=== PATIENT | male | born 1935 | race Caucasian/White ===

== ENCOUNTER → 2016-03-25 | Outpatient (CLI) | payer OTHER ==
[~2016-03-25] MED LIST: ASPEC81 PO; FEXO1TAB46 PO; FINA5TAB4 PO; FLUT0.0529; INSU1INJ23 SQ; ISS/10 PO; LISI-461 PO; LPT40 PO; METO50TA16 PO; MULT-884 PO; NTRGSL/4 UT; TAMS0.4C59 PO; TIZA4TAB3 PO
[2016-03-25 11:54] LABS: ALT/SGPT 19 U/L (12-78); CHOLESTEROL 101 mg/dl (0-200); TRIGLYCERIDES 117 mg/dl (0-150); VERY LOW DENSITY LIPOPROT CALC 23 mg/dl
[2016-03-25 12:04] LABS: CHOLESTEROL/HDL RATIO 2.3; HDL CHOLESTEROL 44 mg/dl; LDL CHOLESTEROL CALCULATED 34 mg/dl
[2016-03-25 12:15] LABS: ESTIMATED AVERAGE GLUCOSE 166 mg/dl; HA1C FLAG Normal (Normal)
[2016-03-25 12:26] LABS: RATIO 14.9 mcg/mg (0-30.0)
== END | disposition home or self-care (01) ==
LOC: C.LAB1850 10:28
PROVIDERS: ATTEND Internal Medicine Endocrinology, Diabetes & Metabolism
DX: E11.65 Type 2 diabetes mellitus with hyperglycemia (principal)

== ENCOUNTER → 2016-05-19 | Outpatient (CLI) | payer OTHER ==
[2016-05-19 09:44] LABS: PATIENT HEIGHT 144.8 cm
[2016-05-19 10:24] LABS: HEMATOCRIT 38.1 % (42-52); MEAN CELL VOLUME 94.5 fL (80-100); MEAN CORPUSCULAR HEMOGLOBIN 32.5 pg (25-34); MEAN CORPUSCULAR HGB CONC 34.4 g/dl (32-36); MEAN PLATELET VOLUME 11.2 fL (7.4-10.4); PLATELET COUNT 170 K/uL (130-400); RED BLOOD COUNT 4.03 M/uL (4.7-6.1); WHITE BLOOD COUNT 6.13 K/uL (4.8-10.8)
[2016-05-19 11:02] LABS: URINE APPEARANCE CLEAR (CLEAR); URINE BILIRUBIN NEG (NEG); URINE COLOR YELLOW; URINE EPITHELIAL CELL AUTO 0-5 /lpf (0-5); URINE NITRITE NEG (NEG); URINE SPECIFIC GRAVITY 1.018 (1.000-1.030); UROBILINOGEN NEG (NEG)
[2016-05-19 11:04] LABS: MANUAL MICROSCOPIC REQUIRED? NO; REVIEW REQ? NO
[2016-05-19 11:11] LABS: ALB/GLOB RATIO 1.1 (0.9-2); BUN/CREATININE RATIO 17.2 (10-20); CALCIUM 8.7 mg/dl (8.5-10.1); CREATININE 1.4 mg/dl (0.60-1.40); POTASSIUM 5.2 mmol/L (3.5-5.1); PROSTATE SPECIFIC ANTIGEN 0.898 ng/ml (0.000-4.000)
[2016-05-19 11:15] LABS: URINE PROTIEN/CREAT RATIO 0.1 (0-0.2); URINE TOTAL PROTEIN 5.3 mg/dl (0-11.9)
[2016-05-19 11:22] LABS: BETA-HYDROXYBUTYRATE 0.74 mg/dL (0.2-2.81)
[2016-05-19 11:37] LABS: URINE TOTAL PROTEIN 9.3 mg/dl (0-11.9)
[2016-05-19 11:46] LABS: URINE TOTAL PROTEIN CALC 116.3 mg/24 hr (0-149.1)
[2016-05-19 11:48] LABS: CREATININE 1.4 mg/dl (0.6-1.4)
== END | disposition home or self-care (01) ==
LOC: C.LAB 09:13
PROVIDERS: ATTEND Internal Medicine Nephrology
DX: D64.9 Anemia, unspecified (principal); N18.3 Chronic kidney disease, stage 3 (moderate); E11.9 Type 2 diabetes mellitus without complications; I12.9 Hypertensive chronic kidney disease with stage 1 through stage 4 chronic kidney disease, or unspecified chronic kidney disease; I73.9 Peripheral vascular disease, unspecified; N40.0 Benign prostatic hyperplasia without lower urinary tract symptoms; R39.198 Other difficulties with micturition

== ENCOUNTER → 2016-05-20 | Outpatient (CLI) | payer OTHER ==
--- NOTE | 2016-05-20 12:44 | DIAGNOSTIC IMAGING REPORT ---
ULTRASOUND KIDNEYS AND BLADDER CLINICAL HISTORY: Hypertension. Peripheral vascular disease. COMPARISON STUDY: Abdominal CT dated 07/01/2015. TECHNIQUE: Real-time, grayscale, and color flow sonography of the kidneys and bladder is performed. Images are reviewed in the transverse and longitudinal planes. FINDINGS: Kidneys: The kidneys demonstrate cortical atrophy and increased cortical echotexture consistent with medical renal disease. The right kidney measures 10.9 x 4.6 x 5.3 cm and the left kidney measures 9.9 x 4.9 x 4.8 cm. There is no hydronephrosis. No shadowing renal calculi are identified. Small left renal cysts measure up to 1.4 cm. There is no sonographic evidence of contour deforming renal mass lesion. No perinephric fluid is identified. Bladder: There is median lobe hypertrophy of the prostate gland. The bladder wall appears thickened and trabeculated suggesting chronic outlet obstruction. Bilateral ureteral jets were seen. IMPRESSION: 1. Findings are consistent with medical renal disease. There is no hydronephrosis. 2. Prostatomegaly with evidence of chronic bladder outlet obstruction. Electronically signed by: Jaden Baltazar M.D. 05/20/2016 12:42 PM Dictated Date/Time: 05/20/2016 12:40 PM
== END | disposition home or self-care (01) ==
LOC: C.ULTR 12:01
PROVIDERS: ATTEND Internal Medicine Nephrology
DX: D64.9 Anemia, unspecified (principal); N18.3 Chronic kidney disease, stage 3 (moderate); I12.9 Hypertensive chronic kidney disease with stage 1 through stage 4 chronic kidney disease, or unspecified chronic kidney disease; I73.9 Peripheral vascular disease, unspecified; N40.0 Benign prostatic hyperplasia without lower urinary tract symptoms

== ENCOUNTER → 2016-10-17 | Outpatient (CLI) | payer OTHER ==
[2016-10-17 16:58] LABS: HEMATOCRIT 40.3 % (42-52); MEAN CELL VOLUME 97.3 fL (80-100); MEAN CORPUSCULAR HEMOGLOBIN 32.6 pg (25-34); MEAN CORPUSCULAR HGB CONC 33.5 g/dl (32-36); MEAN PLATELET VOLUME 10.8 fL (7.4-10.4); PLATELET COUNT 210 K/uL (130-400); RED BLOOD COUNT 4.14 M/uL (4.7-6.1)
[2016-10-17 17:11] LABS: BLOOD UREA NITROGEN 23 mg/dl (7-18); BUN/CREATININE RATIO 17.8 (10-20); CALCIUM 9.5 mg/dl (8.5-10.1); CARBON DIOXIDE 28 mmol/L (21-32); CHLORIDE 103 mmol/L (98-107); GLUCOSE 211 mg/dl (70-99); POTASSIUM 4.5 mmol/L (3.5-5.1); SODIUM 136 mmol/L (136-145)
[2016-10-17 17:12] LABS: PHOSPHORUS 2.7 mg/dl (2.5-4.9)
[2016-10-17 17:28] LABS: URINE PROTIEN/CREAT RATIO 0.1 (0-0.2); URINE TOTAL PROTEIN 9.8 mg/dl (0-11.9)
[2016-10-17 17:31] LABS: URINE APPEARANCE CLEAR (CLEAR); URINE BILIRUBIN NEG (NEG); URINE COLOR YELLOW; URINE EPITHELIAL CELL AUTO 0-5 /lpf (0-5); URINE NITRITE NEG (NEG); URINE PH 5.5 (4.5-7.5); URINE SPECIFIC GRAVITY 1.023 (1.000-1.030); UROBILINOGEN NEG (NEG)
[2016-10-17 17:33] LABS: MANUAL MICROSCOPIC REQUIRED? NO; REVIEW REQ? NO
[2016-10-17 18:29] LABS: ESTIMATED AVERAGE GLUCOSE 197 mg/dl; HA1C FLAG Normal (Normal)
== END | disposition home or self-care (01) ==
LOC: C.LABBFT 12:18
PROVIDERS: ATTEND Internal Medicine Nephrology
DX: I10 Essential (primary) hypertension (principal); D64.9 Anemia, unspecified; N18.3 Chronic kidney disease, stage 3 (moderate); E55.9 Vitamin D deficiency, unspecified; E21.3 Hyperparathyroidism, unspecified; E11.9 Type 2 diabetes mellitus without complications

== ENCOUNTER → 2017-02-12 | Outpatient (CLI) | payer OTHER ==
[2017-02-12 12:30] LABS: HEMATOCRIT 39.5 % (42-52); HEMOGLOBIN 13.3 g/dL (14.0-18.0); MEAN CORPUSCULAR HGB CONC 33.7 g/dl (32-36); MEAN PLATELET VOLUME 10.4 fL (7.4-10.4); PLATELET COUNT 219 K/uL (130-400); RED CELL DISTRIBUTION WIDTH CV 13.4 % (11.5-14.5); RED CELL DISTRIBUTION WIDTH SD 48.6 fL (36.4-46.3); WHITE BLOOD COUNT 7.75 K/uL (4.8-10.8)
[2017-02-12 13:11] LABS: HEMOGLOBIN A1C 8.2 % (4.5-5.6)
[2017-02-12 14:26] LABS: ALBUMIN 3.8 gm/dl (3.4-5.0); ALT/SGPT 24 U/L (12-78); AST/SGOT 22 U/L (15-37); BLOOD UREA NITROGEN 21 mg/dl (7-18); CALCIUM 9.3 mg/dl (8.5-10.1); CARBON DIOXIDE 24 mmol/L (21-32); CHOLESTEROL 110 mg/dl (0-200); CREATININE 1.37 mg/dl (0.60-1.40); GLUCOSE 161 mg/dl (70-99); POTASSIUM 4.2 mmol/L (3.5-5.1); SODIUM 135 mmol/L (136-145)
[2017-02-12 14:30] LABS: ALKALINE PHOSPHATASE 68 U/L (45-117); LDL CHOLESTEROL CALCULATED 45 mg/dl; TOTAL PROTEIN 7.3 gm/dl (6.4-8.2)
== END | disposition home or self-care (01) ==
LOC: C.LABBFT 09:01
PROVIDERS: ATTEND Internal Medicine
DX: E11.9 Type 2 diabetes mellitus without complications (principal); I51.9 Heart disease, unspecified; E78.5 Hyperlipidemia, unspecified; N18.9 Chronic kidney disease, unspecified; W57.XXXA Bitten or stung by nonvenomous insect and other nonvenomous arthropods, initial encounter

== ENCOUNTER → 2017-03-18 | Outpatient (CLI) | payer OTHER ==
--- NOTE | 2017-03-18 12:33 | DIAGNOSTIC IMAGING REPORT ---
ABDOMEN FOR HERNIA CLINICAL HISTORY: 81 years-old Male presenting with Z98.890 History of inguinal hernia [id number] Unilateral groin. TECHNIQUE: Real-time grayscale ultrasound imaging of the right inguinal region was performed for a focused evaluation for inguinal hernia. Color Doppler was also performed. COMPARISON: CT from 07/01/2015. FINDINGS: At the site of clinical concern, no sonographic evidence of inguinal hernia. Several benign-appearing lymph nodes noted in the right inguinal region. No focal fluid collection. IMPRESSION: 1. No sonographic evidence of right inguinal hernia. Electronically signed by: Jorge Strickland M.D. 03/18/2017 12:32 PM Dictated Date/Time: 03/18/2017 12:31 PM
== END | disposition home or self-care (01) ==
LOC: C.ULTR 11:26
PROVIDERS: ATTEND Internal Medicine
DX: R10.30 Lower abdominal pain, unspecified (principal); Z98.890 Other specified postprocedural states

== ENCOUNTER 2021-12-12 00:17 | Inpatient (IN) ==
[2021-12-12] MEDS ORDERED: SODIUM CHLORIDE 0.9% 500 ML IV ONE (01:56)
[2021-12-12] MEDS ORDERED: ONDANSETRON INJ 2 MG/ML 2 ML VIAL IV STA (01:57)
[2021-12-12 02:17] LABS: Basophils # (auto) 0.04 K/uL (0-0.2); Basophils % (auto) 0.4 %; Eosinophils # (auto) 0.18 K/uL (0-0.50); Eosinophils % (auto) 1.6 %; Hematocrit (blood only) 44.6 % (40.1-51.0); Hemoglobin 15.6 g/dl (14.0-18.0); Immature Granulocytes # (auto) 0.05 K/uL (0.00-0.02); Immature Granulocytes % (auto) 0.4 %; Lymphocytes % (auto) 32.8 %; Mean Corpuscular Hemoglobin 32.8 pg (25.0-34.0); Mean Corpuscular Volume 93.7 fL (80.0-100.0); Monocytes # (auto) 0.37 K/uL (0.24-0.82); Monocytes % (auto) 3.3 %; Neutrophils # (auto) 6.93 K/uL (1.4-6.5); Neutrophils % (auto) 61.5 %; Platelet Count 350 K/uL (130-400); RDW Coefficient of Variation 12.8 % (11.5-14.5); Red Blood Count 4.76 M/uL (4.63-6.08); White Blood Count 11.27 K/ul (4.8-10.8)
[2021-12-12 02:35] LABS: Troponin I High Sensitivity 8.3 pg/ml (0-20)
[2021-12-12 02:46] LABS: BUN Creatinine Ratio 21.2 (10-20); Bilirubin Direct 0.2 mg/dl (0-0.2); Creatinine Clr Calc Pharmacy 21.2 ml/min; Est GFR (African American) 41.7 ml/min; Magnesium 2.6 mg/dl (1.7-2.4); Potassium 3.4 mmol/L (3.5-5.1); Total Protein 7.3 gm/dl (6.0-8.3)
[2021-12-12 03:48] LABS: Appearance Urine Turbid (Clear); Bacteria Urine Automated Negative (Negative); Blood Urine 3+ (Negative); Color Urine Orange; Glucose Urine UA 3+ (Negative); Ketones Urine Trace (Negative); Leukocyte Esterase Urine 2+ (Negative); Nitrite Urine Positive (Negative); Protein Urine 4+ (Negative); RBC Urine Automated >30 /hpf (0-4); Specific Gravity Urine 1.028 (1.000-1.030); Urobilinogen Urine Negative (Negative); WBC Urine Automated >30 /hpf (0-5); pH Urine 6.5 (4.5-7.5)
[2021-12-12 03:54] LABS: Bilirubin Urine 1+ (Negative)
[2021-12-12] MEDS ORDERED: cefTRIAXone SODIUM 1,000 MG/50 ML BAG IV STA (03:56)
[2021-12-12] MEDS ORDERED: NovoLIN-R INSULIN PER UNIT CHARGE IV STA (04:32)
[2021-12-12] MEDS ORDERED: SODIUM CHLORIDE 0.9% 1000ML 1,000 ML IV SCH (04:33)
[2021-12-12] MEDS ORDERED: ONDANSETRON INJ 2 MG/ML 2 ML VIAL IV PRN (04:46)
--- NOTE | 2021-12-12 05:25 | History & Physical Report ---
Date of Service December 12, 2021 Assessment & Plan (1) Hyperglycemia: Plan: 86yo male with poorly controlled diabetes presenting with hyperglycemia. Patient with poorly controlled DM - last [id number]=82.9 on 06/07/21, on insulin therapy at home with non-adherence to home regimen. Uncertain when he last took his insulin. He has elevated blood sugar of 606 on arrival - improved to 503 after 500mL NSS given in ER. He does have an anion-gap metabolic acidosis with gap of 18. Normal serum bicarbonate at 21. -Admit to PCU -Check VBG -Check serum osmolality -Insulin gtt, goal blood sugar 110 - 180 -Continue crystalloid infusion - Normosol at 100mL/hr -Monitor BSG q hourly -Repeat BMP and VBG Elevated anion gap may be secondary to elevated lactate, worsening renal function. Serum bicarbonate is normal at 21 making DKA less likely -Check VBG -Check serum osmolality (2) Abdominal pain: Plan: Patient complaining of severe abdominal pain as well as nausea and multiple episodes of emesis as well as constipation - last normal BM appx 1 week ago. Abdomen is tender to palpation with voluntary guarding. Elevated lactate level raises concern for possible bowel ischemia given tenderness, possible obstruction, impaction, constipation. -Check lipase -Repeat lactate pending -Check CT of the abdomen with IV contrast -IVF and electrolyte management -Bowel regimen (3) UTI (urinary tract infection): Plan: Urinalysis suggestive of infection. Patient reports difficulty urinating. -Bladder scan and catheterization as needed -Follow urine cultures -Continue Ceftriaxone 1gm IV daily - first dose received in ER at 04:45 (4) CKD (chronic kidney disease): Plan: Patient with TANYA on CKD. Baseline Cr of 1.2 - 1.3, presently 1.7. He is reporting difficulty with urination. Appears very dry on exam -IVF resuscitation -Monitor UOP -Monitor renal function, electrolytes -Straight cath as needed -Avoid nephrotoxic agents - Hold Lisinopril -Renal dosing where needed (5) Arteriosclerosis of coronary artery: Plan: Patient denies chest pain. Troponin = 8.3. EKG with RBBB present, new from 2016 -Continue ASA -Continue Atorvastatin (6) HTN (hypertension): Plan: History of HTN. Blood pressure presently 100/86 -Hold lisinopril in setting of TANYA on CKD -Montior BP (7) Hyperlipidemia: Plan: Chronic -Continue Atorvastatin (8) Benign prostatic hyperplasia: Plan: Chronic -Continue Finasteride -Bladder scan as needed -Monitor UOP F/E/N - Normosol at 100mL/hr, monitor electrolytes, will hold off on K supplementation for now in setting of worsening renal function - K=3.4, h ypercalcemia with Ca=11, normal Albumin, check ICal Ppx - Heparin Code - Full code per discussion with daughters and patient Dispo - Admit to PCU History of Present Illness Chief Complaint: illness Primary Care Provider: Vanessa Schwab MD Joey Stark is an 86yo male with multiple medical comorbidities to include HTN, HLP, DM, CKD, BPH, CAD presenting with abdominal pain, nausea and vomiting. Patient does not provide much history. Daughters are at bedside and assist with history. Patient has not been doing well for the last 1-2 weeks. He has been complaining of dizziness. He has also had 3-4 days of progressively worsening abdominal pain. His pain is located mostly in the upper abdomen. He has nausea and has had several episodes of liquid emesis. He has not eaten much in the last several days. Has had constipation as well, no BM for approximately 1 week. He has been taking laxatives at home with no effect. States he is passing gas. Also complaining of back pain ongoing for the last several days and difficulty u rinating. Daughters state that he has had diffuse generalized pain as well as some confusion as well. He has not been taking his medications and his blood sugars have been very high at home. He denies chest pain, cough, SOB, rash, fever or chills. Upon arrival to the ER patient is tachypneic with RR of 25, HR elevated at 96. Exam as below, abdomen is very tender to touch with voluntary guarding. Patient with nausea, had episode of emesis. Labs as below - significant for leukocytosis with WBC=11.27 He has elevated BUN and Cr from baseline as well as AG of 18 and BSG of 606 Lactate=5.9 ER Course: NSS x 500mL, Zofran 4mg IV, Ceftriaxone 1gm Allergies Allergy/AdvReac Type Severity Reaction Status Date / Time pollen extracts Allergy Unknown coughing/sn Verified 06/07/21 14:12 eezing doxycycline AdvReac Verified 06/07/21 14:12 Home Medications Medication Instructions Recorded Confirmed Type aspirin 81 mg tablet,delayed 81 mg PO QAM 03/05/18 06/07/21 History release fexofenadine 180 mg tablet 180 mg PO HS 03/05/18 06/07/21 History multivitamin 1 tab PO QAM 03/05/18 06/07/21 History nitroglycerin 0.4 mg sublingual See Rx Instructions .Route .COMPLEX 09/14/18 06/07/21 History tablet fluticasone propionate 50 2 spray intranasal DAILY #50 mcg 03/21/20 06/07/21 Rx mcg/actuation nasal spray,suspension (Flonase Allergy Relief) atorvastatin 40 mg tablet 40 mg PO DAILY #90 tabs 09/19/20 06/07/21 Rx ergocalciferol (vitamin D2) 1,250 50,000 unit PO MONTHLY #3 caps 06/08/21 Rx mcg (50,000 unit) capsule (Vitamin D2) lancets 30 gauge (OneTouch Delica #25 ea 06/11/21 History Lancets) flash glucose scanning reader #1 ea 06/29/21 Rx (FreeStyle Eli 14 Day [place]) flash glucose sensor (FreeStyle #1 ea 06/29/21 Rx Eli 14 Day Sensor kit) insulin NPH isoph U-100 human 100 See Rx Instructions .Route 08/06/21 Rx unit/mL (3 mL) subcutaneous pen .COMPLEX #15 mL (Novolin N Flexpen) pen needle, diabetic 31 gauge x #200 ea 10/19/21 Rx 5/16" (Lite Touch Insulin Pen [place]) lisinopril 2.5 mg tablet 2.5 mg PO DAILY #90 tabs 11/05/21 Rx blood sugar diagnostic (OneTouch #100 ea 11/16/21 Rx Verio test strips) blood-glucose meter (OneTouch #1 ea 11/16/21 Rx Verio Meter) finasteride 5 mg tablet 5 mg PO DAILY #90 tabs 11/26/21 Rx Past Med/Surg History Medical History Anxiety Arteriosclerosis of coronary artery remote (>20 years ago) h/o [place] Benign prostatic hyperplasia Carotid artery stenosis CKD (chronic kidney disease) Diabetes mellitus with insulin therapy HTN (hypertension) Hyperlipidemia Hyperparathyroidism Peripheral vascular disease Seborrheic keratosis Transient ischemic attack Vitamin D deficiency Surgical History Hx of endarterectomy Left carotid endarterectomy Hx of hernia repair Hx of right knee surgery Family History Father Coronary heart disease Hypertension Mother Coronary heart disease Diabetes Hypertension Heart disease Brother Diabetes Sister Diabetes Grandmother Hearing loss Daughter Asthma Other Allergies Social History Smoking Status: Current every day smoker Tobacco Type: Cigarettes Age Started Using Tobacco: 14; packs per day: 0.5; Years Smoked: 69; Cigarettes Per Day: 10; Second Hand Exposure: No; Hx Alcohol Use: No Hx Substance Use: No Preferred Language: Green[place]ic Communication Ability: Impaired Hearing Ability: Use of Hearing Aid marital status: Current Living Situation: Spouse current occupational status: retired Feels Safe at Home: Yes Seatbelt Use: always Sunscreen Use: No Review of Systems Review of Systems: All systems reviewed & are unremarkable except as noted in HPI & below Physical Exam Physical Exam: General: patient ill in appearance, NAD, very hard of hearing - hears better out of left ear Skin: warm, dry, intact, no rashes or lesions HEENT: NC/AT, PERRL, EOMI, anicteric sclera, conjunctiva without injection, external ear normal to inspection and nontender, nares patent, DRY mucus membranes, dentition intact, no oropharyngeal lesions, neck supple, trachea midline, no LAD, no thyromegaly, no JVD Heart: +S1/S2, regular, tachycardic, no m/r/g Lungs: equal air entry bilaterally, no rales/rhonchi/wheezes Abd: Diminished bowel sounds, abdomen soft, non-distended, tender to palpation with voluntary guarding Ext: warm, 2+ pulses in UE/LE bilaterally, no clubbing/cyanosis or edema, contractures of bilateral hands Neuro: nonfocal, patient hard of hearing, answers questions and follows commands, moves extremities equally bilaterally Results & Data Results & Data ([facility]) Vital Signs (Past 12 Hours) Vital Signs Pulse Pulse Resp BP BP Pulse Ox O2 Del Method 12/12/21 03:29 100 H 23 164/98 H 93 Room Air 12/12/21 03:00 101 H 23 167/106 H 93 Room Air 12/12/21 02:14 94 H 25 H 144/90 H 95 Room Air 12/12/21 02:10 98 H 26 H 94 Room Air 12/12/21 01:03 80 25 H 100/65 94 Room Air 12/12/21 00:24 96 H 16 139/41 L 98 Room Air Laboratory Results Laboratory Results WBC 11.27 K/ul (4.8-10.8) H 12/12/21 00:25 RBC 4.76 M/uL (4.63-6.08) 12/12/21 00:25 Hgb 15.6 g/dl (14.0-18.0) 12/12/21 00:25 Hct 44.6 % (40.1-51.0) 12/12/21 00:25 MCV 93.7 fL (80.0-100.0) 12/12/21 00:25 MCH 32.8 pg (25.0-34.0) 12/12/21 00:25 MCHC 35.0 g/dL (32.0-36.0) 12/12/21 00:25 RDW Std Deviation 44.0 fL (36.4-46.3) 12/12/21 00:25 RDW Coeff of Sunday 12.8 % (11.5-14.5) 12/12/21 00:25 Plt Count 350 K/uL (130-400) 12/12/21 00:25 MPV 11.0 fL (9.4-12.4) 12/12/21 00:25 Immature Gran % (Auto) 0.4 % 12/12/21 00:25 Neut % (Auto) 61.5 % 12/12/21 00:25 Lymph % (Auto) 32.8 % 12/12/21 00:25 [place] % (Auto) 3.3 % 12/12/21 00:25 Eos % (Auto) 1.6 % 12/12/21 00:25 Baso % (Auto) 0.4 % 12/12/21 00:25 Neut # (Auto) 6.93 K/uL (1.4-6.5) H 12/12/21 00:25 Lymph # (Auto) 3.70 K/uL (1.2-3.4) H 12/12/21 00:25 [place] # (Auto) 0.37 K/uL (0.24-0.82) 12/12/21 00:25 Eos # (Auto) 0.18 K/uL (0-0.50) 12/12/21 00:25 Baso # (Auto) 0.04 K/uL (0-0.2) 12/12/21 00:25 Immature Gran # (Auto) 0.05 K/uL (0.00-0.02) H 12/12/21 00:25 Sodium 133 mmol/L (136-145) L 12/12/21 00:25 Potassium 3.4 mmol/L (3.5-5.1) L 12/12/21 00:25 Chloride 94 mmol/L (98-107) L 12/12/21 00:25 Carbon Dioxide 21 mmol/L (21-32) 12/12/21 00:25 Anion Gap 18 (3-11) H 12/12/21 00:25 BUN 36 mg/dl (6-23) H 12/12/21 00:25 Creatinine 1.70 mg/dl (0.6-1.4) H 12/12/21 00:25 Est Cr Clr Drug Dosing 21.2 ml/min 12/12/21 00:25 Est GFR ( Amer) 41.7 ml/min 12/12/21 00:25 Est GFR (Non-Af Amer) 36.0 ml/min 12/12/21 00:25 BUN/Creatinine Ratio 21.2 (10-20) H 12/12/21 00:25 Glucose 606 mg/dl (70-99(Fasting)) H* 12/12/21 00:25 POC Glucose 503 mg/dl (70-99) H* 12/12/21 00:25 Lactate 5.9 mmol/L (0.4-2.0) H* 12/12/21 02:27 Calcium 11.0 mg/dl (8.5-10.1) H 12/12/21 00:25 Magnesium 2.6 mg/dl (1.7-2.4) H 12/12/21 00:25 Total Bilirubin 1.0 mg/dl (0.2-1.0) 12/12/21 00:25 Direct Bilirubin 0.2 mg/dl (0-0.2) 12/12/21 00:25 AST 18 U/L (13-39) 12/12/21 00:25 ALT 12 U/L (7-52) 12/12/21 00:25 Alkaline Phosphatase 93 U/L (34-104) 12/12/21 00:25 Troponin I High Sens 8.3 pg/ml (0-20) 12/12/21 00:25 Total Protein 7.3 gm/dl (6.0-8.3) 12/12/21 00:25 Albumin 4.0 gm/dl (3.4-5.0) 12/12/21 00:25 Procalcitonin 0.10 ng/ml (0-0.5) 12/12/21 00:25 Urine Color [place] 12/12/21 00:50 Urine Appearance Turbid (Clear) A 12/12/21 00:50 Urine pH 6.5 (4.5-7.5) 12/12/21 00:50 Ur Specific [place] 1.028 (1.000-1.030) 12/12/21 00:50 Urine Protein 4+ (Negative) H 12/12/21 00:50 Urine Glucose (UA) 3+ (Negative) H 12/12/21 00:50 Urine Ketones Trace (Negative) H 12/12/21 00:50 Urine Blood 3+ (Negative) H 12/12/21 00:50 Urine Nitrite Positive (Negative) A 12/12/21 00:50 Urine Bilirubin 1+ (Negative) H 12/12/21 00:50 Urine Urobilinogen Negative (Negative) 12/12/21 00:50 Ur Leukocyte Esterase 2+ (Negative) H 12/12/21 00:50 Urine WBC (Auto) >30 /hpf (0-5) H 12/12/21 00:50 Urine RBC (Auto) >30 /hpf (0-4) H 12/12/21 00:50 U Hyaline Cast (Auto) 1-5 /lpf (0-5) 12/12/21 00:50 U Epithel Cells (Auto) 10-20 /lpf (0-5) H 12/12/21 00:50 Urine Bacteria (Auto) Negative (Negative) 12/12/21 00:50 Urine Yeast Not Reportable 12/12/21 00:50 SARS-CoV-2, RNA, NAAT NEGATIVE (NEGATIVE) 12/12/21 02:10 ECG Additional Comments: EKG with SR at 96bpm with PACs, CE=185, DPT=704, BCb=342, RBBB present new from 2016 study PG Care Time/CCT Total # of Minutes Spent Total Time Spent with Patient: Total time spent is greater than 50% in coordination of care (as documented) at patient's floor/unit and/or counseling patient: Coding Diagnoses Hyperglycemia R73.9 Abdominal pain R10.9 UTI (urinary tract infection) N39.0 CKD (chronic kidney disease) N18.9 Arteriosclerosis of coronary artery I25.10 HTN (hypertension) I10 Hyperlipidemia E78.5 Benign prostatic hyperplasia N40.0
[2021-12-12] MEDS ORDERED: OPTIRAY 350 100ml IV ONE (05:29)
[2021-12-12] MEDS: SODIUM CHLORIDE 0.9% 500 ML IV SCH ×2 (08:01→10:30)
--- NOTE | 2021-12-12 08:01 | Emergency Department Note ---
Impression & Plan Acute hyperglycemia, Acute UTI, Acute constipation, Acute renal insufficiency, Vomiting Admit to the [facility] ED Provider Note NAME: MELANIE LAMAS AGE: 86 SEX: M ARRIVES VIA: Ambulance INFORMANT: Patient and his daughters ED PROVIDER(S): Zena Rogers DO CHIEF COMPLAINT: Constipation and vomiting PLAN: Disposition: Admit to the [facility] Condition: Guarded MEDICAL DECISION MAKING: This is an 86-year-old male patient with a history of diabetes who presents to the emergency department with constipation and vomiting. According to the daughters who are at the bedside, the patient has had elevated blood sugar readings at home and has been unable to move his bowels over the past couple of days. The patient's contacted the daughter stating that he has been unable to urinate and has been describing pain all over. He was on the toilet tonight and unable to get off. The patient has been in bed frequently not taking much liquids or food. He has had increased sleep. He had 2 episodes of vomiting today of dark fluids. Here in the emergency department, patient was noted to have a blood sugar greater than 600 and appeared quite dehydrated on physical exam. The patient was thirsty and was able to drink clear liquids with no further episodes of vomiting. He did provide a urine specimen which appears to be infected. He was treated with IV fluids and Rocephin. The patient does live with his . It is unclear if he has been taking his medications, including his insulin correctly. I discussed the case with the [facility]ist and they will evaluate for further management. Triage Nursing notes reviewed and agree with them. Additional history obtained from the daughters who are at the bedside Prior medical records reviewed Vital Signs: reviewed and unremarkable Differential diagnosis: Acute kidney injury, hyperglycemia, hypoglycemia, sepsis, UTI, bowel obstruction ER treatment provided: IV normal saline bolus IV Rocephin Diagnostics interpreted by me: ECG: Normal sinus rhythm at a rate of 96 with a right bundle branch block. There is no ST segment elevation or signs of ischemia. There is no ectopy. Cardiac Monitoring: Normal sinus rhythm at 89 Laboratory studies: See below Imaging studies: As per my interpretation Portable chest x-ray: No obvious pulmonary infiltrate or consolidation HPI: 86/M arrives for evaluation of constipation and vomiting. ROS: See above HPI for pertinent positives & negatives. A total of 10 systems reviewed and were otherwise negative. According to the daughters who are at the bedside, the patient has had elevated blood sugar readings at home and has been unable to move his bowels over the past couple of days. The patient's contacted the daughter stating that he has been unable to urinate and has been describing pain all over. He was on the toilet tonight and unable to get off. The patient has been in bed frequently not taking much liquids or food. He has had increased sleep. He had 2 episodes of vomiting today of dark fluids. PAST MEDICAL HISTORY:See Below PAST SURGICAL HISTORY:See Below FAMILY HISTORY:See Below SOCIAL HISTORY:See Below HOME MEDICATIONS:See list ALLERGIES:See list VITALS:See Below PHYSICAL EXAMINATION: HEENT: Head - normocephalic and atraumatic. Pupils are equal, round, and reac tive to light. Extraocular eye muscles are intact, and sclera are anicteric. Nose -dry nasal mucosa without discharge. Mouth -dry buccal mucosa. Oropharynx is nonerythematous and there is no tonsillar exudate or edema noted. Neck: Supple; no JVD, nuchal rigidity, cervical lymphadenopathy, or auscultated bruits. Heart: Regular rate and rhythm. There is a normal S1 and S2 with no murmurs, clicks, or gallops appreciated. Lungs: Clear to auscultation bilaterally with no wheezes, rales, or rhonchi. Abdomen: Soft, moderately distended but mildly tender with good bowel sounds. There are no palpable pulsatile masses or hepatosplenomegaly. There is no guarding, rigidity, or rebound noted. Extremities: No evidence of cyanosis, clubbing, or edema. There are easily palpable peripheral pulses. Skin: Warm and extremely dry with good turgor and no rashes. ED COURSE: Times/Reassessments: 140: Patient was evaluated in room before. A complete history and physical was performed. A septic protocol was performed. An order was placed for continuous cardiac monitoring. The patient was in a normal sinus rhythm at a rate of 89. A twelve-lead EKG was obtained. The patient was bolused with IV normal saline solution. He had a portable chest x-ray performed which was unremarkable. Urine specimen was obtained. It a ppears to be infected. The patient was given a dose of IV Rocephin. Patient was significantly hyperglycemic. He was started on an IV normal saline drip. I discussed the case with the [facility] Hospitalist and they will evaluate for further management. Zena Rogers DO Past Med/Surg History Medical History (Updated 12/12/21 @ 21:40 by Zena Rogers DO) Anxiety Aortoiliac occlusive disease Arteriosclerosis of coronary artery remote (>20 years ago) h/o [place] Benign prostatic hyperplasia Carotid artery stenosis CKD (chronic kidney disease) Diabetes mellitus with insulin therapy HTN (hypertension) Hyperlipidemia Hyperparathyroidism Peripheral vascular disease Seborrheic keratosis Transient ischemic attack Vitamin D deficiency Surgical History Hx of endarterectomy Left carotid endarterectomy Hx of hernia repair Hx of right knee surgery Family History Father Coronary heart disease Hypertension Mother Coronary heart disease Diabetes Hypertension Heart disease Brother Diabetes Sister Diabetes Grandmother Hearing loss Daughter Asthma Other Allergies Social History Smoking Status: Current every day smoker Tobacco Type: Cigarettes Age Started Using Tobacco: 14; packs per day: 0.5; Years Smoked: 69; Cigarettes Per Day: 1 to 1 and a half packs; Second Hand Exposure: Yes; Do You Dip or Chew Tobacco: No; Tobacco Cessation Education Requested by Patient: No Hx Alcohol Use: Yes Alcohol type: beer and hard liquor Hx Substance Use: No Preferred Language: [place] Islander Communication Ability: Impaired Hearing Ability: Use of Hearing Aid Compressor House Operator Required: No Beliefs That Will Affect Care: None marital status: Current Living Situation: Spouse current occupational status: retired Other Information That Helps Us Care for You: No Feels Safe at Home: Yes Safety Concerns: Feels Safe At This Time Seatbelt Use: always Sunscreen Use: No Assistive Devices: Glasses Allergies Allergies Allergy/AdvReac Type Severity Reaction Status Date / Time pollen extracts Allergy Unknown coughing/sn Verified 06/07/21 14:12 eezing doxycycline AdvReac Verified 06/07/21 14:12 Home Meds Home Medications Medication Instructions Recorded Confirmed aspirin 81 mg tablet,delayed 81 mg PO QAM 01/24/19 04/28/22 release fexofenadine 180 mg tablet 180 mg PO HS 03/05/18 06/07/21 multivitamin 1 tab PO QAM 03/05/18 06/07/21 nitroglycerin 0.4 mg sublingual See Rx Instructions .Route .COMPLEX 09/14/18 06/07/21 tablet lancets 30 gauge (80/20 SolutionsTouch Sunitha #25 ea 06/11/21 Lancets) Previous Rx's Medication Instructions Recorded fluticasone propionate 50 2 spray intranasal DAILY #50 mcg 03/21/20 mcg/actuation nasal spray,suspension (Flonase Allergy Relief) atorvastatin 40 mg tablet 40 mg PO DAILY #90 tabs 09/19/20 ergocalciferol (vitamin D2) 1,250 50,000 unit PO MONTHLY #3 caps 06/08/21 mcg (50,000 unit) capsule (Vitamin D2) flash glucose scanning reader #1 ea 06/29/21 (Food52Style Eli 14 Day Wilmer) flash glucose sensor (Food52Style #1 ea 06/29/21 Eli 14 Day Sensor kit) insulin NPH isoph U-100 human 100 See Rx Instructions .Route 08/06/21 unit/mL (3 mL) subcutaneous pen .COMPLEX #15 mL (Novolin N Flexpen) pen needle, diabetic 31 gauge x #200 ea 10/19/21 5/16" (Lite Touch Insulin Pen [place]) lisinopril 2.5 mg tablet 2.5 mg PO DAILY #90 tabs 11/05/21 blood sugar diagnostic (OneTouch #100 ea 11/16/21 Verio test strips) blood-glucose meter (OneTouch #1 ea 11/16/21 Verio Meter) finasteride 5 mg tablet 5 mg PO DAILY #90 tabs 11/26/21 Results & Data (ED) Vital Signs Vital Signs - 24 hr 12/12/21 00:24 12/12/21 01:03 12/12/21 02:10 Pulse Rate 96 H 98 H Pulse Rate [Apical] 80 Pulse Rhythm Regular Pulse Strength Normal Respiratory Rate 16 25 H 26 H Respiratory Effort / Characteristics Non-Labored Spontaneous Spontaneous Respiratory Depth Normal Respiratory Pattern Regular Regular Blood Pressure 139/41 L Blood Pressure [Right Arm] 100/65 Blood Pressure Mean 73 Blood Pressure Mean [Right Arm] 76 Blood Pressure Position Lying Blood Pressure Position [Right Arm] Lying Pulse Oximetry 98 94 94 Oxygen Delivery Method Room Air Room Air Room Air Sepsis Recent Fever Within 48 Hours No Sepsis New/Unexplained Change in Mental Status Yes Sepsis Action Taken by Nursing No Action Required 12/12/21 02:14 12/12/21 03:00 12/12/21 03:29 Pulse Rate Pulse Rate [Apical] 94 H 101 H 100 H Pulse Rhythm Pulse Strength Respiratory Rate 25 H 23 23 Respiratory Effort / Characteristics Spontaneous Spontaneous Spontaneous Respiratory Depth Respiratory Pattern Regular Regular Regular Blood Pressure Blood Pressure [Right Arm] 144/90 H 167/106 H 164/98 H Blood Pressure Mean Blood Pressure Mean [Right Arm] 108 126 120 Blood Pressure Position Blood Pressure Position [Right Arm] Pulse Oximetry 95 93 93 Oxygen Delivery Method Room Air Room Air Room Air Sepsis Recent Fever Within 48 Hours Sepsis New/Unexplained Change in Mental Status Sepsis Action Taken by Nursing 12/12/21 05:09 12/12/21 06:08 Pulse Rate Pulse Rate [Apical] 97 H 94 H Pulse Rhythm Pulse Strength Respiratory Rate 20 26 H Respiratory Effort / Characteristics Non-Labored Spontaneous Spontaneous Respiratory Depth Normal Respiratory Pattern Regular Regular Blood Pressure Blood Pressure [Right Arm] 100/86 171/102 H Blood Pressure Mean Blood Pressure Mean [Right Arm] 90 125 Blood Pressure Position Blood Pressure Position [Right Arm] Pulse Oximetry 97 96 Oxygen Delivery Method Room Air Room Air Sepsis Recent Fever Within 48 Hours Sepsis New/Unexplained Change in Mental Status Sepsis Action Taken by Nursing Laboratory Data Result diagrams: 12/12/21 00:25 12/12/21 09:47 Lab Results 12/12/21 12/12/21 12/12/21 Range/Units 00:25 00:25 00:25 WBC 11.27 H (4.8-10.8) K/ul RBC 4.76 (4.63-6.08) M/uL Hgb 15.6 (14.0-18.0) g/dl Hct 44.6 (40.1-51.0) % MCV 93.7 (80.0-100.0) fL MCH 32.8 (25.0-34.0) pg MCHC 35.0 (32.0-36.0) g/dL RDW Std Deviation 44.0 (36.4-46.3) fL RDW Coeff of Sunday 12.8 (11.5-14.5) % Plt Count 350 (130-400) K/uL MPV 11.0 (9.4-12.4) fL Immature Gran % (Auto) 0.4 % Neut % (Auto) 61.5 % Lymph % (Auto) 32.8 % [place] % (Auto) 3.3 % Eos % (Auto) 1.6 % Baso % (Auto) 0.4 % Neut # (Auto) 6.93 H (1.4-6.5) K/uL Lymph # (Auto) 3.70 H (1.2-3.4) K/uL [place] # (Auto) 0.37 (0.24-0.82) K/uL Eos # (Auto) 0.18 (0-0.50) K/uL Baso # (Auto) 0.04 (0-0.2) K/uL Immature Gran # (Auto) 0.05 H (0.00-0.02) K/uL Sodium 133 L (136-145) mmol/L Potassium 3.4 L (3.5-5.1) mmol/L Chloride 94 L (98-107) mmol/L Carbon Dioxide 21 (21-32) mmol/L Anion Gap 18 H (3-11) BUN 36 H (6-23) mg/dl Creatinine 1.70 H (0.6-1.4) mg/dl Est Cr Clr Drug Dosing 21.2 ml/min Est GFR ( Amer) 41.7 ml/min Est GFR (Non-Af Amer) 36.0 ml/min BUN/Creatinine Ratio 21.2 H (10-20) Glucose 606 H* (70-99(Fasting)) mg/dl POC Glucose 503 H* (70-99) mg/dl Lactate (0.4-2.0) mmol/L Calcium 11.0 H (8.5-10.1) mg/dl Magnesium 2.6 H (1.7-2.4) mg/dl Total Bilirubin 1.0 (0.2-1.0) mg/dl Direct Bilirubin 0.2 (0-0.2) mg/dl AST 18 (13-39) U/L ALT 12 (7-52) U/L Alkaline Phosphatase 93 (34-104) U/L Troponin I High Sens 8.3 (0-20) pg/ml Total Protein 7.3 (6.0-8.3) gm/dl Albumin 4.0 (3.4-5.0) gm/dl Lipase (11-82) U/L Procalcitonin (0-0.5) ng/ml Urine Color Urine Appearance (Clear) Urine pH (4.5-7.5) Ur Specific [place] (1.000-1.030) Urine Protein (Negative) Urine Glucose (UA) (Negative) Urine Ketones (Negative) Urine Blood (Negative) Urine Nitrite (Negative) Urine Bilirubin (Negative) Urine Urobilinogen (Negative) Ur Leukocyte Esterase (Negative) Urine WBC (Auto) (0-5) /hpf Urine RBC (Auto) (0-4) /hpf U Hyaline Cast (Auto) (0-5) /lpf U Epithel Cells (Auto) (0-5) /lpf Urine Bacteria (Auto) (Negative) Urine Yeast SARS-CoV-2, RNA, NAAT (NEGATIVE) 12/12/21 12/12/21 12/12/21 Range/Units 00:25 00:50 02:10 WBC (4.8-10.8) K/ul RBC (4.63-6.08) M/uL Hgb (14.0-18.0) g/dl Hct (40.1-51.0) % MCV (80.0-100.0) fL MCH (25.0-34.0) pg MCHC (32.0-36.0) g/dL RDW Std Deviation (36.4-46.3) fL RDW Coeff of Sunday (11.5-14.5) % Plt Count (130-400) K/uL MPV (9.4-12.4) fL Immature Gran % (Auto) % Neut % (Auto) % Lymph % (Auto) % [place] % (Auto) % Eos % (Auto) % Baso % (Auto) % Neut # (Auto) (1.4-6.5) K/uL Lymph # (Auto) (1.2-3.4) K/uL [place] # (Auto) (0.24-0.82) K/uL Eos # (Auto) (0-0.50) K/uL Baso # (Auto) (0-0.2) K/uL Immature Gran # (Auto) (0.00-0.02) K/uL Sodium (136-145) mmol/L Potassium (3.5-5.1) mmol/L Chloride (98-107) mmol/L Carbon Dioxide (21-32) mmol/L Anion Gap (3-11) BUN (6-23) mg/dl Creatinine (0.6-1.4) mg/dl Est Cr Clr Drug Dosing ml/min Est GFR ( Amer) ml/min Est GFR (Non-Af Amer) ml/min BUN/Creatinine Ratio (10-20) Glucose (70-99(Fasting)) mg/dl POC Glucose (70-99) mg/dl Lactate (0.4-2.0) mmol/L Calcium (8.5-10.1) mg/dl Magnesium (1.7-2.4) mg/dl Total Bilirubin (0.2-1.0) mg/dl Direct Bilirubin (0-0.2) mg/dl AST (13-39) U/L ALT (7-52) U/L Alkaline Phosphatase (34-104) U/L Troponin I High Sens (0-20) pg/ml Total Protein (6.0-8.3) gm/dl Albumin (3.4-5.0) gm/dl Lipase (11-82) U/L Procalcitonin 0.10 (0-0.5) ng/ml Urine Color [place] Urine Appearance Turbid A (Clear) Urine pH 6.5 (4.5-7.5) Ur Specific [place] 1.028 (1.000-1.030) Urine Protein 4+ H (Negative) Urine Glucose (UA) 3+ H (Negative) Urine Ketones Trace H (Negative) Urine Blood 3+ H (Negative) Urine Nitrite Positive A (Negative) Urine Bilirubin 1+ H (Negative) Urine Urobilinogen Negative (Negative) Ur Leukocyte Esterase 2+ H (Negative) Urine WBC (Auto) >30 H (0-5) /hpf Urine RBC (Auto) >30 H (0-4) /hpf U Hyaline Cast (Auto) 1-5 (0-5) /lpf U Epithel Cells (Auto) 10-20 H (0-5) /lpf Urine Bacteria (Auto) Negative (Negative) Urine Yeast Not Reportable SARS-CoV-2, RNA, NAAT NEGATIVE (NEGATIVE) 12/12/21 12/12/21 12/12/21 Range/Units 02:27 04:44 04:44 WBC (4.8-10.8) K/ul RBC (4.63-6.08) M/uL Hgb (14.0-18.0) g/dl Hct (40.1-51.0) % MCV (80.0-100.0) fL MCH (25.0-34.0) pg MCHC (32.0-36.0) g/dL RDW Std Deviation (36.4-46.3) fL RDW Coeff of Sunday (11.5-14.5) % Plt Count (130-400) K/uL MPV (9.4-12.4) fL Immature Gran % (Auto) % Neut % (Auto) % Lymph % (Auto) % [place] % (Auto) % Eos % (Auto) % Baso % (Auto) % Neut # (Auto) (1.4-6.5) K/uL Lymph # (Auto) (1.2-3.4) K/uL [place] # (Auto) (0.24-0.82) K/uL Eos # (Auto) (0-0.50) K/uL Baso # (Auto) (0-0.2) K/uL Immature Gran # (Auto) (0.00-0.02) K/uL Sodium (136-145) mmol/L Potassium (3.5-5.1) mmol/L Chloride (98-107) mmol/L Carbon Dioxide (21-32) mmol/L Anion Gap (3-11) BUN (6-23) mg/dl Creatinine (0.6-1.4) mg/dl Est Cr Clr Drug Dosing ml/min Est GFR ( Amer) ml/min Est GFR (Non-Af Amer) ml/min BUN/Creatinine Ratio (10-20) Glucose (70-99(Fasting)) mg/dl POC Glucose (70-99) mg/dl Lactate 5.9 H* 4.6 H* (0.4-2.0) mmol/L Calcium (8.5-10.1) mg/dl Magnesium (1.7-2.4) mg/dl Total Bilirubin (0.2-1.0) mg/dl Direct Bilirubin (0-0.2) mg/dl AST (13-39) U/L ALT (7-52) U/L Alkaline Phosphatase (34-104) U/L Troponin I High Sens (0-20) pg/ml Total Protein (6.0-8.3) gm/dl Albumin (3.4-5.0) gm/dl Lipase 29 (11-82) U/L Procalcitonin (0-0.5) ng/ml Urine Color Urine Appearance (Clear) Urine pH (4.5-7.5) Ur Specific [place] (1.000-1.030) Urine Protein (Negative) Urine Glucose (UA) (Negative) Urine Ketones (Negative) Urine Blood (Negative) Urine Nitrite (Negative) Urine Bilirubin (Negative) Urine Urobilinogen (Negative) Ur Leukocyte Esterase (Negative) Urine WBC (Auto) (0-5) /hpf Urine RBC (Auto) (0-4) /hpf U Hyaline Cast (Auto) (0-5) /lpf U Epithel Cells (Auto) (0-5) /lpf Urine Bacteria (Auto) (Negative) Urine Yeast SARS-CoV-2, RNA, NAAT (NEGATIVE) Administered Medications Aspirin (Aspirin 81 Mg Ectab) 81 mg PO QAM JEAN-PIERRE Stop: 01/11/22 09:44 Last Admin: 12/12/21 11:49 Dose: 81 mg Documented By: FRANCISCO Atorvastatin Calcium (Atorvastatin 40 Mg Tab) 40 mg PO DAILY JEAN-PIERRE Stop: 01/11/22 09:44 Last Admin: 12/12/21 11:49 Dose: 40 mg Documented By: FRANCISCO Finasteride (Finasteride 5 Mg Tab) 5 mg PO DAILY JEAN-PIERRE Stop: 01/11/22 09:44 Last Admin: 12/12/21 11:49 Dose: 5 mg Documented By: FRANCISCO Heparin Sodium (Porcine) (Heparin Sod 5,000 Unit/0.5 Ml Vial) 5,000 units SQ Q12 JEAN-PIERRE Stop: 01/11/22 09:44 Last Admin: 12/12/21 20:45 Dose: 5,000 units Documented By: Admin: 12/12/21 11:49 Dose: 5,000 units Documented By: FRANCISCO Insulin Human Regular 250 (units/ Sodium Chloride) 250 mls @ 0.8 mls/hr IV .Q24H JEAN-PIERRE; Protocol Stop: 01/11/22 09:59 Last Titration: 12/12/21 19:15 Dose: 0.8 units/hr, 0.8 mls/hr Documented By: JUNO Co-signed By: BELÉN Titration: 12/12/21 18:54 Dose: 0 units/hr, 0 mls/hr Documented By: FRANCISCO Co-signed By: BELÉN Titration: 12/12/21 11:45 Dose: 1.4 units/hr, 1.4 mls/hr Documented By: WS Co-signed By: KEG Admin: 12/12/21 10:31 Dose: 1.2 units/hr, 1.2 mls/hr Documented By: HG Co-signed By: NDW Potassium Chloride/Dextrose/Sod Cl (D5w And 1/2nss + 20meq Kcl) 20 meq in 1,000 mls @ 100 mls/hr IV .Q10H JEAN-PIERRE Stop: 01/11/22 19:29 Last Admin: 12/12/21 19:37 Dose: 100 mls/hr Documented By: AMP Insulin Aspart (Insulin Aspart Per Unit) 0 units SC ACHS JEAN-PIERRE Stop: 01/11/22 11:59 Last Admin: 12/12/21 19:44 Dose: Not Given Documented By: Admin: 12/12/21 17:18 Dose: Not Given Documented By: Admin: 12/12/21 13:11 Dose: Not Given Documented By: WS Discontinued Medications Sodium Chloride (Nss) 500 mls @ 999 mls/hr IV .Q31M ONE Stop: 12/12/21 02:26 Last Infusion: 12/12/21 03:12 Dose: 0 mls/hr Documented By: creative services designer: 12/12/21 02:23 Dose: 999 mls/hr Documented By: MED Sodium Chloride (Nss) 500 mls @ 125 mls/hr IV .Q4H JEAN-PIERRE Stop: 01/11/22 03:59 Last Infusion: 12/12/21 12:02 Dose: 0 mls/hr Documented By: Admin: 12/12/21 10:30 Dose: Not Given Documented By: Admin: 12/12/21 08:01 Dose: 125 mls/hr Documented By: HG Ceftriaxone Sodium (Rocephin) 1,000 mg in 50 mls @ 100 mls/hr IV NOW STA Stop: 12/12/21 04:25 Last Infusion: 12/12/21 06:49 Dose: 0 mls/hr Documented By: creative services designer: 12/12/21 04:45 Dose: 100 mls/hr Documented By: MED Sodium Chloride (Nss 1000ml) 1,000 mls @ 999 mls/hr IV .Q1H1M JEAN-PIERRE Stop: 12/12/21 05:33 Last Infusion: 12/12/21 06:49 Dose: 0 mls/hr Documented By: creative services designer: 12/12/21 04:47 Dose: 999 mls/hr Documented By: MED Parenteral Electrolytes (Normosol-R) 1,000 mls @ 100 mls/hr IV .Q10H JEAN-PIERRE Stop: 12/13/21 05:24 Last Admin: 12/12/21 10:30 Dose: Not Given Documented By: KATERIN Potassium Chloride/Sodium Chloride (1/2 Nss + 20meq Kcl 1000ml) 20 meq in 1,000 mls @ 100 mls/hr IV .Q10H [facility] Stop: 01/11/22 09:59 Last Admin: 12/12/21 11:50 Dose: Not Given Documented By: FRANCISCO Potassium Chloride/Sodium Chloride (Normal Saline W/20 Meq Kcl) 20 meq in 1,000 mls @ 100 mls/hr IV .Q10H [facility] Stop: 01/11/22 11:14 Last Infusion: 12/12/21 19:41 Dose: 0 mls/hr Documented By: Infusion: 12/12/21 19:38 Dose: 0 mls/hr Documented By: Admin: 12/12/21 13:53 Dose: 100 mls/hr Documented By: FRANCISCO Insulin Human Regular (Novolin-R Insulin Per Unit Charge) 5 units IV NOW STA Stop: 12/12/21 04:33 Last Admin: 12/12/21 04:57 Dose: 5 units Documented By: MED Co-signed By: CHARLEY Ioversol (Optiray 350 100ml) 100 ml IV ONCE ONE Stop: 12/12/21 05:30 Last Admin: 12/12/21 05:29 Dose: 87 ml Documented By: ALEX Miscellaneous (Dka Goal Range 150-250 Mg/Dl) 1 each N/A ONE ONE Stop: 12/12/21 09:26 Last Admin: 12/12/21 12:03 Dose: Not Given Documented By: FRANCISCO Ondansetron HCl (Ondansetron Inj 2 Mg/Ml 2 Ml Vial) 4 mg IV NOW STA Stop: 12/12/21 01:58 Last Admin: 12/12/21 02:28 Dose: 4 mg Documented By: MED Discharge Plan Visit Data Chief Complaint: Illness Stated Complaint: Hyperglycemia, Hypotension, AMS ED Provider: Zena Rogers Discharge Problem: Acute hyperglycemia, Acute UTI, Acute constipation, Acute renal insufficiency, Vomiting Patient Disposition: Admitted As Inpatient Discharge Instructions Interventions: ED Discharge Assessment Last Done: 12/12/21 09:25 : Vomiting Qualifiers: Vomiting type: unspecified Nausea presence: with nausea Qualified Code(s): R11.2 - Nausea with vomiting, unspecified
--- NOTE | 2021-12-12 08:27 | CT Scan Report ---
CT OF THE ABDOMEN AND PELVIS WITH CONTRAST CLINICAL HISTORY: Abdominal pain, elevated lactate. COMPARISON STUDY: CT of the abdomen and pelvis July 01, 2015 and renal ultrasound May 20, 2016. TECHNIQUE: Following IV administration of 87 mL of Optiray, axial images of the abdomen and pelvis we re obtained from the lung bases to the proximal femurs. Images were reviewed in the axial, sagittal, and coronal planes. IV contrast was administered without complication. Automated exposure control wa s utilized for the study. A dose lowering technique was utilized adhering to the principles of ALARA . CT DOSE: 249.19 mGy.cm FINDINGS: Subpleural airspace opacities are noted within the lower lungs. These include lingular opac ity with a 1.2 cm nodular focus on axial image 68 of 406. No pneumatosis, free air or portal venous g as is present. The stomach is moderately distended. Liver, adrenal glands and pancreas are unremarkab le. There is no biliary or pancreatic ductal dilatation. Trace perisplenic fluid is similar to prior exam. Bilateral perinephric fluid is again noted. Left nephrogram is slightly delayed. There may be m ild urothelial thickening of the left renal pelvis. No ureteral calculi are present. Marked bladder w all thickening has developed since prior CT. There is no evidence for a bowel obstruction. A large am ount of stool within the rectum is noted. There is also a large amount of poorly formed stool through out the colon. Note is made of mild wall thickening of the colon, most pronounced within the splenic flexure of the colon and the descending colon. There is extensive atherosclerotic plaque within the a bdominal aorta and branch vessels. Suspected moderate stenosis at the origin the celiac axis is noted . There is short segment occlusion due to extensive calcified plaque within the proximal SMA with dis juancarlos reconstitution. This is likely chronic. There is also occlusion of the left common iliac and exte rnal iliac arteries with partial reconstitution at the level of the left common femoral artery. Occlu sheba of the proximal inferior mesenteric artery with distal reconstitution is noted. Moderate to tiffanie re stenosis of the proximal bilateral renal arteries is present. No acute fracture or suspicious lesi on within the visualized skeletal structures is present. IMPRESSION: 1. Large amount of stool within the rectum and large amount of poorly formed stool throughout the col on. Mild left colon wall thickening represents a colitis, possibly stercoral. However, this is nonspe cific and close clinical follow-up is recommended. If persistent abdominal pain, short-term follow-up CT of the abdomen and pelvis is recommended. No pneumatosis, free air or portal venous gas. No bowel obstruction. 2. Marked bladder wall thickening, a nonspecific finding which could be correlated with urinalysis an d urine cytology. Possible urothelial thickening of the left renal pelvis. No hydronephrosis. Bilater al perinephric fluid, shown on prior CT. 3. Extensive plaque within the abdominal aorta and branch vessels. 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 Suspected moderate stenosis at the origin of the celiac axis. These findings increase risk for mesenteric ischemia. Occlusion of the left common and internal iliac arteries with partial distal reconstitution. Moderate to severe bi lateral renal artery stenosis. 4. Moderately distended stomach. 5. Airspace opacities within the lower lungs which favor pneumonia. A 1.2 cm nodular focus within the lingula is likely infectious. However, a follow-up chest CT in 3 months to ensure resolution is gamaliel mmended. These findings will be called/faxed to the ordering provider at time of dictation. ACT 112: Negative or not required by law. Electronically signed by: Vicente Schwab M.D. 12/12/2021 8:25 AM
--- NOTE | 2021-12-12 09:09 | XRay Report ---
XR chest 1V portable CLINICAL HISTORY: Sepsis TECHNIQUE: Single frontal radiograph of the chest was obtained. Comparison: Comparison is made to chest radiograph 06/04/2018 FINDINGS: No lines and tubes are seen. Calcified aortic knob is seen. Reticular interstitial opacities are seen . Lungs are underinflated. Linear densities are seen in the bilateral lower lungs. No evidence of ple ural effusion or pneumothorax. Degenerative changes are seen in the bilateral shoulder joints. IMPRESSION: Linear densities in the bilateral lower lungs likely represent atelectasis. Superimposed pneumonia is considered less likely. Lungs are underinflated. ACT 112: Negative or not required by law. Electronically signed by: Jan Negron M.D. 12/12/2021 9:08 AM
[2021-12-12] MEDS ORDERED: PENDING 1/2NSS+20mEq KCL IVF SCH (09:25)
[2021-12-12] MEDS ORDERED: STAT IV Infusion **Titration per Protocol STA (09:25)
[2021-12-12] MEDS ORDERED: POLYETHYLENE (MIRALAX) 17 GM PACK PO PRN (09:25)
[2021-12-12] MEDS ORDERED: PENDING D5 1/2NS+20mEq KCL IVF SCH (09:25)
[2021-12-12] MEDS ORDERED: DOCUSATE SODIUM 100 MG CAP PO PRN (09:25)
[2021-12-12] MEDS ORDERED: PHARMACY GLYCEMIC MGMT CONSULT PRN (09:25)
[2021-12-12] MEDS ORDERED: DKA GOAL RANGE 150-250 mg/dl ONE (09:25)
[2021-12-12] MEDS ORDERED: NORMOSOL-R 1,000 ML IV SCH (09:25)
[2021-12-12] MEDS ORDERED: SODIUM CHLOR 0.45% + 20MEQ KCL 20 MEQ/1,000 ML BAG IV SCH (10:00)
[2021-12-12] MEDS ORDERED: INSULIN REGULAR 250 UNITS in SODIUM CHLORIDE 0.9% 247.5 ML IV SCH (10:00)
[2021-12-12] MEDS ORDERED: GLUCOSE 40% GEL 15 GM TUBE PO PRN (10:15)
[2021-12-12] MEDS ORDERED: GLUCOSE 10 TAB/TUBE PO PRN (10:15)
[2021-12-12] MEDS ORDERED: CARBOHYDRATES FOR HYPOGLYCEMIA PO PRN (10:15)
[2021-12-12] MEDS ORDERED: GLUCAGON FOR INJ 1 MG VIAL IM PRN (10:15)
--- NOTE | 2021-12-12 10:16 | Pharmacy Report ---
Pharmacy Glycemic Short Note 2 - Date of Service December 12, 2021 - Glycemic Short BSG Results (Last 24 hours): 12/12/21 12/12/21 12/12/21 00:25 00:25 06:28 Glucose 606 H* POC Glucose 503 H* 476 H* OUTPATIENT ANTIDIABETIC REGIMEN: * Novolin-N 14 units SQ AM, 5 units SQ PM * A1c 12/12/21 11.2% ASSESSMENT: * 86 yo male admitted with hyperglycemia, poorly controlled DM as outpatient, on insulin therapy at home with non-adherence. Uncertain when he last took his insulin. BSG of 606mg/dl on arrival - improved to 503mg/dl after 500mL NSS given in ER. Anion-gap metabolic acidosis with gap of 18. Normal serum bicarbonate at 21, less likely DKA, elevated anion gap may be secondary to elevated lactate, worsening renal function. * Start insulin drip, IVF NSS + 20mEq K, as K+ dropped to 3.3. PLAN FOR INPATIENT GLYCEMIC CONTROL: * IV insulin infusion per protocol, goal range 110-180mg/dl, starting at 1.2 units/hr
[2021-12-12 10:19] LABS: Base Excess VBG -2.4 mEq/L; HCO3 VBG 26 mmol/L; Oxygen Saturation VBG < 60.0 %; PCO2 VBG 57 mmHg (38-50); PO2 VBG 27 mmHg; pH VBG 7.26 (7.36-7.41)
[2021-12-12 10:51] LABS: BUN Creatinine Ratio 23.6 (10-20); Creatinine Clr Calc Pharmacy 21.9 ml/min; Est GFR (African American) 43.2 ml/min; Est GFR (Non-African American) 37.3 ml/min; Phosphorus 1.6 mg/dl (2.5-4.9); Potassium 3.3 mmol/L (3.5-5.1)
[2021-12-12 10:56] LABS: Estimated Average Glucose 275 mg/dl; Hemoglobin A1C 11.2 % (4.5-5.6)
[2021-12-12] MEDS ORDERED: NSS + 20MEQ KCL 20 MEQ/1,000 ML BAG IV SCH (11:15)
[2021-12-12] MEDS: FINASTERIDE 5 MG TAB PO SCH (11:49)
[2021-12-12] MEDS: ATORVASTATIN 40 MG TAB PO SCH (11:49)
[2021-12-12] MEDS: HEPARIN SOD 5,000 UNIT/0.5 ML VIAL SQ SCH ×2 (11:49→20:45)
[2021-12-12] MEDS: ASPIRIN 81 MG ECTAB PO SCH (11:49)
[2021-12-12] MEDS: INSULIN ASPART PER UNIT SC SCH ×3 (13:11→19:44)
--- NOTE | 2021-12-12 13:59 | Electrocardiogram Report ---
Test Reason : Blood Pressure : / mmHG Vent. Rate : 096 BPM Atrial Rate : 096 BPM P-R Int : 144 ms QRS Dur : 136 ms QT Int : 386 ms P-R-T Axes : 063 062 017 degrees QTc Int : 487 ms Poor data quality, interpretation may be adversely affected Sinus rhythm with Premature atrial complexes Right bundle branch block Abnormal ECG When compared with ECG of 28-SEP-2015 19:50, Premature atrial complexes are now Present Vent. rate has increased BY 36 BPM Right bundle branch block is now Present Confirmed by Garland Villalba ([id number]) on 12/12/2021 1:59:03 PM Referred By: REFERRED SELF Confirmed By:Alexei Villalba
--- NOTE | 2021-12-12 14:00 | Consultation ---
Date of Consultation December 12, 2021 Assessment & Plan (1) Aortoiliac occlusive disease: Pt CT abd/pelvis indicates significant abdominal aortoiliac occlusive disease and mesenteric disease, in addition to severe constipation. Pt also seen by Dr Penaloza. Unable to determine whether pt is symptomatic from this presently, but his exam is not particularly concerning for acute bowel ischemia or limb ischemia. No weight loss according to chart. Would recommend CTA abd/pelvis to eval the extent of his atherosclerotic disease, however, this can be done after his other acute medical problems have been addressed by medicine team. Please call if needed. History of Present Illness Reason for Consultation: aortoiliac stenosis, mesenteric artery stenosis Attending Physician: Cate Lozano DO History of Present Illness 86 yo m with hx of DMII, HTN, hearing loss, CKD, hyperlipidemia, anxiety, PAD, BPH, CAD, admitted with abd pain, DKA, and UTI, seen in consultation for aortoiliac stenosis and mesenteric artery stenosis noted on CT scan abd/pelvis. Pt is confused and [place], and does not provide any meaningful hx. Per prior notes, pt has been noncompliant taking DM medications/insulin, and c/o abd pain adn constipation. In looking at his chart, he is down 3 kg since 2019. Pt unable to characterize his pain. Uncooperative for abd exam. CT imaging suggests severe constipation, as well as severe atherosclerotic disease throughout his abd. Allergies Allergy/AdvReac Type Severity Reaction Status Date / Time pollen extracts Allergy Unknown coughing/sn Verified 06/07/21 14:12 eezing doxycycline AdvReac Verified 06/07/21 14:12 Home Medications Medication Instructions Recorded Confirmed Type aspirin 81 mg tablet,delayed 81 mg PO QAM 03/05/18 06/07/21 History release fexofenadine 180 mg tablet 180 mg PO HS 03/05/18 06/07/21 History multivitamin 1 tab PO QAM 03/05/18 06/07/21 History nitroglycerin 0.4 mg sublingual See Rx Instructions .Route .COMPLEX 09/14/18 06/07/21 History tablet fluticasone propionate 50 2 spray intranasal DAILY #50 mcg 03/21/20 06/07/21 Rx mcg/actuation nasal spray,suspension (Flonase Allergy Relief) atorvastatin 40 mg tablet 40 mg PO DAILY #90 tabs 09/19/20 06/07/21 Rx ergocalciferol (vitamin D2) 1,250 50,000 unit PO MONTHLY #3 caps 06/08/21 Rx mcg (50,000 unit) capsule (Vitamin D2) lancets 30 gauge (OneTouch Delica #25 ea 06/11/21 History Lancets) flash glucose scanning reader #1 ea 06/29/21 Rx (FreeStyle Eli 14 Day [place]) flash glucose sensor (FreeStyle #1 ea 06/29/21 Rx Eli 14 Day Sensor kit) insulin NPH isoph U-100 human 100 See Rx Instructions .Route 08/06/21 Rx unit/mL (3 mL) subcutaneous pen .COMPLEX #15 mL (Novolin N Flexpen) pen needle, diabetic 31 gauge x #200 ea 10/19/21 Rx 5/16" (Lite Touch Insulin Pen [place]) lisinopril 2.5 mg tablet 2.5 mg PO DAILY #90 tabs 11/05/21 Rx blood sugar diagnostic (OneTouch #100 ea 11/16/21 Rx Verio test strips) blood-glucose meter (OneTouch #1 ea 11/16/21 Rx Verio Meter) finasteride 5 mg tablet 5 mg PO DAILY #90 tabs 11/26/21 Rx Patient History Medical History (Updated 12/12/21 @ 13:52 by Jigna Ho PA-C) Anxiety Aortoiliac occlusive disease Arteriosclerosis of coronary artery remote (>20 years ago) h/o [place] Benign prostatic hyperplasia Carotid artery stenosis CKD (chronic kidney disease) Diabetes mellitus with insulin therapy HTN (hypertension) Hyperlipidemia Hyperparathyroidism Peripheral vascular disease Seborrheic keratosis Transient ischemic attack Vitamin D deficiency Surgical History Hx of endarterectomy Left carotid endarterectomy Hx of hernia repair Hx of right knee surgery Family History Father Coronary heart disease Hypertension Mother Coronary heart disease Diabetes Hypertension Heart disease Brother Diabetes Sister Diabetes Grandmother Hearing loss Daughter Asthma Other Allergies Social History Smoking Status: Current every day smoker Tobacco Type: Cigarettes Age Started Using Tobacco: 14; packs per day: 0.5; Years Smoked: 69; Cigarettes Per Day: 10; Second Hand Exposure: No; Hx Alcohol Use: No Hx Substance Use: No Preferred Language: Georgian Communication Ability: Impaired Hearing Ability: Use of Hearing Aid marital status: Current Living Situation: Spouse current occupational status: retired Feels Safe at Home: Yes Seatbelt Use: always Sunscreen Use: No Review of Systems Review of Systems: Unobtainable due to cognitive status Physical Exam Constitutional: + thin, + frail appearing, comfortable, + combative and + malnourished; + uncooperative and not in distress ENMT: Ears: + hearing impairment Neck: trachea midline Respiratory: normal respiratory effort; no respiratory distress Auscultation: lungs clear to auscultation bilaterally Cardiovascular: Rate/Rhythm: regular rate and regular rhythm Vessels: femoral pulses present (Unable to examine d/t combativeness), posterior tibial pulses present (nonpalpable BLE) and dorsalis pedis pulses present (Nonpalpable BLE); + abnormal peripheral pulses Extremities: normal capillary refill Gastrointestinal (Abdomen): Inspection/Auscultation: abdomen normal to inspection and normal bowel sounds; abdomen not distended Percussion/Palpation: + abdomen tender (generalized, worst epigastric) and abdomen soft Musculoskeletal: no cyanosis or clubbing, extremities motor strength 5/5 Skin: no rashes, warm and dry Neurologic: moves all extremities, awake and + confused; no focal motor deficits Psychiatric: Orientation: alert and oriented to person; + not oriented to place, + not oriented to time and + uncooperative Eye Contact: + poor eye contact Affect: + irritable affect Results & Data ([facility]) Vital Signs (Past 12 Hours) Vital Signs Temp Pulse Pulse Resp BP BP Pulse Ox 12/12/21 11:38 36.5 C 94 H 150/84 H 97 12/12/21 08:00 96 H 22 94 12/12/21 08:00 130/78 12/12/21 07:45 158/81 H 12/12/21 07:45 101 H 21 94 12/12/21 07:30 93 H 18 95 12/12/21 07:30 152/85 H 12/12/21 07:15 149/88 H 12/12/21 07:15 91 H 20 94 12/12/21 07:00 103 H 21 94 12/12/21 07:00 140/83 11/02/22 06:44 89 26 H 148/95 H 96 12/12/21 06:08 94 H 26 H 171/102 H 96 12/12/21 05:09 97 H 20 100/86 97 12/12/21 03:29 100 H 23 164/98 H 93 12/12/21 03:00 101 H 23 167/106 H 93 12/12/21 02:14 94 H 25 H 144/90 H 95 12/12/21 02:10 98 H 26 H 94 O2 Del Method 12/12/21 11:38 Room Air 12/12/21 08:00 Room Air 12/12/21 08:00 12/12/21 07:45 12/12/21 07:45 Room Air 12/12/21 07:30 Room Air 12/12/21 07:30 12/12/21 07:15 12/12/21 07:15 Room Air 12/12/21 07:00 Room Air 12/12/21 07:00 12/12/21 06:44 Room Air 12/12/21 06:08 Room Air 12/12/21 05:09 Room Air 12/12/21 03:29 Room Air 12/12/21 03:00 Room Air 12/12/21 02:14 Room Air 12/12/21 02:10 Room Air
[2021-12-12] MEDS: D5W AND 1/2NSS + 20MEQ KCL 20 MEQ/1,000 ML BAG IV SCH (19:37)
[2021-12-13] MEDS ORDERED: HALOPERIDOL LACTATE 5 MG/ML 1 ML VIAL IM STA ×2 (00:07→21:30)
[2021-12-13] MEDS: D5W AND 1/2NSS + 20MEQ KCL 20 MEQ/1,000 ML BAG IV SCH ×2 (06:00→16:11)
[2021-12-13 07:05] LABS: Hematocrit (blood only) 39.4 % (40.1-51.0); Hemoglobin 13.8 g/dl (14.0-18.0); Mean Corpuscular Hemoglobin 32.3 pg (25.0-34.0); Mean Corpuscular Volume 92.3 fL (80.0-100.0); Mean Platelet Volume 10.2 fL (9.4-12.4); Platelet Count 237 K/uL (130-400); RDW Standard Deviation 43.8 fL (36.4-46.3); Red Blood Count 4.27 M/uL (4.63-6.08)
[2021-12-13 07:41] LABS: BUN Creatinine Ratio 34.4 (10-20); Calcium 8.8 mg/dl (8.5-10.1); Creatinine Clr Calc Pharmacy 29.6 ml/min; Est GFR (African American) 60.5 ml/min; Est GFR (Non-African American) 52.2 ml/min
[2021-12-13] MEDS ORDERED: LANTUS PER UNIT CHARGE SQ ONE (08:30)
[2021-12-13] MEDS: ASPIRIN 81 MG ECTAB PO SCH ×2 (08:33→08:56)
[2021-12-13] MEDS: ATORVASTATIN 40 MG TAB PO SCH ×2 (08:33→08:56)
[2021-12-13] MEDS: HEPARIN SOD 5,000 UNIT/0.5 ML VIAL SQ SCH ×2 (08:33→20:47)
[2021-12-13] MEDS: FINASTERIDE 5 MG TAB PO SCH ×2 (08:33→08:57)
[2021-12-13] MEDS: INSULIN ASPART PER UNIT SC SCH ×4 (08:48→20:19)
[2021-12-13] MEDS: cefTRIAXone SODIUM 1,000 MG in DEXTROSE 5% 50 ML IV SCH (10:08)
[2021-12-13] MEDS ORDERED: ACETAMINOPHEN 1,000 MG/100 ML VIAL IV PRN (11:40)
[2021-12-13] MEDS ORDERED: INSULIN ASPART PER UNIT SC SCH (12:00)
--- NOTE | 2021-12-13 13:45 | Hospitalist Progress Note ---
Date of Service December 13, 2021 Assessment & Plan (1) Hyperglycemia: Plan: 86yo male with poorly controlled diabetes presenting with hyperglycemia. Patient with poorly controlled DM - last [id number]=85.9 on 06/07/21, on insulin therapy at home with non-adherence to home regimen. Uncertain when he last took his insulin. He has elevated blood sugar of 606 on arrival - improved to 503 after 500mL NSS given in ER. He does have an anion-gap metabolic acidosis with gap of 18. Normal serum bicarbonate at 21. -Now normal following insulin drip, which has been discontinued -Continue slididng scale insulin -Repreat serum lactate (2) Abdominal pain: Plan: Patient complaining of severe abdominal pain as well as nausea and multiple episodes of emesis as well as constipation on admission -CT abdomen and pelvis showed evidence of constipation with a large stool burden -Lipase was wnl -However, there is suggestion of large burden of plaque and also narrowing or stenosis of some mesenteric arteries -Vascular on consult, however per vascular, its unlikely contributing to his syptoms, will obtain CTA abd and pelvis after treatment of UTI -Constipation has resolved (3) PNA (pneumonia): Plan: CT chest suggests consolidation patient already on Ceftriaxone will add Azithromycin Blood cultures negative so far (4) UTI (urinary tract infection): Plan: Urinalysis suggestive of infection. Patient reports difficulty urinating. -Bladder scan and catheterization as needed -Follow urine cultures, negative so far with possible contamination -Continue Ceftriaxone 1gm IV daily (5) Acute encephalopathy: Plan: most likley delirium on a backround of dementia Worsened by acute illness, UTI, PNA and unfamiliar environment (6) CKD (chronic kidney disease): Plan: -Monitor renal function, electrolytes -Straight cath as needed -Avoid nephrotoxic agents - Hold Lisinopril -Renal dosing where needed (7) Dementia: Plan: probable baseline dementia daughters say he has been struggling with confusion and forgetfulness (8) Arteriosclerosis of coronary artery: Plan: Patient denies chest pain. Troponin = 8.3. EKG with RBBB present, new from 2016 -Continue ASA -Continue Atorvastatin (9) HTN (hypertension): Plan: History of HTN. Blood pressure presently 135/74 -Hold lisinopril in setting of TANYA on CKD -Montior BP (10) Hyperlipidemia: Plan: Chronic -Continue Atorvastatin (11) Benign prostatic hyperplasia: Plan: Chronic -Continue Finasteride -Bladder scan as needed -Monitor UOP F/E/N - Normosol at 100mL/hr, monitor electrolytes, will hold off on K supplementation for now in setting of worsening renal function - K=3.4, hypercalcemia with Ca=11, normal Albumin, check ICal Ppx - Heparin Code - Full code per discussion with daughters and patient Dispo - Admit to PCU Admission and Anticipated Discharge Date Admission Date: December 12, 2021 Subjective patient seen and examined, daughter and grand daughter by the bedside, unable to obtain any coherent information from him due to delirium Review of Systems Review of Systems: unable to obtain Physical Exam Physical Exam: The patient is awake, alert and confused HEENT--PERRL, EOMI, mucous membranes and oropharynx mildly dry Neck--supple. No JVD. No bruits. Thyroid normal, trachea midline, no adenopathy. Heart--normal S1 and S2. No murmurs, rubs or gallops. Lungs--clear bilaterally, no respiratory distress, no accessory muscle use. Abdomen--normal bowel sounds and soft. Mild epigastric and left sided abdominal pain Extremities--no cyanosis or clubbing. No edema. Dermatologic--normal skin turgor, normal color, no abnormal lymph nodes, no rash. Neurologic--cranial nerves II through XII grossly intact. Rheumatologic--normal range of motion. Psychiatric--agitated Results & Data Results & Data ([facility]) Vital Signs (Past 12 Hours) Vital Signs Temp Pulse Pulse Resp BP Pulse Ox O2 Del Method 12/13/21 08:00 90 12/13/21 10:50 98.2 F 97 H 19 135/74 92 Room Air 12/13/21 07:44 97.9 F 89 18 156/75 H 92 Room Air 12/13/21 03:49 98.1 F 94 H 16 157/68 H 96 Room Air PG Care Time/CCT Total # of Minutes Spent Total Time Spent with Patient: Total time spent is greater than 50% in coordination of care (as documented) at patient's floor/unit and/or counseling patient: Coding Level of Care Code 60755 Subseq Hosp Care Lvl 2 Diagnoses Hyperglycemia R73.9 Abdominal pain R10.9 PNA (pneumonia) J18.9 UTI (urinary tract infection) N39.0 Acute encephalopathy G93.40 CKD (chronic kidney disease) N18.9 Dementia F03.90 Arteriosclerosis of coronary artery I25.10 HTN (hypertension) I10 Hyperlipidemia E78.5 Benign prostatic hyperplasia N40.0 Time Spent (min) 35
--- NOTE | 2021-12-13 14:04 | Pharmacy Report ---
Pharmacy Glycemic Short Note 2 - Date of Service December 13, 2021 - Glycemic Short BSG Results (Last 24 hours): 12/12/21 12/12/21 12/12/21 14:44 15:46 16:46 Glucose POC Glucose 319 H* 259 H 236 H 12/12/21 12/12/21 12/12/21 17:43 18:47 19:49 Glucose POC Glucose 202 H 146 H 152 H 12/12/21 12/12/21 12/12/21 20:49 21:47 23:49 Glucose POC Glucose 153 H 160 H 125 H 12/13/21 12/13/21 12/13/21 01:46 03:40 05:48 Glucose POC Glucose 129 H 122 H 105 H 12/13/21 12/13/21 12/13/21 06:41 06:44 07:44 Glucose 94 POC Glucose 97 106 H 12/13/21 12/13/21 08:53 11:16 Glucose POC Glucose 136 H 168 H OUTPATIENT ANTIDIABETIC REGIMEN: * Novolin-N 14 units SQ AM, 5 units SQ PM * A1c 12/12/21 11.2% ASSESSMENT: 12/13/21: * Patient received total of around 12 to 15 units of insulin via insulin drip yesterday. Drip was discontinued this morning since the rate was down to 0.5 units/hr and BSG was 106 mg/dl. * Fasting BSG was 94 mg/dl this AM. * Patient was NPO this AM but diet resumed. * Lantus 5 units given this AM based on wt and stress of 1. Re-asses this dose tomorrow. * Novolog ordered based on wt and stress between 2 and 3 but will increase this to stress of 3 for tonight. 12/12/21 * 86 yo male admitted with hyperglycemia, poorly controlled DM as outpatient, on insulin therapy at home with non-adherence. Uncertain when he last took his insulin. BSG of 606mg/dl on arrival - improved to 503mg/dl after 500mL NSS given in ER. Anion-gap metabolic acidosis with gap of 18. Normal serum bicar bonate at 21, less likely DKA, elevated anion gap may be secondary to elevated lactate, worsening renal function. * Start insulin drip, IVF NSS + 20mEq K, as K+ dropped to 3.3. PLAN FOR INPATIENT GLYCEMIC CONTROL: * Basal insulin * Lantus 5 units SQ today AM. * Increased to Lantus 8 units SQ tomorrow AM * Bolus insulin * NovoLog per scale ACHS or Q6hrs while NPO * Goal Range: Low 120 mg/dL - High 150 mg/dL * Correction Factor: 35 mg/dL/unit * Nutritional / Prandial insulin per carb ratio of 1 unit per 11 grams CHO consumed
[2021-12-13] MEDS: AZITHROMYCIN 500 MG in DEXTROSE 5% 250 ML IV SCH (15:12)
[2021-12-14] MEDS: D5W AND 1/2NSS + 20MEQ KCL 20 MEQ/1,000 ML BAG IV SCH ×3 (02:15→23:22)
[2021-12-14 06:03] LABS: Hematocrit (blood only) 35.2 % (40.1-51.0); Hemoglobin 12.4 g/dl (14.0-18.0); Mean Corpuscular Hemoglobin 32.9 pg (25.0-34.0); Mean Corpuscular Hgb Conc 35.2 g/dL (32.0-36.0); Mean Corpuscular Volume 93.4 fL (80.0-100.0); Mean Platelet Volume 10.2 fL (9.4-12.4); Platelet Count 191 K/uL (130-400); RDW Coefficient of Variation 13.4 % (11.5-14.5); RDW Standard Deviation 46.2 fL (36.4-46.3); Red Blood Count 3.77 M/uL (4.63-6.08); White Blood Count 9.82 K/ul (4.8-10.8)
[2021-12-14 06:27] LABS: BUN Creatinine Ratio 29.8 (10-20); Calcium 7.9 mg/dl (8.5-10.1); Creatinine Clr Calc Pharmacy 30.4 ml/min; Est GFR (African American) 67.6 ml/min; Est GFR (Non-African American) 58.3 ml/min; Potassium 3.9 mmol/L (3.5-5.1)
[2021-12-14] MEDS ORDERED: INSULIN HUMAN REGULAR PER UNIT 4 UNITS in SYRINGE 3.96 ML IV ONE (08:00)
[2021-12-14] MEDS: INSULIN ASPART PER UNIT SC SCH ×4 (08:09→21:06)
[2021-12-14] MEDS: FINASTERIDE 5 MG TAB PO SCH (08:10)
[2021-12-14] MEDS: HEPARIN SOD 5,000 UNIT/0.5 ML VIAL SQ SCH ×2 (08:10→21:15)
[2021-12-14] MEDS: ASPIRIN 81 MG ECTAB PO SCH (08:10)
[2021-12-14] MEDS: ATORVASTATIN 40 MG TAB PO SCH (08:10)
[2021-12-14] MEDS ORDERED: LANTUS PER UNIT CHARGE SQ SCH ×2 (09:00)
[2021-12-14] MEDS: cefTRIAXone SODIUM 1,000 MG in DEXTROSE 5% 50 ML IV SCH (09:11)
--- NOTE | 2021-12-14 11:06 | Pharmacy Report ---
Pharmacy Glycemic Short Note 2 - Date of Service December 14, 2021 - Glycemic Short BSG Results (Last 24 hours): 12/13/21 12/13/21 12/13/21 11:16 16:15 20:04 Glucose POC Glucose 168 H 156 H 142 H 12/14/21 12/14/21 12/14/21 05:44 07:31 07:33 Glucose 254 H POC Glucose 345 H* 266 H 12/14/21 12/14/21 07:35 09:31 Glucose POC Glucose 321 H* 211 H OUTPATIENT ANTIDIABETIC REGIMEN: * Novolin-N 14 units SQ AM, 5 units SQ PM * A1c 12/12/21 11.2% ASSESSMENT: 12/14/21: * Patient received total 7 units of insulin yesterday; 5 units basal + 2 units bolus. * BSGs yesterday were 071-197-378-142 mg/dl. * Fasting BSG today was 345 mg/dl with repeat of 321 mg/dl. Nurse confirmed that patient was not snacking prior to this check. His food intake has been minimal. * Patient is basal insulin deficient. He received less than 50% of insulin yesterday compared to what he would have been at home. * Increased basal insulin dose this morning. * To correct the high BSG this morning a dose of IV Regular insulin 4 units (0.1 unit/kg) was also given in addition to the Lantus and Novolog. Expect BSGs to trend down. 12/13/21: * Patient received total of around 12 to 15 units of insulin via insulin drip yesterday. Drip was discontinued this morning since the rate was down to 0.5 units/hr and BSG was 106 mg/dl. * Fasting BSG was 94 mg/dl this AM. * Patient was NPO this AM but diet resumed. * Lantus 5 units given this AM based on wt and stress of 1. Re-asses this dose tomorrow. * Novolog ordered based on wt and stress between 2 and 3 but will increase this to stress of 3 for tonight. 12/12/21 * 86 yo male admitted with hyperglycemia, poorly controlled DM as outpatient, on insulin therapy at home with non-adherence. Uncertain when he last took his insulin. BSG of 606mg/dl on arrival - improved to 503mg/dl after 500mL NSS given in ER. Anion-gap metabolic acidosis with gap of 18. Normal serum bicarbonate at 21, less likely DKA, elevated anion gap may be secondary to elevated lactate, worsening renal function. * Start insulin drip, IVF NSS + 20mEq K, as K+ dropped to 3.3. PLAN FOR INPATIENT GLYCEMIC CONTROL: * Basal insulin * Lantus 10 units SQ QAM * Bolus insulin * NovoLog per scale ACHS or Q6hrs while NPO * Goal Range: Low 120 mg/dL - High 150 mg/dL * Correction Factor: 35 mg/dL/unit * Nutritional / Prandial insulin per carb ratio of 1 unit per 11 grams CHO consumed
--- NOTE | 2021-12-14 11:25 | Hospitalist Progress Note ---
Date of Service December 14, 2021 Assessment & Plan (1) Hyperglycemia: Plan: 86yo male with poorly controlled diabetes presenting with hyperglycemia, blood glucose >600 on admission. Patient with poorly controlled DM - last [id number]=38.9 on 06/07/21, on insulin therapy at home with non-adherence to home regimen. -Blood glucose control now better following insulin drip, which has been discontinued -Continue slididng scale insulin -Repeat serum lactate -Patient will need better glucose monitoring at home and also better compliance with his regimen (2) Abdominal pain: Plan: Patient complaining of severe abdominal pain as well as nausea and multiple episodes of emesis as well as constipation on admission -However, seems his abdominal pain is chronic -CT abdomen and pelvis showed evidence of constipation with a large stool burden -Lipase was wnl -However, there is suggestion of large burden of plaque in the aorta and also narrowing or stenosis of some mesenteric arteries -Vascular on consult, however per vascular, its unlikely contributing to his symptoms, will obtain CTA abd and pelvis after treatment of UTI -Constipation has resolved (3) Aortoiliac occlusive disease: Plan: CT abdomen showed Extensive plaque within the abdominal aorta and branch vessels. 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 Suspected moderate stenosis at the origin of the celiac axis. These findings increase risk for mesenteric ischemia. Occlusion of the left common and internal iliac arteries with partial distal reconstitution. Moderate to severe bilateral renal artery stenosis. Vascular surgery on consult, plan is for CT angio after resolution of acute infection (4) Constipated: Plan: CT abdomen and pelvis showed evidence of constipation with a large stool burden Now resolved following multiple bowel movements (5) PNA (pneumonia): Plan: CT chest suggests consolidation patient already on Ceftriaxone will add Azithromycin Blood cultures negative so far (6) UTI (urinary tract infection): Plan: Urinalysis suggestive of infection. Patient reports difficulty urinating. -Bladder scan and catheterization as needed -Follow urine cultures, negative so far with possible contamination -Continue Ceftriaxone 1gm IV daily (7) Acute encephalopathy: Plan: most likley delirium on a backround of dementia Worsened by acute illness, UTI, PNA and unfamiliar environment Patient seems to be back to his baseline (8) CKD (chronic kidney disease): Plan: -Monitor renal function, electrolytes -Straight cath as needed -Avoid nephrotoxic agents - Hold Lisinopril -Renal dosing where needed (9) Dementia: Plan: probable baseline dementia daughters say he has been struggling with confusion and forgetfulness (10) Arteriosclerosis of coronary artery: Plan: Patient denies chest pain. Troponin = 8.3. EKG with RBBB present, new from 2016 -Continue ASA -Continue Atorvastatin (11) HTN (hypertension): Plan: History of HTN. Blood pressure presently 150/81 -Hold lisinopril in setting of TANYA on CKD -Montior BP (12) Hyperlipidemia: Plan: Chronic -Continue Atorvastatin (13) Benign prostatic hyperplasia: Plan: Chronic -Continue Finasteride -Bladder scan as needed -Monitor UOP F/E/N - Normosol at 100mL/hr, monitor electrolytes, will hold off on K supplementation for now in setting of worsening renal function - K=3.4, hypercalcemia with Ca=11, normal Albumin, check ICal Ppx - Heparin Code - Full code per discussion with daughters and patient Dispo - monitor Admission and Anticipated Discharge Date Admission Date: December 12, 2021 Subjective patient seen and examined, his confusion has improved, denies any new complaints, wants to go home Review of Systems Review of Systems: All systems reviewed are negative, apart from the ones contained in the history. Physical Exam Physical Exam: The patient is awake, alert and confused HEENT--PERRL, EOMI, mucous membranes and oropharynx mildly dry Neck--supple. No JVD. No bruits. Thyroid normal, trachea midline, no adenopathy. Heart--normal S1 and S2. No murmurs, rubs or gallops. Lungs--clear bilaterally, no respiratory distress, no accessory muscle use. Abdomen--normal bowel sounds and soft. Mild epigastric and left sided abdominal pain Extremities--no cyanosis or clubbing. No edema. Dermatologic--normal skin turgor, normal color, no abnormal lymph nodes, no rash. Neurologic--cranial nerves II through XII grossly intact. Rheumatologic--normal range of motion. Psychiatric--agitated Results & Data Results & Data ([facility]) Vital Signs (Past 12 Hours) Vital Signs Temp Pulse Resp BP Pulse Ox O2 Del Method O2 Flow Rate 12/14/21 08:30 98.4 F 104 H 18 150/81 H 91 Nasal Cannula 2.0 12/14/21 02:37 97.7 F 91 H 16 153/69 H 87 L Room Air PG Care Time/CCT Total # of Minutes Spent Total Time Spent with Patient: Total time spent is greater than 50% in coordination of care (as documented) at patient's floor/unit and/or counseling patient: Coding Level of Care Code 54921 Subseq Hosp Care Lvl 2 Diagnoses Hyperglycemia R73.9 Abdominal pain R10.9 Aortoiliac occlusive disease I74.09 Constipated K59.00 PNA (pneumonia) J18.9 UTI (urinary tract infection) N39.0 Acute encephalopathy G93.40 CKD (chronic kidney disease) N18.9 Dementia F03.90 Arteriosclerosis of coronary artery I25.10 HTN (hypertension) I10 Hyperlipidemia E78.5 Benign prostatic hyperplasia N40.0 Time Spent (min) 35
[2021-12-14] MEDS: AZITHROMYCIN 500 MG in DEXTROSE 5% 250 ML IV SCH (14:02)
[2021-12-14] MEDS: DICLOFENAC SOD 1% GEL 100 GM TUBE EXT SCH (21:14)
[2021-12-15] MEDS ORDERED: OLANZapine 10 MG/2.1 ML SDV IM STA ×2 (03:51→11:17)
[2021-12-15] MEDS ORDERED: OLANZapine 10 MG/2.1 ML SDV IM ONE (04:01)
--- NOTE | 2021-12-15 06:03 | Communication Note ---
Date of Service: December 15, 2021 Messaged about agitation. Provided 5mg IM Zyprexa at 4AM. Still agitated but slightly calmer at 6AM. Avoid 2nd dose of IM Zyprexa.
[2021-12-15 06:58] LABS: Hematocrit (blood only) 36.4 % (40.1-51.0); Hemoglobin 12.7 g/dl (14.0-18.0); Mean Corpuscular Hemoglobin 32.4 pg (25.0-34.0); Mean Corpuscular Hgb Conc 34.9 g/dL (32.0-36.0); Mean Corpuscular Volume 92.9 fL (80.0-100.0); Platelet Count 191 K/uL (130-400); RDW Coefficient of Variation 13.2 % (11.5-14.5); RDW Standard Deviation 44.7 fL (36.4-46.3); Red Blood Count 3.92 M/uL (4.63-6.08); White Blood Count 9.83 K/ul (4.8-10.8)
[2021-12-15 07:32] LABS: BUN Creatinine Ratio 31.9 (10-20); Calcium 8.3 mg/dl (8.5-10.1); Est GFR (African American) 88.8 ml/min; Est GFR (Non-African American) 76.6 ml/min; Potassium 3.5 mmol/L (3.5-5.1)
[2021-12-15] MEDS: INSULIN ASPART PER UNIT SC SCH ×5 (07:41→20:37)
[2021-12-15] MEDS: DICLOFENAC SOD 1% GEL 100 GM TUBE EXT SCH ×2 (08:58→20:38)
[2021-12-15] MEDS: cefTRIAXone SODIUM 1,000 MG in DEXTROSE 5% 50 ML IV SCH (08:58)
[2021-12-15] MEDS: HEPARIN SOD 5,000 UNIT/0.5 ML VIAL SQ SCH ×2 (08:58→20:39)
[2021-12-15] MEDS ORDERED: LANTUS PER UNIT CHARGE SQ SCH (09:00)
[2021-12-15] MEDS: ATORVASTATIN 40 MG TAB PO SCH ×2 (09:04→09:08)
[2021-12-15] MEDS: ASPIRIN 81 MG ECTAB PO SCH ×2 (09:04→09:08)
[2021-12-15] MEDS: FINASTERIDE 5 MG TAB PO SCH ×2 (09:04→09:08)
[2021-12-15] MEDS: D5W AND 1/2NSS + 20MEQ KCL 20 MEQ/1,000 ML BAG IV SCH ×2 (09:36→21:18)
--- NOTE | 2021-12-15 11:29 | Hospitalist Progress Note ---
Date of Service December 15, 2021 Assessment & Plan (1) Hyperglycemia: Plan: 86yo male with poorly controlled diabetes presenting with hyperglycemia, blood glucose >600 on admission. Patient with poorly controlled DM - last [id number]=13.9 on 06/07/21, on insulin therapy at home with non-adherence to home regimen. -Blood glucose control now better following treatment -Continue sliding scale insulin and Glargine 10 units in the morning -Patient will need better glucose monitoring at home and also better compliance with his regimen (2) Acute encephalopathy: Plan: most likley delirium on a backround of dementia Worsened by acute illness, UTI, PNA and unfamiliar environment Patient was agitated overnight and this morning, trying to get out of bed PRN Zyprexa for agitation will avoid Ativan or haldol (3) PNA (pneumonia): Plan: CT chest suggests consolidation patient already on Ceftriaxone will add Azithromycin Blood cultures negative so far (4) Abdominal pain: Plan: Patient complaining of severe abdominal pain as well as nausea and multiple episodes of emesis as well as constipation on admission -However, seems his abdominal pain is chronic -CT abdomen and pelvis showed evidence of constipation with a large stool burden -Lipase was wnl -However, there is suggestion of large burden of plaque in the aorta and also narrowing or stenosis of some mesenteric arteries -Vascular on consult, however per vascular, its unlikely contributing to his symptoms, will obtain CTA abd and pelvis after treatment of UTI -Constipation has resolved (5) UTI (urinary tract infection): Plan: Urinalysis suggestive of infection. Patient reports difficulty urinating. -Bladder scan and catheterization as needed -Follow urine cultures, negative so far with possible contamination -Continue Ceftriaxone 1gm IV daily (6) Aortoiliac occlusive disease: Plan: CT abdomen showed Extensive plaque within the abdominal aorta and branch vessels. 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 Suspected moderate stenosis at the origin of the celiac axis. These findings increase risk for mesenteric ischemia. Occlusion of the left common and internal iliac arteries with partial distal reconstitution. Moderate to severe bilateral renal artery stenosis. Vascular surgery on consult, plan is for CT angio after resolution of acute infection (7) Constipated: Plan: CT abdomen and pelvis showed evidence of constipation with a large stool burden Now resolved following multiple bowel movements (8) CKD (chronic kidney disease): Plan: -Monitor renal function, electrolytes -Straight cath as needed -Avoid nephrotoxic agents - Hold Lisinopril -Renal dosing where needed (9) Dementia: Plan: probable baseline dementia daughters say he has been struggling with confusion and forgetfulness (10) Arteriosclerosis of coronary artery: Plan: Patient denies chest pain. Troponin = 8.3. EKG with RBBB present, new from 2016 -Continue ASA -Continue Atorvastatin -Patient often refuses oral meds (11) HTN (hypertension): Plan: History of HTN. Blood pressure presently 151/83 -Hold lisinopril in setting of TANYA on CKD -Montior BP (12) Hyperlipidemia: Plan: Chronic -Continue Atorvastatin (13) Benign prostatic hyperplasia: Plan: Chronic -Continue Finasteride -Bladder scan as needed -Monitor UOP F/E/N - Normosol at 100mL/hr, monitor electrolytes, will hold off on K supplementation for now in setting of worsening renal function - K=3.4, hypercalcemia with Ca=11, normal Albumin, check ICal Ppx - Heparin Code - Full code per discussion with daughters and patient Dispo - monitor Admission and Anticipated Discharge Date Admission Date: December 12, 2021 Subjective patient seen and examined, was agitated overnight, still trying to get out of bed this morning Review of Systems Review of Systems: unable to obtain due to confusion Physical Exam Physical Exam: The patient is awake, alert and confused HEENT--PERRL, EOMI, mucous membranes and oropharynx mildly dry Neck--supple. No JVD. No bruits. Thyroid normal, trachea midline, no adenopathy. Heart--normal S1 and S2. No murmurs, rubs or gallops. Lungs--clear bilaterally, no respiratory distress, no accessory muscle use. Abdomen--normal bowel sounds and soft. Mild epigastric and left sided abdominal pain Extremities--no cyanosis or clubbing. No edema. Dermatologic--normal skin turgor, normal color, no abnormal lymph nodes, no rash. Neurologic--cranial nerves II through XII grossly intact. Rheumatologic--normal range of motion. Psychiatric--agitated Results & Data Results & Data ([facility]) Vital Signs (Past 12 Hours) Vital Signs Temp Pulse Resp BP Pulse Ox O2 Del Method 12/15/21 07:06 97.7 F 80 18 151/83 H 89 L Room Air 12/15/21 03:33 97.5 F L 95 H 16 149/82 H 90 Room Air PG Care Time/CCT Total # of Minutes Spent Total Time Spent with Patient: Total time spent is greater than 50% in coordination of care (as documented) at patient's floor/unit and/or counseling patient: Coding Level of Care Code 69398 Subseq Hosp Care Lvl 2 Diagnoses Hyperglycemia R73.9 Acute encephalopathy G93.40 PNA (pneumonia) J18.9 Abdominal pain R10.9 UTI (urinary tract infection) N39.0 Aortoiliac occlusive disease I74.09 Constipated K59.00 CKD (chronic kidney disease) N18.9 Dementia F03.90 Arteriosclerosis of coronary artery I25.10 HTN (hypertension) I10 Hyperlipidemia E78.5 Benign prostatic hyperplasia N40.0 Time Spent (min) 35
[2021-12-15] MEDS: AZITHROMYCIN 500 MG in DEXTROSE 5% 250 ML IV SCH (14:02)
[2021-12-15] MEDS ORDERED: INFLUENZA VACCINE HIGH DOSE PF 65+ 0.7 ML SYR IM ONE (15:41)
[2021-12-15] MEDS ORDERED: PNEUMOCOCCAL POLYSACCHARIDES 25 MCG/0.5 ML VIAL/SYR IM ONE (15:41)
[2021-12-15] MEDS ORDERED: NICOTINE 21 MG/24 HR TDSY TD SCH (17:00)
[2021-12-15] MEDS ORDERED: CALCIUM CARBONATE 500 MG CHEWABLE TAB PO PRN (18:39)
[2021-12-15] MEDS ORDERED: OLANZapine 10 MG/2.1 ML SDV IM PRN ×2 (19:44→19:51)
[2021-12-16] MEDS ORDERED: LEVALBUTEROL HCL 0.63 MG/3 ML NEB NEB STA (03:13)
--- NOTE | 2021-12-16 04:38 | Communication Note ---
Date of Service: December 16, 2021 Night resident note 03:15- RN notified me that patient developed SOB, tachypnea, and had an increasing oxygen requirement (went from 93% on 3L NC to 87% on 5L); also noted that patient has had intermittent emesis since admission. I ordered a xopenex neb and a CXR. RT assessed patient and performed suction, which brought up some coffee-brown emesis. RT noted that patient's breathing appeared to be much more comfortable after suctioning. CXR: diminished lung volumes bilaterally, significant gas burden in bowels concerning for SBO Given the gas burden noted on CXR, I ordered a stat CT abdomen/pelvis wo contrast, made patient NPO, ordered NG tube placement, and consulted surgery in addition to discussing the situation in-person with general surgery. CT a/p: pending Physical exam BP 178/79, HR 104, RR 25, afebrile, spO2 90% on 10L HFNC Gen: slightly anxious-appearing, NAD CV: tachycardic, no murmur appreciated Resp: mild rhonchi noted in lower lobes bilaterally, breathing non-labored Abd: firm, distended, moderate tenderness to palpation in all quadrants, BS absent in all quadrants Neuro: alert, oriented, no focal deficit appreciated 05:15- a camille ignacio was called after patient developed respiratory distress and became unresponsive after receiving 1mg ativan, which was ordered to assist with NG tube tolerance. Upon exam, patient was unresponsive to verbal or painful stimuli and breathing was very labored. Patient was tachycardic and hypoxic to low-80s; BP was stable. I ordered a stat CBC, CMP, ABG, and lactate. I also ordered flumazenil IV 0.2mg (x1). Patient was assessed by the ICU JAYESH who felt patient would likely require intubation. The overnight attending contacted patient's family members and confirmed they would want intubation if necessary. Plan NPO NG tube placement Given coffee-ground emesis, will hold heparin and start protonix 40mg IV bid Heparin held given coffee-ground emesis/concern for UGIB Ativan discontinued Surgery consulted for concern for SBO, gastroenterology consulted for concern for pseudo-obstruction ICU consulted given respiratory failure and need for intubation Patient intubated and transferred to ICU Zane Narvaez MD, PGY-3 Attending attestation: Patient seen during rapid response. Agonal breathing after receiving Ativan. Obtunded. Saturation 90 - 92% on 100% NRB. Sinus tachycardia on monitor. Blood pressure stable. ABG with 7. Family contacted - Svetlana [phone] and Darling [phone]. Confirmed code status and informed them of plan to proceed with intubation for acute hypoxic- hypercarbic respiratory failure and obtundation. Family agrees with intubation. Confirm that patient is Full Code. Patient intubated in [address] Olmos Vecuronium, Versed and Fentanyl administered from RSI kit Airway appeared to have copious gastric contents, concern for aspiration Has been transported to Room 104 Awaiting family to provide update Cate Lozano DO Resident Activity Tracking Resident Involvement: Resident Care Provided and [employer]der Setter Coverage Note Care Provided: Adult Hospital Medicine
[2021-12-16] MEDS ORDERED: OPTIRAY 320 500ml IV ONE (04:46)
[2021-12-16] MEDS ORDERED: LORazepam 1 MG in SYRINGE 0 ML IV PRN (05:06)
--- NOTE | 2021-12-16 05:19 | Surgery Consultation ---
Date of Consultation December 16, 2021 Assessment & Plan (1) Small bowel obstruction: Based on CT scan it appears as though the patient either has an obstruction of the small or large bowel. We recommend proceeding as follows for the present time: Implement n.p.o. status Provide IV fluid for hydration Due to concern for coffee-ground emesis would recommend implementing some type of the GI prophylaxis such as intravenous Protonix. Would also recommend discontinuing patient's subcutaneous heparin. Due to the coffee-ground emesis it may also be beneficial to request a GI consultation to see if upper endoscopy is warranted Primary service has ordered an NG tube. Would recommend continuing this modality until further improvement of abdominal exam. We will continue to follow serial exams with plans to continue NG tube until there is improvement of his abdominal exam and patient has improvement of bowel function Supervising Physician Co-Signing Physician Notes Dr. Chowdary now has been transferred to the ICU-I reviewed all of his studies and recent events and also saw the patient in his room Is currently on a ventilator, there is some concern that he may have aspirated, His CT scan did show very dilated stomach with gastric contents dilated small bowel with fluid and large gas-filled colon with diameter 78 cm down to the sigmoid colon and then the sigmoid and rectum are decompressed He has evidence of significant lung base consolidation and effusions This appears to be a pseudoobstructive pattern to me especially in light of his immobility and deconditioning I do not think he has colonic ischemia, his lactic acid is 1.5 and his colon is 7 to 8 cm dilated He does not have any peritoneal signs and has abdomen is not rigid I do not feel operative intervention will help in this situation- I do not think the patient will survive postoperatively although he could be brought through an operation one could consider GI evaluation with endoscopy and decompression tube placement Again there is no plan for surgical intervention History of Present Illness Reason for Consultation: Concern for small bowel obstruction Attending Physician: Eli Johnson MD History of Present Illness This is an 86-year-old male who was admitted to [facility] on 12/12/2021. Should be noted that the patient is a poor historian and was alert only to person at the time of my interview and therefore the historical in formation was obtained from review of chart as well as discussion with the primary service. Apparently the patient was admitted with 3 to 4 days of worsening abdominal pain along with nausea and vomiting. In addition the patient was noted to have a decreased appetite as well as constipation not having a bowel movement for approximately 1 week. At the time of admission the patient did report passing flatus. Earlier this morning the RN notified the primary service the patient developed some shortness of breath along with tachypnea with increased oxygen requirements. There is also some reported coffee-ground emesis. The primary service order CT scan that will be described below. Due to concern for small bowel obstruction General surgery has been consulted. Chest x-ray was performed this morning showed decreased lung volumes. There did not appear to be any free air. The colon appeared to be markedly dilated on the study. A CT scan of the abdomen pelvis was also performed this morning. This showed patient had marked dilation of the colon. There did not appear to be any intraperitoneal free air (the study has not yet been reviewed by radiology) most recent labs were from 12/15/2021. CBC showed white blood cell count and platelet count were normal. Hemoglobin and hematocrit were 12.7 and 36.4. Chemistry profile showed sodium was 135. Potassium and creatinine were both noted to be normal. BUN and creatinine were 29. At the time of my interview the patient did not appear to be in any distress. Allergies Allergy/AdvReac Type Severity Reaction Status Date / Time pollen extracts Allergy Unknown coughing/sn Verified 06/07/21 14:12 eezing doxycycline AdvReac Verified 06/07/21 14:12 Home Medications Medication Instructions Recorded Confirmed Type aspirin 81 mg tablet,delayed 81 mg PO QAM 03/05/18 06/07/21 History release fexofenadine 180 mg tablet 180 mg PO HS 03/05/18 06/07/21 History multivitamin 1 tab PO QAM 03/05/18 06/07/21 History nitroglycerin 0.4 mg sublingual See Rx Instructions .Route .COMPLEX 09/14/18 06/07/21 History tablet fluticasone propionate 50 2 spray intranasal DAILY #50 mcg 03/21/20 06/07/21 Rx mcg/actuation nasal spray,suspension (Flonase Allergy Relief) atorvastatin 40 mg tablet 40 mg PO DAILY #90 tabs 09/19/20 06/07/21 Rx ergocalciferol (vitamin D2) 1,250 50,000 unit PO MONTHLY #3 caps 06/08/21 Rx mcg (50,000 unit) capsule (Vitamin D2) lancets 30 gauge (OneTouch Delica #25 ea 06/11/21 History Lancets) flash glucose scanning reader #1 ea 06/29/21 Rx (FreeStyle Eli 14 Day [place]) flash glucose sensor (FreeStyle #1 ea 06/29/21 Rx Eli 14 Day Sensor kit) insulin NPH isoph U-100 human 100 See Rx Instructions .Route 08/06/21 Rx unit/mL (3 mL) subcutaneous pen .COMPLEX #15 mL (Novolin N Flexpen) pen needle, diabetic 31 gauge x #200 ea 10/19/21 Rx 5/16" (Lite Touch Insulin Pen [place]) lisinopril 2.5 mg tablet 2.5 mg PO DAILY #90 tabs 11/05/21 Rx blood sugar diagnostic (OneTouch #100 ea 11/16/21 Rx Verio test strips) blood-glucose meter (OneTouch #1 ea 11/16/21 Rx Verio Meter) finasteride 5 mg tablet 5 mg PO DAILY #90 tabs 11/26/21 Rx Patient History Medical History Anxiety Aortoiliac occlusive disease Arteriosclerosis of coronary artery remote (>20 years ago) h/o [place] Benign prostatic hyperplasia Carotid artery stenosis CKD (chronic kidney disease) Diabetes mellitus with insulin therapy HTN (hypertension) Hyperlipidemia Hyperparathyroidism Peripheral vascular disease Seborrheic keratosis Transient ischemic attack Vitamin D deficiency Surgical History Hx of endarterectomy Left carotid endarterectomy Hx of hernia repair Hx of right knee surgery Family History Father Coronary heart disease Hypertension Mother Coronary heart disease Diabetes Hypertension Heart disease Brother Diabetes Sister Diabetes Grandmother Hearing loss Daughter Asthma Other Allergies Social History Smoking Status: Current every day smoker Tobacco Type: Cigarettes Age Started Using Tobacco: 14; packs per day: 0.5; Years Smoked: 70; Cigarettes Per Day: 1 to 1 and a half packs; Second Hand Exposure: Yes; Do You Dip or Chew Tobacco: No; Tobacco Cessation Education Requested by Patient: No Hx Alcohol Use: Yes Alcohol type: beer and hard liquor Hx Substance Use: No Preferred Language: Mongolian Communication Ability: Impaired Hearing Ability: Use of Hearing Aid Band Splitter Required: No Beliefs That Will Affect Care: None marital status: Current Living Situation: Spouse current occupational status: retired Other Information That Helps Us Care for You: No Feels Safe at Home: Yes Safety Concerns: Feels Safe At This Time Seatbelt Use: always Sunscreen Use: No Assistive Devices: Cane Review of Systems Review of Systems: Unobtainable due to cognitive status Physical Exam Constitutional: well developed and well nourished; no acute distress Eyes: no conjunctival abnormality ENMT: Ears: no hearing impairment and no external ear abnormality Mouth: no oropharynx abnormality Neck: trachea midline Respiratory: normal respiratory effort; no respiratory distress and no labored breathing Cardiovascular: Rate/Rhythm: regular rate and regular rhythm Gastrointestinal (Abdomen): Abdomen is distended with some tympany to percussion. There is no rebound tenderness or guarding. Palpation of the abdomen did not appear to elicit a painful response. Bowel sounds are hypoactive. Musculoskeletal: No calf tenderness Skin: no rashes Neurologic: moves all extremities Psychiatric: Patient is alert to person only. Results & Data ([facility]) Vital Signs (Past 12 Hours) Vital Signs Temp Pulse Pulse Resp BP Pulse Ox O2 Del Method 12/16/21 04:05 104 H 25 H 90 Nasal Cannula 12/16/21 02:57 36.5 C 104 H 18 178/79 H 90 Nasal Cannula 12/15/21 22:15 114 H 12/15/21 22:28 36.9 C 101 H 18 176/100 H 93 Nasal Cannula 12/15/21 20:00 Nasal Cannula 12/15/21 19:14 36.5 C 85 18 168/76 H 93 Room Air O2 Flow Rate 12/16/21 04:05 10 12/16/21 02:57 12/15/21 22:15 12/15/21 22:28 3 12/15/21 20:00 3 12/15/21 19:14 PG Care Time/CCT Total # of Minutes Spent Total Time Spent with Patient: Total time spent is greater than 50% in coordination of care (as documented) at patient's floor/unit and/or counseling patient: Coding Level of Care Code 03082 Inpt Consult Level 5 Diagnoses Small bowel obstruction K56.609
[2021-12-16] MEDS ORDERED: PANTOprazole 40 MG in SYRINGE 0 ML IV SCH (05:30)
[2021-12-16] MEDS ORDERED: FLUMAZENIL 0.1 MG/1 ML 10 ML VIAL IV STA (06:00)
[2021-12-16] MEDS ORDERED: RAPID SEQUENCE INDUCTION BAG ONE (06:03)
[2021-12-16] MEDS ORDERED: SODIUM CHLORIDE 0.9% 1000ML 500 ML IV ONE (06:06)
[2021-12-16] MEDS ORDERED: VECURONIUM BROMIDE 10 MG VIAL IV ONE ×2 (06:11→11:48)
[2021-12-16 06:12] LABS: Basophils # (auto) 0.01 K/uL (0-0.2); Basophils % (auto) 0.1 %; Hematocrit (blood only) 37.5 % (40.1-51.0); Hemoglobin 12.6 g/dl (14.0-18.0); Immature Granulocytes # (auto) 0.06 K/uL (0.00-0.02); Immature Granulocytes % (auto) 0.6 %; Lymphocytes % (auto) 6.3 %; Mean Corpuscular Hemoglobin 32.1 pg (25.0-34.0); Mean Corpuscular Hgb Conc 33.6 g/dL (32.0-36.0); Mean Corpuscular Volume 95.4 fL (80.0-100.0); Mean Platelet Volume 10.3 fL (9.4-12.4); Monocytes # (auto) 1.05 K/uL (0.24-0.82); Neutrophils # (auto) 7.85 K/uL (1.4-6.5); Platelet Count 248 K/uL (130-400); RDW Coefficient of Variation 13.3 % (11.5-14.5); RDW Standard Deviation 47.1 fL (36.4-46.3); Red Blood Count 3.93 M/uL (4.63-6.08); White Blood Count 9.57 K/ul (4.8-10.8)
[2021-12-16 06:13] LABS: iSTAT Allen Test Pass; iSTAT Arterial Blood Gas HCO3 24 meg/L (19-24); iSTAT Arterial Blood Gas pCO2 62 mmHg (35-46); iSTAT Arterial Blood Gas pH 7.18 (7.35-7.45); iSTAT Arterial Blood Gas pO2 83 mmHg (80-95); iSTAT Carbon Dioxide 25 mmol/L (24-31); iSTAT FiO2 100 %; iSTAT Site L Radial
--- NOTE | 2021-12-16 06:22 | Emergency Department Note ---
ED Visit Note I was called to room 217 of Mr. Joey Stark who is 86 appears to have a bowel obstruction and respiratory failure with possible aspiration. The ICU physician design assistant and Dr. Lozano are bedside upon my arrival. The patient is in no respiratory distress. The following procedure was performed by me Endotracheal Intubation Indication respiratory failure The patient was on 100% oxygen via NRB prior to the procedure. Suction, airway equipment, RSI drugs, respiratory equipment, and appropriate personnel were prepared prior to the initiation of the procedure. A time out was taken. Patient had received Ativan prior to my arrival there is no need for any RSI medications. The airway was easily visualized utilizing a MAC. A 7.5size ETT tube was placed atraumatically to 22cm using standard technique. The cuff inflated without signs of malfunction. There were bilateral breath sounds, positive colormetric change, no gastric sounds, a good capnography waveform, and post procedure pulse oximetry was 94%. Post intubation sedation and paralysis was administered using Versed 5 mg and 10 mg of vecuronium, there were no complications. . : Vomiting Qualifiers: Vomiting type: unspecified Nausea presence: with nausea Qualified Code(s): R11.2 - Nausea with vomiting, unspecified
[2021-12-16 06:55] LABS: Albumin Globulin Ratio 1.2 (0.9-2); BUN Creatinine Ratio 37.3 (10-20); Bilirubin,Total 0.7 mg/dl (0.2-1.0); Calcium 7.9 mg/dl (8.5-10.1); Creatinine Clr Calc Pharmacy 35.9 ml/min; Est GFR (African American) 77.3 ml/min; Est GFR (Non-African American) 66.7 ml/min; Globulin 2.5 gm/dl (2.5-4.0); Potassium 4.4 mmol/L (3.5-5.1); Total Protein 5.5 gm/dl (6.0-8.3)
[2021-12-16] MEDS ORDERED: PANTOprazole 80 MG in DEXTROSE 5% 100 ML IV ONE (06:55)
[2021-12-16] MEDS ORDERED: PANTOPRAZOLE BOLUS/DRIP 1 EACH IV STA (06:55)
--- NOTE | 2021-12-16 06:57 | XRay Report ---
XR chest 1V portable CLINICAL HISTORY: Respiratory failure. COMPARISON STUDY: Chest radiograph December 16, 2021 at 3:37 AM. FINDINGS: Tip of endotracheal tube is 1 3 cm above the haile. Tip of nasogastric tube projects over the gastric fundus. Dilated bowel loops are partially imaged on this exam. Small bilateral pleural ef fusions are noted with bibasilar opacities. Lung volumes are diminished. Cardiomediastinal silhouette is stable. Mild interstitial pulmonary edema persists. IMPRESSION: 1. Tip of endotracheal tube 1.3 cm above the haile. 2. Interstitial pulmonary edema with small bilateral pleural effusions and bibasilar opacities which could reflect atelectasis or consolidation. 3. Low lung volumes. ACT 112: Negative or not required by law. Electronically signed by: Vicente Schwab M.D. 12/16/2021 6:54 AM
[2021-12-16] MEDS: INSULIN ASPART PER UNIT SC SCH ×5 (07:13→23:54)
[2021-12-16] MEDS ORDERED: STAT IV Infusion **Titration per Protocol STA (07:17)
[2021-12-16 07:21] LABS: Magnesium 1.6 mg/dl (1.7-2.4); Phosphorus 3.6 mg/dl (2.5-4.9)
--- NOTE | 2021-12-16 07:36 | CT Scan Report ---
CT OF THE ABDOMEN AND PELVIS WITHOUT CONTRAST CLINICAL HISTORY: Abdominal pain. Concern for small bowel obstruction. COMPARISON STUDY: CT of the abdomen December 12, 2021. TECHNIQUE: Axial images of the abdomen and pelvis were obtained without IV contrast. Images were revi ewed in the axial, sagittal, and coronal planes. Automated exposure control was utilized for the [place]. A dose lowering technique was utilized adhering to the principles of ALARA. FINDINGS: Please note that the CTA of the abdomen and pelvis will be reported separately. Small bilat eral pleural effusions with bibasilar opacities have developed since CT of December 12, 2021. There ar e extensive secretions within the right lower lobe bronchus. There are additional secretions within s egmental bronchi within the bilateral lower lobes. There is possible mild interstitial pulmonary marleny a. No pneumatosis, free air or portal venous gas is present. This exam is compromised by motion artif act. Anasarca is noted. Unenhanced images of the liver, spleen, adrenal glands, kidneys and pancreas are grossly unremarkable with exception of moderate left renal atrophy. There is no hydronephrosis. T he stomach is moderately distended and fluid-filled. There has been interval development of moderate small bowel dilatation since CT of December 12, 2021. The small bowel is moderately dilated and fluid- filled. No transition point is identified. Colonic dilatation is similar to prior exam. A moderate am ount stool within the colon is present. There is extensive aortoiliac atherosclerotic plaque, better depicted on the CTA. No fluid collection is identified. No acute fracture within the visual skeletal structures is present. IMPRESSION: 1. Interval development of moderate small bowel dilatation since CT of December 12, 2021. No transitio n point identified. This may reflect a nonspecific enteritis or ileus. A small bowel obstruction is c onsidered less likely but could appear similar. 2. Persistent moderate colonic dilatation. Moderate amount of stool within the colon. No evidence for a colonic obstruction. 3. Mildly distended fluid-filled stomach. 4. Small bilateral pleural effusions with bibasilar opacities which could reflect atelectasis or aspi ration pneumonia. Extensive secretions within the airways. 5. Anasarca. ACT 112: Negative or not required by law. Electronically signed by: Vicente Schwab M.D. 12/16/2021 7:34 AM
--- NOTE | 2021-12-16 07:41 | XRay Report ---
XR chest 1V portable CLINICAL HISTORY: worsening oxygen requirement COMPARISON STUDY: Chest radiograph December 12, 2021. FINDINGS: Lung volumes are diminished. Small bilateral pleural effusions with bibasilar opacities are noted. Ca rdiomediastinal silhouette is stable. Mild interstitial thickening is present. These findings have pr ogressed. Gas filled dilated loops of bowel are partially imaged on this exam. IMPRESSION: 1. Interstitial pulmonary edema with small bilateral pleural effusions and associated bibasilar opaci ties which could reflect pneumonia or atelectasis. 2. Low lung volumes. ACT 112: Negative or not required by law. Electronically signed by: Vicente Schwab M.D. 12/16/2021 7:40 AM
[2021-12-16 07:48] LABS: iSTAT Allen Test Pass; iSTAT Arterial Blood Gas HCO3 19 meg/L (19-24); iSTAT Arterial Blood Gas pCO2 40 mmHg (35-46); iSTAT Arterial Blood Gas pH 7.28 (7.35-7.45); iSTAT Arterial Blood Gas pO2 98 mmHg (80-95); iSTAT Carbon Dioxide 20 mmol/L (24-31); iSTAT FiO2 100 %; iSTAT Site R Brachial
[2021-12-16] MEDS: FINASTERIDE 5 MG TAB PO SCH (08:00)
[2021-12-16] MEDS: ASPIRIN 81 MG ECTAB PO SCH (08:01)
[2021-12-16] MEDS: PANTOprazole 40 MG in DEXTROSE 5% 100 ML IV SCH ×4 (08:03→23:32)
[2021-12-16] MEDS: AMPICILLIN/SULBACTAM SOD 3,000 MG in 0.9 % SODIUM CHLORIDE 100 ML IV SCH ×3 (08:03→21:08)
--- NOTE | 2021-12-16 08:03 | CT Scan Report ---
CT ANGIOGRAPHY OF THE ABDOMEN AND PELVIS CLINICAL HISTORY: Atherosclerosis, vessel occlusion. Abdominal pain. COMPARISON STUDY: CT of the abdomen and pelvis December 12, 2021. TECHNIQUE: Helical axial images of the abdomen and pelvis were obtained during arterial phase followi ng intravenous injection 110 cc of Optiray 320 IV. Sagittal and coronal reconstructions were viewed a s well as maximal intensity projections on an independent 3-D workstation. Automated exposure control was utilized for the study. A dose lowering technique was utilized adhering to the principles of [place] MICHELLE. FINDINGS: Small bilateral pleural effusions are noted with associated bibasilar opacities. Lingular c onsolidation is again noted. There are extensive secretions within the visualized lower lobe airways. No pneumatosis, free air or portal venous gas is present. This exam is compromised by motion artifac t. There is extensive aortoiliac atherosclerotic plaque. Moderate stenosis at the origin of the lizz c axis is noted. There is extensive calcific plaque within the proximal superior mesenteric artery wi th suspected occlusion and distal reconstitution. The mid to distal SMA is patent. There is occlusion of the proximal inferior mesenteric artery with distal reconstitution. Severe stenosis of the left r enal artery is noted. There is moderate stenosis of the right renal artery. There is occlusion of the left common iliac artery with reconstitution at the level of the left common femoral artery. Moderat e to severe stenosis of the left common femoral and superficial femoral arteries are patent. The stomach is fluid-filled and distended. Small bowel dilatation has developed since prior CT. No tr ansition point is identified. Colonic dilatation is similar to prior exam. There is a moderate amount stool within the colon. Anasarca is present. There is trace abdominal and pelvic ascites. Arterial p hase images of the liver, spleen, adrenal glands and pancreas are unremarkable. There is moderate lef t renal atrophy. No hydronephrosis is present. There is no fluid collection is suggest an abscess. IMPRESSION: 1. Extensive plaque within the abdominal aorta and branch vessels. 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 2. Interval development of small bowel dilatation since CT of December 12, 2021. No transition point i dentified. This favors an ileus or nonspecific enteritis. Although less likely, a small bowel obstruc tion cannot be excluded. If persistent abdominal pain, short-term imaging follow-up is recommended. N o change in colonic dilatation. Moderate amount stool within the colon. No evidence for a colonic obs truction. 3. Small bilateral pleural effusions with bibasilar opacities which could reflect aspiration pneumoni a or atelectasis. Extensive secretions within the visualized airways. 4. Moderate gastric distention. ACT 112: Negative or not required by law. Electronically signed by: Vicente Schwab M.D. 12/16/2021 8:00 AM
[2021-12-16 08:07] LABS: Gastric Occult Blood Positive (Negative)
[2021-12-16] MEDS: propofoL 1,000 MG/100 ML VIAL IV SCH ×2 (08:14→14:15)
[2021-12-16] MEDS: ATORVASTATIN 40 MG TAB PO SCH (08:14)
[2021-12-16] MEDS ORDERED: SODIUM BICARB 8.4% INJ 50 MEQ/50 ML SYR IV STA (08:50)
--- NOTE | 2021-12-16 08:56 | Critical Care Consultation ---
Date of Consultation December 16, 2021 Assessment & Plan (1) Acute hypoxemic respiratory failure: (2) Hypercapnic respiratory failure: (3) PNA (pneumonia): (4) Small bowel obstruction: (5) Hyperglycemia: (6) Acute encephalopathy: Plan Impression: 86-year-old male with multiple medical comorbidities admitted with obstipation and colonic dilatation, unclear if this could represent Shelby syndrome. He has developed what appears to be an ileus versus partial small bowel obstruction and had an episode of emesis with possible aspiration versus respiratory depression related to Ativan necessitating intubation mechanical ventilation. He is currently hemodynamically stable and in the ICU. Recommendations: 1. Neurologic: The patient is completely unresponsive currently. Unclear if this is related to neuromuscular blockade that he received earlier or potential underlying neurological issues. There is some comments in the notes regarding dementia although the family states that they are unaware of this diagnosis. He had been encephalopathic which may be secondary to underlying metabolic issues. We will check ammonia level as well as CT scan of the head. If the patient's mental status fails to improve, additional evaluation including EEG and MRI scan may be warranted with neurology consultation. 2. Cardiovascular: The patient is hemodynamically stable currently. Borderline elevation in troponin. Will check echocardiogram. Trend troponin levels. 3. Respiratory: Hypoxemic and hypercarbic respiratory failure. His blood gas demonstrates metabolic acidosis currently with normal CO2 levels. Continue to wean FiO2 and PEEP as tolerated. His hypoxemia is likely secondary to VQ mismatch and atelectasis due to abdominal distention and compression of the lung bases. Sputum culture has been ordered. See comments under ID below. 4. Renal: None anion gap metabolic acidosis. Kidney function currently normal but at risk for decline especially given his renal artery stenosis. Try and avoid hypotension if at all possible. Will place on ICU electrolyte replacement protocol. Will administer 1 dose of bicarb for now and follow. Mild hyponatremia we will continue to follow this as well. 5. ID: Possible colitis versus bacterial translocation given distended colon. Cannot rule out potential aspiration pneumonia as well. He is been on Rocephin and azithromycin. Will discontinue Rocephin and placed on Unasyn. Await respiratory cultures from the endotracheal tube. Follow procalcitonin white blood cell count and fever curve. 6. GI: Marked colonic and stomach dilatation. Continue OG tube to low intermittent suction. There was concern about potential GI bleeding/coffee- ground aspirate from the NG tube. Has been initiated on Protonix. Keep NPO. We will try soapsuds enemas from below. GI consultation has been obtained and will see whether or not colonic decompression might be an option endoscopically. If this is felt to be Marylou's, could consider neostigmine however the patient's advanced age and comorbidities make this not a great option. General surgery and vascular surgery consultations have been obtained. Patient is at risk for intestinal ischemia which would likely be a terminal event in this patient. 7. Endocrine: Poorly controlled diabetes. Pharmacy consult for hyperglycemic management. May require insulin infusion. 8. Heme-onc: No current issues. Hold DVT prophylaxis in light of potential GI bleed. SCDs. 9. Had a long discussion with the patient's daughters and granddaughter at bedside. We discussed his current situation. I advised them that if he were to clinically deteriorate to the point of needing CPR or cardioversion or defibrillation, I think his outcome would be very poor indeed. The family is all in agreement that the patient would not want to pursue these aggressive heroic measures. His CODE STATUS will subsequently be altered to DO NOT RESUSCITATE in the event of cardiac arrest. We will continue current measures to see whether or not there is reversible pathology present. Advised them that we should have a better picture of how he is going to respond over the next 12 to 24 hours and once we get additional imaging and diagnostics back. A total of 90 minutes in critical care time was spent in evaluation management stabilization of this patient including end-of-life discussions with family members and coordination of care with the team. The patient is critically ill on life support with significant possibility of clinical deterioration and/or . History of Present Illness Attending Physician: Eli Johnson MD History of Present Illness Patient is intubated and sedated and unable to provide any history. Asked to assist in management this patient with respiratory failure requiring intubation mechanical ventilation. History is obtained from review of the electronic medical record. The patient is an 86-year-old male with a history of poorly controlled diabetes hyperlipidemia and tobacco abuse who was admitted to the facility 12/12/2021. Patient has a longstanding history of obstipation and presented with abdominal pain nausea and vomiting. He has a chronic history of dizziness as well. He had increasing encephalopathy. He was tachypneic in the emergency room and had an abdominal exam which was somewhat concerning. Initially had an elevated lactate as well as an anion gap. He was admitted to the floor. Imaging was obtained including a CT of the abdomen which demonstrated large amount of stool in the rectum and colonic wall thickening with bladder wall thickening and occlusion of the proximal superior mesenteric and inferior mesenteric arteries with distal reconstitution and moderate stenosis at the celiac axis with a distended stomach. Basilar airspace opacities were noted. Vascular surgery consult was obtained and recommended a CT angiogram which was accomplished 12/16. This demonstrated moderate small bowel dilatation with no clear transition point. CT angiogram confirmed stenosis in the proximal superior mesenteric, inferior mesenteric, and celiac axis with occlusion of the left common iliac and severe stenosis of the left renal artery with moderate stenosis of the right renal artery noted. Vascular surgery examined the patient and did not feel that his clinical presentation was consistent with acute ischemia. The patient had progressive delirium encephalopathy requiring administration of Zyprexa. Yesterday evening General surgery consult was called due to the potential ileus/bowel obstruction. They recommended NG tube placement. Ativan was administered to facilitate placement and the patient subsequently had a respiratory arrest. He was intubated by the emergency room staff without medications. He then received vecuronium and Versed and was transferred to the ICU. He has been hemodynamically stable. His lactate is normal. Allergies Allergy/AdvReac Type Severity Reaction Status Date / Time pollen extracts Allergy Unknown coughing/sn Verified 06/07/21 14:12 eezing doxycycline AdvReac Verified 06/07/21 14:12 Home Medications Medication Instructions Recorded Confirmed Type aspirin 81 mg tablet,delayed 81 mg PO QAM 03/05/18 06/07/21 History release fexofenadine 180 mg tablet 180 mg PO HS 03/05/18 06/07/21 History multivitamin 1 tab PO QAM 03/05/18 06/07/21 History nitroglycerin 0.4 mg sublingual See Rx Instructions .Route .COMPLEX 09/14/18 06/07/21 History tablet fluticasone propionate 50 2 spray intranasal DAILY #50 mcg 03/21/20 06/07/21 Rx mcg/actuation nasal spray,suspension (Flonase Allergy Relief) atorvastatin 40 mg tablet 40 mg PO DAILY #90 tabs 09/19/20 06/07/21 Rx ergocalciferol (vitamin D2) 1,250 50,000 unit PO MONTHLY #3 caps 06/08/21 Rx mcg (50,000 unit) capsule (Vitamin D2) lancets 30 gauge (OneTouch Delica #25 ea 06/11/21 History Lancets) flash glucose scanning reader #1 ea 06/29/21 Rx (FreeStyle Eli 14 Day [place]) flash glucose sensor (FreeStyle #1 ea 06/29/21 Rx Eli 14 Day Sensor kit) insulin NPH isoph U-100 human 100 See Rx Instructions .Route 08/06/21 Rx unit/mL (3 mL) subcutaneous pen .COMPLEX #15 mL (Novolin N Flexpen) pen needle, diabetic 31 gauge x #200 ea 10/19/21 Rx 5/16" (Lite Touch Insulin Pen [place]) lisinopril 2.5 mg tablet 2.5 mg PO DAILY #90 tabs 11/05/21 Rx blood sugar diagnostic (OneTouch #100 ea 11/16/21 Rx Verio test strips) blood-glucose meter (OneTouch #1 ea 11/16/21 Rx Verio Meter) finasteride 5 mg tablet 5 mg PO DAILY #90 tabs 11/26/21 Rx Patient History Medical History Anxiety Aortoiliac occlusive disease Arteriosclerosis of coronary artery remote (>20 years ago) h/o [place] Benign prostatic hyperplasia Carotid artery stenosis CKD (chronic kidney disease) Diabetes mellitus with insulin therapy HTN (hypertension) Hyperlipidemia Hyperparathyroidism Peripheral vascular disease Seborrheic keratosis Transient ischemic attack Vitamin D deficiency Surgical History Hx of endarterectomy Left carotid endarterectomy Hx of hernia repair Hx of right knee surgery Family History Father Coronary heart disease Hypertension Mother Coronary heart disease Diabetes Hypertension Heart disease Brother Diabetes Sister Diabetes Grandmother Hearing loss Daughter Asthma Other Allergies Social History Smoking Status: Current every day smoker Tobacco Type: Cigarettes Age Started Using Tobacco: 14; packs per day: 0.5; Years Smoked: 70; Cigarettes Per Day: 1 to 1 and a half packs; Second Hand Exposure: Yes; Do You Dip or Chew Tobacco: No; Tobacco Cessation Education Requested by Patient: No Hx Alcohol Use: Yes Alcohol type: beer and hard liquor Hx Substance Use: No Preferred Language: Nigerien Communication Ability: Impaired Hearing Ability: Use of Hearing Aid [employer] Required: No Beliefs That Will Affect Care: None marital status: Current Living Situation: Spouse current occupational status: retired Other Information That Helps Us Care for You: No Feels Safe at Home: Yes Safety Concerns: Feels Safe At This Time Seatbelt Use: always Sunscreen Use: No Assistive Devices: Cane Review of Systems Review of Systems: Unobtainable due to endotracheal tube Physical Exam Constitutional: + frail appearing and + mechanically ventilated Neck: trachea midline, no thyromegaly Respiratory: normal respiratory effort, lungs clear to auscultation Cardiovascular: RRR, no murmur, no edema Gastrointestinal (Abdomen): Inspection/Auscultation: + abdomen distended and + hypoactive bowel sounds; + abnormal bowel sounds Percussion/Palpation: + tym panic to percussion; abdomen nontender Exam limited by neuromuscular blockade Musculoskeletal: Extremities: extremities normal to inspection Skin: no rashes, warm and dry Neurologic: Patient received neuromuscular blockade about an hour prior to my exam Lymphatic: no cervical lymphadenopathy Results & Data Results & Data ([facility]) Vital Signs (Past 12 Hours) Vital Signs Temp Pulse Pulse Resp BP Pulse Ox O2 Del Method 12/16/21 07:44 15 100 12/16/21 05:50 118 H 99 12/16/21 06:18 110 H 20 96 12/16/21 04:05 104 H 25 H 90 Nasal Cannula 12/16/21 02:57 36.5 C 104 H 18 178/79 H 90 Nasal Cannula 12/15/21 22:15 114 H 12/15/21 22:28 36.9 C 101 H 18 176/100 H 93 Nasal Cannula O2 Flow Rate FiO2 12/16/21 07:44 70 12/16/21 05:50 12/16/21 06:18 80 12/16/21 04:05 10 12/16/21 02:57 12/15/21 22:15 12/15/21 22:28 3 Critical Care Results & Data Vital Signs (Past 12 Hours) Vital Signs Temp Pulse Pulse Resp BP Pulse Ox O2 Del Method 12/16/21 07:44 15 100 12/16/21 05:50 118 H 99 12/16/21 06:18 110 H 20 96 12/16/21 04:05 104 H 25 H 90 Nasal Cannula 12/16/21 02:57 36.5 C 104 H 18 178/79 H 90 Nasal Cannula 12/15/21 22:15 114 H 12/15/21 22:28 36.9 C 101 H 18 176/100 H 93 Nasal Cannula O2 Flow Rate FiO2 12/16/21 07:44 70 12/16/21 05:50 12/16/21 06:18 80 12/16/21 04:05 10 12/16/21 02:57 12/15/21 22:15 12/15/21 22:28 3 Lab & Micro Results (Past 24 Hours) RBC 3.93 M/uL (4.63-6.08) L 12/16/21 WBC 9.57 K/ul (4.8-10.8) 12/16/21 Hgb 12.6 g/dl (14.0-18.0) L 12/16/21 Hct 37.5 % (40.1-51.0) L 12/16/21 MCV 95.4 fL (80.0-100.0) 12/16/21 MCH 32.1 pg (25.0-34.0) 12/16/21 MCHC 33.6 g/dL (32.0-36.0) 12/16/21 RDW Standard Deviation 47.1 fL (36.4-46.3) H 12/16/21 RDW Coefficient of Variation 13.3 % (11.5-14.5) 12/16/21 Plt Count 248 K/uL (130-400) 12/16/21 MPV 10.3 fL (9.4-12.4) 12/16/21 Neutrophils (%) (Auto) 82.0 % 12/16/21 Lymphocytes (%) (Auto) 6.3 % 12/16/21 Monocytes # (Auto) 1.05 K/uL (0.24-0.82) H 12/16/21 Eosinophils # (Auto) 0.00 K/uL (0-0.50) 12/16/21 Immature Granulocyte % (Auto) 0.6 % 12/16/21 Neutrophils # (Auto) 7.85 K/uL (1.4-6.5) H 12/16/21 Lymphocytes # (Auto) 0.60 K/uL (1.2-3.4) L 12/16/21 Monocytes # (Auto) 1.05 K/uL (0.24-0.82) H 12/16/21 Eosinophils # (Auto) 0.00 K/uL (0-0.50) 12/16/21 Basophils # (Auto) 0.01 K/uL (0-0.2) 12/16/21 Immature Granulocyte # (Auto) 0.06 K/uL (0.00-0.02) H 12/16 Na 132 mmol/L (136-145) L 12/16/21 K 4.4 mmol/L (3.5-5.1) 12/16/21 Cl 102 mmol/L (98-107) 12/16/21 CO2 23 mmol/L (21-32) 12/16/21 Anion Gap 7 (3-11) 12/16/21 BUN 38 mg/dl (6-23) H 12/16/21 Creatinine 1.02 mg/dl (0.6-1.4) 12/16/21 Estimated GFR ( Amer) 77.3 ml/min 12/16/21 Estimated GFR (Non-Af Amer) 66.7 ml/min 12/16/21 BUN/Creatinine Ratio 37.3 (10-20) H 12/16/21 Glu 312 mg/dl (70-99(Fasting)) H* 12/16/21 Ca 7.9 mg/dl (8.5-10.1) L 12/16/21 Phosphorus Level 3.6 mg/dl (2.5-4.9) 12/16/21 Total Bilirubin 0.7 mg/dl (0.2-1.0) 12/16/21 AST 50 U/L (13-39) H 12/16/21 ALT 14 U/L (7-52) 12/16/21 Alkaline Phosphatase 98 U/L (34-104) 12/16/21 TP 5.5 gm/dl (6.0-8.3) L 12/16/21 Albumin 3.0 gm/dl (3.4-5.0) L 12/16/21 Globulin 2.5 gm/dl (2.5-4.0) 12/16/21 Albumin/Globulin Ratio 1.2 (0.9-2) 12/16/21 Mg 1.6 mg/dl (1.7-2.4) L 12/16/21 05:57 Calcium Level 7.9 mg/dl (8.5-10.1) L 12/16/21 05:57 Anup Test Pass 12/16/21 07:35 Diagnostic Findings (Past 24 Hours) Chest X-Ray 12/16/21 03:12 XR chest 1V portable CLINICAL HISTORY: worsening oxygen requirement COMPARISON STUDY: Chest radiograph December 12, 2021. FINDINGS: Lung volumes are diminished. Small bilateral pleural effusions with bibasilar opacities are noted. Cardiomediastinal silhouette is stable. Mild interstitial thickening is present. These findings have progressed. Gas filled dilated loops of bowel are partially imaged on this exam. IMPRESSION: 1. Interstitial pulmonary edema with small bilateral pleural effusions and associated bibasilar opacities which could reflect pneumonia or atelectasis. 2. Low lung volumes. ACT 112: Negative or not required by law. Electronically signed by: Vicente Schwab M.D. 12/16/2021 7:40 AM Abdomen/Pelvis CT 12/16/21 04:20 CT OF THE ABDOMEN AND PELVIS WITHOUT CONTRAST CLINICAL HISTORY: Abdominal pain. Concern for small bowel obstruction. COMPARISON STUDY: CT of the abdomen December 12, 2021. TECHNIQUE: Axial images of the abdomen and pelvis were obtained without IV contrast. Images were reviewed in the axial, sagittal, and coronal planes. Automated exposure control was utilized for the study. A dose lowering chai hnique was utilized adhering to the principles of ALARA. FINDINGS: Please note that the CTA of the abdomen and pelvis will be reported separately. Small bilateral pleural effusions with bibasilar opacities have developed since CT of December 12, 2021. There are extensive secretions within the right lower lobe bronchus. There are additional secretions within segmental bronchi within the bilateral lower lobes. There is possible mild interstitial pulmonary edema. No pneumatosis, free air or portal venous gas is present. This exam is compromised by motion artifact. Anasarca is noted. Unenhanced images of the liver, spleen, adrenal glands, kidneys and pancreas are grossly unremarkable with exception of moderate left renal atrophy. There is no hydronephrosis. The stomach is moderately distended and fluid-filled. There has been interval development of moderate small bowel dilatation since CT of December 12, 2021. The small bowel is moderately dilated and fluid-filled. No transition point is identified. Colonic dilatation is similar to prior exam. A moderate amount stool within the colon is present. There is extensive aortoiliac atherosclerotic plaque, better depicted on the CTA. No fluid collection is identified. No acute fracture within the visual skeletal structures is present. IMPRESSION: 1. Interval development of moderate small bowel dilatation since CT of December 12, 2021. No transition point identified. This may reflect a nonspecific enteritis or ileus. A small bowel obstruction is considered less likely but could appear similar. 2. Persistent moderate colonic dilatation. Moderate amount of stool within the colon. No evidence for a colonic obstruction. 3. Mildly distended fluid-filled stomach. 4. Small bilateral pleural effusions with bibasilar opacities which could reflect atelectasis or aspiration pneumonia. Extensive secretions within the airways. 5. Anasarca. ACT 112: Negative or not required by law. Electronically signed by: Vicente Schwab M.D. 12/16/2021 7:34 AM Abdomen/Pelvis CTA 12/16/21 06:36 CT ANGIOGRAPHY OF THE ABDOMEN AND PELVIS CLINICAL HISTORY: Atherosclerosis, vessel occlusion. Abdominal pain. COMPARISON STUDY: CT of the abdomen and pelvis December 12, 2021. TECHNIQUE: Helical axial images of the abdomen and pelvis were obtained during arterial phase following intravenous injection 110 cc of Optiray 320 IV. Sagittal and coronal reconstructions were viewed as well as maximal intensity projections on an independent 3-D workstation. Automated exposure control was utilized for the study. A dose lowering technique was utilized adhering to the principles of ALARA. FINDINGS: Small bilateral pleural effusions are noted with associated bibasilar opacities. Lingular consolidation is again noted. There are extensive secretions within the visualized lower lobe airways. No pneumatosis, free air or portal venous gas is present. This exam is compromised by motion artifact. There is extensive aortoiliac atherosclerotic plaque. Moderate stenosis at the origin of the celiac axis is noted. There is extensive calcific plaque within the proximal superior mesenteric artery with suspected occlusion and distal reconstitution. The mid to distal SMA is patent. There is occlusion of the proximal inferior mesenteric artery with distal reconstitution. Severe stenosis of the left renal artery is noted. There is moderate stenosis of the right renal artery. There is occlusion of the left common iliac artery with reconstitution at the level of the left common femoral artery. Moderate to severe stenosis of the left common femoral and superficial femoral arteries are patent. The stomach is fluid-filled and distended. Small bowel dilatation has developed since prior CT. No transition point is identified. Colonic dilatation is similar to prior exam. There is a moderate amount stool within the colon. Anasarca is present. There is trace abdominal and pelvic ascites. Arterial phase images of the liver, spleen, adrenal glands and pancreas are unremarkable. There is moderate left renal atrophy. No hydronephrosis is present. There is no fluid collection is suggest an abscess. IMPRESSION: 1. Extensive plaque within the abdominal aorta and branch vessels. 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 Moderate stenosis at the origin of the celiac axis. Occlusion of the left common iliac and external iliac arteries with distal reconstitution. Severe stenosis of the left renal artery and moderate stenosis of the right renal artery. 2. Interval development of small bowel dilatation since CT of December 12, 2021. No transition point identified. This favors an ileus or nonspecific enteritis. Although less likely, a small bowel obstruction cannot be excluded. If persistent abdominal pain, short-term imaging follow-up is recommended. No change in colonic dilatation. Moderate amount stool within the colon. No evidence for a colonic obstruction. 3. Small bilateral pleural effusions with bibasilar opacities which could reflect aspiration pneumonia or atelectasis. Extensive secretions within the visualized airways. 4. Moderate gastric distention. ACT 112: Negative or not required by law. Electronically signed by: Vicente Schwab M.D. 12/16/2021 8:00 AM Chest X-Ray 12/16/21 07:00 XR chest 1V portable CLINICAL HISTORY: Respiratory failure. COMPARISON STUDY: Chest radiograph December 16, 2021 at 3:37 AM. FINDINGS: Tip of endotracheal tube is 1 3 cm above the haile. Tip of nasogastric tube projects over the gastric fundus. Dilated bowel loops are partially imaged on this exam. Small bilateral pleural effusions are noted with bibasilar opacities. Lung volumes are diminished. Cardiomediastinal silhouette is stable. Mild interstitial pulmonary edema persists. IMPRESSION: 1. Tip of endotracheal tube 1.3 cm above the haile. 2. Interstitial pulmonary edema with small bilateral pleural effusions and bibasilar opacities which could reflect atelectasis or consolidation. 3. Low lung volumes. ACT 112: Negative or not required by law. Electronically signed by: Vicente Schwab M.D. 12/16/2021 6:54 AM I & O Totals 24 Hours 12/15/21 12/16/21 12/17/21 07:59 06:59 06:59 Intake Total 0 / 0 Output Total 100 / 100 Balance -100 / -100 Cumulative 12/12/21 00:09 thru 12/16/21 07:33 Intake Total 55851.30 Output Total 966 Balance 04804.30 RT Ventilator Mngmt (Last Documented) Ventilator Ordered Settings Ventilator Support Mode Assist Control 12/16/21 07:44 Respiratory Rate 15 12/16/21 07:44 Ventilator Tidal Volume 440 12/16/21 07:44 Setting Minute Ventilation 8.8 12/16/21 07:44 Positive End Expiratory 6 12/16/21 07:44 Pressure Fraction of Inspired Oxygen 70 12/16/21 07:44 Ventilator - PT Measurements Respiratory Rate 15 Exhaled Tidal Volume 440 Minute Ventilation 8.8 Peak Inspiratory Airway 21 Pressure Plateau Pressure 19 Respiratory Cycle Inspiratory: 1:2.3 Expiratory Ratio Inspiratory Phase Time 0.9 End-Tidal CO2 20 Static Lung Compliance 33.85 Dynamic Lung Compliance 29.33 Normal Static Lung Compliance 47.00 Coding Level of Care Code Critical Care 1st 30-74 mins Diagnoses Acute hypoxemic respiratory failure J96.01 Hypercapnic respiratory failure J96.92 PNA (pneumonia) J18.9 Small bowel obstruction K56.609 Hyperglycemia R73.9 Acute encephalopathy G93.40 Time Spent (min) 90 Comment [id number] and [id number]
[2021-12-16] MEDS ORDERED: ICU SEVERE HYPERGLYCEMIA PROTOCOL ONE (08:59)
[2021-12-16] MEDS ORDERED: LANTUS PER UNIT CHARGE SQ SCH (09:00)
--- NOTE | 2021-12-16 09:00 | CT Scan Report ---
CT OF THE HEAD WITHOUT CONTRAST CLINICAL HISTORY: Altered mental status. COMPARISON STUDY: Head CT June 04, 2018 and MRI of the brain April 20, 2020. CT DOSE: 537.48 mGy.cm TECHNIQUE: Helical axial images of the head were obtained without IV contrast. Automated exposure con trol was utilized for the study. A dose lowering technique was utilized adhering to the principles o f ALARA. FINDINGS: No acute intracranial hemorrhage, midline shift or mass effect is present. Ventricular syst em is stable. Basal cisterns are patent. There are no extra-axial collections. There are no findings to suggest acute dural sinus thrombosis or acute territorial infarct. Intravascular contrast from rec ent contrast-enhanced CT is incidentally noted. Secretions within the nasopharynx are likely related to intubation. There is mild sinus mucosal thickening. There is no calvarial fracture. IMPRESSION: No acute intracranial findings. ACT 112: Negative or not required by law. Electronically signed by: Vicente Schwab M.D. 12/16/2021 8:59 AM
[2021-12-16] MEDS: D5W AND 1/2NSS + 20MEQ KCL 20 MEQ/1,000 ML BAG IV SCH (09:29)
[2021-12-16] MEDS: MAGNESIUM SULFATE / D5W 1 GM/100 ML BAG IV SCH ×4 (09:56→14:39)
--- NOTE | 2021-12-16 10:20 | Pharmacy Report ---
Pharmacy Glycemic Short Note 2 - Date of Service December 16, 2021 - Glycemic Short BSG Results (Last 24 hours): 12/15/21 12/15/21 12/15/21 12:58 16:11 20:11 Glucose POC Glucose 177 H 72 141 H 12/16/21 12/16/21 05:47 05:57 Glucose 312 H* POC Glucose 336 H* OUTPATIENT ANTIDIABETIC REGIMEN: * Novolin-N 14 units SQ AM, 5 units SQ PM * A1c 12/12/21 11.2% ASSESSMENT: 12/16/21: * Patient received total of 10 units of insulin yesterday, of which 7 units were basal. BSGs reasonably controlled yesterday * Patient developing increase O2 requirements/coffee brown emesis transferred to ICU and intubated this morning * Dextrose containing fluids paused at 0300 this AM per RN and now d/c. Prt gtt started * Fasting BSG 312 mg/dL - likely related to stress response. Hesitant to titrate basal too much since dextrose fluids stopped. Protonix gtt does contain dextrose. Will increase to only 8 units of basal this morning * Continue same CF/CR for now 12/14/21: * Patient received total 7 units of insulin yesterday; 5 units basal + 2 units bolus. * BSGs yesterday were [phone] mg/dl. * Fasting BSG today was 345 mg/dl with repeat of 321 mg/dl. Nurse confirmed that patient was not snacking prior to this check. His food intake has been minimal. * Patient is basal insulin deficient. He received less than 50% of insulin yesterday compared to what he would have been at home. * Increased basal insulin dose this morning. * To correct the high BSG this morning a dose of IV Regular insulin 4 units (0.1 unit/kg) was also given in addition to the Lantus and Novolog. Expect BSGs to trend down. 12/13/21: * Patient received total of around 12 to 15 units of insulin via insulin drip yesterday. Drip was discontinued this morning since the rate was down to 0.5 units/hr and BSG was 106 mg/dl. * Fasting BSG was 94 mg/dl this AM. * Patient was NPO this AM but diet resumed. * Lantus 5 units given this AM based on wt and stress of 1. Re-asses this dose tomorrow. * Novolog ordered based on wt and stress between 2 and 3 but will increase this to stress of 3 for tonight. 12/12/21 * 86 yo male admitted with hyperglycemia, poorly controlled DM as outpatient, on insulin therapy at home with non-adherence. Uncertain when he last took his insulin. BSG of 606mg/dl on arrival - improved to 503mg/dl after 500mL NSS given in ER. Anion-gap metabolic acidosis with gap of 18. Normal serum bicarbonate at 21, less likely DKA, elevated anion gap may be secondary to elevated lactate, worsening renal function. * Start insulin drip, IVF NSS + 20mEq K, as K+ dropped to 3.3. PLAN FOR INPATIENT GLYCEMIC CONTROL: * Basal insulin * Lantus 8 units daily * Bolus insulin * NovoLog per scale ACHS or Q6hrs while NPO * Goal Range: Low 120 mg/dL - High 150 mg/dL * Correction Factor: 35 mg/dL/unit * Nutritional / Prandial insulin per carb ratio of 1 unit per 11 grams CHO consumed
--- NOTE | 2021-12-16 10:33 | Gastrointestinal Consultation ---
Date of Consultation December 16, 2021 Assessment & Plan (1) Small bowel obstruction: He has what appears to be a generalized ileus or colonic pseudoobstruction with the subsequent development of a small bowel ileus/distension since admit. His initial studies showed stool to the rectum so I am not worried about a mechanical obstruction. Obviously his overall condition is contributing to some intestinal dysmotility but he does have impressive vascular disease on his CTA. I suspect that may have some contributing factor here. His H/H are stable so I am not worried about significant GI bleeding at this point and suspect dark gastric juices were related to stress gastritis. He has an orogastric tube so decompression from above would help. I suggested tap water to the nurse as on occasion soap suds enemas can cause colitis. Rectal decompression with rectal tube may be of benefit but do not feel colonoscopic decompression would be helpful at this point and unprepped the risk of perforation would be high. (2) Constipated: see above History of Present Illness Reason for Consultation: pseudo-obstruction Attending Physician: Eli Johnson MD History of Present Illness 86 year old man currently on a ventilator so I can get no history from him. From the chart he has had dilated colon then development of small bowel dilatation. He has had some dark gastric juices as well with a dilated stomach. On admission and since then he has been having abdominal pain. It was felt to be related to constipation and abdominal distension. Initial CT showed evidence of atherosclerotic issues in his abdominal vessels. Subsequent CTA has showed impressive obstructive atherosclerotic problems in celiac axis, SMA and BRAEDEN. Small bowel distension developed between the initial ct and the cta done four days later. As mentioned prior he is currently intubated. Allergies Allergy/AdvReac Type Severity Reaction Status Date / Time pollen extracts Allergy Unknown coughing/sn Verified 06/07/21 14:12 eezing doxycycline AdvReac Verified 06/07/21 14:12 Home Medications Medication Instructions Recorded Confirmed Type aspirin 81 mg tablet,delayed 81 mg PO QAM 03/05/18 06/07/21 History release fexofenadine 180 mg tablet 180 mg PO HS 03/05/18 06/07/21 History multivitamin 1 tab PO QAM 03/05/18 06/07/21 History nitroglycerin 0.4 mg sublingual See Rx Instructions .Route .COMPLEX 09/14/18 06/07/21 History tablet fluticasone propionate 50 2 spray intranasal DAILY #50 mcg 03/21/20 06/07/21 Rx mcg/actuation nasal spray,suspension (Flonase Allergy Relief) atorvastatin 40 mg tablet 40 mg PO DAILY #90 tabs 09/19/20 06/07/21 Rx ergocalciferol (vitamin D2) 1,250 50,000 unit PO MONTHLY #3 caps 06/08/21 Rx mcg (50,000 unit) capsule (Vitamin D2) lancets 30 gauge (OneTouch Delica #25 ea 06/11/21 History Lancets) flash glucose scanning reader #1 ea 06/29/21 Rx (FreeStyle Eli 14 Day [place]) flash glucose sensor (FreeStyle #1 ea 06/29/21 Rx Eli 14 Day Sensor kit) insulin NPH isoph U-100 human 100 See Rx Instructions .Route 08/06/21 Rx unit/mL (3 mL) subcutaneous pen .COMPLEX #15 mL (Novolin N Flexpen) pen needle, diabetic 31 gauge x #200 ea 10/19/21 Rx 5/16" (Lite Touch Insulin Pen [place]) lisinopril 2.5 mg tablet 2.5 mg PO DAILY #90 tabs 11/05/21 Rx blood sugar diagnostic (OneTouch #100 ea 11/16/21 Rx Verio test strips) blood-glucose meter (OneTouch #1 ea 11/16/21 Rx Verio Meter) finasteride 5 mg tablet 5 mg PO DAILY #90 tabs 11/26/21 Rx Patient History Medical History Anxiety Aortoiliac occlusive disease Arteriosclerosis of coronary artery remote (>20 years ago) h/o PR Benign prostatic hyperplasia Carotid artery stenosis CKD (chronic kidney disease) Diabetes mellitus with insulin therapy HTN (hypertension) Hyperlipidemia Hyperparathyroidism Peripheral vascular disease Seborrheic keratosis Transient ischemic attack Vitamin D deficiency Surgical History Hx of endarterectomy Left carotid endarterectomy Hx of hernia repair Hx of right knee surgery Family History Father Coronary heart disease Hypertension Mother Coronary heart disease Diabetes Hypertension Heart disease Brother Diabetes Sister Diabetes Grandmother Hearing loss Daughter Asthma Other Allergies Social History Smoking Status: Current every day smoker Tobacco Type: Cigarettes Age Started Using Tobacco: 14; packs per day: 0.5; Years Smoked: 69; Cigarettes Per Day: 1 to 1 and a half packs; Second Hand Exposure: Yes; Do You Dip or Chew Tobacco: No; Tobacco Cessation Education Requested by Patient: No Hx Alcohol Use: Yes Alcohol type: beer and hard liquor Hx Substance Use: No Preferred Language: [place] Communication Ability: Impaired Hearing Ability: Use of Hearing Aid 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 Beliefs That Will Affect Care: None marital status: Current Living Situation: Spouse current occupational status: retired Other Information That Helps Us Care for You: No Feels Safe at Home: Yes Safety Concerns: Feels Safe At This Time Seatbelt Use: always Sunscreen Use: No Assistive Devices: Cane Review of Systems Review of Systems: Unobtainable due to cognitive status Physical Exam Constitutional: + ill appearing, + mechanically ventilated and + underweight Respiratory: symmetric chest movement Auscultation: lungs clear to auscultation bilaterally Cardiovascular: RRR, no murmur, no edema Gastrointestinal (Abdomen): Inspection/Auscultation: + abdomen distended Results & Data ([facility]) Vital Signs (Past 12 Hours) Vital Signs Temp Pulse Pulse Resp BP BP Pulse Ox 12/16/21 09:02 36.7 C 101 H 24 154/75 H 97 12/16/21 08:00 36.6 C 100 H 24 137/77 96 12/16/21 07:15 36.5 C 94 H 20 105/60 100 12/16/21 09:32 12/16/21 08:00 102 H 12/16/21 07:44 15 100 12/16/21 05:50 118 H 99 12/16/21 06:18 110 H 20 96 12/16/21 04:05 104 H 25 H 90 12/16/21 02:57 36.5 C 104 H 18 178/79 H 90 O2 Del Method O2 Flow Rate FiO2 12/16/21 09:02 12/16/21 08:00 70 12/16/21 07:15 80 12/16/21 09:32 Mechanical Vent 70 12/16/21 08:00 12/16/21 07:44 70 12/16/21 05:50 12/16/21 06:18 80 12/16/21 04:05 Nasal Cannula 10 12/16/21 02:57 Nasal Cannula Laboratory Results 12/16/21 12/16/21 12/16/21 Range/Units 08:20 07:35 07:08 WBC (4.8-10.8) K/ul RBC (4.63-6.08) M/uL Hgb (14.0-18.0) g/dl Hct (40.1-51.0) % MCV (80.0-100.0) fL MCH (25.0-34.0) pg MCHC (32.0-36.0) g/dL RDW Std Deviation (36.4-46.3) fL RDW Coeff of Sunday (11.5-14.5) % Plt Count (130-400) K/uL MPV (9.4-12.4) fL Immature Gran % (Auto) % Neut % (Auto) % Lymph % (Auto) % Teller % (Auto) % Eos % (Auto) % Baso % (Auto) % Neut # (Auto) (1.4-6.5) K/uL Lymph # (Auto) (1.2-3.4) K/uL Teller # (Auto) (0.24-0.82) K/uL Eos # (Auto) (0-0.50) K/uL Baso # (Auto) (0-0.2) K/uL Immature Gran # (Auto) (0.00-0.02) K/uL Sample Site R Brachial POC pH 7.28 L (7.35-7.45) POC pCO2 40 (35-46) mmHg POC pO2 98 H (80-95) mmHg POC HCO3 19 (19-24) jurgen/L POC Total CO2 20 L (24-31) mmol/L POC Base Excess -8.0 (-9-1.8) jurgen/L POC ABG O2 Sat 97.0 H (90-95) % Anup Test Pass O2 Delivery Device Ventilator POC O2 Rate 20 Minute Ventilation 8.8 POC FiO2 100 % Tidal Volume 440 PEEP 6 Sodium (136-145) mmol/L Potassium (3.5-5.1) mmol/L Chloride (98-107) mmol/L Carbon Dioxide (21-32) mmol/L Anion Gap (3-11) BUN (6-23) mg/dl Creatinine (0.6-1.4) mg/dl Est Cr Clr Drug Dosing ml/min Est GFR ( Amer) ml/min Est GFR (Non-Af Amer) ml/min BUN/Creatinine Ratio (10-20) Glucose (70-99(Fasting)) mg/dl POC Glucose (70-99) mg/dl Lactate (0.4-2.0) mmol/L Calcium (8.5-10.1) mg/dl Phosphorus (2.5-4.9) mg/dl Magnesium (1.7-2.4) mg/dl Total Bilirubin (0.2-1.0) mg/dl AST (13-39) U/L ALT (7-52) U/L Alkaline Phosphatase (34-104) U/L Ammonia 27.0 (18-72) umol/L Troponin I High Sens (0-20) pg/ml Total Protein (6.0-8.3) gm/dl Albumin (3.4-5.0) gm/dl Globulin (2.5-4.0) gm/dl Albumin/Globulin Ratio (0.9-2) Gastric Fluid pH 5-7 Gastric Occult Blood Positive A (Negative) 12/16/21 12/16/21 12/16/21 Range/Units 06:04 05:59 05:57 WBC (4.8-10.8) K/ul RBC (4.63-6.08) M/uL Hgb (14.0-18.0) g/dl Hct (40.1-51.0) % MCV (80.0-100.0) fL MCH (25.0-34.0) pg MCHC (32.0-36.0) g/dL RDW Std Deviation (36.4-46.3) fL RDW Coeff of Sunday (11.5-14.5) % Plt Count (130-400) K/uL MPV (9.4-12.4) fL Immature Gran % (Auto) % Neut % (Auto) % Lymph % (Auto) % Teller % (Auto) % Eos % (Auto) % Baso % (Auto) % Neut # (Auto) (1.4-6.5) K/uL Lymph # (Auto) (1.2-3.4) K/uL Teller # (Auto) (0.24-0.82) K/uL Eos # (Auto) (0-0.50) K/uL Baso # (Auto) (0-0.2) K/uL Immature Gran # (Auto) (0.00-0.02) K/uL Sample Site L Radial POC pH 7.18 L* (7.35-7.45) POC pCO2 62 H (35-46) mmHg POC pO2 83 (80-95) mmHg POC HCO3 24 (19-24) jurgen/L POC Total CO2 25 (24-31) mmol/L POC Base Excess -5.0 (-9-1.8) jurgen/L POC ABG O2 Sat 93.0 (90-95) % Anup Test Pass O2 Delivery Device NonRb Mask POC O2 Rate Minute Ventilation POC FiO2 100 % Tidal Volume PEEP Sodium (136-145) mmol/L Potassium (3.5-5.1) mmol/L Chloride (98-107) mmol/L Carbon Dioxide (21-32) mmol/L Anion Gap (3-11) BUN (6-23) mg/dl Creatinine (0.6-1.4) mg/dl Est Cr Clr Drug Dosing ml/min Est GFR ( Amer) ml/min Est GFR (Non-Af Amer) ml/min BUN/Creatinine Ratio (10-20) Glucose (70-99(Fasting)) mg/dl POC Glucose (70-99) mg/dl Lactate 1.9 (0.4-2.0) mmol/L Calcium (8.5-10.1) mg/dl Phosphorus (2.5-4.9) mg/dl Magnesium (1.7-2.4) mg/dl Total Bilirubin (0.2-1.0) mg/dl AST (13-39) U/L ALT (7-52) U/L Alkaline Phosphatase (34-104) U/L Ammonia (18-72) umol/L Troponin I High Sens 32.6 H D (0-20) pg/ml Total Protein (6.0-8.3) gm/dl Albumin (3.4-5.0) gm/dl Globulin (2.5-4.0) gm/dl Albumin/Globulin Ratio (0.9-2) Gastric Fluid pH Gastric Occult Blood (Negative) 12/16/21 12/16/21 12/16/21 Range/Units 05:57 05:57 05:57 WBC 9.57 (4.8-10.8) K/ul RBC 3.93 L (4.63-6.08) M/uL Hgb 12.6 L (14.0-18.0) g/dl Hct 37.5 L (40.1-51.0) % MCV 95.4 (80.0-100.0) fL MCH 32.1 (25.0-34.0) pg MCHC 33.6 (32.0-36.0) g/dL RDW Std Deviation 47.1 H (36.4-46.3) fL RDW Coeff of Sunday 13.3 (11.5-14.5) % Plt Count 248 (130-400) K/uL MPV 10.3 (9.4-12.4) fL Immature Gran % (Auto) 0.6 % Neut % (Auto) 82.0 % Lymph % (Auto) 6.3 % Teller % (Auto) 11.0 % Eos % (Auto) 0.0 % Baso % (Auto) 0.1 % Neut # (Auto) 7.85 H (1.4-6.5) K/uL Lymph # (Auto) 0.60 L (1.2-3.4) K/uL Teller # (Auto) 1.05 H (0.24-0.82) K/uL Eos # (Auto) 0.00 (0-0.50) K/uL Baso # (Auto) 0.01 (0-0.2) K/uL Immature Gran # (Auto) 0.06 H (0.00-0.02) K/uL Sample Site POC pH (7.35-7.45) POC pCO2 (35-46) mmHg POC pO2 (80-95) mmHg POC HCO3 (19-24) jurgen/L POC Total CO2 (24-31) mmol/L POC Base Excess (-9-1.8) jurgen/L POC ABG O2 Sat (90-95) % Anup Test O2 Delivery Device POC O2 Rate Minute Ventilation POC FiO2 % Tidal Volume PEEP Sodium 132 L (136-145) mmol/L Potassium 4.4 D (3.5-5.1) mmol/L Chloride 102 (98-107) mmol/L Carbon Dioxide 23 (21-32) mmol/L Anion Gap 7 (3-11) BUN 38 H (6-23) mg/dl Creatinine 1.02 (0.6-1.4) mg/dl Est Cr Clr Drug Dosing 35.9 ml/min Est GFR ( Amer) 77.3 ml/min Est GFR (Non-Af Amer) 66.7 ml/min BUN/Creatinine Ratio 37.3 H (10-20) Glucose 312 H* (70-99(Fasting)) mg/dl POC Glucose (70-99) mg/dl Lactate (0.4-2.0) mmol/L Calcium 7.9 L (8.5-10.1) mg/dl Phosphorus 3.6 (2.5-4.9) mg/dl Magnesium 1.6 L (1.7-2.4) mg/dl Total Bilirubin 0.7 (0.2-1.0) mg/dl AST 50 H (13-39) U/L ALT 14 (7-52) U/L Alkaline Phosphatase 98 (34-104) U/L Ammonia (18-72) umol/L Troponin I High Sens (0-20) pg/ml Total Protein 5.5 L (6.0-8.3) gm/dl Albumin 3.0 L (3.4-5.0) gm/dl Globulin 2.5 (2.5-4.0) gm/dl Albumin/Globulin Ratio 1.2 (0.9-2) Gastric Fluid pH Gastric Occult Blood (Negative) 12/16/21 12/15/21 12/15/21 Range/Units 05:47 20:11 16:11 WBC (4.8-10.8) K/ul RBC (4.63-6.08) M/uL Hgb (14.0-18.0) g/dl Hct (40.1-51.0) % MCV (80.0-100.0) fL MCH (25.0-34.0) pg MCHC (32.0-36.0) g/dL RDW Std Deviation (36.4-46.3) fL RDW Coeff of Sunday (11.5-14.5) % Plt Count (130-400) K/uL MPV (9.4-12.4) fL Immature Gran % (Auto) % Neut % (Auto) % Lymph % (Auto) % Teller % (Auto) % Eos % (Auto) % Baso % (Auto) % Neut # (Auto) (1.4-6.5) K/uL Lymph # (Auto) (1.2-3.4) K/uL Teller # (Auto) (0.24-0.82) K/uL Eos # (Auto) (0-0.50) K/uL Baso # (Auto) (0-0.2) K/uL Immature Gran # (Auto) (0.00-0.02) K/uL Sample Site POC pH (7.35-7.45) POC pCO2 (35-46) mmHg POC pO2 (80-95) mmHg POC HCO3 (19-24) jurgen/L POC Total CO2 (24-31) mmol/L POC Base Excess (-9-1.8) jurgen/L POC ABG O2 Sat (90-95) % Anup Test O2 Delivery Device POC O2 Rate Minute Ventilation POC FiO2 % Tidal Volume PEEP Sodium (136-145) mmol/L Potassium (3.5-5.1) mmol/L Chloride (98-107) mmol/L Carbon Dioxide (21-32) mmol/L Anion Gap (3-11) BUN (6-23) mg/dl Creatinine (0.6-1.4) mg/dl Est Cr Clr Drug Dosing ml/min Est GFR ( Amer) ml/min Est GFR (Non-Af Amer) ml/min BUN/Creatinine Ratio (10-20) Glucose (70-99(Fasting)) mg/dl POC Glucose 336 H* 141 H 72 (70-99) mg/dl Lactate (0.4-2.0) mmol/L Calcium (8.5-10.1) mg/dl Phosphorus (2.5-4.9) mg/dl Magnesium (1.7-2.4) mg/dl Total Bilirubin (0.2-1.0) mg/dl AST (13-39) U/L ALT (7-52) U/L Alkaline Phosphatase (34-104) U/L Ammonia (18-72) umol/L Troponin I High Sens (0-20) pg/ml Total Protein (6.0-8.3) gm/dl Albumin (3.4-5.0) gm/dl Globulin (2.5-4.0) gm/dl Albumin/Globulin Ratio (0.9-2) Gastric Fluid pH Gastric Occult Blood (Negative) 12/15/21 Range/Units 12:58 WBC (4.8-10.8) K/ul RBC (4.63-6.08) M/uL Hgb (14.0-18.0) g/dl Hct (40.1-51.0) % MCV (80.0-100.0) fL MCH (25.0-34.0) pg MCHC (32.0-36.0) g/dL RDW Std Deviation (36.4-46.3) fL RDW Coeff of Sunday (11.5-14.5) % Plt Count (130-400) K/uL MPV (9.4-12.4) fL Immature Gran % (Auto) % Neut % (Auto) % Lymph % (Auto) % Teller % (Auto) % Eos % (Auto) % Baso % (Auto) % Neut # (Auto) (1.4-6.5) K/uL Lymph # (Auto) (1.2-3.4) K/uL Teller # (Auto) (0.24-0.82) K/uL Eos # (Auto) (0-0.50) K/uL Baso # (Auto) (0-0.2) K/uL Immature Gran # (Auto) (0.00-0.02) K/uL Sample Site POC pH (7.35-7.45) POC pCO2 (35-46) mmHg POC pO2 (80-95) mmHg POC HCO3 (19-24) jurgen/L POC Total CO2 (24-31) mmol/L POC Base Excess (-9-1.8) jurgen/L POC ABG O2 Sat (90-95) % Anup Test O2 Delivery Device POC O2 Rate Minute Ventilation POC FiO2 % Tidal Volume PEEP Sodium (136-145) mmol/L Potassium (3.5-5.1) mmol/L Chloride (98-107) mmol/L Carbon Dioxide (21-32) mmol/L Anion Gap (3-11) BUN (6-23) mg/dl Creatinine (0.6-1.4) mg/dl Est Cr Clr Drug Dosing ml/min Est GFR ( Amer) ml/min Est GFR (Non-Af Amer) ml/min BUN/Creatinine Ratio (10-20) Glucose (70-99(Fasting)) mg/dl POC Glucose 177 H (70-99) mg/dl Lactate (0.4-2.0) mmol/L Calcium (8.5-10.1) mg/dl Phosphorus (2.5-4.9) mg/dl Magnesium (1.7-2.4) mg/dl Total Bilirubin (0.2-1.0) mg/dl AST (13-39) U/L ALT (7-52) U/L Alkaline Phosphatase (34-104) U/L Ammonia (18-72) umol/L Troponin I High Sens (0-20) pg/ml Total Protein (6.0-8.3) gm/dl Albumin (3.4-5.0) gm/dl Globulin (2.5-4.0) gm/dl Albumin/Globulin Ratio (0.9-2) Gastric Fluid pH Gastric Occult Blood (Negative) Diagnostic Findings Abdomen/Pelvis CT 12/16/21 04:20 CT OF THE ABDOMEN AND PELVIS WITHOUT CONTRAST CLINICAL HISTORY: Abdominal pain. Concern for small bowel obstruction. COMPARISON STUDY: CT of the abdomen December 12, 2021. TECHNIQUE: Axial images of the abdomen and pelvis were obtained without IV contrast. Images were reviewed in the axial, sagittal, and coronal planes. Automated exposure control was utilized for the study. A dose lowering technique was utilized adhering to the principles of ALARA. FINDINGS: Please note that the CTA of the abdomen and pelvis will be reported separately. Small bilateral pleural effusions with bibasilar opacities have developed since CT of December 12, 2021. There are extensive secretions within the right lower lobe bronchus. There are additional secretions within segmental bronchi within the bilateral lower lobes. There is possible mild interstitial pulmonary edema. No pneumatosis, free air or portal venous gas is present. This exam is compromised by motion artifact. Anasarca is noted. Unenhanced images of the liver, spleen, adrenal glands, kidneys and pancreas are grossly unremarkable with exception of moderate left renal atrophy. There is no hydronephrosis. The stomach is moderately distended and fluid-filled. There has been interval d evelopment of moderate small bowel dilatation since CT of December 12, 2021. The small bowel is moderately dilated and fluid-filled. No transition point is identified. Colonic dilatation is similar to prior exam. A moderate amount stool within the colon is present. There is extensive aortoiliac atherosclerotic plaque, better depicted on the CTA. No fluid collection is identified. No acute fracture within the visual skeletal structures is present. IMPRESSION: 1. Interval development of moderate small bowel dilatation since CT of December 12, 2021. No transition point identified. This may reflect a nonspecific enteritis or ileus. A small bowel obstruction is considered less likely but could appear similar. 2. Persistent moderate colonic dilatation. Moderate amount of stool within the c olon. No evidence for a colonic obstruction. 3. Mildly distended fluid-filled stomach. 4. Small bilateral pleural effusions with bibasilar opacities which could reflect atelectasis or aspiration pneumonia. Extensive secretions within the airways. 5. Anasarca. ACT 112: Negative or not required by law. Electronically signed by: Vicente Schwab M.D. 12/16/2021 7:34 AM Abdomen/Pelvis CTA 12/16/21 06:36 CT ANGIOGRAPHY OF THE ABDOMEN AND PELVIS CLINICAL HISTORY: Atherosclerosis, vessel occlusion. Abdominal pain. COMPARISON STUDY: CT of the abdomen and pelvis December 12, 2021. TECHNIQUE: Helical axial images of the abdomen and pelvis were obtained during arterial phase following intravenous injection 110 cc of Optiray 320 IV. Sagittal and coronal reconstructions were viewed as well as maximal intensity projections on an independent 3-D workstation. Automated exposure control was utilized for the study. A dose lowering technique was utilized adhering to the principles of ALARA. FINDINGS: Small bilateral pleural effusions are noted with associated bibasilar opacities. Lingular consolidation is again noted. There are extensive secretions within the visualized lower lobe airways. No pneumatosis, free air or portal venous gas is present. This exam is compromised by motion artifact. There is extensive aortoiliac atherosclerotic plaque. Moderate stenosis at the origin of the celiac axis is noted. There is extensive calcific plaque within the proximal superior mesenteric artery with suspected occlusion and distal reconstitution. T he mid to distal SMA is patent. There is occlusion of the proximal inferior mesenteric artery with distal reconstitution. Severe stenosis of the left renal artery is noted. There is moderate stenosis of the right renal artery. There is occlusion of the left common iliac artery with reconstitution at the level of the left common femoral artery. Moderate to severe stenosis of the left common femoral and superficial femoral arteries are patent. The stomach is fluid-filled and distended. Small bowel dilatation has developed since prior CT. No transition point is identified. Colonic dilatation is similar to prior exam. There is a moderate amount stool within the colon. Anasarca is present. There is trace abdominal and pelvic ascites. Arterial phase images of the liver, spleen, adrenal glands and pancreas are unremarkable. There is moderate left renal atrophy. No hydronephrosis is present. There is no fluid collection is suggest an abscess. IMPRESSION: 1. Extensive plaque within the abdominal aorta and branch vessels. 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 Moderate stenosis at the origin of the celiac axis. Occlusion of the left common iliac and external iliac arteries with distal reconstitution. Severe stenosis of the left renal artery and moderate stenosis of the right renal artery. 2. Interval development of small bowel dilatation since CT of December 12, 2021. No transition point identified. This favors an ileus or nonspecific enteritis. Although less likely, a small bowel obstruction cannot be excluded. If persistent abdominal pain, short-term imaging follow-up is recommended. No change in colonic dilatation. Moderate amount stool within the colon. No evidence for a colonic obstruction. 3. Small bilateral pleural effusions with bibasilar opacities which could reflect aspiration pneumonia or atelectasis. Extensive secretions within the visualized airways. 4. Moderate gastric distention. ACT 112: Negative or not required by law. Electronically signed by: Vicente Schwab M.D. 12/16/2021 8:00 AM Chest X-Ray 12/16/21 07:00 XR chest 1V portable CLINICAL HISTORY: Respiratory failure. COMPARISON STUDY: Chest radiograph December 16, 2021 at 3:37 AM. FINDINGS: Tip of endotracheal tube is 1 3 cm above the haile. Tip of nasogastric tube projects over the gastric fundus. Dilated bowel loops are partially imaged on this exam. Small bilateral pleural effusions are noted with bibasilar opacities. Lung volumes are diminished. Cardiomediastinal silhouette is stable. Mild interstitial pulmonary edema persists. IMPRESSION: 1. Tip of endotracheal tube 1.3 cm above the haile. 2. Interstitial pulmonary edema with small bilateral pleural effusions and bibasilar opacities which could reflect atelectasis or consolidation. 3. Low lung volumes. ACT 112: Negative or not required by law. Electronically signed by: Vicente Schwab M.D. 12/16/2021 6:[address] 12/16/21 08:05 CT OF THE HEAD WITHOUT CONTRAST CLINICAL HISTORY: Altered mental status. COMPARISON STUDY: Head CT June 04, 2018 and MRI of the brain April 20, 2020. CT DOSE: 537.48 mGy.cm TECHNIQUE: Helical axial images of the head were obtained without IV contrast. Automated exposure control was utilized for the study. A dose lowering technique was utilized adhering to the principles of ALARA. FINDINGS: No acute intracranial hemorrhage, midline shift or mass effect is present. Ventricular system is stable. Basal cisterns are patent. There are no extra-axial collections. There are no findings to suggest acute dural sinus thrombosis or acute territorial infarct. Intravascular contrast from recent contrast-enhanced CT is incidentally noted. Secretions within the nasopharynx are likely related to intubation. There is mild sinus mucosal thickening. There is no calvarial fracture. IMPRESSION: No acute intracranial findings. ACT 112: Negative or not required by law. Electronically signed by: Vicente Schwab M.D. 12/16/2021 8:59 AM
--- NOTE | 2021-12-16 11:08 | Hospitalist Progress Note ---
Date of Service December 16, 2021 Assessment & Plan (1) Acute hypoxemic respiratory failure: Plan: Patient developed respiratory distress overnight after bouts of vomiting He was intubated and sent to the ICU, where he is currently intubated, sedated and ventilated (2) Ileus: Plan: Overnight, patient started vomiting and the night doc orderd x ray and subsequently CT abdomen This showed small and large bowel dilation, but no transition point Ativan was administered to help during NG tube placement and the patient went into respiratory distress, intubated and then sent to ICU Subsequent CTA has showed impressive obstructive atherosclerotic problems in celiac axis, SMA and BRAEDEN (initial CT done on admission had suggested that as well) General surgery and GI on board, no plans for surgery (3) Hyperglycemia: Plan: 86yo male with poorly controlled diabetes presenting with hyperglycemia, blood glucose >600 on admission. Patient with poorly controlled DM - last [id number]=08.9 on 06/07/21, on insulin therapy at home with non-adherence to home regimen. -Blood glucose control now better following treatment -Continue sliding scale insulin and Glargine 10 units in the morning -Patient will need better glucose monitoring at home and also better compliance with his regimen (4) Acute encephalopathy: Plan: most likley delirium on a backround of dementia Worsened by acute illness, UTI, PNA and unfamiliar environment PRN Zyprexa for agitation will avoid Ativan or haldol Now intubated and sedated and ventilated (5) PNA (pneumonia): Plan: CT chest suggests consolidation currently on Unasyn, Ceftraixone and Azithromycin Blood cultures negative so far (6) Abdominal pain: Plan: Patient complaining of severe abdominal pain as well as nausea and multiple episodes of emesis as well as constipation on admission -However, seems his abdominal pain is chronic -CT abdomen and pelvis showed evidence of constipation with a large stool burden, he moved his bowel a few times following miralax -Lipase was wnl -However, there is suggestion of large burden of plaque in the aorta and also narrowing or stenosis of some mesenteric arteries -Vascular on consult, however per vascular, its unlikely contributing to his symptoms, CTA abd and pelvis confirmed obstructive atherosclerotic problems in celiac axis, SMA and BRAEDEN. -Patient currently intubated, sedated and ventilated (7) UTI (urinary tract infection): Plan: Urinalysis suggestive of infection. Patient reported difficulty urinating. -Follow urine cultures, negative so far with possible contamination -Continue Ceftriaxone 1gm IV daily (8) Aortoiliac occlusive disease: Plan: CT abdomen showed Extensive plaque within the abdominal aorta and branch vessels.Now confirmed by CTA abdomen and pelvis Occlusion of the proximal superior mesenteric and inferior mesenteric arteries with distal reconstitution. Suspected moderate stenosis at the origin of the celiac axis. These findings increase risk for mesenteric ischemia. Occlusion of the left common and internal iliac arteries with partial distal reconstitution. Moderate to severe bilateral renal artery stenosis. Vascular surgery on consult (9) Constipated: Plan: CT abdomen and pelvis showed evidence of constipation with a large stool burden patient had multiple bowel movements (10) CKD (chronic kidney disease): Plan: -Monitor renal function, electrolytes -Straight cath as needed -Avoid nephrotoxic agents - Hold Lisinopril -Renal dosing where needed (11) Dementia: Plan: probable baseline dementia daughters say he has been struggling with confusion and forgetfulness (12) Arteriosclerosis of coronary artery: Plan: On Atorvastatin (13) HTN (hypertension): Plan: BP 135/80 (14) Hyperlipidemia: Plan: Chronic -Continue Atorvastatin (15) Benign prostatic hyperplasia: Plan: Chronic -Continue Finasteride -Bladder scan as needed -Monitor UOP Plan prognosis is guarded Admission and Anticipated Discharge Date Admission Date: December 12, 2021 Subjective patient seen and examined, intubated and ventilated Review of Systems Review of Systems: intubated and ventilated Physical Exam Physical Exam: Intubated, sedated and ventilated HEENT--PERRL, EOMI, mucous membranes and oropharynx mildly dry Neck--supple. No JVD. No bruits. Thyroid normal, trachea midline, no adenopathy. Heart--normal S1 and S2. No murmurs, rubs or gallops. Lungs--reduced air entry Abdomen--normal bowel sounds and soft. Mild epigastric and left sided abdominal pain Extremities--no cyanosis or clubbing. No edema. Dermatologic--normal skin turgor, normal color, no abnormal lymph nodes, no rash. Neurologic--intubated sedated and ventilated Rheumatologic--normal range of motion. Psychiatric--ventilated Results & Data Results & Data ([facility]) Vital Signs (Past 12 Hours) Vital Signs Temp Pulse Pulse Resp BP BP Pulse Ox 12/16/21 10:57 77 24 99 12/16/21 10:00 98.1 F 99 H 24 135/80 98 12/16/21 09:02 98.1 F 101 H 24 154/75 H 97 12/16/21 08:00 97.9 F 100 H 24 137/77 96 12/16/21 07:15 97.7 F 94 H 20 105/60 100 12/16/21 09:32 12/16/21 08:00 102 H 12/16/21 07:44 15 100 12/16/21 05:50 118 H 99 12/16/21 06:18 110 H 20 96 12/16/21 04:05 104 H 25 H 90 12/16/21 02:57 97.7 F 104 H 18 178/79 H 90 O2 Del Method O2 Flow Rate FiO2 12/16/21 10:57 70 12/16/21 10:00 12/16/21 09:02 12/16/21 08:00 70 12/16/21 07:15 80 12/16/21 09:32 Mechanical Vent 70 12/16/21 08:00 12/16/21 07:44 70 12/16/21 05:50 12/16/21 06:18 80 12/16/21 04:05 Nasal Cannula 10 12/16/21 02:57 Nasal Cannula PG Care Time/CCT Total # of Minutes Spent Total Time Spent with Patient: Total time spent is greater than 50% in coordination of care (as documented) at patient's floor/unit and/or counseling patient: Coding Level of Care Code 80818 Subseq Hosp Care Lvl 2 Diagnoses Acute hypoxemic respiratory failure J96.01 Ileus K56.7 Hyperglycemia R73.9 Acute encephalopathy G93.40 PNA (pneumonia) J18.9 Abdominal pain R10.9 UTI (urinary tract infection) N39.0 Aortoiliac occlusive disease I74.09 Constipated K59.00 CKD (chronic kidney disease) N18.9 Dementia F03.90 Arteriosclerosis of coronary artery I25.10 HTN (hypertension) I10 Hyperlipidemia E78.5 Benign prostatic hyperplasia N40.0 Time Spent (min) 35
[2021-12-16] MEDS ORDERED: MIDAZOLAM HCL 5 MG/ML VIAL IV ONE (11:48)
[2021-12-16] MEDS: AZITHROMYCIN 500 MG in DEXTROSE 5% 250 ML IV SCH (14:39)
[2021-12-16 15:33] LABS: iSTAT Allen Test Pass; iSTAT Arterial Blood Gas HCO3 20 meg/L (19-24); iSTAT Arterial Blood Gas pCO2 34 mmHg (35-46); iSTAT Arterial Blood Gas pH 7.37 (7.35-7.45); iSTAT Arterial Blood Gas pO2 93 mmHg (80-95); iSTAT Carbon Dioxide 21 mmol/L (24-31); iSTAT FiO2 70 %; iSTAT Site R Brachial
[2021-12-16 16:09] LABS: Albumin Globulin Ratio 1.2 (0.9-2); Albumin Level 2.4 gm/dl (3.4-5.0); BUN Creatinine Ratio 40.2 (10-20); Bilirubin,Total 0.6 mg/dl (0.2-1.0); Calcium 7.4 mg/dl (8.5-10.1); Creatinine Clr Calc Pharmacy 39.8 ml/min; Est GFR (African American) 87.6 ml/min; Est GFR (Non-African American) 75.6 ml/min; Potassium 3.8 mmol/L (3.5-5.1); Total Protein 4.4 gm/dl (6.0-8.3)
[2021-12-16] MEDS: ICU ELECTROLYTE REPLACEMENT PROTOCOL SCH (18:28)
[2021-12-16] MEDS: POTASSIUM CHLORIDE 20 MEQ/15 ML UDC GT SCH ×2 (18:32→21:09)
[2021-12-16] MEDS: DEXTROSE 50% 50 ML SYRINGE IV PRN (23:23)
[2021-12-16] MEDS: PROPOFOL BOLUS FROM BAG IV PRN (23:57)
[2021-12-17] MEDS: PROPOFOL BOLUS FROM BAG IV PRN (02:52)
[2021-12-17] MEDS: AMPICILLIN/SULBACTAM SOD 3,000 MG in 0.9 % SODIUM CHLORIDE 100 ML IV SCH ×4 (02:53→21:08)
[2021-12-17] MEDS ORDERED: fentaNYL citrate 100 MCG/2 ML VIAL IV PRN (03:08)
[2021-12-17] MEDS: INSULIN ASPART PER UNIT SC SCH ×5 (03:29→21:08)
[2021-12-17] MEDS: PANTOprazole 40 MG in DEXTROSE 5% 100 ML IV SCH ×5 (05:21→20:30)
[2021-12-17 05:23] LABS: Hematocrit (blood only) 35.8 % (40.1-51.0); Hemoglobin 12.2 g/dl (14.0-18.0); Mean Corpuscular Hemoglobin 32.2 pg (25.0-34.0); Mean Corpuscular Hgb Conc 34.1 g/dL (32.0-36.0); Mean Corpuscular Volume 94.5 fL (80.0-100.0); Mean Platelet Volume 10.4 fL (9.4-12.4); Platelet Count 208 K/uL (130-400); RDW Coefficient of Variation 13.7 % (11.5-14.5); RDW Standard Deviation 47.5 fL (36.4-46.3); Red Blood Count 3.79 M/uL (4.63-6.08)
[2021-12-17 05:33] LABS: iSTAT Allen Test Pass; iSTAT Art Bld Gas pCO2 Correct 27 mmHg (35-46); iSTAT Art Bld Gas pH Corrected 7.446 (7.35-7.45); iSTAT Arterial Blood Gas HCO3 19 meg/L (19-24); iSTAT Arterial Blood Gas pCO2 27 mmHg (35-46); iSTAT Arterial Blood Gas pH 7.45 (7.35-7.45); iSTAT Arterial Blood Gas pO2 61 mmHg (80-95); iSTAT Arterial Blood Gas pO2 C 62; iSTAT Carbon Dioxide 20 mmol/L (24-31); iSTAT FiO2 45 %; iSTAT Hematocrit 29 % (42-52); iSTAT Hemoglobin 9.9 g/dl (14.0-18.0); iSTAT Potassium 4.4 mmol/L (3.3-5.0); iSTAT Site L Radial; iSTAT Sodium 133 mmol/L (135-144)
[2021-12-17 05:59] LABS: Basophils # (auto) 0.03 K/uL (0-0.2); Basophils % (auto) 0.4 %; Echinocytes 3+; Eosinophils # (auto) 0.16 K/uL (0-0.50); Immature Granulocytes # (auto) 0.05 K/uL (0.00-0.02); Immature Granulocytes % (auto) 0.6 %; Lymphocytes # (auto) 1.52 K/uL (1.2-3.4); Lymphocytes % (auto) 19.2 %; Monocytes # (auto) 1.18 K/uL (0.24-0.82); Monocytes % (auto) 14.9 %; Neutrophils # (auto) 4.96 K/uL (1.4-6.5); Neutrophils % (auto) 62.9 %
[2021-12-17 06:01] LABS: Albumin Globulin Ratio 1.2 (0.9-2); Albumin Level 2.7 gm/dl (3.4-5.0); BUN Creatinine Ratio 28.6 (10-20); Bilirubin,Total 0.7 mg/dl (0.2-1.0); Creatinine Clr Calc Pharmacy 34.8 ml/min; Est GFR (African American) 74.7 ml/min; Est GFR (Non-African American) 64.4 ml/min; Globulin 2.3 gm/dl (2.5-4.0); Magnesium 2.4 mg/dl (1.7-2.4); Phosphorus 1.5 mg/dl (2.5-4.9); Potassium 4.3 mmol/L (3.5-5.1)
[2021-12-17] MEDS: propofoL 1,000 MG/100 ML VIAL IV SCH ×2 (06:05→17:31)
[2021-12-17] MEDS ORDERED: SODIUM PHOSPHATE 3 MMOL/1 ML INFUSION IV STA (06:36)
[2021-12-17] MEDS ORDERED: SODIUM PHOSPHATE 21 MMOL in DEXTROSE 5% 500 ML IV ONE (06:45)
[2021-12-17] MEDS: ICU ELECTROLYTE REPLACEMENT PROTOCOL SCH ×2 (06:48→17:53)
[2021-12-17] MEDS: FINASTERIDE 5 MG TAB PO SCH (08:07)
[2021-12-17] MEDS: ASPIRIN 81 MG ECTAB PO SCH (08:07)
[2021-12-17] MEDS: ATORVASTATIN 40 MG TAB PO SCH (08:07)
--- NOTE | 2021-12-17 08:31 | Critical Care Progress Note ---
Date of Service December 17, 2021 Assessment & Plan (1) Acute hypoxemic respiratory failure: (2) Hypercapnic respiratory failure: (3) PNA (pneumonia): (4) Small bowel obstruction: (5) Hyperglycemia: (6) Acute encephalopathy: Plan Impression: 86-year-old male with multiple medical comorbidities admitted with obstipation and colonic dilatation, unclear if this could represent [place] syndrome. He has developed what appears to be an ileus versus partial small bowel obstruction and had an episode of emesis with possible aspiration versus respiratory depression related to Ativan necessitating intubation mechanical ventilation. He is currently hemodynamically stable and in the ICU. Recommendations: 1. Neurologic: Patient following simple commands. 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 2. Cardiovascular: The patient is hemodynamically stable currently. Borderline elevation in troponin. Echo with an EF of 60 to 65%. Right ventricle mildly dilated. Grade 1 diastolic dysfunction. Aortic valve sclerosis noted. 3. Respiratory: Minimal vent settings at this time. Patient presented with acute hypercapnic respiratory failure. Currently on spontaneous breathing trial. Wean as tolerated. Possible extubation depending on response. 4. Renal: None anion gap metabolic acidosis. Kidney function currently normal but at risk for decline especially given his renal artery stenosis. Try and avoid hypotension if at all possible. Continue electrolyte protocol. Follow sodium closely. 5. ID: Possible colitis versus bacterial translocation given distended colon. Cannot rule out potential aspiration pneumonia as well. He is been on Rocephin and azithromycin. Continue Unasyn. Follow cultures of sputum. 6. GI: Marked colonic and stomach dilatation. Continue OG tube to low intermittent suction. There was concern about potential GI bleeding/coffee- ground aspirate from the NG tube. Continue Protonix. GI following. Holding off on any interventions at this time for [place] syndrome given his frailty. Continue enemas as able. 7. Endocrine: Poorly controlled diabetes. Pharmacy consult following. 8. Heme-onc: No current issues. Hold DVT prophylaxis in light of potential GI bleed. SCDs. CRITICAL CARE TIME - I have personally spent 42 minutes of critical care time in the direct management of this patient. This is a life/limb threatening event. This includes time spent evaluating patient, direct bedside care, chart review, placing orders, interpretation of diagnostic studies, discussion with consultants, patient, and family members, as well as other required patient management activities. This time is exclusive of all separately billable procedures, and teaching time and separate from and in addition to any other critical care service time. Admission and Anticipated Discharge Date Admission Date: December 12, 2021 Subjective Patient seen and examined. Following simple commands. Placed on spontaneous breathing trial and maintaining saturations well at this time. Propofol has been discontinued. Hemodynamically stable. Review of Systems Review of Systems: Unobtainable due to endotracheal tube and Unobtainable due to reduced consciousness Physical Exam Constitutional: + frail appearing and + mechanically ventilated Neck: trachea midline, no thyromegaly Respiratory: normal respiratory effort, lungs clear to auscultation Cardiovascular: RRR, no murmur, no edema Gastrointestinal (Abdomen): Inspection/Auscultation: + abdomen distended and + hypoactive bowel sounds; + abnormal bowel sounds Percussion/Palpation: + tympanic to percussion; abdomen nontender Musculoskeletal: Extremities: extremities normal to inspection Skin: no rashes, warm and dry Lymphatic: no cervical lymphadenopathy Results & Data Results & Data ([facility]) Vital Signs (Past 12 Hours) Vital Signs Temp Pulse Resp BP Pulse Ox O2 Del Method FiO2 12/17/21 07:04 102 H 24 97 45 12/17/21 06:30 37.3 C 99 H 24 96 12/17/21 06:30 106/64 12/17/21 06:20 37.2 C 101 H 24 97 12/17/21 06:20 118/62 12/17/21 06:10 37.2 C 96 H 24 95 12/17/21 06:10 94/58 L 12/17/21 06:00 37.2 C 99 H 21 95 12/17/21 06:00 97/59 L 12/17/21 05:50 37.2 C 97 H 24 96 12/17/21 05:50 109/65 12/17/21 05:40 37.2 C 93 H 24 12/17/21 05:40 81/50 L 12/17/21 05:30 37.2 C 98 H 21 94 12/17/21 05:30 83/48 L 12/17/21 05:20 37.2 C 100 H 24 96 12/17/21 05:20 86/53 L 12/17/21 05:10 37.2 C 97 H 24 89 L 12/17/21 05:10 79/49 L 12/17/21 05:00 37.1 C 96 H 21 89 L 12/17/21 05:00 105/63 12/17/21 04:50 37.1 C 99 H 24 12/17/21 04:50 140/93 12/17/21 04:40 37.0 C 100 H 19 12/17/21 04:40 122/74 12/17/21 04:30 37.0 C 99 H 21 12/17/21 04:30 125/69 12/17/21 04:20 36.9 C 97 H 15 12/17/21 04:20 126/67 12/17/21 04:10 36.9 C 93 H 24 12/17/21 04:10 132/75 12/17/21 04:00 36.9 C 89 24 12/17/21 04:00 127/67 12/17/21 03:50 36.8 C 98 H 24 12/17/21 03:50 114/67 12/17/21 03:40 36.8 C 92 H 24 12/17/21 03:40 117/65 12/17/21 03:30 36.9 C 97 H 19 97 12/17/21 03:30 102/60 12/17/21 03:20 36.9 C 89 24 94 12/17/21 03:20 87/57 L 12/17/21 04:00 45 12/17/21 03:13 36.9 C 89 24 93 12/17/21 03:13 80/47 L 12/17/21 03:10 36.9 C 88 24 93 12/17/21 03:10 75/48 L 12/17/21 03:00 36.9 C 88 24 12/17/21 03:00 67/43 L 12/17/21 02:50 77/47 L 12/17/21 02:50 36.9 C 90 24 12/17/21 02:40 97/57 L 12/17/21 02:40 36.9 C 92 H 24 95 12/17/21 02:30 89/60 L 12/17/21 02:30 36.9 C 96 H 24 92 12/17/21 02:20 97/61 L 12/17/21 02:20 36.9 C 96 H 24 97 12/17/21 02:10 36.9 C 90 18 12/17/21 02:10 101/55 L 12/17/21 02:00 36.9 C 92 H 24 98 12/17/21 02:00 96/59 L 12/17/21 01:50 93/57 L 12/17/21 01:50 36.9 C 93 H 24 12/17/21 01:40 96/58 L 12/17/21 01:40 36.9 C 95 H 20 12/17/21 01:30 36.8 C 94 H 20 12/17/21 01:30 93/62 L 12/17/21 01:20 131/80 12/17/21 01:20 36.9 C 93 H 24 100 12/17/21 01:10 36.9 C 89 18 98 12/17/21 01:10 110/62 12/17/21 01:00 36.9 C 90 24 12/17/21 01:00 93/56 L 12/17/21 00:50 93/53 L 12/17/21 00:50 37.0 C 88 24 96 12/17/21 00:40 92/57 L 12/17/21 00:40 37.1 C 89 24 97 12/17/21 00:30 82/53 L 12/17/21 00:30 37.1 C 88 24 96 12/17/21 00:30 82/53 L 12/17/21 00:20 79/51 L 12/17/21 00:20 37.2 C 92 H 24 12/17/21 00:10 81/47 L 12/17/21 00:10 37.2 C 91 H 24 95 12/17/21 00:01 37.2 C 92 H 24 96 12/17/21 00:01 73/50 L 12/17/21 00:00 37.2 C 91 H 24 12/17/21 00:00 74/49 L 12/16/21 23:30 37.2 C 94 H 25 H 98 12/16/21 23:30 116/61 12/16/21 23:00 37.2 C 99 H 24 96 12/17/21 03:00 90 24 97 55 12/17/21 00:38 90 12/17/21 00:00 55 12/16/21 23:40 98 H 24 97 55 12/16/21 22:56 Mechanical Vent 60 12/16/21 22:40 37.2 C 102 H 24 100 12/16/21 22:30 37.1 C 91 H 24 100 12/16/21 22:30 112/64 12/16/21 22:20 37.1 C 88 21 98 12/16/21 22:10 37.2 C 97 H 26 H 96 12/16/21 22:00 37.2 C 96 H 24 98 12/16/21 21:50 37.2 C 96 H 24 98 12/16/21 21:40 37.2 C 97 H 25 H 97 12/16/21 21:30 37.3 C 98 H 24 12/16/21 21:20 37.2 C 98 H 24 96 12/16/21 21:10 37.2 C 105 H 21 94 12/16/21 21:00 37.1 C 102 H 24 96 12/16/21 21:00 113/65 12/16/21 20:50 37.1 C 99 H 24 97 12/16/21 20:40 37.0 C 102 H 21 97 12/16/21 20:30 37.0 C 101 H 21 97 12/16/21 20:20 37.0 C 98 H 24 97 12/16/21 20:16 Mechanical Vent 60 Coding Level of Care Code Critical Care 1st 30-74 mins Diagnoses Acute hypoxemic respiratory failure J96.01 Hypercapnic respiratory failure J96.92 PNA (pneumonia) J18.9 Small bowel obstruction K56.609 Hyperglycemia R73.9 Acute encephalopathy G93.40 Time Spent (min) 42
[2021-12-17] MEDS ORDERED: AZITHROMYCIN 250 MG in DEXTROSE 5% 250 ML IV SCH (09:00)
--- NOTE | 2021-12-17 10:13 | XRay Report ---
KUB CLINICAL HISTORY: Marylou syndrome. FINDINGS: 3 AP, portable, supine abdominal radiographs are correlated with abdominal CT dated 12/17/19 22. An enteric tube projects below the diaphragm over the stomach. There is diffuse gaseous distentio n of the small bowel and colon. The colon measures up to 10.2 cm in diameter. This is similar to yest erday. Fecal retention is noted in the right colon. No evidence of intraperitoneal free air is seen o n these supine images. A rectal temperature probe is in place. There are no abnormal abdominal calcif ications. The skeletal structures are osteopenic and appear intact. There is lumbosacral spondylosis. IMPRESSION: 1. An enteric tube is in place. 2. Gaseous distention of the small bowel and colon is similar to previous. Ileus is favored, although a distal colonic obstruction could appear similar. Clinical correlation will be essential. Electronically signed by: Jaden Baltazar M.D. 12/17/2021 10:11 AM
--- NOTE | 2021-12-17 10:19 | Palliative Care Consultation ---
Date of Consultation December 17, 2021 History of Present Illness Reason for Consultation: aspiration, bowel obstruction Attending Physician: Chidi Brown Allergies Allergy/AdvReac Type Severity Reaction Status Date / Time pollen extracts Allergy Unknown coughing/sn Verified 06/07/21 14:12 eezing doxycycline AdvReac Verified 06/07/21 14:12 Home Medications Medication Instructions Recorded Confirmed Type aspirin 81 mg tablet,delayed 81 mg PO QAM 03/05/18 06/07/21 History release fexofenadine 180 mg tablet 180 mg PO HS 03/05/18 06/07/21 History multivitamin 1 tab PO QAM 03/05/18 06/07/21 History nitroglycerin 0.4 mg sublingual See Rx Instructions .Route .COMPLEX 09/14/18 0 06/07/21 History tablet fluticasone propionate 50 2 spray intranasal DAILY #50 mcg 03/21/20 06/07/21 Rx mcg/actuation nasal spray,suspension (Flonase Allergy Relief) atorvastatin 40 mg tablet 40 mg PO DAILY #90 tabs 09/19/20 06/07/21 Rx ergocalciferol (vitamin D2) 1,250 50,000 unit PO MONTHLY #3 caps 06/08/21 Rx mcg (50,000 unit) capsule (Vitamin D2) lancets 30 gauge (OneTouch Delica #25 ea 06/11/21 History Lancets) flash glucose scanning reader #1 ea 06/29/21 Rx (FreeStyle Eli 14 Day [place]) flash glucose sensor (FreeStyle #1 ea 06/29/21 Rx Eli 14 Day Sensor kit) insulin NPH isoph U-100 human 100 See Rx Instructions .Route 08/06/21 Rx unit/mL (3 mL) subcutaneous pen .COMPLEX #15 mL (Novolin N Flexpen) pen needle, diabetic 31 gauge x #200 ea 10/19/21 Rx 5/16" (Lite Touch Insulin Pen [place]) lisinopril 2.5 mg tablet 2.5 mg PO DAILY #90 tabs 11/05/21 Rx blood sugar diagnostic (OneTouch #100 ea 11/16/21 Rx Verio test strips) blood-glucose meter (OneTouch #1 ea 11/16/21 Rx Verio Meter) finasteride 5 mg tablet 5 mg PO DAILY #90 tabs 11/26/21 Rx Patient History Medical History Anxiety Aortoiliac occlusive disease Arteriosclerosis of coronary artery remote (>20 years ago) h/o [place] Benign prostatic hyperplasia Carotid artery stenosis CKD (chronic kidney disease) Diabetes mellitus with insulin therapy HTN (hypertension) Hyperlipidemia Hyperparathyroidism Peripheral vascular disease Seborrheic keratosis Transient ischemic attack Vitamin D deficiency Surgical History Hx of endarterectomy Left carotid endarterectomy Hx of hernia repair Hx of right knee surgery Family History Father Coronary heart disease Hypertension Mother Coronary heart disease Diabetes Hypertension Heart disease Brother Diabetes Sister Diabetes Grandmother Hearing loss Daughter Asthma Other Allergies Social History Smoking Status: Current every day smoker Tobacco Type: Cigarettes Age Started Using Tobacco: 14; packs per day: 0.5; Years Smoked: 70; Cigarettes Per Day: 1 to 1 and a half packs; Second Hand Exposure: Yes; Do You Dip or Chew Tobacco: No; Tobacco Cessation Education Requested by Patient: No Hx Alcohol Use: Yes Alcohol type: beer and hard liquor Hx Substance Use: No Preferred Language: Albanian Communication Ability: Impaired Hearing Ability: Use of Hearing Aid Debt Management Counselor Required: No Beliefs That Will Affect Care: None marital status: Current Living Situation: Spouse current occupational status: retired Other Information That Helps Us Care for You: No Feels Safe at Home: Yes Safety Concerns: Feels Safe At This Time Seatbelt Use: always Sunscreen Use: No Assistive Devices: Cane Results & Data ([facility]) Vital Signs (Past 12 Hours) Vital Signs Temp Pulse Resp BP Pulse Ox O2 Del Method FiO2 12/17/21 09:00 37.3 C 91 H 22 97 Mechanical Vent 0.45 12/17/21 09:00 121/64 12/17/21 08:45 37.4 C 87 23 97 12/17/21 08:45 124/63 12/17/21 08:30 37.4 C 96 H 27 H 96 12/17/21 08:30 118/61 12/17/21 08:15 37.5 C 93 H 30 H 94 12/17/21 08:15 114/59 L 12/17/21 08:00 37.5 C 96 H 5 L 96 12/17/21 08:00 108/62 12/17/21 07:50 37.5 C 96 H 24 96 12/17/21 07:50 99/60 L 12/17/21 07:40 106/59 L 12/17/21 07:40 37.5 C 98 H 12 96 12/17/21 07:30 37.5 C 98 H 12 97 12/17/21 07:30 104/58 L 12/17/21 07:20 99/61 L 12/17/21 07:20 37.4 C 97 H 16 12/17/21 07:10 37.4 C 99 H 17 97 12/17/21 07:10 100/57 L 12/17/21 07:00 37.4 C 98 H 12 97 12/17/21 07:00 99/62 L 12/17/21 08:00 0.45 12/17/21 08:00 Mechanical Vent 0.45 12/17/21 07:04 102 H 24 97 45 12/17/21 06:30 37.3 C 99 H 24 96 12/17/21 06:30 106/64 12/17/21 06:20 37.2 C 101 H 24 97 12/17/21 06:20 118/62 12/17/21 06:10 37.2 C 96 H 24 95 12/17/21 06:10 94/58 L 12/17/21 06:00 37.2 C 99 H 21 95 12/17/21 06:00 97/59 L 12/17/21 05:50 37.2 C 97 H 24 96 12/17/21 05:50 109/65 12/17/21 05:40 37.2 C 93 H 24 12/17/21 05:40 81/50 L 12/17/21 05:30 37.2 C 98 H 21 94 12/17/21 05:30 83/48 L 12/17/21 05:20 37.2 C 100 H 24 96 12/17/21 05:20 86/53 L 12/17/21 05:10 37.2 C 97 H 24 89 L 12/17/21 05:10 79/49 L 12/17/21 05:00 37.1 C 96 H 21 89 L 12/17/21 05:00 105/63 12/17/21 04:50 37.1 C 99 H 24 12/17/21 04:50 140/93 12/17/21 04:40 37.0 C 100 H 19 12/17/21 04:40 122/74 12/17/21 04:30 37.0 C 99 H 21 12/17/21 04:30 125/69 12/17/21 04:20 36.9 C 97 H 15 12/17/21 04:20 126/67 12/17/21 04:10 36.9 C 93 H 24 12/17/21 04:10 132/75 12/17/21 04:00 36.9 C 89 24 12/17/21 04:00 127/67 12/17/21 03:50 36.8 C 98 H 24 12/17/21 03:50 114/67 12/17/21 03:40 36.8 C 92 H 24 12/17/21 03:40 117/65 12/17/21 03:30 36.9 C 97 H 19 97 12/17/21 03:30 102/60 12/17/21 03:20 36.9 C 89 24 94 12/17/21 03:20 87/57 L 12/17/21 04:00 45 12/17/21 03:13 36.9 C 89 24 93 12/17/21 03:13 80/47 L 12/17/21 03:10 36.9 C 88 24 93 12/17/21 03:10 75/48 L 12/17/21 03:00 36.9 C 88 24 12/17/21 03:00 67/43 L 12/17/21 02:50 77/47 L 12/17/21 02:50 36.9 C 90 24 12/17/21 02:40 97/57 L 12/17/21 02:40 36.9 C 92 H 24 95 12/17/21 02:30 89/60 L 12/17/21 02:30 36.9 C 96 H 24 92 12/17/21 02:20 97/61 L 12/17/21 02:20 36.9 C 96 H 24 97 12/17/21 02:10 36.9 C 90 18 12/17/21 02:10 101/55 L 12/17/21 02:00 36.9 C 92 H 24 98 12/17/21 02:00 96/59 L 12/17/21 01:50 93/57 L 12/17/21 01:50 36.9 C 93 H 24 12/17/21 01:40 96/58 L 12/17/21 01:40 36.9 C 95 H 20 12/17/21 01:30 36.8 C 94 H 20 12/17/21 01:30 93/62 L 12/17/21 01:20 131/80 12/17/21 01:20 36.9 C 93 H 24 100 12/17/21 01:10 36.9 C 89 18 98 12/17/21 01:10 110/62 12/17/21 01:00 36.9 C 90 24 12/17/21 01:00 93/56 L 12/17/21 00:50 93/53 L 12/17/21 00:50 37.0 C 88 24 96 12/17/21 00:40 92/57 L 12/17/21 00:40 37.1 C 89 24 97 12/17/21 00:30 82/53 L 12/17/21 00:30 37.1 C 88 24 96 12/17/21 00:30 82/53 L 12/17/21 00:20 79/51 L 12/17/21 00:20 37.2 C 92 H 24 12/17/21 00:10 81/47 L 12/17/21 00:10 37.2 C 91 H 24 95 12/17/21 00:01 37.2 C 92 H 24 96 12/17/21 00:01 73/50 L 12/17/21 00:00 37.2 C 91 H 24 12/17/21 00:00 74/49 L 12/16/21 23:30 37.2 C 94 H 25 H 98 12/16/21 23:30 116/61 12/16/21 23:00 37.2 C 99 H 24 96 12/17/21 03:00 90 24 97 55 12/17/21 00:38 90 12/17/21 00:00 55 12/16/21 23:40 98 H 24 97 55 12/16/21 22:56 Mechanical Vent 60 11/06/22 22:40 37.2 C 102 H 24 100 12/16/21 22:30 37.1 C 91 H 24 100 12/16/21 22:30 112/64 12/16/21 22:20 37.1 C 88 21 98 PG Care Time/CCT Total # of Minutes Spent Total Time Spent with Patient: Total time spent is greater than 50% in coordination of care (as documented) at patient's floor/unit and/or counseling patient: Coding
--- NOTE | 2021-12-17 10:26 | XRay Report ---
SINGLE VIEW CHEST CLINICAL HISTORY: Respiratory failure. FINDINGS: An AP, portable, upright chest radiograph is compared to study dated 12/16/2021. The examina tion is degraded by portable technique and patient rotation. An endotracheal tube has been reposition ed. The tip now projects just below the thoracic inlet. An enteric tube is unchanged in position. The cardiomediastinal silhouette is top normal for projection noting atherosclerotic calcification of th e thoracic aorta. The pulmonary vasculature is noncongested. Emphysema and chronic interstitial thick ening is similar to previous. There are layering pleural effusions with dependent consolidation. No p neumothorax is seen. The skeletal structures are osteopenic. The bony thorax is grossly intact. Arthr itic change is noted in the shoulders. Gaseous distention of the bowel is noted in the upper abdomen. IMPRESSION: 1. Lines and tubes as above. 2. Layering pleural effusions with dependent consolidation. This is similar to yesterday. ACT 112: Negative or not required by law. Electronically signed by: Jaden Baltazar M.D. 12/17/2021 10:24 AM
[2021-12-17] MEDS: D5W AND NSS 1,000 ML IV SCH (12:21)
--- NOTE | 2021-12-17 12:40 | Pharmacy Report ---
Pharmacy Glycemic Short Note 2 - Date of Service December 17, 2021 - Glycemic Short BSG Results (Last 24 hours): 12/16/21 12/16/21 12/16/21 15:02 21:27 23:21 Glucose 204 H POC Glucose 97 57 L* 12/16/21 12/17/21 12/17/21 23:38 03:29 04:46 Glucose 120 H POC Glucose 159 H 92 12/17/21 12/17/21 08:23 11:57 Glucose POC Glucose 88 158 H OUTPATIENT ANTIDIABETIC REGIMEN: * Novolin-N 14 units SQ AM, 5 units SQ PM * A1c 12/12/21 11.2% ASSESSMENT: 12/17/21: * Patient received a total of 19 units of insulin yesterday, 8 of which were basal. * Patient with episode of hypoglycemia overnight. Lantus held this AM- will continue to hold for now * Dextrose containing fluid restarted @ 80 mL/hr, lunch BSG up to 158 mg/dL- patient with possible extubation later today * Will continue to monitor, same novolog parameters for now. 12/16/21: * Patient received total of 10 units of insulin yesterday, of which 7 units were basal. BSGs reasonably controlled yesterday * Patient developing increase O2 requirements/coffee brown emesis transferred to ICU and intubated this morning * Dextrose containing fluids paused at 0300 this AM per RN and now d/c. Prt gtt started * Fasting BSG 312 mg/dL - likely related to stress response. Hesitant to titrate basal too much since dextrose fluids stopped. Protonix gtt does contain dextrose. Will increase to only 8 units of basal this morning * Continue same CF/CR for now 12/14/21: * Patient received total 7 units of insulin yesterday; 5 units basal + 2 units bolus. * BSGs yesterday were [phone] mg/dl. * Fasting BSG today was 345 mg/dl with repeat of 321 mg/dl. Nurse confirmed that patient was not snacking prior to this check. His food intake has been minimal. * Patient is basal insulin deficient. He received less than 50% of insulin yesterday compared to what he would have been at home. * Increased basal insulin dose this morning. * To correct the high BSG this morning a dose of IV Regular insulin 4 units (0.1 unit/kg) was also given in addition to the Lantus and Novolog. Expect BSGs to trend down. 12/13/21: * Patient received total of around 12 to 15 units of insulin via insulin drip yesterday. Drip was discontinued this morning since the rate was down to 0.5 units/hr and BSG was 106 mg/dl. * Fasting BSG was 94 mg/dl this AM. * Patient was NPO this AM but diet resumed. * Lantus 5 units given this AM based on wt and stress of 1. Re-asses this dose tomorrow. * Novolog ordered based on wt and stress between 2 and 3 but will increase this to stress of 3 for tonight. 12/12/21 * 86 yo male admitted with hyperglycemia, poorly controlled DM as outpatient, on insulin therapy at home with non-adherence. Uncertain when he last took his insulin. BSG of 606mg/dl on arrival - improved to 503mg/dl after 500mL NSS given in ER. Anion-gap metabolic acidosis with gap of 18. Normal serum bicarbonate at 21, less likely DKA, elevated anion gap may be secondary to elevated lactate, worsening renal function. * Start insulin drip, IVF NSS + 20mEq K, as K+ dropped to 3.3. PLAN FOR INPATIENT GLYCEMIC CONTROL: * Basal insulin * Lantus 8 units daily- on hold * Bolus insulin * NovoLog per scale ACHS or Q6hrs while NPO * Goal Range: Low 110 mg/dL - High 160 mg/dL * Correction Factor: 35 mg/dL/unit * Nutritional / Prandial insulin per carb ratio of 1 unit per 11 grams CHO consumed
[2021-12-17] MEDS: LACTULOSE SYRUP 10 GM/15 ML BTL 960 ML PO SCH ×2 (13:40→21:09)
--- NOTE | 2021-12-17 15:27 | Gastroenterology Progress Note ---
Date of Service December 17, 2021 Assessment & Plan (1) Small bowel obstruction: Plan: Xray is not much better but he is. I would like to see how his belly progresses as he gets a little stronger Admission and Anticipated Discharge Date Admission Date: December 12, 2021 Subjective Off the ventilator. Alert and talkative although very hard of hearing. He tells me his belly "feels fine". It is not hurting him. KUB shows continued intestinal dilatation Physical Exam Constitutional: + ill appearing and + frail appearing Gastrointestinal (Abdomen): Inspection/Auscultation: + abdomen distended (nontender) Results & Data ([facility]) Vital Signs (Past 12 Hours) Vital Signs Temp Pulse Resp BP Pulse Ox O2 Del Method O2 Flow Rate 12/17/21 13:30 36.7 C 95 H 26 H 90 Nasal Cannula 4 12/17/21 13:30 123/81 12/17/21 13:00 36.7 C 89 21 91 12/17/21 12:30 36.8 C 90 21 12/17/21 12:30 135/91 12/17/21 12:00 36.8 C 91 H 25 H 12/17/21 11:30 36.9 C 74 27 H 12/17/21 11:30 126/71 12/17/21 11:00 37.0 C 94 H 18 92 12/17/21 11:00 138/66 12/17/21 10:30 37.3 C 92 H 16 12/17/21 10:30 115/66 12/17/21 10:00 37.4 C 96 H 26 H 94 12/17/21 10:00 128/70 12/17/21 09:30 37.4 C 89 21 98 12/17/21 09:30 122/64 12/17/21 09:15 37.3 C 99 H 26 H 12/17/21 09:15 114/61 12/17/21 09:00 37.3 C 91 H 22 97 Mechanical Vent 12/17/21 09:00 121/64 12/17/21 08:45 37.4 C 87 23 97 12/17/21 08:45 124/63 12/17/21 08:30 37.4 C 96 H 27 H 96 12/17/21 08:30 118/61 12/17/21 08:15 37.5 C 93 H 30 H 94 12/17/21 08:15 114/59 L 12/17/21 08:00 37.5 C 96 H 5 L 96 12/17/21 08:00 108/62 12/17/21 07:50 37.5 C 96 H 24 96 12/17/21 07:50 99/60 L 12/17/21 07:40 106/59 L 12/17/21 07:40 37.5 C 98 H 12 96 12/17/21 07:30 37.5 C 98 H 12 97 12/17/21 07:30 104/58 L 12/17/21 07:20 99/61 L 12/17/21 07:20 37.4 C 97 H 16 12/17/21 07:10 37.4 C 99 H 17 97 12/17/21 07:10 100/57 L 12/17/21 07:00 37.4 C 98 H 12 97 12/17/21 07:00 99/62 L 12/17/21 08:00 12/17/21 08:00 Mechanical Vent 12/17/21 07:04 102 H 24 97 12/17/21 06:30 37.3 C 99 H 24 96 12/17/21 06:30 106/64 12/17/21 06:20 37.2 C 101 H 24 97 12/17/21 06:20 118/62 12/17/21 06:10 37.2 C 96 H 24 95 12/17/21 06:10 94/58 L 12/17/21 06:00 37.2 C 99 H 21 95 12/17/21 06:00 97/59 L 12/17/21 05:50 37.2 C 97 H 24 96 12/17/21 05:50 109/65 12/17/21 05:40 37.2 C 93 H 24 12/17/21 05:40 81/50 L 12/17/21 05:30 37.2 C 98 H 21 94 12/17/21 05:30 83/48 L 12/17/21 05:20 37.2 C 100 H 24 96 12/17/21 05:20 86/53 L 12/17/21 05:10 37.2 C 97 H 24 89 L 12/17/21 05:10 79/49 L 12/17/21 05:00 37.1 C 96 H 21 89 L 12/17/21 05:00 105/63 12/17/21 04:50 37.1 C 99 H 24 12/17/21 04:50 140/93 12/17/21 04:40 37.0 C 100 H 19 12/17/21 04:40 122/74 12/17/21 04:30 37.0 C 99 H 21 12/17/21 04:30 125/69 12/17/21 04:20 36.9 C 97 H 15 12/17/21 04:20 126/67 12/17/21 04:10 36.9 C 93 H 24 12/17/21 04:10 132/75 12/17/21 04:00 36.9 C 89 24 12/17/21 04:00 127/67 12/17/21 03:50 36.8 C 98 H 24 12/17/21 03:50 114/67 12/17/21 03:40 36.8 C 92 H 24 12/17/21 03:40 117/65 12/17/21 03:30 36.9 C 97 H 19 97 12/17/21 03:30 102/60 12/17/21 04:00 FiO2 12/17/21 13:30 12/17/21 13:30 12/17/21 13:00 12/17/21 12:30 12/17/21 12:30 12/17/21 12:00 12/17/21 11:30 12/17/21 11:30 12/17/21 11:00 12/17/21 11:00 12/17/21 10:30 12/17/21 10:30 12/17/21 10:00 12/17/21 10:00 12/17/21 09:30 12/17/21 09:30 12/17/21 09:15 12/17/21 09:15 12/17/21 09:00 0.45 12/17/21 09:00 12/17/21 08:45 12/17/21 08:45 12/17/21 08:30 12/17/21 08:30 12/17/21 08:15 12/17/21 08:15 12/17/21 08:00 12/17/21 08:00 12/17/21 07:50 12/17/21 07:50 12/17/21 07:40 12/17/21 07:40 12/17/21 07:30 12/17/21 07:30 12/17/21 07:20 12/17/21 07:20 12/17/21 07:10 12/17/21 07:10 12/17/21 07:00 12/17/21 07:00 12/17/21 08:00 0.45 12/17/21 08:00 0.45 12/17/21 07:04 45 12/17/21 06:30 12/17/21 06:30 12/17/21 06:20 12/17/21 06:20 12/17/21 06:10 12/17/21 06:10 12/17/21 06:00 12/17/21 06:00 12/17/21 05:50 12/17/21 05:50 12/17/21 05:40 12/17/21 05:40 12/17/21 05:30 12/17/21 05:30 12/17/21 05:20 12/17/21 05:20 12/17/21 05:10 12/17/21 05:10 12/17/21 05:00 12/17/21 05:00 12/17/21 04:50 12/17/21 04:50 12/17/21 04:40 12/17/21 04:40 12/17/21 04:30 12/17/21 04:30 12/17/21 04:20 12/17/21 04:20 12/17/21 04:10 12/17/21 04:10 12/17/21 04:00 12/17/21 04:00 12/17/21 03:50 12/17/21 03:50 12/17/21 03:40 12/17/21 03:40 12/17/21 03:30 12/17/21 03:30 12/17/21 04:00 45 Diagnostic Findings Abdomen/Pelvis CT 12/16/21 04:20 CT OF THE ABDOMEN AND PELVIS WITHOUT CONTRAST CLINICAL HISTORY: Abdominal pain. Concern for small bowel obstruction. COMPARISON STUDY: CT of the abdomen December 12, 2021. TECHNIQUE: Axial images of the abdomen and pelvis were obtained without IV contrast. Images were reviewed in the axial, sagittal, and coronal planes. Automated exposure control was utilized for the study. A dose lowering technique was utilized adhering to the principles of ALARA. FINDINGS: Please note that the CTA of the abdomen and pelvis will be reported separately. Small bilateral pleural effusions with bibasilar opacities have developed since CT of December 12, 2021. There are extensive secretions within the right lower lobe bronchus. There are additional secretions within segmental bronchi within the bilateral lower lobes. There is possible mild interstitial pulmonary edema. No pneumatosis, free air or portal venous gas is present. This exam is compromised by motion artifact. Anasarca is noted. Unenhanced images of the liver, spleen, adrenal glands, kidneys and pancreas are grossly unremarkable with exception of moderate left renal atrophy. There is no hydronephrosis. The stomach is moderately distended and fluid-filled. There has been interval development of moderate small bowel dilatation since CT of December 12, 2021. The small bowel is moderately dilated and fluid-filled. No transition point is identified. Colonic dilatation is similar to prior exam. A moderate amount stool within the colon is present. There is extensive aortoiliac atherosclerotic plaque, better depicted on the CTA. No fluid collection is identified. No acute fracture within the visual skeletal structures is present. IMPRESSION: 1. Interval development of moderate small bowel dilatation since CT of December 12, 2021. No transition point identified. This may reflect a nonspecific enteritis or ileus. A small bowel obstruction is considered less likely but could appear similar. 2. Persistent moderate colonic dilatation. Moderate amount of stool within the colon. No evidence for a colonic obstruction. 3. Mildly distended fluid-filled stomach. 4. Small bilateral pleural effusions with bibasilar opacities which could reflect atelectasis or aspiration pneumonia. Extensive secretions within the airways. 5. Anasarca. ACT 112: Negative or not required by law. Electronically signed by: Vicente Schwab M.D. 12/16/2021 7:34 AM Abdomen/Pelvis CTA 12/16/21 06:36 CT ANGIOGRAPHY OF THE ABDOMEN AND PELVIS CLINICAL HISTORY: Atherosclerosis, vessel occlusion. Abdominal pain. COMPARISON STUDY: CT of the abdomen and pelvis December 12, 2021. TECHNIQUE: Helical axial images of the abdomen and pelvis were obtained during arterial phase following intravenous injection 110 cc of Optiray 320 IV. Sagittal and coronal reconstructions were viewed as well as maximal intensity projections on an independent 3-D workstation. Automated exposure control was utilized for the study. A dose lowering technique was utilized adhering to the principles of ALARA. FINDINGS: Small bilateral pleural effusions are noted with associated bibasilar opacities. Lingular consolidation is again noted. There are extensive secretions within the visualized lower lobe airways. No pneumatosis, free air or portal venous gas is present. This exam is compromised by motion artifact. There is extensive aortoiliac atherosclerotic plaque. Moderate stenosis at the origin of the celiac axis is noted. There is extensive calcific plaque within the proximal superior mesenteric artery with suspected occlusion and distal reconstitution. The mid to distal SMA is patent. There is occlusion of the proximal inferior mesenteric artery with distal reconstitution. Severe stenosis of the left renal artery is noted. There is moderate stenosis of the right renal artery. There is occlusion of the left common iliac artery with reconstitution at the level of the left common femoral artery. Moderate to severe stenosis of the left common femoral and superficial femoral arteries are patent. The stomach is fluid-filled and distended. Small bowel dilatation has developed since prior CT. No transition point is identified. Colonic dilatation is similar to prior exam. There is a moderate amount stool within the colon. Anasarca is present. There is trace abdominal and pelvic ascites. Arterial phase images of the liver, spleen, adrenal glands and pancreas are unremarkable. There is moderate left renal atrophy. No hydronephrosis is present. There is no fluid collection is suggest an abscess. IMPRESSION: 1. Extensive plaque within the abdominal aorta and branch vessels. 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 Moderate stenosis at the origin of the celiac axis. Occlusion of the left common iliac and external iliac arteries with distal reconstitution. Severe stenosis of the left renal artery and moderate stenosis of the right renal artery. 2. Interval development of small bowel dilatation since CT of December 12, 2021. No transition point identified. This favors an ileus or nonspecific enteritis. Although less likely, a small bowel obstruction cannot be excluded. If persistent abdominal pain, short-term imaging follow-up is recommended. No change in colonic dilatation. Moderate amount stool within the colon. No evidence for a colonic obstruction. 3. Small bilateral pleural effusions with bibasilar opacities which could reflect aspiration pneumonia or atelectasis. Extensive secretions within the visualized airways. 4. Moderate gastric distention. ACT 112: Negative or not required by law. Electronically signed by: Vicente Schwab M.D. 12/16/2021 8:[address] 12/16/21 08:05 CT OF THE HEAD WITHOUT CONTRAST CLINICAL HISTORY: Altered mental status. COMPARISON STUDY: Head CT June 04, 2018 and MRI of the brain April 20, 2020. CT DOSE: 537.48 mGy.cm TECHNIQUE: Helical axial images of the head were obtained without IV contrast. Automated exposure control was utilized for the study. A dose lowering technique was utilized adhering to the principles of ALARA. FINDINGS: No acute intracranial hemorrhage, midline shift or mass effect is present. Ventricular system is stable. Basal cisterns are patent. There are no e xtra-axial collections. There are no findings to suggest acute dural sinus thrombosis or acute territorial infarct. Intravascular contrast from recent contrast-enhanced CT is incidentally noted. Secretions within the nasopharynx are likely related to intubation. There is mild sinus mucosal thickening. There is no calvarial fracture. IMPRESSION: No acute intracranial findings. ACT 112: Negative or not required by law. Electronically signed by: Vicente Schwab M.D. 12/16/2021 8:59 AM Chest X-Ray 12/17/21 07:00 SINGLE VIEW CHEST CLINICAL HISTORY: Respiratory failure. FINDINGS: An AP, portable, upright chest radiograph is compared to study dated 12/16/2021. The examination is degraded by portable technique and patient rotation. An endotracheal tube has been repositioned. The tip now projects just below the thoracic inlet. An enteric tube is unchanged in position. The cardiomediastinal silhouette is top normal for projection noting atherosclerotic calcification of the thoracic aorta. The pulmonary vasculature is noncongested. Emphysema and chronic interstitial thickening is similar to previous. There are layering pleural effusions with dependent consolidation. No pneumothorax is seen. The skeletal structures are osteopenic. The bony thorax is grossly intact. Arthritic change is noted in the shoulders. Gaseous distention of the bowel is noted in the upper abdomen. IMPRESSION: 1. Lines and tubes as above. 2. Layering pleural effusions with dependent consolidation. This is similar to yesterday. ACT 112: Negative or not required by law. Electronically signed by: Jaden Baltazar M.D. 12/17/2021 10:24 AM KUB X-Ray 12/17/21 08:28 KUB CLINICAL HISTORY: Marylou syndrome. FINDINGS: 3 AP, portable, supine abdominal radiographs are correlated with abdominal CT dated 12/16/2021. An enteric tube projects below the diaphragm over the stomach. There is diffuse gaseous distention of the small bowel and colon. The colon measures up to 10.2 cm in diameter. This is similar to yesterday. Fecal retention is noted in the right colon. No evidence of intraperitoneal free air is seen on these supine images. A rectal temperature probe is in place. There are no abnormal abdominal calcifications. The skeletal structures are osteopenic and appear intact. There is lumbosacral spondylosis. IMPRESSION: 1. An enteric tube is in place. 2. Gaseous distention of the small bowel and colon is similar to previous. Ileus is favored, although a distal colonic obstruction could appear similar. Clinical correlation will be essential. Electronically signed by: Jaden Baltazar M.D. 12/17/2021 10:11 AM
--- NOTE | 2021-12-17 21:03 | Hospitalist Progress Note ---
Date of Service December 17, 2021 Assessment & Plan (1) Acute hypoxemic respiratory failure: Plan: Patient developed respiratory distress overnight after bouts of vomiting He was intubated and sent to the ICU, where he is currently intubated, sedated and ventilated Plan to extubate later today. (2) Ileus: Plan: Overnight, patient started vomiting and the night doc orderd x ray and subsequently CT abdomen This showed small and large bowel dilation, but no transition point Ativan was administered to help during NG tube placement and the patient went into respiratory distress, intubated and then sent to ICU Subsequent CTA has showed impressive obstructive atherosclerotic problems in celiac axis, SMA and BRAEDEN (initial CT done on admission had suggested that as well) General surgery and GI on board, no plans for surgery (3) Hyperglycemia: Plan: 86yo male with poorly controlled diabetes presenting with hyperglycemia, blood glucose >600 on admission. Patient with poorly controlled DM - last [id number] on 06/07/21, on insulin therapy at home with non-adherence to home regimen. -Blood glucose control now better following treatment -Continue sliding scale insulin and Glargine 10 units in the morning -Patient will need better glucose monitoring at home and also better compliance with his regimen (4) Acute encephalopathy: Plan: most likley delirium on a backround of dementia Worsened by acute illness, UTI, PNA and unfamiliar environment PRN Zyprexa for agitation will avoid Ativan or haldol Now intubated and sedated and ventilated (5) PNA (pneumonia): Plan: CT chest suggests consolidation currently on Unasyn, Ceftraixone and Azithromycin Blood cultures negative so far (6) Abdominal pain: Plan: Patient complaining of severe abdominal pain as well as nausea and multiple episodes of emesis as well as constipation on admission -However, seems his abdominal pain is chronic -CT abdomen and pelvis showed evidence of constipation with a large stool burden, he moved his bowel a few times following miralax -Lipase was wnl -However, there is suggestion of large burden of plaque in the aorta and also narrowing or stenosis of some mesenteric arteries -Vascular on consult, however per vascular, its unlikely contributing to his symptoms, CTA abd and pelvis confirmed obstructive atherosclerotic problems in celiac axis, SMA and BRAEDEN. -Patient currently intubated, sedated and ventilated (7) UTI (urinary tract infection): Plan: Urinalysis suggestive of infection. Patient reported difficulty urinating. -Follow urine cultures, negative so far with possible contamination -Continue Ceftriaxone 1gm IV daily (8) Aortoiliac occlusive disease: Plan: CT abdomen showed Extensive plaque within the abdominal aorta and branch vessels.Now confirmed by CTA abdomen and pelvis Occlusion of the proximal superior mesenteric and inferior mesenteric arteries with distal reconstitution. Suspected moderate stenosis at the origin of the celiac axis. These findings increase risk for mesenteric ischemia. Occlusion of the left common and internal iliac arteries with partial distal reconstitution. Moderate to severe bilateral renal artery stenosis. Vascular surgery on consult (9) Constipated: Plan: CT abdomen and pelvis showed evidence of constipation with a large stool burden patient had multiple bowel movements (10) CKD (chronic kidney disease): Plan: -Monitor renal function, electrolytes -Straight cath as needed -Avoid nephrotoxic agents - Hold Lisinopril -Renal dosing where needed (11) Dementia: Plan: probable baseline dementia daughters say he has been struggling with confusion and forgetfulness (12) Arteriosclerosis of coronary artery: Plan: On Atorvastatin (13) HTN (hypertension): Plan: BP 135/80 (14) Hyperlipidemia: Plan: Chronic -Continue Atorvastatin (15) Benign prostatic hyperplasia: Plan: Chronic -Continue Finasteride -Bladder scan as needed -Monitor UOP Plan prognosis is guarded Admission and Anticipated Discharge Date Admission Date: December 12, 2021 Subjective 86 yo male is intubated and sedated. Review of Systems Review of Systems: All systems reviewed & are unremarkable except as noted in HPI & below Physical Exam Physical Exam: Intubated, sedated and ventilated HEENT--PERRL, EOMI, mucous membranes and oropharynx mildly dry Neck--supple. No JVD. No bruits. Thyroid normal, trachea midline, no adenopathy. Heart--normal S1 and S2. No murmurs, rubs or gallops. Lungs--reduced air entry Abdomen--normal bowel sounds and soft. Mild epigastric and left sided abdominal pain Extremities--no cyanosis or clubbing. No edema. Dermatologic--normal skin turgor, normal color, no abnormal lymph nodes, no rash. Neurologic--intubated sedated and ventilated Rheumatologic--normal range of motion. Psychiatric--ventilated Results & Data Results & Data ([facility] [place]) Vital Signs (Past 12 Hours) Vital Signs Temp Pulse Pulse Resp BP BP Pulse Ox 12/17/21 20:28 36.4 C L 100 H 20 132/58 L 94 12/17/21 18:44 36.5 C 99 H 20 145/65 H 12/17/21 17:31 139/72 12/17/21 17:31 37.1 C 101 H 22 92 12/17/21 17:00 37.0 C 99 H 23 93 12/17/21 17:00 130/74 12/17/21 16:31 112/57 L 12/17/21 16:31 36.9 C 95 H 21 93 12/17/21 16:00 36.7 C 97 H 19 92 12/17/21 16:00 130/78 12/17/21 15:30 129/72 12/17/21 15:30 36.6 C 96 H 24 95 12/17/21 15:01 36.5 C 85 22 12/17/21 15:01 135/74 12/17/21 15:00 36.5 C 91 H 19 93 12/17/21 14:30 132/55 L 12/17/21 14:30 36.5 C 100 H 27 H 12/17/21 14:00 36.5 C 94 H 22 92 12/17/21 14:00 134/67 12/17/21 15:31 92 12/17/21 13:30 36.7 C 95 H 26 H 90 12/17/21 13:30 123/81 12/17/21 13:00 36.7 C 89 21 91 12/17/21 12:30 36.8 C 90 21 12/17/21 12:30 135/91 12/17/21 12:00 36.8 C 91 H 25 H 12/17/21 11:30 36.9 C 74 27 H 12/17/21 11:30 126/71 12/17/21 11:00 37.0 C 94 H 18 92 12/17/21 11:00 138/66 12/17/21 10:30 37.3 C 92 H 16 12/17/21 10:30 115/66 12/17/21 10:00 37.4 C 96 H 26 H 94 12/17/21 10:00 128/70 12/17/21 09:30 37.4 C 89 21 98 12/17/21 09:30 122/64 12/17/21 09:15 37.3 C 99 H 26 H 12/17/21 09:15 114/61 O2 Del Method O2 Flow Rate 12/17/21 20:28 Nasal Cannula 5.0 12/17/21 18:44 Nasal Cannula 5 12/17/21 17:31 12/17/21 17:31 12/17/21 17:00 12/17/21 17:00 12/17/21 16:31 12/17/21 16:31 12/17/21 16:00 12/17/21 16:00 12/17/21 15:30 12/17/21 15:30 12/17/21 15:01 12/17/21 15:01 12/17/21 15:00 12/17/21 14:30 12/17/21 14:30 12/17/21 14:00 12/17/21 14:00 12/17/21 15:31 12/17/21 13:30 Nasal Cannula 4 12/17/21 13:30 12/17/21 13:00 12/17/21 12:30 12/17/21 12:30 12/17/21 12:00 12/17/21 11:30 12/17/21 11:30 12/17/21 11:00 12/17/21 11:00 12/17/21 10:30 12/17/21 10:30 12/17/21 10:00 12/17/21 10:00 12/17/21 09:30 12/17/21 09:30 12/17/21 09:15 12/17/21 09:15 PG Care Time/CCT Total # of Minutes Spent Total Time Spent with Patient: Total time spent is greater than 50% in coordination of care (as documented) at patient's floor/unit and/or counseling patient: Coding Level of Care Code 21453 Subseq Hosp Care Lvl 3 Diagnoses Acute hypoxemic respiratory failure J96.01 Ileus K56.7 Hyperglycemia R73.9 Acute encephalopathy G93.40 PNA (pneumonia) J18.9 Abdominal pain R10.9 UTI (urinary tract infection) N39.0 Aortoiliac occlusive disease I74.09 Constipated K59.00 CKD (chronic kidney disease) N18.9 Dementia F03.90 Arteriosclerosis of coronary artery I25.10 HTN (hypertension) I10 Hyperlipidemia E78.5 Benign prostatic hyperplasia N40.0 Time Spent (min) 35 Comment chart review
[2021-12-18] MEDS: INSULIN ASPART PER UNIT SC SCH ×6 (00:15→23:30)
[2021-12-18] MEDS: D5W AND NSS 1,000 ML IV SCH ×2 (00:24→13:54)
[2021-12-18] MEDS: AMPICILLIN/SULBACTAM SOD 3,000 MG in 0.9 % SODIUM CHLORIDE 100 ML IV SCH ×4 (01:14→19:25)
[2021-12-18] MEDS: PANTOprazole 40 MG in DEXTROSE 5% 100 ML IV SCH ×5 (01:14→21:18)
[2021-12-18 06:40] LABS: Albumin Globulin Ratio 1.2 (0.9-2); Albumin Level 2.6 gm/dl (3.4-5.0); BUN Creatinine Ratio 21.3 (10-20); Bilirubin,Total 0.9 mg/dl (0.2-1.0); Calcium 7.5 mg/dl (8.5-10.1); Creatinine Clr Calc Pharmacy 42.9 ml/min; Est GFR (African American) 90.4 ml/min; Globulin 2.2 gm/dl (2.5-4.0); Magnesium 1.7 mg/dl (1.7-2.4); Phosphorus 2.5 mg/dl (2.5-4.9); Potassium 3.7 mmol/L (3.5-5.1); Total Protein 4.8 gm/dl (6.0-8.3)
[2021-12-18] MEDS: FINASTERIDE 5 MG TAB PO SCH (07:20)
[2021-12-18] MEDS: ASPIRIN 81 MG ECTAB PO SCH (07:20)
[2021-12-18] MEDS: ATORVASTATIN 40 MG TAB PO SCH (07:21)
[2021-12-18] MEDS: LACTULOSE SYRUP 10 GM/15 ML BTL 960 ML PO SCH ×3 (07:21→20:19)
[2021-12-18 07:25] LABS: Hematocrit (blood only) 31.7 % (40.1-51.0); Hemoglobin 11.1 g/dl (14.0-18.0); Mean Corpuscular Hemoglobin 32.6 pg (25.0-34.0); Mean Platelet Volume 11.3 fL (9.4-12.4); Nucleated RBC # (auto) 0.02 K/uL (0-0); Nucleated RBC % (auto) 0.2 %; Platelet Count 212 K/uL (130-400); RDW Coefficient of Variation 13.2 % (11.5-14.5); RDW Standard Deviation 45.1 fL (36.4-46.3); Red Blood Count 3.41 M/uL (4.63-6.08); White Blood Count 9.95 K/ul (4.8-10.8)
--- NOTE | 2021-12-18 10:44 | XRay Report ---
XR chest 1V portable CLINICAL HISTORY: Respiratory failure. COMPARISON STUDY: Chest radiograph December 17, 2021. FINDINGS: Nasogastric tube is coiled with tip within the stomach. Low lung volumes are again noted. T his is unchanged. There are small bilateral pleural effusions with persistent bibasilar opacities. In terstitial thickening is present. This may have slightly improved. There is no pneumothorax. Cardiome diastinal silhouette is stable. Gaseous distention of the colon is partially imaged. This was portion s appear unchanged. IMPRESSION: 1. Persistent small bilateral pleural effusions with associated bibasilar opacities which could refle ct atelectasis or consolidation. 2. Interstitial thickening which favors pulmonary edema. ACT 112: Negative or not required by law. Electronically signed by: Vicente Schwab M.D. 12/18/2021 10:42 AM
--- NOTE | 2021-12-18 10:57 | Gastroenterology Progress Note ---
Date of Service December 18, 2021 Assessment & Plan (1) Small bowel obstruction: Plan: Seems to be improved, having bowel movements. Will get another KUB. If improved would recommend removing NG and getting him on a diet Admission and Anticipated Discharge Date Admission Date: December 12, 2021 Subjective Seems much better today. Apparently has been having a lot of bowel movements. Wants NG out Physical Exam Constitutional: + ill appearing, + thin and + frail appearing Gastrointestinal (Abdomen): normal bowel sounds, soft, nontender, no hepatosplenomegaly Results & Data ([facility]) Vital Signs (Past 12 Hours) Vital Signs Temp Pulse Pulse Resp BP Pulse Ox O2 Del Method 12/18/21 08:00 96 H 12/18/21 08:00 Nasal Cannula 12/18/21 07:37 36.6 C 99 H 20 154/87 H 96 Nasal Cannula 12/18/21 04:19 36.6 C 88 18 147/95 H 96 Nasal Cannula 12/17/21 23:00 105 H 12/17/21 23:17 36.5 C 90 20 130/75 95 Nasal Cannula O2 Flow Rate 12/18/21 08:00 12/18/21 08:00 2 12/18/21 07:37 2 12/18/21 04:19 3 12/17/21 23:00 12/17/21 23:17 5.0
[2021-12-18] MEDS ORDERED: LANTUS PER UNIT CHARGE SQ ONE (11:00)
[2021-12-18 11:13] LABS: Basophils # (auto) 0.04 K/uL (0-0.2); Basophils % (auto) 0.4 %; Echinocytes 3+; Eosinophils # (auto) 0.14 K/uL (0-0.50); Eosinophils % (auto) 1.4 %; Immature Granulocytes # (auto) 0.41 K/uL (0.00-0.02); Immature Granulocytes % (auto) 4.1 %; Lymphocytes # (auto) 1.75 K/uL (1.2-3.4); Lymphocytes % (auto) 17.6 %; Monocytes # (auto) 1.13 K/uL (0.24-0.82); Monocytes % (auto) 11.4 %; Neutrophils # (auto) 6.48 K/uL (1.4-6.5); Neutrophils % (auto) 65.1 %; Platelet Estimate Normal (Normal)
--- NOTE | 2021-12-18 11:52 | Pharmacy Report ---
Pharmacy Glycemic Short Note 2 - Date of Service December 18, 2021 - Glycemic Short BSG Results (Last 24 hours): 12/17/21 12/17/21 12/17/21 11:57 16:18 21:05 Glucose POC Glucose 158 H 201 H 98 12/17/21 12/18/21 12/18/21 23:13 04:30 05:32 Glucose 137 H POC Glucose 113 H 116 H 12/18/21 12/18/21 07:39 11:45 Glucose POC Glucose 171 H 183 H OUTPATIENT ANTIDIABETIC REGIMEN: * Novolin-N 14 units SQ AM, 5 units SQ PM * A1c 12/12/21 11.2% ASSESSMENT: 12/18: * Patient received 2 unit of bolus insulin yesterday, total. BSGs 36-129-976-171-183mg/dL. * D5NS continues, protonix drip (in D5W) continues. Remains NPO. * Given BSGs trending up today, will give a reduced dose of basal insulin with lunch (4 units). No change to Novolog parameters- q6 while NPO with basal. 12/17/21: * Patient received a total of 19 units of insulin yesterday, 8 of which were basal. * Patient with episode of hypoglycemia overnight. Lantus held this AM- will continue to hold for now * Dextrose containing fluid restarted @ 80 mL/hr, lunch BSG up to 158 mg/dL- patient with possible extubation later today * Will continue to monitor, same novolog parameters for now. 12/16/21: * Patient received total of 10 units of insulin yesterday, of which 7 units were basal. BSGs reasonably controlled yesterday * Patient developing increase O2 requirements/coffee brown emesis transferred to ICU and intubated this morning * Dextrose containing fluids paused at 0300 this AM per RN and now d/c. Prt gtt started * Fasting BSG 312 mg/dL - likely related to stress response. Hesitant to titrate basal too much since dextrose fluids stopped. Protonix gtt does contain dextrose. Will increase to only 8 units of basal this morning * Continue same CF/CR for now 12/14/21: * Patient received total 7 units of insulin yesterday; 5 units basal + 2 units bolus. * BSGs yesterday were [phone] mg/dl. * Fasting BSG today was 345 mg/dl with repeat of 321 mg/dl. Nurse confirmed that patient was not snacking prior to this check. His food intake has been minimal. * Patient is basal insulin deficient. He received less than 50% of insulin yesterday compared to what he would have been at home. * Increased basal insulin dose this morning. * To correct the high BSG this morning a dose of IV Regular insulin 4 units (0.1 unit/kg) was also given in addition to the Lantus and Novolog. Expect BSGs to trend down. 12/13/21: * Patient received total of around 12 to 15 units of insulin via insulin drip yesterday. Drip was discontinued this morning since the rate was down to 0.5 units/hr and BSG was 106 mg/dl. * Fasting BSG was 94 mg/dl this AM. * Patient was NPO this AM but diet resumed. * Lantus 5 units given this AM based on wt and stress of 1. Re-asses this dose tomorrow. * Novolog ordered based on wt and stress between 2 and 3 but will increase this to stress of 3 for tonight. 12/12/21 * 86 yo male admitted with hyperglycemia, poorly controlled DM as outpatient, on insulin therapy at home with non-adherence. Uncertain when he last took his insulin. BSG of 606mg/dl on arrival - improved to 503mg/dl after 500mL NSS given in ER. Anion-gap metabolic acidosis with gap of 18. Normal serum bicarbonate at 21, less likely DKA, elevated anion gap may be secondary to elevated lactate, worsening renal function. * Start insulin drip, IVF NSS + 20mEq K, as K+ dropped to 3.3. PLAN FOR INPATIENT GLYCEMIC CONTROL: * Basal insulin * Lantus 4 units X 1 * Bolus insulin * NovoLog per scale ACHS or Q6hrs while NPO * Goal Range: Low 110 mg/dL - High 160 mg/dL * Correction Factor: 35 mg/dL/unit * Nutritional / Prandial insulin per carb ratio of 1 unit per 11 grams CHO consumed
--- NOTE | 2021-12-18 12:52 | XRay Report ---
KUB HISTORY: Bowel obstruction. Follow-up. COMPARISON: KUB 12/17/2021. FINDINGS: Nasogastric tube is curled within the stomach with the tip terminating at the distal body. A rectal temperature probe is noted. Bibasilar linear densities are noted. Dilated gas-filled loops o f large and small bowel are similar to the prior study. No renal calculi. No ureteral calculi. No pn eumoperitoneum or pneumatosis. IMPRESSION: 1. Nasogastric tube terminates in the stomach. 2. No change in the marked gaseous distention of the large and small bowel. This favors an ileus. A d istal large bowel obstruction could also have a similar appearance. ACT 112: Negative or not required by law. Electronically signed by: Alejandro Hughes M.D. 12/18/2021 12:50 PM
--- NOTE | 2021-12-18 20:06 | Hospitalist Progress Note ---
Date of Service December 18, 2021 Assessment & Plan (1) Acute hypoxemic respiratory failure: Plan: extubated on 12/17 resolved (2) Ileus: Plan: Overnight, patient started vomiting and the night doc orderd x ray and subsequently CT abdomen This showed small and large bowel dilation, but no transition point Ativan was administered to help during NG tube placement and the patient went into respiratory distress, intubated and then sent to ICU Subsequent CTA has showed impressive obstructive atherosclerotic problems in celiac axis, SMA and BRAEDEN (initial CT done on admission had suggested that as well) General surgery and GI on board, no plans for surgery On 12/18, no longer having BM, or passing gas in AM of 12/18. repeat kub no improvement will keep NG tube updated family. (3) Hyperglycemia: Plan: 86yo male with poorly controlled diabetes presenting with hyperglycemia, blood glucose >600 on admission. Patient with poorly controlled DM - last [id number] on 06/07/21, on insulin therapy at home with non-adherence to home regimen. -Blood glucose control now better following treatment -Continue sliding scale insulin and Glargine 10 units in the morning -Patient will need better glucose monitoring at home and also better compliance with his regimen (4) Acute encephalopathy: Plan: most likley delirium on a backround of dementia Worsened by acute illness, UTI, PNA and unfamiliar environment PRN Zyprexa for agitation will avoid Ativan or haldol resolving (5) PNA (pneumonia): Plan: CT chest suggests consolidation currently on Unasyn, Ceftraixone and Azithromycin Blood cultures negative so far (6) Abdominal pain: Plan: Patient complaining of severe abdominal pain as well as nausea and multiple episodes of emesis as well as constipation on admission -However, seems his abdominal pain is chronic -CT abdomen and pelvis showed evidence of constipation with a large stool burden, he moved his bowel a few times following miralax -Lipase was wnl -However, there is suggestion of large burden of plaque in the aorta and also narrowing or stenosis of some mesenteric arteries -Vascular on consult, however per vascular, its unlikely contributing to his symptoms, CTA abd and pelvis confirmed obstructive atherosclerotic problems in celiac axis, SMA and BRAEDEN. -Patient currently intubated, sedated and ventilated (7) UTI (urinary tract infection): Plan: Urinalysis suggestive of infection. Patient reported difficulty urinating. -Follow urine cultures, negative so far with possible contamination -Continue Ceftriaxone 1gm IV daily (8) Aortoiliac occlusive disease: Plan: CT abdomen showed Extensive plaque within the abdominal aorta and branch vessels.Now confirmed by CTA abdomen and pelvis Occlusion of the proximal superior mesenteric and inferior mesenteric arteries with distal reconstitution. Suspected moderate stenosis at the origin of the celiac axis. These findings increase risk for mesenteric ischemia. Occlusion of the left common and internal iliac arteries with partial distal reconstitution. Moderate to severe bilateral renal artery stenosis. Vascular surgery on consult (9) Constipated: Plan: CT abdomen and pelvis showed evidence of constipation with a large stool burden patient had multiple bowel movements (10) CKD (chronic kidney disease): Plan: -Monitor renal function, electrolytes -Straight cath as needed -Avoid nephrotoxic agents - Hold Lisinopril -Renal dosing where needed (11) Dementia: Plan: probable baseline dementia daughters say he has been struggling with confusion and forgetfulness (12) Arteriosclerosis of coronary artery: Plan: On Atorvastatin (13) HTN (hypertension): Plan: BP 135/80 (14) Hyperlipidemia: Plan: Chronic -Continue Atorvastatin (15) Benign prostatic hyperplasia: Plan: Chronic -Continue Finasteride -Bladder scan as needed -Monitor UOP Plan prognosis is guarded Admission and Anticipated Discharge Date Admission Date: December 12, 2021 Subjective 86 yo male is asking for NG tube to be removed. Review of Systems Review of Systems: All systems reviewed & are unremarkable except as noted in HPI & below Physical Exam Physical Exam: Lying in bed, in no acute distress HEENT--PERRL, EOMI, mucous membranes and oropharynx mildly dry Neck--supple. No JVD. No bruits. Thyroid normal, trachea midline, no adenopathy. Heart--normal S1 and S2. No murmurs, rubs or gallops. Lungs--reduced air entry Abdomen--normal bowel sounds and soft. Mild epigastric and left sided abdominal pain Extremities--no cyanosis or clubbing. No edema. Dermatologic--normal skin turgor, normal color, no abnormal lymph nodes, no rash. Neurologic--intubated sedated and ventilated Rheumatologic--normal range of motion. Psychiatric--ventilated Results & Data Results & Data ([facility]) Vital Signs (Past 12 Hours) Vital Signs Temp Pulse Pulse Resp BP Pulse Ox O2 Del Method 12/18/21 19:30 Nasal Cannula 12/18/21 19:18 36.9 C 83 18 152/78 H 96 Nasal Cannula 12/18/21 16:38 80 12/18/21 16:38 Nasal Cannula 12/18/21 15:32 36.7 C 71 19 132/71 91 Nasal Cannula 12/18/21 12:04 36.9 C 86 19 140/67 94 Nasal Cannula O2 Flow Rate 12/18/21 19:30 2 12/18/21 19:18 1 12/18/21 16:38 12/18/21 16:38 2 12/18/21 15:32 2.0 12/18/21 12:04 2.0 PG Care Time/CCT Total # of Minutes Spent Total Time Spent with Patient: Total time spent is greater than 50% in coordination of care (as documented) at patient's floor/unit and/or counseling patient: Coding Level of Care Code 79862 Subseq Hosp Care Lvl 3 Diagnoses Acute hypoxemic respiratory failure J96.01 Ileus K56.7 Hyperglycemia R73.9 Acute encephalopathy G93.40 PNA (pneumonia) J18.9 Abdominal pain R10.9 UTI (urinary tract infection) N39.0 Aortoiliac occlusive disease I74.09 Constipated K59.00 CKD (chronic kidney disease) N18.9 Dementia F03.90 Arteriosclerosis of coronary artery I25.10 HTN (hypertension) I10 Hyperlipidemia E78.5 Benign prostatic hyperplasia N40.0 Time Spent (min) 35
[2021-12-18] MEDS ORDERED: OLANZapine 10 MG/2.1 ML SDV IM STA (22:29)
[2021-12-19] MEDS ORDERED: OLANZapine 10 MG/2.1 ML SDV IM STA (00:19)
[2021-12-19] MEDS: AMPICILLIN/SULBACTAM SOD 3,000 MG in 0.9 % SODIUM CHLORIDE 100 ML IV SCH ×4 (01:14→20:59)
[2021-12-19] MEDS: D5W AND NSS 1,000 ML IV SCH ×2 (01:17→12:19)
[2021-12-19] MEDS: PANTOprazole 40 MG in DEXTROSE 5% 100 ML IV SCH ×2 (01:58→07:57)
[2021-12-19] MEDS: INSULIN ASPART PER UNIT SC SCH ×4 (06:10→23:40)
[2021-12-19] MEDS: DEXTROSE 50% 50 ML SYRINGE IV PRN (06:22)
--- NOTE | 2021-12-19 06:40 | Surgery Progress Note ---
Date of Service December 19, 2021 Assessment & Plan (1) Pseudoobstruction of colon: Plan: Patient with small bowel and colonic ileus Much less distended than he was, some bowel activity He does not require surgical intervention I suppose we can continue his NG tube but may consider removal over the next 24 to 48 hours No change from surgical standpoint in his care Admission and Anticipated Discharge Date Admission Date: December 12, 2021 Subjective Patient more awake Does not appear he has much out of his NG tube light bilious fluid Apparently is having bowel movements and receiving lactulose His KUB did show significant diffuse ileus Review of Systems Review of Systems: All systems reviewed & are unremarkable except as noted in HPI & below Physical Exam Physical Exam: Abdomen much less distended Does have some bowel sounds Results & Data ([facility]) Vital Signs (Past 12 Hours) Vital Signs Temp Pulse Pulse Resp BP Pulse Ox O2 Del Method 12/19/21 02:00 116 H 20 171/73 H 12/18/21 23:00 100 H 12/18/21 23:24 36.3 C L 91 H 18 131/81 94 Room Air 12/18/21 19:30 Nasal Cannula 12/18/21 19:18 36.9 C 83 18 152/78 H 96 Nasal Cannula O2 Flow Rate 12/19/21 02:00 12/18/21 23:00 12/18/21 23:24 12/18/21 19:30 2 12/18/21 19:18 1 PG Care Time/CCT Total # of Minutes Spent Total Time Spent with Patient: Total time spent is greater than 50% in coordination of care (as documented) at patient's floor/unit and/or counseling patient: Coding Level of Care Code 87673 Inpt Consult Level 2 Diagnoses Pseudoobstruction of colon K59.81
[2021-12-19 06:56] LABS: Basophils # (auto) 0.03 K/uL (0-0.2); Basophils % (auto) 0.2 %; Eosinophils # (auto) 0.06 K/uL (0-0.50); Eosinophils % (auto) 0.5 %; Hematocrit (blood only) 27.5 % (40.1-51.0); Hemoglobin 9.4 g/dl (14.0-18.0); Immature Granulocytes # (auto) 0.14 K/uL (0.00-0.02); Immature Granulocytes % (auto) 1.2 %; Lymphocytes # (auto) 0.95 K/uL (1.2-3.4); Lymphocytes % (auto) 7.9 %; Mean Corpuscular Hemoglobin 32.5 pg (25.0-34.0); Mean Corpuscular Hgb Conc 34.2 g/dL (32.0-36.0); Mean Corpuscular Volume 95.2 fL (80.0-100.0); Monocytes # (auto) 1.08 K/uL (0.24-0.82); Neutrophils # (auto) 9.75 K/uL (1.4-6.5); Neutrophils % (auto) 81.2 %; Platelet Count 203 K/uL (130-400); RDW Standard Deviation 44.9 fL (36.4-46.3); Red Blood Count 2.89 M/uL (4.63-6.08); White Blood Count 12.01 K/ul (4.8-10.8)
[2021-12-19 07:34] LABS: Albumin Globulin Ratio 1.3 (0.9-2); Albumin Level 2.4 gm/dl (3.4-5.0); BUN Creatinine Ratio 13.6 (10-20); Bilirubin,Total 0.8 mg/dl (0.2-1.0); Creatinine Clr Calc Pharmacy 47.2 ml/min; Est GFR (African American) 93.9 ml/min; Globulin 1.9 gm/dl (2.5-4.0); Magnesium 1.3 mg/dl (1.7-2.4); Potassium 2.9 mmol/L (3.5-5.1); Total Protein 4.3 gm/dl (6.0-8.3)
[2021-12-19] MEDS: ATORVASTATIN 40 MG TAB PO SCH (07:56)
[2021-12-19] MEDS: ASPIRIN 81 MG ECTAB PO SCH (07:56)
[2021-12-19] MEDS: FINASTERIDE 5 MG TAB PO SCH (07:57)
[2021-12-19] MEDS: LACTULOSE SYRUP 10 GM/15 ML BTL 960 ML PO SCH ×3 (07:57→20:54)
[2021-12-19] MEDS ORDERED: POTASSIUM PHOSPHATE 9 MMOL in SODIUM CHLORIDE 0.9% 250 ML IV ONE (08:30)
[2021-12-19] MEDS: MAGNESIUM SULFATE / D5W 1 GM/100 ML BAG IV SCH ×2 (09:16→10:23)
[2021-12-19] MEDS: POTASSIUM CHLORIDE / WTR 10 MEQ/100 ML PLCT IV SCH ×2 (09:17→10:23)
--- NOTE | 2021-12-19 11:45 | XRay Report ---
XR chest 1V portable HISTORY: Respiratory failure. Follow-up. COMPARISON: Chest 12/18/2021. FINDINGS: There are low lung volumes. No pneumothorax. Nasogastric tube is curled within the stomach. The heart remains enlarged. Mild interstitial thickening and patchy bibasilar densities persist. Tra ce bilateral pleural effusion are suspected. This is similar to the prior study. Degenerative changes again noted within the shoulders. IMPRESSION: 1. No change in the patchy bibasilar densities and trace bilateral pleural effusions. 2. Mild interstitial thickening persists which may represent congestive change. 3. Nasogastric tube terminates in the stomach. ACT 112: Negative or not required by law. Electronically signed by: Alejandro Hughes M.D. 12/19/2021 11:43 AM
--- NOTE | 2021-12-19 12:52 | Pharmacy Report ---
Pharmacy Glycemic Short Note 2 - Date of Service December 19, 2021 - Glycemic Short BSG Results (Last 24 hours): 12/18/21 12/18/21 12/18/21 17:43 20:07 22:50 Glucose POC Glucose 182 H 142 H 69 L* 12/18/21 12/19/21 12/19/21 22:52 06:11 06:13 Glucose POC Glucose 74 51 L* 51 L* 12/19/21 12/19/21 12/19/21 06:32 06:41 11:41 Glucose 183 H POC Glucose 143 H 146 H OUTPATIENT ANTIDIABETIC REGIMEN: * Novolin-N 14 units SQ AM, 5 units SQ PM * A1c 12/12/21 11.2% ASSESSMENT: 12/19: * BSGs 680-26-02-146mg/dL the last 24h. Received 4 units of basal and 3 units of bolus insulin yesterday, and did experience a hypoglycemic event this AM requiring treatment. * D5NS continues, remains NPO. Protonix drip converted to IV push today. * Will again hold basal d/t NPO status. Goal BSG range adjusted to 120-160mg/dL. No change to Novolog parameters. 12/18: * Patient received 2 unit of bolus insulin yesterday, total. BSGs 64-976-192-171-183mg/dL. * D5NS continues, protonix drip (in D5W) continues. Remains NPO. * Given BSGs trending up today, will give a reduced dose of basal insulin with lunch (4 units). No change to Novolog parameters- q6 while NPO with basal. 12/17/21: * Patient received a total of 19 units of insulin yesterday, 8 of which were basal. * Patient with episode of hypoglycemia overnight. Lantus held this AM- will continue to hold for now * Dextrose containing fluid restarted @ 80 mL/hr, lunch BSG up to 158 mg/dL- patient with possible extubation later today * Will continue to monitor, same novolog parameters for now. 12/16/21: * Patient received total of 10 units of insulin yesterday, of which 7 units were basal. BSGs reasonably controlled yesterday * Patient developing increase O2 requirements/coffee brown emesis transferred to ICU and intubated this morning * Dextrose containing fluids paused at 0300 this AM per RN and now d/c. Prt gtt started * Fasting BSG 312 mg/dL - likely related to stress response. Hesitant to titrate basal too much since dextrose fluids stopped. Protonix gtt does contain dextrose. Will increase to only 8 units of basal this morning * Continue same CF/CR for now 12/14/21: * Patient received total 7 units of insulin yesterday; 5 units basal + 2 units bolus. * BSGs yesterday were 167-287-257-142 mg/dl. * Fasting BSG today was 345 mg/dl with repeat of 321 mg/dl. Nurse confirmed that patient was not snacking prior to this check. His food intake has been minimal. * Patient is basal insulin deficient. He received less than 50% of insulin yesterday compared to what he would have been at home. * Increased basal insulin dose this morning. * To correct the high BSG this morning a dose of IV Regular insulin 4 units (0.1 unit/kg) was also given in addition to the Lantus and Novolog. Expect BSGs to trend down. 12/13/21: * Patient received total of around 12 to 15 units of insulin via insulin drip yesterday. Drip was discontinued this morning since the rate was down to 0.5 units/hr and BSG was 106 mg/dl. * Fasting BSG was 94 mg/dl this AM. * Patient was NPO this AM but diet resumed. * Lantus 5 units given this AM based on wt and stress of 1. Re-asses this dose tomorrow. * Novolog ordered based on wt and stress between 2 and 3 but will increase this to stress of 3 for tonight. 12/12/21 * 86 yo male admitted with hyperglycemia, poorly controlled DM as outpatient, on insulin therapy at home with non-adherence. Uncertain when he last took his insulin. BSG of 606mg/dl on arrival - improved to 503mg/dl after 500mL NSS given in ER. Anion-gap metabolic acidosis with gap of 18. Normal serum bicarbonate at 21, less likely DKA, elevated anion gap may be secondary to elevated lactate, worsening renal function. * Start insulin drip, IVF NSS + 20mEq K, as K+ dropped to 3.3. PLAN FOR INPATIENT GLYCEMIC CONTROL: * Basal insulin * Hold * Bolus insulin * NovoLog per scale ACHS or Q6hrs while NPO * Goal Range: Low 110 mg/dL - High 160 mg/dL * Correction Factor: 35 mg/dL/unit * Nutritional / Prandial insulin per carb ratio of 1 unit per 11 grams CHO consumed
--- NOTE | 2021-12-19 15:25 | Gastroenterology Progress Note ---
Date of Service December 19, 2021 Assessment & Plan (1) Small bowel obstruction: Plan: KUB from yesterday does show small bowel and colonic distension. However he is passing gas and his belly is much softer than before. He has a radiologic ileus but he clinically is moving his bowels so there is no "true" ileus. Would follow for now. Admission and Anticipated Discharge Date Admission Date: December 12, 2021 Subjective Sleeping comfortably. Having loose stools. Family member that is present is unaware if he is passing gas Physical Exam Constitutional: not in distress Gastrointestinal (Abdomen): normal bowel sounds, soft, nontender, no hepatosplenomegaly Results & Data ([facility]) Vital Signs (Past 12 Hours) Vital Signs Temp Pulse Pulse Resp BP Pulse Ox O2 Del Method 12/19/21 10:50 37.0 C 79 18 149/62 H 95 Nasal Cannula 12/19/21 08:00 Nasal Cannula 12/19/21 06:59 37.2 C 85 19 146/74 H 96 Nasal Cannula O2 Flow Rate 12/19/21 10:50 1 12/19/21 08:00 1 12/19/21 06:59 1
[2021-12-19] MEDS: PANTOprazole 40 MG in SYRINGE 0 ML IV SCH (20:54)
--- NOTE | 2021-12-19 21:28 | Hospitalist Progress Note ---
Date of Service December 19, 2021 Assessment & Plan (1) Acute hypoxemic respiratory failure: Plan: extubated on 12/17 resolved (2) Ileus: Plan: This has been the main problem for the patient. No bowel obstruction noted on imaging. These have shown small and large bowel dilation, but no transition point Ativan was administered to help during NG tube placement and the patient went into respiratory distress, intubated and then sent to ICU As noted above, patient now extubated. Subsequent CTA has showed impressive obstructive atherosclerotic problems in celiac axis, SMA and BRAEDEN (initial CT done on admission had suggested that as well) General surgery and GI on board, no plans for surgery Patient over past 48 hpurs have been having intermittent BM, and has had loose stools on 12/19. Imaging though does not show any improvement. D?W GI, though imaging isn't showing improvement, plan would be to have patient ambulate. If he continues to pass gas and have BM. Then to remove NG tube. will keep on 12/19 and try tomorrow. (3) Hyperglycemia: Plan: 86yo male with poorly controlled diabetes presenting with hyperglycemia, blood glucose >600 on admission. Patient with poorly controlled DM - last [id number]=[id number] on 06/07/21, on insulin therapy at home with non-adherence to home regimen. -Blood glucose control now better following treatment -Continue sliding scale insulin and Glargine 10 units in the morning -Patient will need better glucose monitoring at home and also better compliance with his regimen (4) Acute encephalopathy: Plan: most likley delirium on a backround of dementia Worsened by acute illness, UTI, PNA and unfamiliar environment PRN Zyprexa for agitation will avoid Ativan or haldol resolving (5) PNA (pneumonia): Plan: CT chest suggests consolidation currently on Unasyn, Ceftraixone and Azithromycin Blood cultures negative so far (6) Abdominal pain: Plan: Patient complaining of severe abdominal pain as well as nausea and multiple episodes of emesis as well as constipation on admission -However, seems his abdominal pain is chronic -CT abdomen and pelvis showed evidence of constipation with a large stool burden, he moved his bowel a few times following miralax -Lipase was wnl -However, there is suggestion of large burden of plaque in the aorta and also narrowing or stenosis of some mesenteric arteries -Vascular on consult, however per vascular, its unlikely contributing to his symptoms, CTA abd and pelvis confirmed obstructive atherosclerotic problems in celiac axis, SMA and BRAEDEN. (7) UTI (urinary tract infection): Plan: Urinalysis suggestive of infection. Patient reported difficulty urinating. -Follow urine cultures, negative so far with possible contamination -Continue Ceftriaxone 1gm IV daily (8) Aortoiliac occlusive disease: Plan: CT abdomen showed Extensive plaque within the abdominal aorta and branch vessels.Now confirmed by CTA abdomen and pelvis Occlusion of the proximal superior mesenteric and inferior mesenteric arteries with distal reconstitution. Suspected moderate stenosis at the origin of the celiac axis. These findings increase risk for mesenteric ischemia. Occlusion of the left common and internal iliac arteries with partial distal reconstitution. Moderate to severe bilateral renal artery stenosis. Vascular surgery on consult (9) Constipated: Plan: CT abdomen and pelvis showed evidence of constipation with a large stool burden patient had multiple bowel movements (10) CKD (chronic kidney disease): Plan: -Monitor renal function, electrolytes -Straight cath as needed -Avoid nephrotoxic agents - Hold Lisinopril -Renal dosing where needed (11) Dementia: Plan: probable baseline dementia daughters say he has been struggling with confusion and forgetfulness (12) Arteriosclerosis of coronary artery: Plan: On Atorvastatin (13) HTN (hypertension): Plan: slightly above goal. (14) Hyperlipidemia: Plan: Chronic -Continue Atorvastatin (15) Benign prostatic hyperplasia: Plan: Chronic -Continue Finasteride -Bladder scan as needed -Monitor UOP Plan prognosis is guarded Admission and Anticipated Discharge Date Admission Date: December 12, 2021 Subjective 86 yo male is confused. Required a one to one overnight as he sundowned. Review of Systems Review of Systems: All systems reviewed & are unremarkable except as noted in HPI & below Physical Exam Physical Exam: Lying in bed, in no acute distress, with mittens HEENT--PERRL, EOMI, mucous membranes and oropharynx mildly dry Neck--supple. No JVD. No bruits. Thyroid normal, trachea midline, no adenopathy. Heart--normal S1 and S2. No murmurs, rubs or gallops. Lungs--reduced air entry Abdomen--normal bowel sounds and soft. Mild epigastric and left sided abdominal pain Extremities--no cyanosis or clubbing. No edema. Dermatologic--normal skin turgor, normal color, no abnormal lymph nodes, no rash. Neurologic--confused Rheumatologic--normal range of motion. Psychiatric--confused Results & Data Results & Data ([facility]) Vital Signs (Past 12 Hours) Vital Signs Temp Pulse Pulse Resp BP Pulse Ox O2 Del Method 12/19/21 20:01 36.6 C 90 18 144/79 H 93 Nasal Cannula 12/19/21 15:59 36.7 C 70 19 171/72 H 96 Nasal Cannula 12/19/21 10:50 37.0 C 79 18 149/62 H 95 Nasal Cannula O2 Flow Rate 12/19/21 20:01 1 12/19/21 15:59 1 12/19/21 10:50 1 PG Care Time/CCT Total # of Minutes Spent Total Time Spent with Patient: Total time spent is greater than 50% in coordination of care (as documented) at patient's floor/unit and/or counseling patient: Coding Level of Care Code 80112 Subseq Hosp Care Lvl 3 Diagnoses Acute hypoxemic respiratory failure J96.01 Ileus K56.7 Hyperglycemia R73.9 Acute encephalopathy G93.40 PNA (pneumonia) J18.9 Abdominal pain R10.9 UTI (urinary tract infection) N39.0 Aortoiliac occlusive disease I74.09 Constipated K59.00 CKD (chronic kidney disease) N18.9 Dementia F03.90 Arteriosclerosis of coronary artery I25.10 HTN (hypertension) I10 Hyperlipidemia E78.5 Benign prostatic hyperplasia N40.0 Time Spent (min) 35
[2021-12-20] MEDS: D5W AND NSS 1,000 ML IV SCH (01:23)
[2021-12-20] MEDS: AMPICILLIN/SULBACTAM SOD 3,000 MG in 0.9 % SODIUM CHLORIDE 100 ML IV SCH ×4 (01:25→20:24)
[2021-12-20] MEDS: INSULIN ASPART PER UNIT SC SCH ×5 (05:54→20:34)
[2021-12-20 06:38] LABS: Hemoglobin 10.1 g/dl (14.0-18.0); Mean Corpuscular Hgb Conc 33.7 g/dL (32.0-36.0); Mean Corpuscular Volume 94.9 fL (80.0-100.0); Mean Platelet Volume 10.2 fL (9.4-12.4); Platelet Count 276 K/uL (130-400); RDW Coefficient of Variation 12.6 % (11.5-14.5); RDW Standard Deviation 43.5 fL (36.4-46.3); Red Blood Count 3.16 M/uL (4.63-6.08); White Blood Count 10.41 K/ul (4.8-10.8)
[2021-12-20 06:56] LABS: BUN Creatinine Ratio 8.6 (10-20); Creatinine Clr Calc Pharmacy 47.2 ml/min; Est GFR (African American) 93.9 ml/min; Magnesium 1.4 mg/dl (1.7-2.4); Phosphorus 2.3 mg/dl (2.5-4.9); Potassium 3.3 mmol/L (3.5-5.1)
--- NOTE | 2021-12-20 07:55 | Surgery Progress Note ---
Date of Service December 20, 2021 Assessment & Plan (1) Pseudoobstruction of colon: Plan: Remove NG tube Does not appear to need urgent surgical intervention Advance diet as per medicine and GI Available if needed Admission and Anticipated Discharge Date Admission Date: December 12, 2021 Subjective Patient very alert and verbal Having bowel movements Minimal from NG tube Review of Systems Review of Systems: All systems reviewed & are unremarkable except as noted in HPI & below Physical Exam Physical Exam: Abdomen is flat and soft Has active bowel sounds Results & Data ([facility]) Vital Signs (Past 12 Hours) Vital Signs Temp Pulse Pulse Resp BP Pulse Ox O2 Del Method 12/20/21 06:53 18 176/83 H 12/20/21 02:34 36.8 C 94 H 18 148/66 H 92 Nasal Cannula 12/19/21 23:24 85 12/19/21 23:11 36.7 C 86 18 144/58 H 95 Room Air 12/19/21 20:01 36.6 C 90 18 144/79 H 93 Nasal Cannula O2 Flow Rate 12/20/21 06:53 12/20/21 02:34 1 12/19/21 23:24 12/19/21 23:11 1 12/19/21 20:01 1 PG Care Time/CCT Total # of Minutes Spent Total Time Spent with Patient: Total time spent is greater than 50% in coordination of care (as documented) at patient's floor/unit and/or counseling patient: Coding Level of Care Code 66644 Inpt Consult Level 3 Diagnoses Pseudoobstruction of colon K59.81
[2021-12-20] MEDS: PANTOprazole 40 MG in SYRINGE 0 ML IV SCH (08:10)
[2021-12-20] MEDS: ASPIRIN 81 MG ECTAB PO SCH (08:11)
[2021-12-20] MEDS: FINASTERIDE 5 MG TAB PO SCH (08:11)
[2021-12-20] MEDS: ATORVASTATIN 40 MG TAB PO SCH (08:11)
[2021-12-20] MEDS: LACTULOSE SYRUP 10 GM/15 ML BTL 960 ML PO SCH ×3 (08:14→20:25)
--- NOTE | 2021-12-20 11:41 | Gastroenterology Progress Note ---
Date of Service December 20, 2021 Assessment & Plan (1) Small bowel obstruction: Plan: Seems to be doing well. Tolerating liquids. Will follow. Would advance diet as tolerated Admission and Anticipated Discharge Date Admission Date: December 12, 2021 Subjective Pleasant, SHARIFA stevenson says he feels good. Says he is having big bowel movements as confirmed by family at bedside. Tolerated coffee today Physical Exam Constitutional: + thin and + frail appearing Gastrointestinal (Abdomen): normal bowel sounds, soft, nontender, no hepatosplenomegaly Inspection/Auscultation: + abdomen distended (? mild diste nsion) Results & Data ([facility]) Vital Signs (Past 12 Hours) Vital Signs Temp Pulse Resp BP Pulse Ox O2 Del Method O2 Flow Rate 12/20/21 10:50 36.7 C 90 18 159/99 H 92 Room Air 12/20/21 06:53 18 176/83 H 12/20/21 02:34 36.8 C 94 H 18 148/66 H 92 Nasal Cannula 1
--- NOTE | 2021-12-20 12:08 | Hospitalist Progress Note ---
Date of Service December 20, 2021 Assessment & Plan (1) Ileus: Plan: This has been the main problem for the patient. No bowel obstruction noted on imaging. - Some progress by 12/20 -> NG tube removed. Cleared by GI and surgery to advance diet. Having "pasty" BMs per staff attorney. - Advanced to full liquid diet on 12/20. (2) Constipated: Plan: CT abdomen and pelvis showed evidence of constipation with a large stool burden. - Patient had multiple bowel movements -> Monitor (3) Acute hypoxemic respiratory failure: Plan: Occurred in setting of getting benzos for placement of an NG tube. Required intubation. Extubated on 12/17. - Resolved; now on room air with good O2 sat. (4) PNA (pneumonia): Plan: CXR suggested on 12/19 consolidation. Blood culture from 12/12 and sputum cx from 12/16 were negative. - Currently on Unasyn. Finish abx after today (12/20) as he would have had >5 day course. (5) Hyperglycemia: Plan: Blood glucose >600 on admission. Last HgbA1C = 10.9% on 06/07/2021, on insulin therapy at home with non-adherence to home regimen. - Had been off all insulin while NPO and on D5W fluids. - Continue sliding scale insulin (6) Acute encephalopathy: Plan: Most likely delirium on a background of dementia. - Resolving -> Improving with extubation, family around, etc. (7) Aortoiliac occlusive disease: Plan: As above, CTA a/p on 12/16 showed: * Occlusion of the proximal superior mesenteric and inferior mesenteric arteries with distal reconstitution. 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 * These findings increase risk for mesenteric ischemia. * Occlusion of the left common and internal iliac arteries with partial distal reconstitution. * Moderate to severe bilateral renal artery stenosis. -> Will ask vascular surgery to provide recs (8) UTI (urinary tract infection): Plan: Urinalysis suggestive of infection. Patient reported difficulty urinating. - Urine cultures was negative. - Covered with prior abx - No issues. 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 - Monitor renal function, electrolytes - Straight cath as needed - Avoid nephrotoxic agents - Hold Lisinopril on discharge given his known RAINA. - Renal dosing where needed (10) Dementia: Plan: Probable baseline dementia. Daughters say he has been struggling with confusion and forgetfulness. - No inpatient needs other than frequent orientation and day-night cycles. (11) Arteriosclerosis of coronary artery: Plan: - On atorvastatin (12) HTN (hypertension): Plan: BP stable today at 160/100. - Holding home lisinopril, but likely need to change med given the renal artery stenosis seen on CTA this admission. (13) Benign prostatic hyperplasia: Plan: Chronic. - Continue finasteride - Martínez in place; will remove as able. Admission and Anticipated Discharge Date Admission Date: December 12, 2021 Subjective Doing well today. Much better spirits now that he has coffee. No pain. Had a BM this morning. Physical Exam Constitutional: WD/WN, vitals as above Eyes: EOM intact bilaterally; no conjunctival abnormality ENMT: external ear and nose normal, oropharynx normal Neck: trachea midline, no thyromegaly normal visual inspection Respiratory: normal respiratory effort, lungs clear to auscultation no respiratory distress Cardiovascular: RRR, no murmur, no edema Gastrointestinal (Abdomen): Inspection/Auscultation: abdomen normal to inspection; abdomen not distended Musculoskeletal: no cyanosis or clubbing, extremities motor strength 5/5 Skin: no rashes, warm and dry Neurologic: moves all extremities and awake Psychiatric: Orientation: alert, oriented to person and cooperative Results & Data Results & Data ([facility]) Vital Signs (Past 12 Hours) Vital Signs Temp Pulse Resp BP Pulse Ox O2 Del Method O2 Flow Rate 12/20/21 10:50 36.7 C 90 18 159/99 H 92 Room Air 12/20/21 06:53 18 176/83 H 12/20/21 02:34 36.8 C 94 H 18 148/66 H 92 Nasal Cannula 1 PG Care Time/CCT Total # of Minutes Spent Total Time Spent with Patient: Total time spent is greater than 50% in coordination of care (as documented) at patient's floor/unit and/or counseling patient: Coding Level of Care Code 67172 Subseq Hosp Care Lvl 3 Diagnoses Ileus K56.7 Constipated K59.00 Acute hypoxemic respiratory failure J96.01 PNA (pneumonia) J18.9 Hyperglycemia R73.9 Acute encephalopathy G93.40 Aortoiliac occlusive disease I74.09 UTI (urinary tract infection) N39.0 CKD (chronic kidney disease) N18.9 Dementia F03.90 Arteriosclerosis of coronary artery I25.10 HTN (hypertension) I10 Benign prostatic hyperplasia N40.0
[2021-12-20] MEDS: MAGNESIUM SULFATE / D5W 1 GM/100 ML BAG IV SCH ×3 (12:28→16:15)
--- NOTE | 2021-12-20 13:02 | Pharmacy Report ---
Pharmacy Glycemic Short Note 2 - Date of Service December 20, 2021 - Glycemic Short BSG Results (Last 24 hours): 12/19/21 12/19/21 12/20/21 17:42 23:34 05:41 Glucose 156 H POC Glucose 215 H 156 H 12/20/21 12/20/21 05:51 12:12 Glucose POC Glucose 162 H 149 H OUTPATIENT ANTIDIABETIC REGIMEN: * Novolin-N 14 units SQ AM, 5 units SQ PM * A1c 12/12/21 11.2% ASSESSMENT: 12/20: * BSGs 393-016-767-149mg/dL the last 24h. Received 2 units of bolus insulin yesterday. * Dextrose containing IVF discontinued, and diet advanced to full liquids/DM2 (NGT removed). * No change to insulin regimen today - will continue with Novolog only for now. Likely will need to resume basal once good PO intake again. 12/19: * BSGs 550-15-72-146mg/dL the last 24h. Received 4 units of basal and 3 units of bolus insulin yesterday, and did experience a hypoglycemic event this AM requiring treatment. * D5NS continues, remains NPO. Protonix drip converted to IV push today. * Will again hold basal d/t NPO status. Goal BSG range adjusted to 120-160mg/dL. No change to Novolog parameters. 12/18: * Patient received 2 unit of bolus insulin yesterday, total. BSGs 49-674-529-171-183mg/dL. * D5NS continues, protonix drip (in D5W) continues. Remains NPO. * Given BSGs trending up today, will give a reduced dose of basal insulin with lunch (4 units). No change to Novolog parameters- q6 while NPO with basal. 12/17/21: * Patient received a total of 19 units of insulin yesterday, 8 of which were basal. * Patient with episode of hypoglycemia overnight. Lantus held this AM- will continue to hold for now * Dextrose containing fluid restarted @ 80 mL/hr, lunch BSG up to 158 mg/dL- patient with possible extubation later today * Will continue to monitor, same novolog parameters for now. 12/16/21: * Patient received total of 10 units of insulin yesterday, of which 7 units were basal. BSGs reasonably controlled yesterday * Patient developing increase O2 requirements/coffee brown emesis transferred to ICU and intubated this morning * Dextrose containing fluids paused at 0300 this AM per RN and now d/c. Prt gtt started * Fasting BSG 312 mg/dL - likely related to stress response. Hesitant to titrate basal too much since dextrose fluids stopped. Protonix gtt does contain dextrose. Will increase to only 8 units of basal this morning * Continue same CF/CR for now 12/14/21: * Patient received total 7 units of insulin yesterday; 5 units basal + 2 units bolus. * BSGs yesterday were 139-800-734-142 mg/dl. * Fasting BSG today was 345 mg/dl with repeat of 321 mg/dl. Nurse confirmed that patient was not snacking prior to this check. His food intake has been minimal. * Patient is basal insulin deficient. He received less than 50% of insulin yesterday compared to what he would have been at home. * Increased basal insulin dose this morning. * To correct the high BSG this morning a dose of IV Regular insulin 4 units (0.1 unit/kg) was also given in addition to the Lantus and Novolog. Expect BSGs to trend down. 12/13/21: * Patient received total of around 12 to 15 units of insulin via insulin drip yesterday. Drip was discontinued this morning since the rate was down to 0.5 units/hr and BSG was 106 mg/dl. * Fasting BSG was 94 mg/dl this AM. * Patient was NPO this AM but diet resumed. * Lantus 5 units given this AM based on wt and stress of 1. Re-asses this dose tomorrow. * Novolog ordered based on wt and stress between 2 and 3 but will increase this to stress of 3 for tonight. 12/12/21 * 86 yo male admitted with hyperglycemia, poorly controlled DM as outpatient, on insulin therapy at home with non-adherence. Uncertain when he last took his insulin. BSG of 606mg/dl on arrival - improved to 503mg/dl after 500mL NSS given in ER. Anion-gap metabolic acidosis with gap of 18. Normal serum bicarbonate at 21, less likely DKA, elevated anion gap may be secondary to elevated lactate, worsening renal function. * Start insulin drip, IVF NSS + 20mEq K, as K+ dropped to 3.3. PLAN FOR INPATIENT GLYCEMIC CONTROL: * Basal insulin * Hold * Bolus insulin * NovoLog per scale ACHS or Q6hrs while NPO * Goal Range: Low 110 mg/dL - High 160 mg/dL * Correction Factor: 35 mg/dL/unit * Nutritional / Prandial insulin per carb ratio of 1 unit per 11 grams CHO consumed
[2021-12-20] MEDS ORDERED: INSULIN ASPART PER UNIT SC SCH (16:30)
[2021-12-20] MEDS: OLANZapine ZYDIS 5 MG ORALLY DIS. TAB PO PRN (18:33)
[2021-12-20] MEDS: HEPARIN SOD 5,000 UNIT/0.5 ML VIAL SQ SCH (21:04)
[2021-12-21] MEDS: LACTULOSE SYRUP 10 GM/15 ML BTL 960 ML PO SCH (07:55)
[2021-12-21] MEDS: PANTOprazole 40 MG TAB PO SCH (07:56)
[2021-12-21] MEDS: HEPARIN SOD 5,000 UNIT/0.5 ML VIAL SQ SCH ×2 (07:56→21:32)
[2021-12-21] MEDS: ATORVASTATIN 40 MG TAB PO SCH (07:56)
[2021-12-21] MEDS: ASPIRIN 81 MG ECTAB PO SCH (07:56)
[2021-12-21] MEDS: FINASTERIDE 5 MG TAB PO SCH (07:56)
--- NOTE | 2021-12-21 08:33 | Gastroenterology Progress Note ---
Date of Service December 21, 2021 Assessment & Plan (1) Small bowel obstruction: Plan: He is doing well. Nothing further to add. Will sign off. If GI needed please call GI health education specialist Admission and Anticipated Discharge Date Admission Date: December 12, 2021 Subjective Feeling good. Eating, having bowel movements, passing gas Physical Exam Physical Exam: Pleasant in no distress Results & Data ([facility]) Vital Signs (Past 12 Hours) Vital Signs Temp Pulse Resp BP Pulse Ox O2 Del Method 12/21/21 06:55 36.5 C 75 18 156/66 H 91 Room Air
[2021-12-21] MEDS: INSULIN ASPART PER UNIT SC SCH ×4 (09:25→21:31)
[2021-12-21] MEDS: OLANZapine ZYDIS 5 MG ORALLY DIS. TAB PO PRN (09:29)
[2021-12-21 09:34] LABS: Hematocrit (blood only) 33.1 % (40.1-51.0); Hemoglobin 11.3 g/dl (14.0-18.0); Mean Corpuscular Hemoglobin 32.1 pg (25.0-34.0); Mean Corpuscular Hgb Conc 34.1 g/dL (32.0-36.0); Mean Platelet Volume 9.8 fL (9.4-12.4); Platelet Count 377 K/uL (130-400); RDW Coefficient of Variation 13.1 % (11.5-14.5); RDW Standard Deviation 44.2 fL (36.4-46.3); Red Blood Count 3.52 M/uL (4.63-6.08); White Blood Count 11.87 K/ul (4.8-10.8)
[2021-12-21 10:24] LABS: BUN Creatinine Ratio 8.6 (10-20); Calcium 7.5 mg/dl (8.5-10.1); Creatinine Clr Calc Pharmacy 39.8 ml/min; Est GFR (African American) 86.5 ml/min; Est GFR (Non-African American) 74.6 ml/min; Magnesium 1.7 mg/dl (1.7-2.4); Phosphorus 2.8 mg/dl (2.5-4.9); Potassium 3.4 mmol/L (3.5-5.1)
--- NOTE | 2021-12-21 13:30 | Hospitalist Progress Note ---
Date of Service December 21, 2021 Assessment & Plan (1) Ileus: Plan: This has been the main problem for the patient. No bowel obstruction noted on imaging. - Resolved by 12/20. NG tube removed. Cleared by GI and surgery to advance diet. - Advanced to low fiber diet on 12/21 and lowered lactulose as he was having diarrhea. (2) Hyperglycemia: Plan: Blood glucose >600 on admission. Last HgbA1C = 10.9% on 06/07/2021, on insulin therapy at home with non-adherence to home regimen. - Had been off all insulin while NPO and on D5W fluids. - Continue sliding scale insulin -> Blood sugars 90 - 120 over last 24 hours. 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 - Monitor renal function, electrolytes - Straight cath as needed - Avoid nephrotoxic agents - Hold Lisinopril on discharge given his known RAINA. - Renal dosing where needed (4) Constipated: Plan: CT abdomen and pelvis showed evidence of constipation with a large stool burden. This is a long-standing problem with him. - Patient had multiple bowel movements -> As above (5) Acute hypoxemic respiratory failure: Plan: Occurred in setting of getting benzos for placement of an NG tube. Required intubation. Extubated on 12/17. - Resolved; now on room air with good O2 sat. (6) PNA (pneumonia): Plan: CXR suggested on 12/19 consolidation. Blood culture from 12/12 and sputum cx from 12/16 were negative. - Currently on Unasyn. Finished abx on 12/20 as he had >5 day course. (7) Acute encephalopathy: Plan: Most likely delirium on a background of dementia. - Resolving -> Improving with extubation, family around, etc. Still using Zyprexa 5 mg PO BID PRN for agitation that is safety risk to himself or staff. Otherwise, use conservative measures such as re-orientation, good day-night cycles, etc. (8) Aortoiliac occlusive disease: Plan: As above, CTA a/p on 12/16 showed: * Occlusion of the proximal superior mesenteric and inferior mesenteric arteries with distal reconstitution. 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 * These findings increase risk for mesenteric ischemia. * Occlusion of the left common and internal iliac arteries with partial distal reconstitution. * Moderate to severe bilateral renal artery stenosis. -> Will ask vascular surgery to provide recs (9) UTI (urinary tract infection): Plan: Urinalysis suggestive of infection. Patient reported difficulty urinating. - Urine cultures was negative. - Covered with prior abx - No issues. (10) Dementia: Plan: Probable baseline dementia. Daughters say he has been struggling with confusion and forgetfulness. - No inpatient needs other than frequent orientation and day-night cycles. (11) Arteriosclerosis of coronary artery: Plan: - On atorvastatin (12) HTN (hypertension): Plan: BP stable today at 165/100. - Holding home lisinopril, but likely need to change med given the renal artery stenosis seen on CTA this admission. (13) Benign prostatic hyperplasia: Plan: Chronic. - Continue finasteride - Martínez in place; will remove as able. Admission and Anticipated Discharge Date Admission Date: December 12, 2021 Subjective Somewhat upset this afternoon about loose BMs. Otherwise, doing well. Is hungry. Physical Exam Constitutional: WD/WN, vitals as above Eyes: EOM intact bilaterally; no conjunctival abnormality ENMT: external ear and nose normal, oropharynx normal Neck: trachea midline, no thyromegaly normal visual inspection Respiratory: normal respiratory effort, lungs clear to auscultation no respiratory distress Cardiovascular: RRR, no murmur, no edema Gastrointestinal (Abdomen): Inspection/Auscultation: abdomen normal to inspection; abdomen not distended Musculoskeletal: no cyanosis or clubbing, extremities motor strength 5/5 Skin: no rashes, warm and dry Neurologic: moves all extremities and awake Psychiatric: Orientation: alert, oriented to person and cooperative Results & Data Results & Data ([facility]) Vital Signs (Past 12 Hours) Vital Signs Temp Pulse Resp BP Pulse Ox O2 Del Method 12/21/21 06:55 36.5 C 75 18 156/66 H 91 Room Air PG Care Time/CCT Total # of Minutes Spent Total Time Spent with Patient: Total time spent is greater than 50% in coordination of care (as documented) at patient's floor/unit and/or counseling patient: Coding Level of Care Code 63787 Subseq Hosp Care Lvl 2 Diagnoses Ileus K56.7 Hyperglycemia R73.9 CKD (chronic kidney disease) N18.9 Constipated K59.00 Acute hypoxemic respiratory failure J96.01 PNA (pneumonia) J18.9 Acute encephalopathy G93.40 Aortoiliac occlusive disease I74.09 UTI (urinary tract infection) N39.0 Dementia F03.90 Arteriosclerosis of coronary artery I25.10 HTN (hypertension) I10 Benign prostatic hyperplasia N40.0
[2021-12-21] MEDS: NICOTINE 21 MG/24 HR TDSY TD SCH (18:31)
[2021-12-22] MEDS ORDERED: OLANZapine 10 MG/2.1 ML SDV IM STA (03:33)
--- NOTE | 2021-12-22 03:35 | Communication Note ---
Date of Service: December 22, 2021 Messaged by nursing that patient is very agitated and yellow, pulling at yost and trying to get out of bed. Not tolerated PO prn zyprexa. Ordering 1 dose of IM zyprexa 5mg. Per nursing, stil agitated hours later. Required one on one sitter. On my assessment, patient is calmer, talking to sitter.
[2021-12-22 07:11] LABS: Hematocrit (blood only) 31.6 % (40.1-51.0); Hemoglobin 10.8 g/dl (14.0-18.0); Mean Corpuscular Hemoglobin 32.3 pg (25.0-34.0); Mean Corpuscular Hgb Conc 34.2 g/dL (32.0-36.0); Mean Corpuscular Volume 94.6 fL (80.0-100.0); Mean Platelet Volume 9.7 fL (9.4-12.4); Platelet Count 393 K/uL (130-400); RDW Coefficient of Variation 13.2 % (11.5-14.5); Red Blood Count 3.34 M/uL (4.63-6.08); White Blood Count 11.12 K/ul (4.8-10.8)
[2021-12-22 07:32] LABS: BUN Creatinine Ratio 12.1 (10-20); Calcium 7.5 mg/dl (8.5-10.1); Creatinine Clr Calc Pharmacy 37.3 ml/min; Est GFR (African American) 80.2 ml/min; Est GFR (Non-African American) 69.2 ml/min; Magnesium 1.5 mg/dl (1.7-2.4); Phosphorus 2.6 mg/dl (2.5-4.9); Potassium 3.3 mmol/L (3.5-5.1)
[2021-12-22] MEDS: ASPIRIN 81 MG ECTAB PO SCH (09:31)
[2021-12-22] MEDS: OLANZapine ZYDIS 5 MG ORALLY DIS. TAB PO PRN ×2 (09:31→20:02)
[2021-12-22] MEDS: FINASTERIDE 5 MG TAB PO SCH (09:31)
[2021-12-22] MEDS: ATORVASTATIN 40 MG TAB PO SCH (09:31)
[2021-12-22] MEDS: PANTOprazole 40 MG TAB PO SCH (09:31)
[2021-12-22] MEDS: LACTULOSE SYRUP 10 GM/15 ML BTL 960 ML PO SCH (09:32)
[2021-12-22] MEDS: HEPARIN SOD 5,000 UNIT/0.5 ML VIAL SQ SCH ×2 (09:32→20:50)
[2021-12-22] MEDS: INSULIN ASPART PER UNIT SC SCH ×4 (09:38→20:22)
--- NOTE | 2021-12-22 12:16 | Hospitalist Progress Note ---
Date of Service December 22, 2021 Assessment & Plan (1) Ileus: Plan: This has been the main problem for the patient. No bowel obstruction noted on imaging. - Resolved by 12/20. NG tube removed. Cleared by GI and surgery to advance diet. - Advanced to low fiber diet on 12/21 and lowered lactulose as he was having diarrhea. Still with looser stool. Will monitor for now, but consider adding fiber supplement if it continues despite holding laxatives. (2) Acute encephalopathy: Plan: Most likely delirium on a background of dementia. - Continue Zyprexa 5 mg PO BID PRN for agitation that is safety risk to himself or staff. Otherwise, use conservative measures such as re-orientation, good day- night cycles, etc. - Waxing and waning. (3) Aortoiliac occlusive disease: Plan: As above, CTA a/p on 12/16 showed: * Occlusion of the proximal superior mesenteric and inferior mesenteric arteries with distal reconstitution. 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 * These findings increase risk for mesenteric ischemia. * Occlusion of the left common and internal iliac arteries with partial distal reconstitution. * Moderate to severe bilateral renal artery stenosis. -> Will ask vascular surgery to provide recs (4) Hyperglycemia: Plan: Blood glucose >600 on admission. Last HgbA1C = 10.9% on 06/07/2021, on insulin therapy at home with non-adherence to home regimen. - Had been off all insulin while NPO and on D5W fluids. - Continue sliding scale insulin -> Blood sugars 110 - 210 over last 24 hours. (5) CKD (chronic kidney disease): Plan: Baseline Cr ~0.8 with CKD Stage II. - Monitor renal function, electrolytes - Straight cath as needed - Avoid nephrotoxic agents - Hold lisinopril on discharge given his known RAINA. - Renal dosing where needed (6) Constipated: Plan: CT abdomen and pelvis showed evidence of constipation with a large stool burden. This is a long-standing problem with him. - Patient had multiple bowel movements -> As above (7) Acute hypoxemic respiratory failure: Plan: Occurred in setting of getting benzos for placement of an NG tube. Required intubation. Extubated on 12/17. - Resolved; now on room air with good O2 sat. (8) PNA (pneumonia): Plan: CXR suggested on 12/19 consolidation. Blood culture from 12/12 and sputum cx from 12/16 were negative. - Finished abx on 12/20 as he had >5 day course. (9) UTI (urinary tract infection): Plan: Urinalysis suggestive of infection. Patient reported difficulty urinating. - Urine cultures was negative. - Covered with prior abx - No issues. (10) Dementia: Plan: Probable baseline dementia. Daughters say he has been struggling with confusion and forgetfulness. - No inpatient needs other than frequent orientation and day-night cycles. (11) Arteriosclerosis of coronary artery: Plan: - On atorvastatin (12) HTN (hypertension): Plan: BP stable today at 175/100. - Holding home lisinopril, but likely need to change med given the renal artery stenosis seen on CTA this admission. (13) Benign prostatic hyperplasia: Plan: Chronic. - Continue finasteride - Martínez in place; will remove as able. Admission and Anticipated Discharge Date Admission Date: December 12, 2021 Subjective Seen in AM. Somewhat confused and getting a bit agitated as he reports no one will take him downstairs. He wants to go home and also discusses something about a used car lot. Per sitter, he did have a loose BM this morning. Physical Exam Constitutional: WD/WN, vitals as above Eyes: EOM intact bilaterally; no conjunctival abnormality ENMT: external ear and nose normal, oropharynx normal Neck: trachea midline, no thyromegaly normal visual inspection Respiratory: normal respiratory effort, lungs clear to auscultation no respiratory distress Cardiovascular: RRR, no murmur, no edema Gastrointestinal (Abdomen): Inspection/Auscultation: abdomen normal to inspe ction; abdomen not distended Musculoskeletal: no cyanosis or clubbing, extremities motor strength 5/5 Skin: no rashes, warm and dry Neurologic: moves all extremities and awake Psychiatric: Orientation: alert, oriented to person and cooperative Results & Data Results & Data ([facility]) Vital Signs (Past 12 Hours) Vital Signs Temp Pulse Resp BP Pulse Ox O2 Del Method 12/22/21 07:15 36.8 C 87 18 175/75 H 96 Room Air PG Care Time/CCT Total # of Minutes Spent Total Time Spent with Patient: Total time spent is greater than 50% in coordination of care (as documented) at patient's floor/unit and/or counseling patient: Coding Level of Care Code 16195 Subseq Hosp Care Lvl 2 Diagnoses Ileus K56.7 Acute encephalopathy G93.40 Aortoiliac occlusive disease I74.09 Hyperglycemia R73.9 CKD (chronic kidney disease) N18.9 Constipated K59.00 Acute hypoxemic respiratory failure J96.01 PNA (pneumonia) J18.9 UTI (urinary tract infection) N39.0 Dementia F03.90 Arteriosclerosis of coronary artery I25.10 HTN (hypertension) I10 Benign prostatic hyperplasia N40.0
[2021-12-22] MEDS ORDERED: NovoLIN-N (NPH) PER UNIT CHARGE SQ SCH (16:30)
[2021-12-22] MEDS: NICOTINE 21 MG/24 HR TDSY TD SCH (18:35)
[2021-12-22] MEDS: CLOTRIMAZOLE 1% CR 15 GM TUBE EXT SCH (21:02)
[2021-12-23 06:37] LABS: Hematocrit (blood only) 28.6 % (40.1-51.0); Hemoglobin 9.8 g/dl (14.0-18.0); Mean Corpuscular Hemoglobin 32.7 pg (25.0-34.0); Mean Corpuscular Hgb Conc 34.3 g/dL (32.0-36.0); Mean Corpuscular Volume 95.3 fL (80.0-100.0); Mean Platelet Volume 9.7 fL (9.4-12.4); Platelet Count 399 K/uL (130-400); RDW Coefficient of Variation 13.3 % (11.5-14.5); RDW Standard Deviation 45.6 fL (36.4-46.3); White Blood Count 7.58 K/ul (4.8-10.8)
[2021-12-23 07:07] LABS: BUN Creatinine Ratio 18.9 (10-20); Calcium 7.5 mg/dl (8.5-10.1); Est GFR (African American) 97.5 ml/min; Est GFR (Non-African American) 84.1 ml/min; Magnesium 1.4 mg/dl (1.7-2.4); Phosphorus 3.2 mg/dl (2.5-4.9); Potassium 3.8 mmol/L (3.5-5.1)
[2021-12-23] MEDS: OLANZapine ZYDIS 5 MG ORALLY DIS. TAB PO PRN ×2 (07:33→21:48)
[2021-12-23] MEDS: ASPIRIN 81 MG ECTAB PO SCH (07:33)
[2021-12-23] MEDS: PANTOprazole 40 MG TAB PO SCH (07:33)
[2021-12-23] MEDS: FINASTERIDE 5 MG TAB PO SCH (07:34)
[2021-12-23] MEDS: CLOTRIMAZOLE 1% CR 15 GM TUBE EXT SCH ×3 (07:34→20:18)
[2021-12-23] MEDS: ATORVASTATIN 40 MG TAB PO SCH (07:34)
[2021-12-23] MEDS: HEPARIN SOD 5,000 UNIT/0.5 ML VIAL SQ SCH ×2 (07:35→20:21)
[2021-12-23] MEDS: LACTULOSE SYRUP 10 GM/15 ML BTL 960 ML PO SCH (07:35)
[2021-12-23] MEDS: INSULIN ASPART PER UNIT SC SCH ×4 (08:20→21:44)
[2021-12-23] MEDS ORDERED: NovoLIN-N (NPH) PER UNIT CHARGE SQ SCH (09:00)
--- NOTE | 2021-12-23 11:52 | Hospitalist Progress Note ---
Date of Service December 23, 2021 Assessment & Plan (1) Ileus: Plan: This has been the main problem for the patient. No bowel obstruction noted on imaging. - Resolved by 12/20. NG tube removed. Cleared by GI and surgery to advance diet. - Advanced to low fiber diet on 12/21 and lowered lactulose as he was having diarrhea. Still with looser stool. Will monitor for now, but consider adding fiber supplement if it continues despite holding laxatives. -> On 12/23, having (possibly) some extra abdominal pain. Unclear if it is abdomen or hips. Cannot really give me distinct answer. Belly soft. Sitter will try to get him to a bedside commode to see if BM improves discomfort. If still with abdominal pain, will consider repeating KUB. (2) Acute encephalopathy: Plan: Most likely delirium on a background of dementia. - Continue Zyprexa 5 mg PO BID PRN for agitation that is safety risk to himself or staff. Otherwise, use conservative measures such as re-orientation, good day- night cycles, etc. - Waxing and waning. On 12/23, still confused, but much calmer than prior, but he is having to get Zyprexa pretty much every dose. (3) Aortoiliac occlusive disease: Plan: As above, CTA a/p on 12/16 showed: * Occlusion of the proximal superior mesenteric and inferior mesenteric arteries with distal reconstitution. 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 * These findings increase risk for mesenteric ischemia. * Occlusion of the left common and internal iliac arteries with partial distal reconstitution. * Moderate to severe bilateral renal artery stenosis. -> Will ask vascular surgery to provide recs - Paged on 12/21, but no response. Can try again on Friday. No coverage over the weekend. - Continue ASA & statin for now (4) Hyperglycemia: Plan: Blood glucose >600 on admission. Last HgbA1C = 10.9% on 06/07/2021, on insulin therapy at home with non-adherence to home regimen. - Had been off all insulin while NPO and on D5W fluids. - Continue sliding scale insulin -> Blood sugars 60 - 180 over last 24 hours. - Glycemic pharmacy following. (5) CKD (chronic kidney disease): Plan: Baseline Cr ~0.8 with CKD Stage II. - Monitor renal function, electrolytes - Straight cath as needed - Avoid nephrotoxic agents - Hold lisinopril on discharge given his known RAINA. - Renal dosing where needed (6) Constipated: Plan: CT abdomen and pelvis showed evidence of constipation with a large stool burden. This is a long-standing problem with him. - Patient had multiple bowel movements -> As above (7) Acute hypoxemic respiratory failure: Plan: Occurred in setting of getting benzos for placement of an NG tube. Required intubation. Extubated on 12/17. - Resolved; now on room air with good O2 sat. (8) PNA (pneumonia): Plan: CXR suggested on 12/19 consolidation. Blood culture from 12/12 and sputum cx from 12/16 were negative. - Finished abx on 12/20 as he had >5 day course. (9) UTI (urinary tract infection): Plan: Urinalysis suggestive of infection. Patient reported difficulty urinating. - Urine cultures was negative. - Covered with prior abx - No issues. (10) Dementia: Plan: Probable baseline dementia. Daughters say he has been struggling with confusion and forgetfulness. - No inpatient needs other than frequent orientation and day-night cycles. (11) Arteriosclerosis of coronary artery: Plan: - On atorvastatin (12) HTN (hypertension): Plan: BP stable today at 150/70. - Holding home lisinopril, but likely need to change med given the renal artery stenosis seen on CTA this admission. (13) Benign prostatic hyperplasia: Plan: Chronic. - Continue finasteride - Martínez in place; will keep for now. Has some swelling at the glans of penis, so do not want to remove right now. Treating for fungal balanitis with topical anti-fungal (started 12/22). Admission and Anticipated Discharge Date Admission Date: December 12, 2021 Subjective Still with some delirium. He thinks I am a member of his family and is asking about my brother. Per sitter, he reported some lower abdominal pain. It seemed to be mostly while sitting up. Unclear if it is stomach or hips. Physical Exam Constitutional: WD/WN, vitals as above Eyes: EOM intact bilaterally; no conjunctival abnormality ENMT: external ear and nose normal, oropharynx normal Neck: trachea midline, no thyromegaly normal visual inspection Respiratory: normal respiratory effort, lungs clear to auscultation no respiratory distress Cardiovascular: RRR, no murmur, no edema Gastrointestinal (Abdomen): Inspection/Auscultation: abdomen normal to inspection; abdomen not distended Musculoskeletal: no cyanosis or clubbing, extremities motor strength 5/5 Skin: no rashes, warm and dry Neurologic: moves all extremities and awake Psychiatric: Orientation: alert, oriented to person and cooperative Results & Data Results & Data ([facility]) Vital Signs (Past 12 Hours) Vital Signs Temp Pulse Resp BP Pulse Ox O2 Del Method 12/23/21 07:30 36.4 C L 85 20 152/73 H 97 Room Air PG Care Time/CCT Total # of Minutes Spent Total Time Spent with Patient: Total time spent is greater than 50% in coordination of care (as documented) at patient's floor/unit and/or counseling patient: Coding Level of Care Code 83618 Subseq Hosp Care Lvl 3 Diagnoses Ileus K56.7 Acute encephalopathy G93.40 Aortoiliac occlusive disease I74.09 Hyperglycemia R73.9 CKD (chronic kidney disease) N18.9 Constipated K59.00 Acute hypoxemic respiratory failure J96.01 PNA (pneumonia) J18.9 UTI (urinary tract infection) N39.0 Dementia F03.90 Arteriosclerosis of coronary artery I25.10 HTN (hypertension) I10 Benign prostatic hyperplasia N40.0
[2021-12-23] MEDS: MAGNESIUM SULFATE / D5W 1 GM/100 ML BAG IV SCH ×4 (12:28→18:00)
--- NOTE | 2021-12-23 13:34 | Pharmacy Report ---
Pharmacy Glycemic Short Note 2 - Date of Service December 23, 2021 - Glycemic Short BSG Results (Last 24 hours): 12/22/21 12/22/21 12/23/21 17:14 20:17 05:35 Glucose 68 L POC Glucose 150 H 73 12/23/21 12/23/21 08:20 12:04 Glucose POC Glucose 97 185 H OUTPATIENT ANTIDIABETIC REGIMEN: * Novolin-N 14 units SQ AM, 5 units SQ PM * A1c 12/12/21 11.2% ASSESSMENT: 12/23/21: * Joey received 9 units of SQ insulin yesterday (4 units NPH + 5 units Novolog) * Fasting BSG trending upward with diet advancement. Planned to trial low dose NPH 4 units SQ BID (one dose given 12/22 PM) with novolog correction only (omit carbohydrate coverage). However, this mornings dose of NPH was not given based on fasting BSG of 97 mg/dL which lead to hyperglycemia at lunch, therefore carb coverage was resumed. May consider trial of NPH again on 12/24. Would avoid long acting basal insulin. 12/20: * BSGs 485-872-179-149mg/dL the last 24h. Received 2 units of bolus insulin yesterday. * Dextrose containing IVF discontinued, and diet advanced to full liquids/DM2 (NGT removed). * No change to insulin regimen today - will continue with Novolog only for now. Likely will need to resume basal once good PO intake again. 12/19: * BSGs 052-41-83-146mg/dL the last 24h. Received 4 units of basal and 3 units of bolus insulin yesterday, and did experience a hypoglycemic event this AM requiring treatment. * D5NS continues, remains NPO. Protonix drip converted to IV push today. * Will again hold basal d/t NPO status. Goal BSG range adjusted to 120-160mg/dL. No change to Novolog parameters. 12/18: * Patient received 2 unit of bolus insulin yesterday, total. BSGs 31-436-711-171-183mg/dL. * D5NS continues, protonix drip (in D5W) continues. Remains NPO. * Given BSGs trending up today, will give a reduced dose of basal insulin with lunch (4 units). No change to Novolog parameters- q6 while NPO with basal. 12/17/21: * Patient received a total of 19 units of insulin yesterday, 8 of which were basal. * Patient with episode of hypoglycemia overnight. Lantus held this AM- will continue to hold for now * Dextrose containing fluid restarted @ 80 mL/hr, lunch BSG up to 158 mg/dL- patient with possible extubation later today * Will continue to monitor, same novolog parameters for now. 12/16/21: * Patient received total of 10 units of insulin yesterday, of which 7 units were basal. BSGs reasonably controlled yesterday * Patient developing increase O2 requirements/coffee brown emesis transferred to ICU and intubated this morning * Dextrose containing fluids paused at 0300 this AM per RN and now d/c. Prt gtt started * Fasting BSG 312 mg/dL - likely related to stress response. Hesitant to titrate basal too much since dextrose fluids stopped. Protonix gtt does contain dextrose. Will increase to only 8 units of basal this morning * Continue same CF/CR for now 12/14/21: * Patient received total 7 units of insulin yesterday; 5 units basal + 2 units bolus. * BSGs yesterday were 038-343-333-142 mg/dl. * Fasting BSG today was 345 mg/dl with repeat of 321 mg/dl. Nurse confirmed that patient was not snacking prior to this check. His food intake has been minimal. * Patient is basal insulin deficient. He received less than 50% of insulin yesterday compared to what he would have been at home. * Increased basal insulin dose this morning. * To correct the high BSG this morning a dose of IV Regular insulin 4 units (0.1 unit/kg) was also given in addition to the Lantus and Novolog. Expect BSGs to trend down. 12/13/21: * Patient received total of around 12 to 15 units of insulin via insulin drip y esterday. Drip was discontinued this morning since the rate was down to 0.5 units/hr and BSG was 106 mg/dl. * Fasting BSG was 94 mg/dl this AM. * Patient was NPO this AM but diet resumed. * Lantus 5 units given this AM based on wt and stress of 1. Re-asses this dose tomorrow. * Novolog ordered based on wt and stress between 2 and 3 but will increase this to stress of 3 for tonight. 12/12/21 * 86 yo male admitted with hyperglycemia, poorly controlled DM as outpatient, on insulin therapy at home with non-adherence. Uncertain when he last took his insulin. BSG of 606mg/dl on arrival - improved to 503mg/dl after 500mL NSS given in ER. Anion-gap metabolic acidosis with gap of 18. Normal serum bicarbonate at 21, less likely DKA, elevated anion gap may be secondary to e levated lactate, worsening renal function. * Start insulin drip, IVF NSS + 20mEq K, as K+ dropped to 3.3. PLAN FOR INPATIENT GLYCEMIC CONTROL: * Basal insulin * Held on 12/23 * Bolus insulin * NovoLog per scale ACHS or Q6hrs while NPO * Goal Range: Low 120 mg/dL - High 160 mg/dL * Correction Factor: 35 mg/dL/unit * Nutritional / Prandial insulin per carb ratio of 1 unit per 12 grams CHO consumed
[2021-12-23] MEDS: NICOTINE 21 MG/24 HR TDSY TD SCH (16:08)
[2021-12-24 07:42] LABS: Hematocrit (blood only) 28.2 % (40.1-51.0); Hemoglobin 9.8 g/dl (14.0-18.0); Mean Corpuscular Hemoglobin 32.3 pg (25.0-34.0); Mean Corpuscular Hgb Conc 34.8 g/dL (32.0-36.0); Mean Corpuscular Volume 93.1 fL (80.0-100.0); Mean Platelet Volume 9.7 fL (9.4-12.4); Platelet Count 470 K/uL (130-400); RDW Coefficient of Variation 13.5 % (11.5-14.5); RDW Standard Deviation 44.6 fL (36.4-46.3); Red Blood Count 3.03 M/uL (4.63-6.08); White Blood Count 5.98 K/ul (4.8-10.8)
[2021-12-24 08:11] LABS: BUN Creatinine Ratio 14.8 (10-20); Calcium 7.1 mg/dl (8.5-10.1); Creatinine Clr Calc Pharmacy 45.6 ml/min; Est GFR (African American) 93.9 ml/min; Magnesium 1.8 mg/dl (1.7-2.4); Potassium 3.2 mmol/L (3.5-5.1)
[2021-12-24] MEDS: INSULIN ASPART PER UNIT SC SCH ×4 (08:52→21:09)
[2021-12-24] MEDS: FINASTERIDE 5 MG TAB PO SCH (09:27)
[2021-12-24] MEDS: CLOTRIMAZOLE 1% CR 15 GM TUBE EXT SCH ×3 (09:27→21:10)
[2021-12-24] MEDS: PANTOprazole 40 MG TAB PO SCH (09:27)
[2021-12-24] MEDS: ASPIRIN 81 MG ECTAB PO SCH (09:27)
[2021-12-24] MEDS: ATORVASTATIN 40 MG TAB PO SCH (09:27)
[2021-12-24] MEDS: LACTULOSE SYRUP 10 GM/15 ML BTL 960 ML PO SCH (09:28)
[2021-12-24] MEDS: HEPARIN SOD 5,000 UNIT/0.5 ML VIAL SQ SCH ×2 (09:28→21:10)
--- NOTE | 2021-12-24 09:58 | Pharmacy Report ---
Pharmacy Glycemic Short Note 2 - Date of Service December 24, 2021 - Glycemic Short BSG Results (Last 24 hours): 12/23/21 12/23/21 12/23/21 12:04 17:13 21:20 Glucose POC Glucose 185 H 93 250 H 12/24/21 12/24/21 06:48 08:09 Glucose 109 H POC Glucose 103 H OUTPATIENT ANTIDIABETIC REGIMEN: * Novolin-N 14 units SQ AM, 5 units SQ PM * A1c 12/12/21 11.2% ASSESSMENT: 12/24/21: * Yesterday AM, the patient did not receive his scheduled 4 units of NPH due to low BSG per nursing. Carb ratio bolus insulin re-added for lunch. * ACHS mealtime BSG's mostly within range- hyperglycemic BSG of 250 mg/dL may be attributed to the absence of carb coverage with dinner. * This morning, fasting blood glucose recorded at 103 mg/dL. Lunchtime BSG measured at 299 mg/dL- per nursing, the patient's family may be bringing him snacks. 12/23/21: * Joey received 9 units of SQ insulin yesterday (4 units NPH + 5 units Novolog) * Fasting BSG trending upward with diet advancement. Planned to trial low dose NPH 4 units SQ BID (one dose given 11/ PM) with novolog correction only (omit carbohydrate coverage). However, this mornings dose of NPH was not given based on fasting BSG of 97 mg/dL which lead to hyperglycemia at lunch, therefore carb coverage was resumed. May consider trial of NPH again on 12/24. Would avoid long acting basal insulin. 12/20: * BSGs 837-130-026-149mg/dL the last 24h. Received 2 units of bolus insulin yesterday. * Dextrose containing IVF discontinued, and diet advanced to full liquids/DM2 (NGT removed). * No change to insulin regimen today - will continue with Novolog only for now. Likely will need to resume basal once good PO intake again. 12/19: * BSGs 067-03-31-146mg/dL the last 24h. Received 4 units of basal and 3 units of bolus insulin yesterday, and did experience a hypoglycemic event this AM requiring treatment. * D5NS continues, remains NPO. Protonix drip converted to IV push today. * Will again hold basal d/t NPO status. Goal BSG range adjusted to 120-160mg/dL. No change to Novolog parameters. Background: * 86 yo male admitted with hyperglycemia, poorly controlled DM as outpatient, on insulin therapy at home with non-adherence. Uncertain when he last took his insulin. BSG of 606mg/dl on arrival - improved to 503mg/dl after 500mL NSS given in ER. Anion-gap metabolic acidosis with gap of 18. Normal serum bicarbonate at 21, less likely DKA, elevated anion gap may be secondary to elevated lactate, worsening renal function. * Start insulin drip, IVF NSS + 20mEq K, as K+ dropped to 3.3. PLAN FOR INPATIENT GLYCEMIC CONTROL: * Basal insulin * Will continue to hold given prior success on bolus-only regimen during this admission. * Bolus insulin * NovoLog per scale ACHS or Q6hrs while NPO * Goal Range: Low 120 mg/dL - High 160 mg/dL * Correction Factor: 35 mg/dL/unit * Nutritional / Prandial insulin per carb ratio of 1 unit per 11 grams CHO consumed
--- NOTE | 2021-12-24 13:37 | Hospitalist Progress Note ---
Date of Service December 24, 2021 Assessment & Plan (1) Ileus: Plan: - Resolved by 12/20. NG tube removed. Cleared by GI and surgery to advance diet. - Advanced to low fiber diet on 12/21 and lowered lactulose as he was having diarrhea. Stools have improved. - Abdominal discomfort continues to improve and tolerating diet without issues. (2) Acute encephalopathy: Plan: - Doing well at this time. - Most likely delirium on a background of dementia. - Continue Zyprexa 5 mg PO BID PRN for agitation that is safety risk to himself or staff. Otherwise, use conservative measures such as re-orientation, good day- night cycles, etc. (3) Aortoiliac occlusive disease: Plan: - CTA a/p on 12/16 showed: * Occlusion of the proximal superior mesenteric and inferior mesenteric arteries with distal reconstitution. 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 * These findings increase risk for mesenteric ischemia. * Occlusion of the left common and internal iliac arteries with partial distal reconstitution. * Moderate to severe bilateral renal artery stenosis. - Will ask vascular surgery to provide recs - Paged on 12/21 and 12/24, but no response. Will call office tomorrow. - Continue ASA & statin. (4) Hyperglycemia: Plan: - Blood glucose >600 on admission. - Last HgbA1C = 10.9% on 06/07/2021, on insulin therapy at home with non- adherence to home regimen. - Glycemic pharmacy following, appreciate recommendations. (5) CKD (chronic kidney disease): Plan: - Baseline Cr ~0.8 with CKD Stage II; admission creatinine at baseline. - Monitor renal function, electrolytes. - Straight cath as needed. - Avoid nephrotoxic agents - Hold lisinopril on discharge given his known renal artery stenosis. (6) Constipated: Plan: - CT abdomen and pelvis showed evidence of constipation with a large stool burden. This is a long-standing problem with him. - Patient had multiple bowel movements as above, continue to monitor and titrate medications as needed for at least one soft formed BM daily. (7) Acute hypoxemic respiratory failure: Plan: - Occurred in setting of getting benzo for placement of an NG tube. Required intubation. Extubated on 12/17. - Resolved; on room air with good O2 sat. (8) PNA (pneumonia): Plan: - CXR suggested on 12/19 showed consolidation. Blood culture from 12/12 and sputum cx from 12/16 were negative. - Finished abx on 12/20 as he had >5 day course. (9) UTI (urinary tract infection): Plan: - Urinalysis suggestive of infection, with patient reports of difficulty urinating. - Urine cultures was negative. - Covered with prior abx - No issues at this time. (10) Dementia: Plan: - Probable baseline dementia. Daughters say he has been struggling with confusion and forgetfulness for some time. - No inpatient needs other than frequent orientation and day-night cycles. (11) Arteriosclerosis of coronary artery: Plan: - On atorvastatin. (12) HTN (hypertension): Plan: - BP stable. - Discontinue LIT/ARB moving forward given the renal artery stenosis seen on CTA this admission. (13) Benign prostatic hyperplasia: Plan: - Chronic. - Continue finasteride. - Martínez in place; will keep for now. Has some swelling at the glans of penis, so do not want to remove right now. Treating for fungal balanitis with topical anti-fungal (started 12/22). Plan - DNR/DNI - heparin 5000u BID for DVT ppx - Med/Surg status - pending referral for rehab, CM following. Admission and Anticipated Discharge Date Admission Date: December 12, 2021 Subjective Patient does not report any abdominal pain overnight. Feeling overall well. Tolerating diet without complaints. No chest pain, SOB, nausea, vomiting. Review of Systems Review of Systems: All systems reviewed & are unremarkable except as noted in HPI & below Physical Exam Constitutional: WD/WN, vitals as above Respiratory: normal respiratory effort, lungs clear to auscultation Cardiovascular: RRR, no murmur, no edema Gastrointestinal (Abdomen): normal bowel sounds, soft, nontender, no hepatosplenomegaly Skin: no rashes, warm and dry Psychiatric: A+Ox3, euthymic affect Results & Data Results & Data ([facility]) Vital Signs (Past 12 Hours) Vital Signs Temp Pulse Resp BP Pulse Ox O2 Del Method 12/24/21 07:47 36.6 C 88 18 136/80 92 Room Air PG Care Time/CCT Total # of Minutes Spent Total Time Spent with Patient: Total time spent is greater than 50% in coordination of care (as documented) at patient's floor/unit and/or counseling patient: Coding Level of Care Code 47988 Subseq Hosp Care Lvl 2 Diagnoses Ileus K56.7 Acute encephalopathy G93.40 Aortoiliac occlusive disease I74.09 Hyperglycemia R73.9 CKD (chronic kidney disease) N18.9 Constipated K59.00 Acute hypoxemic respiratory failure J96.01 PNA (pneumonia) J18.9 UTI (urinary tract infection) N39.0 Dementia F03.90 Arteriosclerosis of coronary artery I25.10 HTN (hypertension) I10 Benign prostatic hyperplasia N40.0
[2021-12-24] MEDS: NICOTINE 21 MG/24 HR TDSY TD SCH (17:50)
[2021-12-25 08:01] LABS: Hemoglobin 9.7 g/dl (14.0-18.0); Mean Corpuscular Hemoglobin 33.3 pg (25.0-34.0); Mean Corpuscular Hgb Conc 34.6 g/dL (32.0-36.0); Mean Corpuscular Volume 96.2 fL (80.0-100.0); Mean Platelet Volume 9.2 fL (9.4-12.4); Platelet Count 462 K/uL (130-400); RDW Coefficient of Variation 13.9 % (11.5-14.5); RDW Standard Deviation 47.4 fL (36.4-46.3); Red Blood Count 2.91 M/uL (4.63-6.08); White Blood Count 7.88 K/ul (4.8-10.8)
[2021-12-25 08:23] LABS: BUN Creatinine Ratio 14.9 (10-20); Calcium 7.3 mg/dl (8.5-10.1); Creatinine Clr Calc Pharmacy 39.3 ml/min; Est GFR (African American) 85.3 ml/min; Est GFR (Non-African American) 73.6 ml/min; Potassium 3.5 mmol/L (3.5-5.1)
--- NOTE | 2021-12-25 08:25 | Hospitalist Progress Note ---
Date of Service December 25, 2021 Assessment & Plan (1) Ileus: Plan: - Resolved by 12/20. NG tube removed. Cleared by GI and surgery to advance diet. - Advanced to low fiber minced and moist diet on 12/21 and lowered lactulose as he was having diarrhea. Stools have improved, continue daily Miralax with titration as necessary for one soft formed BM daily. - Abdominal discomfort continues to improve and tolerating diet without issues. (2) Acute encephalopathy: Plan: - Doing well at this time, has periods of confusion but is redirectable and much improved from admission. - Most likely delirium on a background of dementia. - Continue Zyprexa 5 mg PO BID PRN for agitation that is safety risk to himself or staff. Otherwise, use conservative measures such as re-orientation, good day- night cycles, etc. Can continue Zyprexa if necessary on discharge. (3) Aortoiliac occlusive disease: Plan: - CTA a/p on 12/16 showed: * Occlusion of the proximal superior mesenteric and inferior mesenteric arteries with distal reconstitution. 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 * These findings increase risk for mesenteric ischemia. * Occlusion of the left common and internal iliac arteries with partial distal reconstitution. * Moderate to severe bilateral renal artery stenosis. - Will ask vascular surgery to provide recs - Paged on 12/21 and 12/24, but no response. Will call office tomorrow. - Continue ASA & statin. (4) Hyperglycemia: Plan: - Blood glucose >600 on admission. - Last HgbA1C = 10.9% on 06/07/2021, on insulin therapy at home with non- adherence to home regimen. - Patient's diet per daughter consists almost exclusively of carbohydrates due to his dislike of veggies and difficulty with chewing meat. - Glycemic pharmacy following, appreciate recommendations. (5) CKD (chronic kidney disease): Plan: - Baseline Cr ~0.8 with CKD Stage II; admission creatinine at baseline. - Monitor renal function, electrolytes. - Straight cath as needed. - Avoid nephrotoxic agents - Hold lisinopril on discharge given his known renal artery stenosis. (6) Constipated: Plan: - CT abdomen and pelvis showed evidence of constipation with a large stool burden. This is a long-standing problem with him. - Patient had multiple bowel movements as above, continue to monitor and titrate medications as needed for at least one soft formed BM daily. (7) Acute hypoxemic respiratory failure: Plan: - Occurred in setting of getting benzo for placement of an NG tube. Required intubation. Extubated on 12/17. - Resolved; on room air with good O2 sat. (8) PNA (pneumonia): Plan: - CXR on 12/19 showed consolidation. Blood culture from 12/12 and sputum cx from 12/16 were negative. - Finished Abx on 12/20 as he had >5 day course. (9) UTI (urinary tract infection): Plan: - Urinalysis suggestive of infection, with patient reports of difficulty urinating this admission. - Urine culture was negative. - Covered with prior abx - No issues at this time. (10) Dementia: Plan: - Probable baseline dementia. Daughters say he has been struggling with confusion and forgetfulness for some time. - No inpatient needs other than frequent orientation and day-night cycles. (11) Arteriosclerosis of coronary artery: Plan: - On atorvastatin and aspirin. (12) HTN (hypertension): Plan: - BP stable. - Discontinue LIT/ARB moving forward given the renal artery stenosis seen on CTA this admission. (13) Benign prostatic hyperplasia: Plan: - Chronic. - Continue finasteride. - Martínez in place; will keep for now. Has some swelling at the glans of penis, so do not want to remove right now. Treating for fungal balanitis with topical anti-fungal (started 12/22). Plan - DNR/DNI - heparin 5000u BID for DVT ppx - Med/Surg status - pending referral for rehab, following Admission and Anticipated Discharge Date Admission Date: December 12, 2021 Subjective Patient resting comfortably when I first went to see him. Became irritated when I woke him up from a nap, but otherwise had no complaints. No chest pain, SOB, abdominal pain. Tolerating diet without issue. No diarrhea. Has a history of constipation, with last recorded BM 12/24. No blood in stools. No blood in urine. No fevers. Review of Systems Review of Systems: All systems reviewed & are unremarkable except as noted in Subjective Physical Exam Constitutional: WD/WN, vitals as above Respiratory: normal respiratory effort, lungs clear to auscultation Cardiovascular: RRR, no murmur, no edema Gastrointestinal (Abdomen): normal bowel sounds, soft, nontender, no hepatosplenomegaly Skin: no rashes, warm and dry Psychiatric: A+Ox3, euthymic affect Results & Data Results & Data ([facility]) Vital Signs (Past 12 Hours) Vital Signs Temp Pulse Resp BP Pulse Ox O2 Del Method 12/24/21 20:56 37.3 C 99 H 18 127/56 L 90 Room Air PG Care Time/CCT Total # of Minutes Spent Total Time Spent with Patient: Total time spent is greater than 50% in coordination of care (as documented) at patient's floor/unit and/or counseling patient: Coding Level of Care Code 71210 Subseq Hosp Care Lvl 2 Diagnoses Ileus K56.7 Acute encephalopathy G93.40 Aortoiliac occlusive disease I74.09 Hyperglycemia R73.9 CKD (chronic kidney disease) N18.9 Constipated K59.00 Acute hypoxemic respiratory failure J96.01 PNA (pneumonia) J18.9 UTI (urinary tract infection) N39.0 Dementia F03.90 Arteriosclerosis of coronary artery I25.10 HTN (hypertension) I10 Benign prostatic hyperplasia N40.0
[2021-12-25] MEDS: HEPARIN SOD 5,000 UNIT/0.5 ML VIAL SQ SCH ×2 (08:27→20:48)
[2021-12-25] MEDS: CLOTRIMAZOLE 1% CR 15 GM TUBE EXT SCH ×3 (08:27→20:48)
[2021-12-25] MEDS: FINASTERIDE 5 MG TAB PO SCH (08:28)
[2021-12-25] MEDS: PANTOprazole 40 MG TAB PO SCH (08:28)
[2021-12-25] MEDS: ASPIRIN 81 MG ECTAB PO SCH (08:28)
[2021-12-25] MEDS: ATORVASTATIN 40 MG TAB PO SCH (08:28)
[2021-12-25] MEDS: LACTULOSE SYRUP 10 GM/15 ML BTL 960 ML PO SCH (08:29)
[2021-12-25] MEDS: INSULIN ASPART PER UNIT SC SCH ×4 (09:39→20:52)
[2021-12-25] MEDS: NICOTINE 21 MG/24 HR TDSY TD SCH (18:08)
[2021-12-25] MEDS ORDERED: POLYETHYLENE (MIRALAX) 17 GM PACK PO PRN (19:24)
--- NOTE | 2021-12-26 08:49 | Hospitalist Progress Note ---
Date of Service December 26, 2021 Assessment & Plan (1) Ileus: Plan: - Resolved by 12/20. NG tube removed. Cleared by GI and surgery to advance diet. - Advanced to low fiber minced and moist diet on 12/21 and lowered lactulose as he was having diarrhea. Stools have improved, continue daily Miralax with titration as necessary for one soft formed BM daily. - Abdominal discomfort continues to improve and tolerating diet without issues. (2) Acute encephalopathy: Plan: - Doing well at this time, has periods of confusion but is redirectable and much improved from admission. - Most likely delirium on a background of dementia. - Continue Zyprexa 5 mg PO BID PRN for agitation that is safety risk to himself or staff. Otherwise, use conservative measures such as re-orientation, good day- night cycles, etc. Can continue Zyprexa if necessary on discharge. (3) Aortoiliac occlusive disease: Plan: - CTA a/p on 12/16 showed: * Occlusion of the proximal superior mesenteric and inferior mesenteric arteries with distal reconstitution. 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 * These findings increase risk for mesenteric ischemia. * Occlusion of the left common and internal iliac arteries with partial distal reconstitution. * Moderate to severe bilateral renal artery stenosis. - Will ask vascular surgery to provide recs - Paged on 12/21 and 12/24, but no response. Will call office tomorrow. - Continue ASA & statin. (4) Hyperglycemia: Plan: - Blood glucose >600 on admission. - Last HgbA1C = 10.9% on 06/07/2021, on insulin therapy at home with non- adherence to home regimen. - Patient's diet per daughter consists almost exclusively of carbohydrates due to his dislike of veggies and difficulty with chewing meat. - Glycemic pharmacy following, appreciate recommendations. (5) CKD (chronic kidney disease): Plan: - Baseline Cr ~0.8 with CKD Stage II; admission creatinine at baseline. - Monitor renal function, electrolytes. - Straight cath as needed. - Avoid nephrotoxic agents - Hold lisinopril on discharge given his known renal artery stenosis. (6) Constipated: Plan: - CT abdomen and pelvis showed evidence of constipation with a large stool burden. This is a long-standing problem with him. - Patient had multiple bowel movements as above, continue to monitor and titrate medications as needed for at least one soft formed BM daily. (7) Acute hypoxemic respiratory failure: Plan: - Occurred in setting of getting benzo for placement of an NG tube. Required intubation. Extubated on 12/17. - Resolved; on room air with good O2 sat. (8) PNA (pneumonia): Plan: - CXR on 12/19 showed consolidation. Blood culture from 12/12 and sputum cx from 12/16 were negative. - Finished Abx on 12/20 as he had >5 day course. (9) UTI (urinary tract infection): Plan: - Urinalysis suggestive of infection, with patient reports of difficulty urinating this admission. - Urine culture was negative. - Covered with prior abx - No issues at this time. (10) Dementia: Plan: - Probable baseline dementia. Daughters say he has been struggling with confusion and forgetfulness for some time. - No inpatient needs other than frequent orientation and day-night cycles. (11) Arteriosclerosis of coronary artery: Plan: - On atorvastatin and aspirin. (12) HTN (hypertension): Plan: - BP stable. - Discontinue LIT/ARB moving forward given the renal artery stenosis seen on CTA this admission. (13) Benign prostatic hyperplasia: Plan: - Chronic. - Continue finasteride. - Martínez in place; will keep for now. Has some swelling at the glans of penis, so do not want to remove right now. Treating for fungal balanitis with topical anti-fungal (started 12/22). Plan - DNR/DNI - heparin 5000u BID for DVT ppx - Med/Surg status - pending referral for rehab, following Admission and Anticipated Discharge Date Admission Date: December 12, 2021 Results & Data Results & Data ([facility]) Vital Signs (Past 12 Hours) Vital Signs Temp Pulse Pulse Resp BP BP Pulse Ox 12/26/21 07:27 36.7 C 81 16 160/69 H 95 12/26/21 00:13 37.2 C 85 18 167/62 H 95 12/25/21 22:13 36.8 C 99 H 18 136/65 94 O2 Del Method 12/26/21 07:27 Room Air 12/26/21 00:13 Room Air 12/25/21 22:13 Room Air PG Care Time/CCT Total # of Minutes Spent Total Time Spent with Patient: Total time spent is greater than 50% in coordination of care (as documented) at patient's floor/unit and/or counseling patient: Coding Diagnoses Ileus K56.7 Acute encephalopathy G93.40 Aortoiliac occlusive disease I74.09 Hyperglycemia R73.9 CKD (chronic kidney disease) N18.9 Constipated K59.00 Acute hypoxemic respiratory failure J96.01 PNA (pneumonia) J18.9 UTI (urinary tract infection) N39.0 Dementia F03.90 Arteriosclerosis of coronary artery I25.10 HTN (hypertension) I10 Benign prostatic hyperplasia N40.0
[2021-12-26] MEDS: INSULIN ASPART PER UNIT SC SCH ×2 (08:56→12:47)
[2021-12-26] MEDS: FINASTERIDE 5 MG TAB PO SCH (08:57)
[2021-12-26] MEDS: PANTOprazole 40 MG TAB PO SCH (08:57)
[2021-12-26] MEDS: ATORVASTATIN 40 MG TAB PO SCH (08:57)
[2021-12-26] MEDS: HEPARIN SOD 5,000 UNIT/0.5 ML VIAL SQ SCH (08:57)
[2021-12-26] MEDS: ASPIRIN 81 MG ECTAB PO SCH (08:57)
[2021-12-26] MEDS: CLOTRIMAZOLE 1% CR 15 GM TUBE EXT SCH (08:58)
[2021-12-26] MEDS ORDERED: POLYETHYLENE (MIRALAX) 17 GM PACK PO SCH (09:00)
[2021-12-26] MEDS: LACTULOSE SYRUP 10 GM/15 ML BTL 960 ML PO SCH (09:32)
--- NOTE | 2021-12-26 13:04 | Pharmacy Report ---
Pharmacy Glycemic Short Note 2 - Date of Service December 26, 2021 - Glycemic Short BSG Results (Last 24 hours): 12/25/21 12/25/21 12/26/21 17:03 20:39 08:06 POC Glucose 134 H 141 H 155 H 12/26/21 12:19 POC Glucose 175 H OUTPATIENT ANTIDIABETIC REGIMEN: * Novolin-N 14 units SQ AM, 5 units SQ PM * A1c 12/12/21 11.2% ASSESSMENT: 12/26/21 * Patient's BSGs yesterday were [phone] mg/dL. Today's BSGs are 155-175 mg/dL. * Continue to hold basal insulin as fastings are generally well controlled. * Yesterday CF was loosened since patient overcorrects. Continue this. Continue CR. 12/24/21: * Yesterday AM, the patient did not receive his scheduled 4 units of NPH due to low BSG per nursing. Carb ratio bolus insulin re-added for lunch. * ACHS mealtime BSG's mostly within range- hyperglycemic BSG of 250 mg/dL may be attributed to the absence of carb coverage with dinner. * This morning, fasting blood glucose recorded at 103 mg/dL. Lunchtime BSG measured at 299 mg/dL- per nursing, the patient's family may be bringing him snacks. 12/23/21: * Joey received 9 units of SQ insulin yesterday (4 units NPH + 5 units Novolog) * Fasting BSG trending upward with diet advancement. Planned to trial low dose NPH 4 units SQ BID (one dose given 11 PM) with novolog correction only (omit carbohydrate coverage). However, this mornings dose of NPH was not given based on fasting BSG of 97 mg/dL which lead to hyperglycemia at lunch, therefore carb coverage was resumed. May consider trial of NPH again on 12/24. Would avoid long acting basal insulin. 12/20: * BSGs [phone]/dL the last 24h. Received 2 units of bolus insulin yesterday. * Dextrose containing IVF discontinued, and diet advanced to full liquids/DM2 (NGT removed). * No change to insulin regimen today - will continue with Novolog only for now. Likely will need to resume basal once good PO intake again. 12/19: * BSGs [phone]/dL the last 24h. Received 4 units of basal and 3 units of bolus insulin yesterday, and did experience a hypoglycemic event this AM requiring treatment. * D5NS continues, remains NPO. Protonix drip converted to IV push today. * Will again hold basal d/t NPO status. Goal BSG range adjusted to 120-160mg/dL. No change to Novolog parameters. Background: * 86 yo male admitted with hyperglycemia, poorly controlled DM as outpatient, on insulin therapy at home with non-adherence. Uncertain when he last took his insulin. BSG of 606mg/dl on arrival - improved to 503mg/dl after 500mL NSS given in ER. Anion-gap metabolic acidosis with gap of 18. Normal serum bicarbonate at 21, less likely DKA, elevated anion gap may be secondary to elevated lactate, worsening renal function. * Start insulin drip, IVF NSS + 20mEq K, as K+ dropped to 3.3. PLAN FOR INPATIENT GLYCEMIC CONTROL: * Basal insulin * Will continue to hold given prior success on bolus-only regimen during this admission. * Bolus insulin * NovoLog per scale ACHS or Q6hrs while NPO * Goal Range: Low 110 mg/dL - High 140 mg/dL * Correction Factor: 45 mg/dL/unit * Nutritional / Prandial insulin per carb ratio of 1 unit per 10 grams CHO consumed
--- NOTE | 2021-12-26 13:53 | Discharge Summary ---
Discharge Summary Date of Service December 26, 2021 Admission HPI Per Admitting Provider Joey Stark is an 86yo male with multiple medical comorbidities to include HTN, HLP, DM, CKD, BPH, CAD presenting with abdominal pain, nausea and vomiting. Patient does not provide much history. Daughters are at bedside and assist with history. Patient has not been doing well for the last 1-2 weeks. He has been complaining of dizziness. He has also had 3-4 days of progressively worsening abdominal pain. His pain is located mostly in the upper abdomen. He has nausea and has had several episodes of liquid emesis. He has not eaten much in the last severa l days. Has had constipation as well, no BM for approximately 1 week. He has been taking laxatives at home with no effect. States he is passing gas. Also complaining of back pain ongoing for the last several days and difficulty urinating. Daughters state that he has had diffuse generalized pain as well as some confusion as well. He has not been taking his medications and his blood sugars have been very high at home. He denies chest pain, cough, SOB, rash, fever or chills. Upon arrival to the ER patient is tachypneic with RR of 25, HR elevated at 96. Exam as below, abdomen is very tender to touch with voluntary guarding. Patient with nausea, had episode of emesis. Labs as below - significant for leukocytosis with WBC=11.27 He has elevated BUN and Cr from baseline as well as AG of 18 and BSG of 606 Lactate=5.9 ER Course: NSS x 500mL, Zofran 4mg IV, Ceftriaxone 1gm Admission Exam Per Admitting Provider General: patient ill in appearance, NAD, very hard of hearing - hears better out of left ear Skin: warm, dry, intact, no rashes or lesions HEENT: NC/AT, PERRL, EOMI, anicteric sclera, conjunctiva without injection, external ear normal to inspection and nontender, nares patent, DRY mucus membranes, dentition intact, no oropharyngeal lesions, neck supple, trachea midline, no LAD, no thyromegaly, no JVD Heart: +S1/S2, regular, tachycardic, no m/r/g Lungs: equal air entry bilaterally, no rales/rhonchi/wheezes Abd: Diminished bowel sounds, abdomen soft, non-distended, tender to palpation with voluntary guarding Ext: warm, 2+ pulses in UE/LE bilaterally, no clubbing/cyanosis or edema, contractures of bilateral hands Neuro: nonfocal, patient hard of hearing, answers questions and follows commands, moves extremities equally bilaterally Principal Dx & Hospital Course #1 = Principal Diagnosis (1) Diabetes mellitus with insulin therapy: (2) Ileus: (3) Acute encephalopathy: (4) Aortoiliac occlusive disease: (5) Hyperglycemia: (6) CKD (chronic kidney disease): (7) Constipated: (8) Acute hypoxemic respiratory failure: (9) PNA (pneumonia): (10) UTI (urinary tract infection): (11) Dementia: (12) Arteriosclerosis of coronary artery: (13) HTN (hypertension): (14) Benign prostatic hyperplasia: Plan Ileus: - Resolved by 12/20. NG tube removed. Cleared by GI and surgery to advance diet. - Advanced to low fiber minced and moist diet on 12/21 and lowered lactulose (10 grams daily) as he was having diarrhea. Stools have improved, continue with titration as necessary for one soft formed BM daily. Acute encephalopathy: - Doing well at this time, has periods of confusion but is redirectable and much improved from admission. - Most likely delirium on a background of dementia. - Can continue Zyprexa 5 mg PO qHS PRN for agitation that is safety risk to himself or staff. Otherwise, use conservative measures such as re-orientation, good day-night cycles, etc. Aortoiliac occlusive disease: - CTA a/p on 12/16 showed: * Occlusion of the proximal superior mesenteric and inferior mesenteric arteries with distal reconstitution. 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 * These findings increase risk for mesenteric ischemia. * Occlusion of the left common and internal iliac arteries with partial distal reconstitution. * Moderate to severe bilateral renal artery stenosis. - Continue ASA & statin. - Follow up Vascular Surgery outpatient. Hyperglycemia: - Blood glucose >600 on admission. - Last HgbA1C = 10.9% on 06/07/2021, on insulin therapy at home with non- adherence to home regimen. - Patient's diet per daughter consists almost exclusively of carbohydrates due to his dislike of veggies and difficulty with chewing meat. - Insulin regimen while admitted: --Goal BSG Range: Low 110 mg/dL, High 140 mg/dL --Correction Factor: 45 mg/dL/unit --Carbohydrate ratio = 10 g/unit - Recommend transition to simple regimen on discharge to home, to just daily basal insulin. Family members will be assisting patient and simplification of regimen would hopefully help with adherence. Constipated: - CT abdomen and pelvis showed evidence of constipation with a large stool burden. This is a long-standing problem with him. - Patient had multiple bowel movements as above, continue to monitor and titrate medications as needed for at least one soft formed BM daily. - Currently on lactulose 10g daily with good results. Benign prostatic hyperplasia: - Chronic. - Continue finasteride. - Martínez in place; will keep for now. Has some swelling at the glans of penis, so do not want to remove right now. - Urology follow up for urinary retention. Balanitis: - Noted on 12/22 and started clotrimazole cream TID to glans. Should have Urology follow up for urinary retention. Continue finasteride. - Daily hygiene care to glans for balanitis. CKD (chronic kidney disease): - Baseline Cr ~0.8 with CKD Stage II; admission creatinine at baseline. - Monitor renal function, electrolytes. - Straight cath as needed. - Avoid nephrotoxic agents - STOP lisinopril given his known renal artery stenosis. Smoking Hx: - Has been receiving nicotine patches; can continue outside of hospital if patient desires smoking cessation. Acute hypoxemic respiratory failure: - Occurred in setting of getting benzo for placement of an NG tube. Required intubation. Extubated on 12/17. - Resolved; on room air with good O2 sat. PNA (pneumonia): - CXR on 12/19 showed consolidation. Blood culture from 12/12 and sputum cx from 12/16 were negative. - Finished Abx on 12/20 as he had >5 day course. UTI (urinary tract infection): - Urinalysis suggestive of infection, with patient reports of difficulty urinating this admission. - Urine culture was negative. - Covered with prior abx - No issues at this time. Arteriosclerosis of coronary artery: - On atorvastatin and aspirin. HTN (hypertension): - Discontinue LIT/ARB moving forward in favor of other classes of antihypertensives given renal artery stenosis seen on CTA this admission. Discharge Exam Constitutional WD/WN, vitals as above Respiratory normal respiratory effort, lungs clear to auscultation Cardiovascular RRR, no murmur, no edema Skin glans of penis mildly swollen without purulent discharge or yeast-like discharge from urethra. No tenderness to palpation Martínez in place draining clear yellow urine Updated Medication List Medication Instructions Recorded Confirmed Type aspirin 81 mg tablet,delayed 81 mg PO QAM 03/05/18 06/07/21 History release fexofenadine 180 mg tablet 180 mg PO HS 03/05/18 06/07/21 History multivitamin 1 tab PO QAM 03/05/18 06/07/21 History nitroglycerin 0.4 mg sublingual See Rx Instructions .Route .COMPLEX 09/14/18 06/07/21 History tablet fluticasone propionate 50 2 spray intranasal DAILY #50 mcg 03/21/20 06/07/21 Rx mcg/actuation nasal spray,suspension (Flonase Allergy Relief) atorvastatin 40 mg tablet 40 mg PO DAILY #90 tabs 09/19/20 06/07/21 Rx ergocalciferol (vitamin D2) 1,250 50,000 unit PO MONTHLY #3 caps 06/08/21 Rx mcg (50,000 unit) capsule (Vitamin D2) lancets 30 gauge (OneTouch Delica #25 ea 06/11/21 History Lancets) flash glucose scanning reader #1 ea 06/29/21 Rx (FreeStyle Eli 14 Day [place]) flash glucose sensor (FreeStyle #1 ea 06/29/21 Rx Eli 14 Day Sensor kit) insulin NPH isoph U-100 human 100 See Rx Instructions .Route 08/06/21 Rx unit/mL (3 mL) subcutaneous pen .COMPLEX #15 mL (Novolin N Flexpen) pen needle, diabetic 31 gauge x #200 ea 10/19/21 Rx 5/16" (Lite Touch Insulin Pen Gates) lisinopril 2.5 mg tablet 2.5 mg PO DAILY #90 tabs 11/05/21 Rx blood-glucose meter (OneTouch #1 ea 11/16/21 Rx Verio Meter) finasteride 5 mg tablet 5 mg PO DAILY #90 tabs 11/26/21 Rx blood sugar diagnostic (OneTouch #100 ea 12/26/21 Rx Verio test strips) blood-glucose meter (OneTouch #1 ea 12/26/21 Rx Verio Flex Meter) lactulose 20 gram/30 mL oral 10 g (15 mL) PO QAM 30 days #450 mL 12/26/21 Rx solution lancets 33 gauge (Ralph Deltommy #100 ea 12/26/21 Rx Lancets) olanzapine 5 mg disintegrating 5 mg PO DAILY PRN agitation 30 12/26/21 Rx tablet days #30 tabs Hospital Stay Data Consultations 12/12/21 04:06 ED Decision to Admit Stat 12/12/21 09:25 Consult Vascular Surgery Routine 12/16/21 04:52 Consult General Surgery Routine 12/16/21 06:01 Consult Supervisor Wet End Routine 12/16/21 06:02 Consult Gastroenterology Routine Diagnostic Imagining Performed 12/12/21 04:32 CT Abd and Pelvis [CT abd pelvis IV con only] Urgent 12/16/21 04:20 CT Abd and Pelvis [CT abd pelvis wo con] Urgent 12/16/21 06:36 CTA abdomen pelvis w con [CT angio abdomen pelvis w con] Routine 12/16/21 08:05 CT head/brain wo con Routine Discharge Instructions Given to Patient (Per Discharging Provider) Ileus: - Resolved by 12/20. NG tube removed. Cleared by GI and surgery to advance diet. - Advanced to low fiber minced and moist diet on 12/21 and lowered lactulose (10 grams daily) as he was having diarrhea. Stools have improved, continue with titration as necessary for one soft formed BM daily. Acute encephalopathy: - Doing well at this time, has periods of confusion but is redirectable and much improved from admission. - Most likely delirium on a background of dementia. - Continue Zyprexa 5 mg PO qHS PRN for agitation that is safety risk to himself or staff. Otherwise, use conservative measures such as re-orientation, good day- night cycles, etc. Aortoiliac occlusive disease: - CTA a/p on 12/16 showed: * Occlusion of the proximal superior mesenteric and inferior mesenteric arteries with distal reconstitution. 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 * These findings increase risk for mesenteric ischemia. * Occlusion of the left common and internal iliac arteries with partial distal reconstitution. * Moderate to severe bilateral renal artery stenosis. - Continue ASA & statin. - Follow up Vascular Surgery outpatient. Hyperglycemia: - Blood glucose >600 on admission. - Last HgbA1C = 10.9% on 06/07/2021, on insulin therapy at home with non- adherence to home regimen. - Patient's diet per daughter consists almost exclusively of carbohydrates due to his dislike of veggies and difficulty with chewing meat. - Insulin regimen while admitted: --Goal BSG Range: Low 110 mg/dL, High 140 mg/dL --Correction Factor: 45 mg/dL/unit --Carbohydrate ratio = 10 g/unit - Prescriptions for new glucometer and test strips sent to preferred pharmacy. - Recommend transition to simple regimen on discharge to home, to daily basal insulin. Family will be assisting and will need help with education in this regard. Constipated: - CT abdomen and pelvis showed evidence of constipation with a large stool burden. This is a long-standing problem with him. - Patient had multiple bowel movements as above, continue to monitor and titrate medications as needed for at least one soft formed BM daily. - Currently on lactulose 10mg daily with good results. Benign prostatic hyperplasia: - Chronic. - Continue finasteride. - Martínez in place; will keep for now. Has some swelling at the glans of penis, so do not want to remove right now. - Urology follow up for urinary retention. Balanitis: - Noted on 12/22 and started clotrimazole cream TID to glans. Should have Urology follow up for urinary retention. Continue finasteride. - Daily hygiene care for balanitis. CKD (chronic kidney disease): - Baseline Cr ~0.8 with CKD Stage II; admission creatinine at baseline. - Monitor renal function, electrolytes. - Straight cath as needed. - Avoid nephrotoxic agents - STOP lisinopril on discharge given his known renal artery stenosis. Smoking Hx: - Has been receiving nicotine patches here. Can continue. Acute hypoxemic respiratory failure: - Occurred in setting of getting benzo for placement of an NG tube. Required intubation. Extubated on 12/17. - Resolved; on room air with good O2 sat. PNA (pneumonia): - CXR on 12/19 showed consolidation. Blood culture from 12/12 and sputum cx from 12/16 were negative. - Finished Abx on 12/20 as he had >5 day course. UTI (urinary tract infection): - Urinalysis suggestive of infection, with patient reports of difficulty urinating this admission. - Urine culture was negative. - Covered with prior abx - No issues at this time. Arteriosclerosis of coronary artery: - On atorvastatin and aspirin. HTN (hypertension): - Discontinue LIT/ARB moving forward given the renal artery stenosis seen on CTA this admission. Total Time Total Time Spent Total Time Spent (In Minutes): 40 Coding Level of Care Code D/C DAY MANAGEMENT >30 MINS Diagnoses Diabetes mellitus with insulin therapy E11.9; Z79.4 Ileus K56.7 Acute encephalopathy G93.40 Aortoiliac occlusive disease I74.09 Hyperglycemia R73.9 CKD (chronic kidney disease) N18.9 Constipated K59.00 Acute hypoxemic respiratory failure J96.01 PNA (pneumonia) J18.9 UTI (urinary tract infection) N39.0 Dementia F03.90 Arteriosclerosis of coronary artery I25.10 HTN (hypertension) I10 Benign prostatic hyperplasia N40.0
== END 2021-12-26 14:14 | DRG 388 ==
LOC: ED 00:17 → SUATTDRO 06:15 → EDINP 06:15 → 2S 09:25 → 1E 12-16 06:28 → 2E 12-17 17:03 → 3N 12-20 18:52

== ENCOUNTER 2023-03-12 08:57 | Inpatient (IN) ==
--- NOTE | 2023-03-12 09:06 | Emergency Department Note ---
Impression & Plan Acute hyponatremia, Acute cecitis, Thrombosis, Lung mass, Abdominal pain ED Provider Note NAME: MELANIE LAMAS AGE: 87 SEX: M : 1935 ARRIVES VIA: Ambulance INFORMANT: Patient, ED PROVIDER(S): Zane Monge MD CHIEF COMPLAINT: Abdominal pain MEDICAL DECISION MAKING: Patient presents with daughter inspiratory at bedside due to concern for reported abdominal pain this morning which currently denies now. IV was established and blood was obtained. Screening EKG and troponin as the patient states that sometimes he will have stuff up there when referring to his chest. Patient denies any active pain nausea vomiting. Bladder scan ordered along with CT abdomen pelvis. Blood work shows a white count of 18 with normal hemoglobin and platelet count kidney function unremarkable but hyponatremia at 128. CT abdomen pelvis shows concern for possible lung malignancy. Patient also noted to have near complete to complete thrombosis origin of the SMA high-grade stenosis of both renal arteries which is likely unchanged. Possible cystitis and questionable pneumatosis noted. No bowel obstruction. 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 Reconstitution of flow was noted. Patient appears to be well-perfused in his lower extremities. The patient does not have significant abdominal pain upon reexamination. Patient will be started on heparin drip. Further discussion will need to be had with family and decision maker about goals of care as well as additional recommendations with regard to the concern for lung mass as well as the blood thinning medication and the fact that the patient reportedly frequently falls. I did speak with on-call general surgeon Dr. Busby I did discuss the patient's code is sequential pneumatosis although the patient does not examine as though he has bowel. Patient did have cultures Pro-Stephen and lactate ordered patient was ordered antibiotics. Lactate is normal Pro-Stephen is not elevated. I did speak with the on-call hospital service Dr. Naidu and the patient was admitted to the medicine service Critical Care: I have personally spent 35 minutes of critical care time in direct management of this patient. This includes bedside care, interpretation of diagnostic studies, and testing, discussion with consultants, patient, and family members, and other require inpatient management activities. This 35 minutes is in excess of all separately billable procedures. Discussion w/ other healthcare providers: Dr. Khalil general surgery Dr. Naidu inpatient medicine service Prior /Outside records reviewed: I reviewed a primary care visit from October 24, 2022 w/ Sara. The patient was seen for toe pain. Patient also with concern for dementia. Patient's daughter had reported that he has been having difficulty taking care of himself. He had requested home health services but did not they that he required nursing care at that time. Differential diagnosis: Appendicitis, testicular torsion, UTI, diverticulitis, obstruction, renal colic, mesenteric adenitis, enteririts, PUD, pancreatitis, biliary pathology, hernia, volvulus, constipation, as well as other pathologies were considered. Diagnostics, as interpreted by me: ECG: Normal sinus rhythm, rate of 90, wide QRS, right bundle branch block pattern, normal axis no obvious ST elevations Cardiac monitoring: An order was placed for continuous cardiac monitoring. The monitor shows a rate of 89 with sinus rhythm. Patient was placed on pulse oximetry Medical decision rules: None Imaging studies: I informally interpreted the patient's CT abdomen pelvis which does not show obvious pneumoperitoneum with formal report to follow. HPI: Patient presents from home due to concern for abdominal pain. Daughter at bedside is power of traffic law attorney and does provide additional history as the patient has a known history dementia. She states that he had bandlike discomfort over the upper abdomen today. No reported falls or trauma. Patient does have a history of constipation and difficulty with urination. Patient reportedly has refused care and appointments and is sometimes noncompliant with medications. He does have home health nurse through [facility] that does come in twice a week sometimes the patient will take his medications at that time. He is on lactulose and MiraLAX which sometimes he does take sometimes he does not. Patient is a smoker. No reported vomiting. Patient states that his abdominal pain felt like "needles." This is brief in duration and not currently present. PAST MEDICAL HISTORY: See Below PAST SURGICAL HISTORY: See Below SOCIAL HISTORY: See Below HOME MEDICATIONS: See Below ALLERGIES: See Below VITALS: See Below PHYSICAL EXAMINATION: GENERAL: NAD, non-toxic. Thin in appearance. Hard of hearing. EYE EXAM: Normal conjunctiva. PERRL, no anisocoria and EOM's grossly intact w/o pain. OROPHARYNX: Moist mucus membranes, grossly normal dentition. NECK: Trachea midline, no stridor. Supple, no nuchal rigidity, no adenopathy, non-tender. No signs of meningismus. FROM of the neck with good chin to chest and neck extension. LUNGS: Clear to auscultation. Normal chest wall mechanics. HEART: NSR, no MRG. ABDOMEN: Abdomen soft, non-tender, no masses, no rebound or guarding. BACK: No CVA TTP. SKIN: No rashes and no bruising. UPPER EXTREMITIES: Upper extremities are grossly normal. LOWER EXTREMITIES: Grossly normal, no edema. Well-perfused. NEURO EXAM: Opens eyes to voice but follows basic commands moves all 4 extremities. Past Med/Surg History Medical History Atherosclerosis Tobacco use Renal artery stenosis Dementia Aortoiliac occlusive disease Arteriosclerosis of coronary artery remote (>20 years ago) h/o [place] Benign prostatic hyperplasia CKD (chronic kidney disease) Carotid artery stenosis Diabetes mellitus with insulin therapy Hyperparathyroidism Peripheral vascular disease Seborrheic keratosis Transient ischemic attack Vitamin D deficiency Hyperlipidemia HTN (hypertension) Surgical History Hx of hernia repair Hx of right knee surgery Hx of endarterectomy Left carotid endarterectomy Family History Father Coronary heart disease Hypertension Mother Coronary heart disease Diabetes Hypertension Heart disease Brother Diabetes Sister Diabetes Grandmother Hearing loss Daughter Asthma Unknown Myocardial infarction Other Allergies Denies family history of Ovarian cancer Prostate cancer Breast cancer Colorectal cancer Social History Smoking Status: Current every day smoker Tobacco Type: Cigarettes Age Started Using Tobacco: 14; packs per day: 0.5; Cigarettes Per Day: 0.5 to 1 pack per day; Second Hand Exposure: Yes; Do You Dip or Chew Tobacco: No; Hx Alcohol Use: No Hx Substance Use: No Preferred Language: Albanian Communication Ability: Effective Communication Ability Comment: Hearing Loss Visual Impairment: No Limitations Hearing Ability: Use of Hearing Aid Marketing Communications Assistant Required: No Beliefs That Will Affect Care: None marital status: Current Living Situation: Family current occupational status: retired 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 Feels Safe at Home: Yes Diet: regular Dental Care, Regularly: No Physical Activity Frequency: Does not Exercise Seatbelt Use: always Sunscreen Use: No Assistive Devices: Cane and Walker Allergies Allergies Allergy/AdvReac Type Severity Reaction Status Date / Time pollen extracts Allergy Intermediate coughing/sn Verified 10/24/22 16:05 eezing doxycycline AdvReac Unknown CAN'T Verified 10/24/22 16:05 REMEMBER Home Meds Home Medications Medication Instructions Recorded Confirmed aspirin 81 mg tablet,delayed 81 mg PO HS 03/05/18 03/12/23 release nitroglycerin 0.4 mg sublingual 0.4 mg sublingual DIRECTED PRN 09/14/18 03/12/23 tablet Chest Pain cetirizine 10 mg tablet 10 mg PO DAILY Congestion 01/23/22 03/12/23 polyethylene glycol 3350 17 17 g PO BID PRN constipation 04/23/22 03/12/23 gram/dose oral powder (Miralax) insulin glargine 100 unit/mL (3 8 unit subcut HS 03/12/23 03/12/23 mL) subcutaneous pen (Basaglar KwikPen U-100 Insulin) Previous Rx's Medication Instructions Recorded blood sugar diagnostic (OrganizedWisdomTouch #100 ea 12/26/21 Verio test strips) blood-glucose meter (OneTouch #1 ea 12/26/21 Verio Flex Meter) lancets 33 gauge (OneTouch Delica #100 ea 12/26/21 Lancets) atorvastatin 40 mg tablet 40 mg PO DAILY #90 tabs 06/05/22 finasteride 5 mg tablet 5 mg PO DAILY #90 tabs 06/05/22 tamsulosin 0.4 mg capsule 0.4 mg PO HS #90 caps 06/05/22 flash glucose scanning reader #1 ea 10/11/22 (FreeStyle Eli 2 [place]) flash glucose sensor (FreeStyle #2 ea 10/11/22 Eli 2 Sensor kit) insulin aspart U-100 100 unit/mL 3 unit (0.03 mL) subcut TID 90 10/30/22 (3 mL) subcutaneous pen (Novolog days #8.1 mL FlexPen U-100 Insulin aspart) pen needle, diabetic 31 gauge x #200 ea 10/30/22 5/16" (Lite Touch Insulin Pen [place]) docusate sodium 100 mg capsule 100 mg PO DAILY #90 caps 11/01/22 (Colace) lactulose 10 gram/15 mL oral See Rx Instructions .Route 01/07/23 solution .COMPLEX #946 mL Results & Data (ED) Vital Signs Vital Signs - 24 hr 03/12/23 09:02 03/12/23 09:12 03/12/23 09:27 Temperature 37.3 C Temperature Source Oral Pulse Rate 89 74 88 Pulse Rate from SpO2 Sensor 86 Pulse Rhythm Regular Respiratory Rate 17 20 19 Respiratory Effort / Characteristics Non-Labored Spontaneous Respiratory Depth Normal Blood Pressure 109/56 L Blood Pressure Mean 73 Pulse Oximetry 94 94 94 Oxygen Delivery Method Room Air Room Air Sepsis Recent Fever Within 48 Hours No Sepsis New/Unexplained Change in Mental Status N/A Sepsis Action Taken by Nursing No Action Required 03/12/23 09:30 03/12/23 09:30 03/12/23 09:31 Temperature Temperature Source Pulse Rate 82 78 Pulse Rate from SpO2 Sensor 81 Pulse Rhythm Respiratory Rate 21 Respiratory Effort / Characteristics Respiratory Depth Blood Pressure 117/63 Blood Pressure Mean 79 Pulse Oximetry 94 Oxygen Delivery Method Sepsis Recent Fever Within 48 Hours Sepsis New/Unexplained Change in Mental Status Sepsis Action Taken by Nursing 03/12/23 09:40 03/12/23 09:50 03/12/23 10:00 Temperature Temperature Source Pulse Rate 81 84 Pulse Rate from SpO2 Sensor 80 Pulse Rhythm Respiratory Rate 23 20 Respiratory Effort / Characteristics Respiratory Depth Blood Pressure 128/68 Blood Pressure Mean 80 Pulse Oximetry 75 L Oxygen Delivery Method Sepsis Recent Fever Within 48 Hours Sepsis New/Unexplained Change in Mental Status Sepsis Action Taken by Nursing 03/12/23 10:00 03/12/23 10:10 03/12/23 10:20 Temperature Temperature Source Pulse Rate 80 65 68 Pulse Rate from SpO2 Sensor 78 69 73 Pulse Rhythm Respiratory Rate 22 14 21 Respiratory Effort / Characteristics Respiratory Depth Blood Pressure Blood Pressure Mean Pulse Oximetry 93 94 94 Oxygen Delivery Method Sepsis Recent Fever Within 48 Hours Sepsis New/Unexplained Change in Mental Status Sepsis Action Taken by Nursing 03/12/23 10:30 03/12/23 10:30 03/12/23 10:40 Temperature Temperature Source Pulse Rate 73 71 Pulse Rate from SpO2 Sensor 68 65 Pulse Rhythm Respiratory Rate 12 17 Respiratory Effort / Characteristics Respiratory Depth Blood Pressure 149/61 H Blood Pressure Mean 75 Pulse Oximetry 95 95 Oxygen Delivery Method Sepsis Recent Fever Within 48 Hours Sepsis New/Unexplained Change in Mental Status Sepsis Action Taken by Nursing 03/12/23 10:52 03/12/23 11:00 03/12/23 11:10 Temperature Temperature Source Pulse Rate 73 71 73 Pulse Rate from SpO2 Sensor Pulse Rhythm Respiratory Rate 24 17 16 Respiratory Effort / Characteristics Respiratory Depth Blood Pressure Blood Pressure Mean Pulse Oximetry Oxygen Delivery Method Sepsis Recent Fever Within 48 Hours Sepsis New/Unexplained Change in Mental Status Sepsis Action Taken by Nursing 03/12/23 12:00 03/12/23 13:00 Temperature Temperature Source Pulse Rate 74 74 Pulse Rate from SpO2 Sensor 75 Pulse Rhythm Respiratory Rate 19 23 Respiratory Effort / Characteristics Respiratory Depth Blood Pressure Blood Pressure Mean Pulse Oximetry 92 Oxygen Delivery Method Sepsis Recent Fever Within 48 Hours Sepsis New/Unexplained Change in Mental Status Sepsis Action Taken by Shelter Medications Current Medication List: was personally reviewed by me Laboratory Data Attestation: I reviewed the patient's lab results. 03/12/23 09:12 03/12/23 09:12 Lab Results 03/12/23 03/12/23 03/12/23 Range/Units 09:12 09:18 11:57 WBC 18.30 H (4.8-10.8) K/ul RBC 4.50 L (4.70-6.10) M/uL Hgb 14.4 (14.0-18.0) g/dl Hct 41.7 L (42.0-52.0) % MCV 92.7 (80.0-100.0) fL MCH 32.0 (25.0-34.0) pg MCHC 34.5 (32.0-36.0) g/dL RDW Std Deviation 43.8 (36.4-46.3) fL RDW Coeff of Sunday 12.9 (11.5-14.5) % Plt Count 242 (130-400) K/uL MPV 9.5 (9.4-12.4) fL Immature Gran % (Auto) 0.8 % Neut % (Auto) 85.8 % Lymph % (Auto) 4.0 % [place] % (Auto) 9.1 % Eos % (Auto) 0.0 % Baso % (Auto) 0.3 % Neut # (Auto) 15.69 H (1.40-6.50) K/uL Lymph # (Auto) 0.74 L (1.20-3.40) K/uL [place] # (Auto) 1.66 H (0.11-0.59) K/uL Eos # (Auto) 0.00 (0.00-0.50) K/uL Baso # (Auto) 0.06 (0.00-0.20) K/uL Immature Gran # (Auto) 0.15 (0.01-0.20) K/uL PT 11.7 (9.0-12.0) Seconds INR 1.1 (0.9-1.1) APTT 32 H (21-31) Seconds PTT Ratio 1.1 Sodium 128 L (136-145) mmol/L Potassium 4.0 (3.5-5.1) mmol/L Chloride 95 L (98-107) mmol/L Carbon Dioxide 26 (21-32) mmol/L Anion Gap 7 (3-11) BUN 16 (6-23) mg/dl Creatinine 0.95 (0.6-1.4) mg/dl Est Cr Clr Drug Dosing 36.2 ml/min Est GFR ( Amer) 83.7 ml/min Est GFR (Non-Af Amer) 72.2 ml/min BUN/Creatinine Ratio 16.8 (10-20) Glucose 203 H (70-99(Fasting)) mg/dl POC Glucose 188 H (70-99) mg/dl Lactate 1.6 (0.4-2.0) mmol/L Calcium 9.4 (8.6-10.3) mg/dl Total Bilirubin 0.7 (0.2-1.0) mg/dl AST 15 (13-39) U/L ALT 9 (7-52) U/L Alkaline Phosphatase 97 (34-104) U/L Troponin I High Sens 8.1 (0-20) pg/ml Total Protein 6.6 (6.0-8.3) gm/dl Albumin 3.8 (3.4-5.0) gm/dl Globulin 2.8 (2.5-4.0) gm/dl Albumin/Globulin Ratio 1.4 (0.9-2) Lipase 11 (11-82) U/L Procalcitonin 0.19 (0-0.5) ng/ml Administered Medications Heparin Sodium/Dextrose (Heparin Sodium/Dextrose) 25,000 units in 500 mls @ 17 mls/hr IV .Q24H [facility]; Protocol Stop: 04/11/23 12:29 Last Admin: 03/12/23 13:33 Dose: 850 units/hr, 17 mls/hr Documented By: ROXANA Co-signed By: ANSON Discontinued Medications Heparin Sodium/Dextrose (Heparin Iv Adult Wt-Based Standard *No* Initial Bolus Protocol) 1 each IV ONE STA; Protocol Stop: 03/12/23 12:16 Last Admin: 03/12/23 13:34 Dose: Not Given Documented By: ROXANA Sodium Chloride (Nss) 500 mls @ 999 mls/hr IV .Q31M ONE Stop: 03/12/23 09:55 Last Admin: 03/12/23 10:10 Dose: 999 mls/hr Documented By: DANNY Piperacillin Sod/Tazobactam Sod (Zosyn) 4.5 gm in 100 mls @ 200 mls/hr IV NOW ONE Stop: 03/12/23 11:58 Last Infusion: 03/12/23 13:15 Dose: Infused Documented By: Admin: 03/12/23 12:00 Dose: 200 mls/hr Documented By: DANNY Ioversol (Optiray 320 500ml) 93 ml IV ONCE ONE Stop: 03/12/23 10:49 Last Admin: 03/12/23 10:48 Dose: 93 ml Documented By: LINDA Imaging Data Radiologist's Impression: Abdomen/Pelvis CT 03/12/23 09:13 CT SCAN OF THE ABDOMEN AND PELVIS WITH IV CONTRAST CLINICAL HISTORY: Generalized abdominal pain. Dementia. COMPARISON STUDY: Abdominal CT dated 12/16/2021. TECHNIQUE: Following the IV administration of 93 cc of Optiray 320, CT scan of the abdomen and pelvis is performed from the lung bases to the proximal femora. Images are reviewed in the axial, sagittal, and coronal planes. IV contrast was administered without complication. A dose lowering technique was utilized adhering to the principles of ALARA. CT DOSE: 341.68 mGy.cm FINDINGS: Lung bases: The heart is enlarged and without pericardial effusion. The coronary arteries are densely calcified. Emphysema is noted. There are trace pleural effusions. Dependent airspace consolidation is seen at both lung bases. There is a necrotic mass in the lingula seen on image #39. This measures approximately 4 x 3 cm. Liver: The contrast-enhanced liver is normal in size, contour, and attenuation. There is no intrahepatic biliary ductal dilatation. The hepatic veins and portal veins are patent. Gallbladder: Unremarkable. Spleen: Normal in size and attenuation. Pancreas: Unremarkable. Adrenal glands: Unremarkable. Kidneys: The contrast enhanced kidneys are normal in size and without hydronephrosis. The kidneys enhance symmetrically. A 1.6 cm cyst is noted on the left. Abdominal vasculature: There is advanced atherosclerotic calcification and ectasia of the abdominal aorta. There is greater than 50% luminal narrowing of the abdominal aorta as seen on axial image #145. The minimum patent luminal diameter measures 7 mm. 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 There is reconstitution at the level of the common femoral artery. There is also thrombosis of the left internal iliac artery. 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 There is reconstitution of flow approximately 2.5 cm from the aorta. There is moderate to high-grade stenosis of the origin of both renal arteries. Bowel: There is no bowel obstruction. The cecal wall appears thickened and edematous. Question pneumatosis of the cecum. There is no portal venous gas. The small bowel loops appear mildly distended and fluid-filled. There is also fluid in the right colon. The appendix is not visualized. Peritoneum: There is no intraperitoneal free air or abdominal ascites. Lymphadenopathy: None. Pelvic viscera: The prostate gland is enlarged and heterogeneous. The bladder is distended, and the wall is thickened/trabeculated indicating chronic outlet obstruction. Skeletal structures: The skeletal structures are heterogeneously osteopenic. There is advanced lumbosacral spondylosis. No lytic or blastic lesions are seen. IMPRESSION: 1. Cardiomegaly and emphysema. 2. Findings are highly suspicious for a 4 cm necrotic mass in the lingula. Although a resolving infectious/inflammatory process could appear similar, a lung cancer is the diagnosis of exclusion. This is better assessed on today's examination as surrounding consolidation has improved. A follow-up chest CT in several weeks time is recommended for reassessment as is follow-up with pulmonology. 3. Dependent consolidation is seen at both lung bases. This could represent a nonspecific pneumonitis versus scarring/atelectasis. Correlate clinically. 4. 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 There is also moderate to high-grade stenosis at the origin of both renal arteries. This is likely unchanged. 5. The cecal wall appears thickened and edematous suggesting a nonspecific cecitis. Question pneumatosis of the cecum. This could be on an infectious, inflammatory, or ischemic basis. Correlate clinically. 6. No bowel obstruction is seen. There are mildly distended and fluid-filled loops of small bowel. Correlate clinically for evidence of a nonspecific enteritis. This carries the same differential. 7. 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 There is reconstitution of flow in the left common femoral artery and this is similar to previous. There is moderate stenosis of the mid abdominal aorta. 8. Additional findings as above. ACT 112: Negative or not required by law. Electronically signed by: Jaden Baltazar M.D. 03/12/2023 11:09 AM Discharge Plan Visit Data Chief Complaint: Abdominal Pain ED Provider: Zane Monge Discharge Problem: Acute hyponatremia, Acute cecitis, Thrombosis, Lung mass, Abdominal pain Patient Disposition: Admitted As Inpatient Discharge Instructions Interventions: ED Discharge Assessment Last Done: 03/12/23 14:33 Discharge Problem: Abdominal pain Qualifiers: Abdominal location: unspecified location Qualified Code(s): R10.9 - Unspecified abdominal pain
[2023-03-12 09:51] LABS: Basophils # (auto) 0.06 K/uL (0.00-0.20); Basophils % (auto) 0.3 %; Hematocrit (blood only) 41.7 % (42.0-52.0); Hemoglobin 14.4 g/dl (14.0-18.0); Immature Granulocytes # (auto) 0.15 K/uL (0.01-0.20); Immature Granulocytes % (auto) 0.8 %; Lymphocytes # (auto) 0.74 K/uL (1.20-3.40); Mean Corpuscular Hgb Conc 34.5 g/dL (32.0-36.0); Mean Corpuscular Volume 92.7 fL (80.0-100.0); Mean Platelet Volume 9.5 fL (9.4-12.4); Monocytes # (auto) 1.66 K/uL (0.11-0.59); Monocytes % (auto) 9.1 %; Neutrophils # (auto) 15.69 K/uL (1.40-6.50); Neutrophils % (auto) 85.8 %; Platelet Count 242 K/uL (130-400); RDW Coefficient of Variation 12.9 % (11.5-14.5); RDW Standard Deviation 43.8 fL (36.4-46.3)
[2023-03-12 10:03] LABS: Albumin Globulin Ratio 1.4 (0.9-2); Albumin Level 3.8 gm/dl (3.4-5.0); BUN Creatinine Ratio 16.8 (10-20); Bilirubin,Total 0.7 mg/dl (0.2-1.0); Calcium 9.4 mg/dl (8.6-10.3); Creatinine Clr Calc Pharmacy 36.2 ml/min; Est GFR (African American) 83.7 ml/min; Est GFR (Non-African American) 72.2 ml/min; Globulin 2.8 gm/dl (2.5-4.0); Total Protein 6.6 gm/dl (6.0-8.3)
[2023-03-12 10:09] LABS: Troponin I High Sensitivity 8.1 pg/ml (0-20)
[2023-03-12] MEDS: SODIUM CHLORIDE 0.9% 500 ML IV ONE (10:10)
[2023-03-12] MEDS: OPTIRAY 320 500ml IV ONE (10:48)
--- NOTE | 2023-03-12 11:11 | CT Scan Report ---
CT SCAN OF THE ABDOMEN AND PELVIS WITH IV CONTRAST CLINICAL HISTORY: Generalized abdominal pain. Dementia. COMPARISON STUDY: Abdominal CT dated 12/16/2021. TECHNIQUE: Following the IV administration of 93 cc of Optiray 320, CT scan of the abdomen and pelvi s is performed from the lung bases to the proximal femora. Images are reviewed in the axial, sagittal , and coronal planes. IV contrast was administered without complication. A dose lowering technique wa s utilized adhering to the principles of ALARA. CT DOSE: 341.68 mGy.cm FINDINGS: Lung bases: The heart is enlarged and without pericardial effusion. The coronary arteries are densely calcified. Emphysema is noted. There are trace pleural effusions. Dependent airspace consolidation i s seen at both lung bases. There is a necrotic mass in the lingula seen on image #39. This measures a pproximately 4 x 3 cm. Liver: The contrast-enhanced liver is normal in size, contour, and attenuation. There is no intrahepa tic biliary ductal dilatation. The hepatic veins and portal veins are patent. Gallbladder: Unremarkable. Spleen: Normal in size and attenuation. Pancreas: Unremarkable. Adrenal glands: Unremarkable. Kidneys: The contrast enhanced kidneys are normal in size and without hydronephrosis. The kidneys enh ance symmetrically. A 1.6 cm cyst is noted on the left. Abdominal vasculature: There is advanced atherosclerotic calcification and ectasia of the abdominal a [place]is. There is greater than 50% luminal narrowing of the abdominal aorta as seen on axial image #145. The minimum patent luminal diameter measures 7 mm. 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 There is reconstitution at the level of the common f emoral artery. There is also thrombosis of the left internal iliac artery. 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 There is recon stitution of flow approximately 2.5 cm from the aorta. There is moderate to high-grade stenosis of th e origin of both renal arteries. Bowel: There is no bowel obstruction. The cecal wall appears thickened and edematous. Question pneuma tosis of the cecum. There is no portal venous gas. The small bowel loops appear mildly distended and fluid-filled. There is also fluid in the right colon. The appendix is not visualized. Peritoneum: There is no intraperitoneal free air or abdominal ascites. Lymphadenopathy: None. Pelvic viscera: The prostate gland is enlarged and heterogeneous. The bladder is distended, and the w all is thickened/trabeculated indicating chronic outlet obstruction. Skeletal structures: The skeletal structures are heterogeneously osteopenic. There is advanced lumbos acral spondylosis. No lytic or blastic lesions are seen. IMPRESSION: 1. Cardiomegaly and emphysema. 2. Findings are highly suspicious for a 4 cm necrotic mass in the lingula. Although a resolving infec tious/inflammatory process could appear similar, a lung cancer is the diagnosis of exclusion. This is better assessed on today's examination as surrounding consolidation has improved. A follow-up chest CT in several weeks time is recommended for reassessment as is follow-up with pulmonology. 3. Dependent consolidation is seen at both lung bases. This could represent a nonspecific pneumonitis versus scarring/atelectasis. Correlate clinically. 4. 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 The re is also moderate to high-grade stenosis at the origin of both renal arteries. This is likely uncha nged. 5. The cecal wall appears thickened and edematous suggesting a nonspecific cecitis. Question pneumato sis of the cecum. This could be on an infectious, inflammatory, or ischemic basis. Correlate clinical ly. 6. No bowel obstruction is seen. There are mildly distended and fluid-filled loops of small bowel. Co rrelate clinically for evidence of a nonspecific enteritis. This carries the same differential. 7. 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 There is reconstitution of flow in the left com mon femoral artery and this is similar to previous. There is moderate stenosis of the mid abdominal a [place]is. 8. Additional findings as above. ACT 112: Negative or not required by law. Electronically signed by: Jaden Baltazar M.D. 03/12/2023 11:09 AM
[2023-03-12] MEDS: PIPERACILLIN/TAZOBACTAM 4.5 GM/100 ML BAG IV ONE (12:00)
--- NOTE | 2023-03-12 12:13 | History & Physical Report ---
Date of Service March 12, 2023 Assessment & Plan (1) Atherosclerosis: Plan: Extensive; advanced Patient complaining of abdominal pain and generalized weakness to morning of 03/12 and is able to get out of bed Hx vascular dementia and extensive vascular stenosis/occlusions CT abdomen/pelvis on arrival revealed: - Cardiomegaly and emphysema. - Highly suspicious 4 cm necrotic mass in the lingula; although a resolving infectious/inflammatory process could appear similar, a lung cancer is the diagnosis of exclusion - Dependent consolidation is seen at both lung bases. This could represent a nonspecific pneumonitis versus scarring/atelectasis. Correlate clinically. 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, as well as the internal and external iliac arteries Patient would not like any form of surgery or intensive treatment Heparin w/o bolus started in the ED; platelets okay at 242 Will need to discuss long-term anticoagulation outpatient; however, family reports recurrent falls (patient uses a cane at baseline) PT/OT consulted Palliative care consulted Case management consulted General surgery consulted And CBC, BMP (2) Lung mass: Plan: New 4 cm necrotic mass in the lingula, as noted above CXR ordered, pending Patient is a current everyday cigarette smoker Family does not want this worked up further at this time Leukocytosis at 18.30 with a neutrophil predominance; afebrile Continue Zosyn 4.5 g q8h to cover for infectious cause (pneumonia) (3) Diabetes mellitus with insulin therapy: Plan: Last A1c at 11.2% on 12/12/2021 Glucose 203 on admission Patient normally takes 8 units basal insulin at nighttime, however unclear regarding compliance Lantus 4u BID while inpatient SSI; with target BSG range 110-150mg/dL, CF 80, carb ratio 30 T2DM diet BSG ACHS Adjust regimen as needed AM A1c (4) Tobacco use: Plan: Current everyday tobacco cigarette smoker; 1 PPD Patient has been smoking since age 12yo Daily nicotine patch and removal Nicotine gum as needed (5) Benign prostatic hyperplasia: Plan: Continue finasteride, tamsulosin (6) Dementia: Plan: Vascular dementia (7) Hyponatremia: Plan: Na 128 on arrival Patient received IVF in the ED Recheck a.m. BMP (8) Hyperparathyroidism: (9) Peripheral vascular disease: (10) Renal artery stenosis: (11) Carotid artery stenosis: (12) Aortoiliac occlusive disease: Plan [facility] Keep NPO for now and advance to clear liquid diet as tolerated VTE PPx: Heparin w/o bolus started in the ED History of Present Illness Chief Complaint: Abdominal pain Primary Care Provider: Vanessa Schwab MD Joey is an 87-year-old male with PMH of hyperlipidemia, HTN, PVD, hyperparathyroidism, diabetes, CKD, BPH, hearing loss, arteriosclerosis of coronary artery, renal artery stenosis, carotid artery stenosis, and vascular dementia. He presented via EMS for abdominal pain and generalized weakness the morning of 03/12. Patient is a poor historian at baseline due to his underlying vascular dementia. Patient's daughter/POA and granddaughter are at the bedside and provides most of the history. They report that the patient could not sit up in bed this morning, and was complaining of generalized abdominal pain (mainly below the ribs). Patient lives with his and daughter. They report that he has not been compliant with his current medications. He did not take medicine this morning, which includes insulin for his diabetes (patient normally takes 8u basal insulin at night, and 3u NovoLog after meals). He has not been taking his atorvastatin for high cholesterol. The only medications he takes consistently include lactulose and MiraLAX. Patient's granddaughter (who is a nurse) helps manage his pillboxes. The daughter has been working with the office of aging, and has expressed the need for additional home health or placement. Patient reports he is asymptomatic upon arrival, however granddaughter reports that he had some SOB over the weekend, as well as dry coughing and sneezing on Thursday 03/09. Patient is a current everyday tobacco cigarette smoker; 1 PPD. Patient is hypertensive at 149/61 at time of admission; vitals otherwise stable. ED course: Zosyn 4.5 g IV NSS 500 mL IV Unable to obtain ROS given patient's underlying dementia. He denies all symptoms at this time. Extensive conversation took place with the patient's daughter/POA, as well as the patient's granddaughter, regarding goals of care. It was confirmed that the patient would not want extensive measures done, such as surgery or ICU admission if needed. They believe he would not want the lung mass that was found on CT imaging to be worked up further. DNR/DNI. The family was open to discussions with palliative care. They would also like additional help to determine home health versus [facility] facility upon discharge. Allergies Allergy/AdvReac Type Severity Reaction Status Date / Time pollen extracts Allergy Intermediate coughing/sn Verified 10/24/22 16:05 eezing doxycycline AdvReac Unknown CAN'T Verified 10/24/22 16:05 REMEMBER Home Medications Medication Instructions Recorded Confirmed Type aspirin 81 mg tablet,delayed 81 mg PO HS 03/05/18 03/12/23 History release nitroglycerin 0.4 mg sublingual 0.4 mg sublingual DIRECTED PRN 09/14/18 03/12/23 History tablet Chest Pain blood sugar diagnostic (ORDISSIMOTouch #100 ea 12/26/21 10/24/22 Rx Verio test strips) blood-glucose meter (ORDISSIMOTouch #1 ea 12/26/21 10/24/22 Rx Verio Flex Meter) lancets 33 gauge (ORDISSIMOTouch Delica #100 ea 12/26/21 10/24/22 Rx Lancets) cetirizine 10 mg tablet 10 mg PO DAILY Congestion 01/23/22 03/12/23 History polyethylene glycol 3350 17 17 g PO BID PRN constipation 04/23/22 03/12/23 History gram/dose oral powder (Miralax) atorvastatin 40 mg tablet 40 mg PO DAILY #90 tabs 06/05/22 03/12/23 Rx finasteride 5 mg tablet 5 mg PO DAILY #90 tabs 06/05/22 03/12/23 Rx tamsulosin 0.4 mg capsule 0.4 mg PO HS #90 caps 06/05/22 03/12/23 Rx flash glucose scanning reader #1 ea 10/11/22 10/24/22 Rx (FreeStyle Eli 2 [place]) flash glucose sensor (FreeStyle #2 ea 10/11/22 10/24/22 Rx Eli 2 Sensor kit) insulin aspart U-100 100 unit/mL 3 unit (0.03 mL) subcut TID 90 10/30/22 0 03/12/23 Rx (3 mL) subcutaneous pen ([employer] days #8.1 mL FlexPen U-100 Insulin aspart) pen needle, diabetic 31 gauge x #200 ea 10/30/22 Rx 16" (Lite Touch Insulin Pen [place]) docusate sodium 100 mg capsule 100 mg PO DAILY #90 caps 11/01/22 03/12/23 Rx (Colace) lactulose 10 gram/15 mL oral See Rx Instructions .Route 01/07/23 03/12/23 Rx solution .COMPLEX #946 mL insulin glargine 100 unit/mL (3 8 unit subcut HS 03/12/23 03/12/23 History mL) subcutaneous pen (Basaglar KwikPen U-100 Insulin) Past Med/Surg History Medical History Atherosclerosis Tobacco use Renal artery stenosis Dementia Aortoiliac occlusive disease Arteriosclerosis of coronary artery remote (>20 years ago) h/o [place] Benign prostatic hyperplasia CKD (chronic kidney disease) Carotid artery stenosis Diabetes mellitus with insulin therapy Hyperparathyroidism Peripheral vascular disease Seborrheic keratosis Transient ischemic attack Vitamin D deficiency Hyperlipidemia HTN (hypertension) Surgical History Hx of hernia repair Hx of right knee surgery Hx of endarterectomy Left carotid endarterectomy Family History Father Coronary heart disease Hypertension Mother Coronary heart disease Diabetes Hypertension Heart disease Brother Diabetes Sister Diabetes Grandmother Hearing loss Daughter Asthma Unknown Myocardial infarction Other Allergies Denies family history of Ovarian cancer Prostate cancer Breast cancer Colorectal cancer Social History Smoking Status: Current every day smoker Tobacco Type: Cigarettes Age Started Using Tobacco: 14; packs per day: 0.5; Cigarettes Per Day: 0.5 to 1 pack per day; Second Hand Exposure: Yes; Do You Dip or Chew Tobacco: No; Hx Alcohol Use: No Hx Substance Use: No Preferred Language: Grenadian Communication Ability: Effective Communication Ability Comment: Hearing Loss Visual Impairment: No Limitations Hearing Ability: Use of Hearing Aid Winder Operator Required: No Beliefs That Will Affect Care: None marital status: Current Living Situation: Family current occupational status: retired 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 Feels Safe at Home: Yes Diet: regular Dental Care, Regularly: No Physical Activity Frequency: Does not Exercise Seatbelt Use: always Sunscreen Use: No Assistive Devices: Cane and Walker Review of Systems Review of Systems: See HPI above Physical Exam Physical Exam: General: no acute distress; lethargic; cachectic; non-toxic appearing; cooperative HEENT: normocephalic, atraumatic; no scleral icterus; PERRLA; dry mucus membrane; hard of hearing Neck: supple; no lymphadenopathy; trachea midline Skin: warm, dry without signs of tenting; no cyanosis; no rashes, bruising, lesions, or erythema noted CV: chest wall NTP; RRR; S1/S2 normal; no murmurs/rubs/gallops; pulses intact and symmetric at radial, DP, and PT Lungs: no acute respiratory distress; symmetrical chest wall expansion; diminished breath sounds across all lung estrella w/o adventitious sounds; no wheezing ABD: Soft; mild TTP in the RUQ and LUQ; BS present; no rebound/guarding; no a scites; no distention; no bruising or rashes on the abdomen MSK: no tics or fasciculations; no edema noted in the LEs b/l, nonerythematous; LEs are shiny, hairless Neuro: Patient is oriented to name/time, but not month; lethargic; no focal deficits; reports sensation is intact in LEs B/L Results & Data Results & Data Vital Signs (Past 12 Hours) Vital Signs Temp Pulse Resp BP Pulse Ox O2 Del Method 03/12/23 11:10 73 16 03/12/23 11:00 71 17 03/12/23 10:52 73 24 03/12/23 10:40 71 17 95 03/12/23 10:30 73 12 95 03/12/23 10:30 149/61 H 03/12/23 10:20 68 21 94 03/12/23 10:10 65 14 94 03/12/23 10:00 80 22 93 03/12/23 10:00 128/68 03/12/23 09:50 84 20 75 L 03/12/23 09:40 81 23 03/12/23 09:31 78 03/12/23 09:30 117/63 03/12/23 09:30 82 21 94 03/12/23 09:27 88 19 94 03/12/23 09:12 74 20 94 Room Air 03/12/23 09:02 37.3 C 89 17 109/56 L 94 Room Air Laboratory Results Abnormal lab results 03/12/23 03/12/23 Range/Units 09:12 09:18 WBC 18.30 H (4.8-10.8) K/ul RBC 4.50 L (4.70-6.10) M/uL Hct 41.7 L (42.0-52.0) % Neut # (Auto) 15.69 H (1.40-6.50) K/uL Lymph # (Auto) 0.74 L (1.20-3.40) K/uL Tucker # (Auto) 1.66 H (0.11-0.59) K/uL Sodium 128 L (136-145) mmol/L Chloride 95 L (98-107) mmol/L Glucose 203 H (70-99(Fasting)) mg/dl POC Glucose 188 H (70-99) mg/dl Diagnostic Findings Abdomen/Pelvis CT 03/12/23 09:13 CT SCAN OF THE ABDOMEN AND PELVIS WITH IV CONTRAST CLINICAL HISTORY: Generalized abdominal pain. Dementia. COMPARISON STUDY: Abdominal CT dated 12/16/2021. TECHNIQUE: Following the IV administration of 93 cc of Optiray 320, CT scan of the abdomen and pelvis is performed from the lung bases to the proximal femora. Images are reviewed in the axial, sagittal, and coronal planes. IV contrast was administered without complication. A dose lowering technique was utilized adhering to the principles of ALARA. CT DOSE: 341.68 mGy.cm FINDINGS: Lung bases: The heart is enlarged and without pericardial effusion. The coronary arteries are densely calcified. Emphysema is noted. There are trace pleural effusions. Dependent airspace consolidation is seen at both lung bases. There is a necrotic mass in the lingula seen on image #39. This measures approximately 4 x 3 cm. Liver: The contrast-enhanced liver is normal in size, contour, and attenuation. There is no intrahepatic biliary ductal dilatation. The hepatic veins and portal veins are patent. Gallbladder: Unremarkable. Spleen: Normal in size and attenuation. Pancreas: Unremarkable. Adrenal glands: Unremarkable. Kidneys: The contrast enhanced kidneys are normal in size and without hydronephrosis. The kidneys enhance symmetrically. A 1.6 cm cyst is noted on the left. Abdominal vasculature: There is advanced atherosclerotic calcification and ectasia of the abdominal aorta. There is greater than 50% luminal narrowing of the abdominal aorta as seen on axial image #145. The minimum patent luminal diameter measures 7 mm. 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 There is reconstitution at the level of the common femoral artery. There is also thrombosis of the left internal iliac artery. 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 There is reconstitution of flow approximately 2.5 cm from the aorta. There is moderate to high-grade stenosis of the origin of both renal arteries. Bowel: There is no bowel obstruction. The cecal wall appears thickened and edematous. Question pneumatosis of the cecum. There is no portal venous gas. The small bowel loops appear mildly distended and fluid-filled. There is also fluid in the right colon. The appendix is not visualized. Peritoneum: There is no intraperitoneal free air or abdominal ascites. Lymphadenopathy: None. Pelvic viscera: The prostate gland is enlarged and heterogeneous. The bladder is distended, and the wall is thickened/trabeculated indicating chronic outlet obstruction. Skeletal structures: The skeletal structures are heterogeneously osteopenic. There is advanced lumbosacral spondylosis. No lytic or blastic lesions are seen. IMPRESSION: 1. Cardiomegaly and emphysema. 2. Findings are highly suspicious for a 4 cm necrotic mass in the lingula. Although a resolving infectious/inflammatory process could appear similar, a lung cancer is the diagnosis of exclusion. This is better assessed on today's examination as surrounding consolidation has improved. A follow-up chest CT in several weeks time is recommended for reassessment as is follow-up with pulmonology. 3. Dependent consolidation is seen at both lung bases. This could represent a nonspecific pneumonitis versus scarring/atelectasis. Correlate clinically. 4. 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 There is also moderate to high-grade stenosis at the origin of both renal arteries. This is likely unchanged. 5. The cecal wall appears thickened and edematous suggesting a nonspecific cecitis. Question pneumatosis of the cecum. This could be on an infectious, inflammatory, or ischemic basis. Correlate clinically. 6. No bowel obstruction is seen. There are mildly distended and fluid-filled loops of small bowel. Correlate clinically for evidence of a nonspecific enteritis. This carries the same differential. 7. 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 There is reconstitution of flow in the left common femoral artery and this is similar to previous. There is moderate stenosis of the mid abdominal aorta. 8. Additional findings as above. ACT 112: Negative or not required by law. Electronically signed by: Jaden Baltazar M.D. 03/12/2023 11:09 AM Code Status & VTE Plan Code Status DNR/DNI VTE Prophylaxis Plan VTE Prophylaxis will be ordered: Yes Supervising Physician Co-Signing Physician Notes Patient seen and examined, chart reviewed, case discussed with Alejandro Hebert, YOUSIF and I agree with the assessment and plan as above except as otherwise noted Labs and images reviewed Joey is an 87-year-old male with a history of chronic long-term tobacco abuse since age 12, carotid artery stenosis, renal artery stenosis, SMA chronic occlusion with collaterals, type II DM, CKD, hyperparathyroidism who presents with an episode of abdominal pain which has improved at time of bedside assessment. Family notes additional concerns for fall risk, progressive decline with underlying vascular dementia although typically oriented to season and is able to have a conversation at home but with easy decompensations outside of the home environment, and need for additional services at home. CT of the abdomen/pelvis with contrast shows nonspecific cecitis? Pneumatosis of the cecum infectious/inflammatory/ischemic, and a highly suspicious 4 cm and a contracted lingular mass concerning for lung cancer. Patient has a normal lactate and does not have abdominal pain on bedside admitting assessment. Surgery was consulted while in the ER, recommended antibiotics and monitoring surgical intervention was not recommended at this time. Vascular surgery was consulted and patient was started on a heparin drip due to extensive vascular disease with near complete SMA occlusion and high-grade stenosis of both renal arteries, however this is stable from prior. Patient is generally not compliant with his antiplatelet therapy at home. Personally had extensive goals of care discussion with patient, POA, and family at the bedside. Joey has expressed a desire to pass more recently and frustration with his overall medical burden. Has had some progressive vascular dementia although was able to calm converse relatively normally at home with decent short-term and long-term memory and is generally oriented to season. Joey would not want any type of invasive procedure including surgery of any kind. Discussed the lingular mass noted on CT especially context of patient's extensive smoking history. Patient and family do not wish for any further workup and specifically declined bronchoscopy and tissue analysis as Joey would not want chemo or surgery even if cancer was confirmed. Okay with continuing a blood thinner at this time although expressed concerns for bleeding as he is a high fall risk at home if this were to be continued on discharge. He is on DAPT and statin therapy, although he is not very compliant with this. In the event that he were to clinically worsen he would not want escalation of care to the ICU, would not want intubation for protection of respiratory status outside of a code event, and would not want surgical interventions. Should he worsen significantly or have worsening pain would want to focus on comfort oriented measures and would be interested in hospice services at that time. Currently would like a palliative care consultation and will think about hospice services; family also report that Joey exceeds their level of care with current services at home at this time and would look like a placement versus additional home health services evaluation while inpatient. Zosyn cotinued for cecitis and protection from translocation with possible cecal pneumatosis. Patient also has mildly distended loops of small bowel consistent with nonspecific enteritis, continue to follow. Patient does not show evidence of bowel endorgan ischemia at time of admission. Agree with assessment and management as above PG Care Time/CCT Total # of Minutes Spent Total Time Spent with Patient: Total time spent is greater than 50% in coordination of care (as documented) at patient's floor/unit and/or counseling patient: [place] [address] INT INP/OBS CARE 3/75MIN Patient Type Established History Comprehensive Exam Comprehensive Medical Decision Making High Complexity Diagnoses Atherosclerosis I70.90 Lung mass R91.8 Diabetes mellitus with insulin therapy E11.9; Z79.4 Tobacco use Z72.0 Benign prostatic hyperplasia N40.0 Dementia F03.90 Hyponatremia E87.1 Hyperparathyroidism E21.3 Peripheral vascular disease I73.9 Renal artery stenosis I70.1 Carotid artery stenosis I65.29 Aortoiliac occlusive disease I74.09
[2023-03-12 13:14] LABS: INR 1.1 (0.9-1.1); Partial Thromboplastin Ratio 1.1; Partial Thromboplastin Time 32 Seconds (21-31); Prothrombin Time 11.7 Seconds (9.0-12.0)
[2023-03-12] MEDS: HEPARIN SODIUM/DEXTROSE 25,000 UNITS/500 ML BAG IV SCH (13:33)
[2023-03-12] MEDS: Heparin IV Adult Wt-Based Standard *NO* INITIAL Bolus Protocol IV STA (13:34)
[2023-03-12] MEDS ORDERED: NICOTINE POLACRILEX 2 MG GUM MT PRN (13:58)
--- NOTE | 2023-03-12 14:33 | XRay Report ---
XR chest 1V portable CLINICAL HISTORY: New lung mass; comparison to prior X-rays TECHNIQUE: Single frontal radiograph of the chest was obtained. Comparison: Comparison is made to chest radiograph 04/23/[address] abdomen pelvis 03/12/[address] a bdomen pelvis 12/12/2021 FINDINGS: No lines and tubes are seen. The cardiomediastinal silhouette is normal. Left lower lung density is s een. There is mild interstitial thickening. No evidence of pleural effusion or pneumothorax. IMPRESSION: Density in the left lower lobe was not seen on prior chest radiograph, concerning for interval develo pment of mass. There may have been a corresponding smaller lesion in the exam of 12/12/2021, which was obscured by airspace disease. ACT 112: Negative or not required by law. Electronically signed by: Jan Negron M.D. 03/12/2023 2:32 PM
--- NOTE | 2023-03-12 15:13 | Electrocardiogram Report ---
Test Reason : Blood Pressure : / mmHG Vent. Rate : 090 BPM Atrial Rate : 090 BPM P-R Int : 154 ms QRS Dur : 130 ms QT Int : 384 ms P-R-T Axes : 015 060 031 degrees QTc Int : 469 ms Normal sinus rhythm Right bundle branch block Abnormal ECG When compared with ECG of 23-APR-2022 18:30, Premature atrial complexes are no longer Present Confirmed by Ryan Love ([id number]) on 03/12/2023 3:13:11 PM Referred By: REFERRED SELF Confirmed By:Ryan Love
--- NOTE | 2023-03-12 15:29 | Surgery Consultation ---
Date of Consultation March 12, 2023 Assessment & Plan (1) Vascular disease of abdomen: cecitis IVF and IV antibiotics family and patient wish no surgical intervention hopefully responds to conservative treatments History of Present Illness History of Present Illness This is a 87YO who presented to ED with abdominal pain and generalized weakness. Patient is a poor historian at baseline due to his underlying vascular dementia but daughter and granddaughter are at the bedside. They said he complained of generalized abdominal pain. He reports no pain currently. A CT scan shows intra-abdominal vascular disease and cecitis. No signs of ischemia or infarction. Allergies Allergy/AdvReac Type Severity Reaction Status Date / Time pollen extracts Allergy Intermediate coughing/sn Verified 10/24/22 16:05 eezing doxycycline AdvReac Unknown CAN'T Verified 10/24/22 16:05 REMEMBER Home Medications Medication Instructions Recorded Confirmed Type aspirin 81 mg tablet,delayed 81 mg PO HS 03/05/18 03/12/23 History release nitroglycerin 0.4 mg sublingual 0.4 mg sublingual DIRECTED PRN 09/14/18 03/12/23 History tablet Chest Pain blood sugar diagnostic (HeyKikiTouch #100 ea 12/26/21 10/24/22 Rx Verio test strips) blood-glucose meter (HeyKikiTouch #1 ea 12/26/21 10/24/22 Rx Verio Flex Meter) lancets 33 gauge (OneTouch Delica #100 ea 12/26/21 10/24/22 Rx Lancets) cetirizine 10 mg tablet 10 mg PO DAILY Congestion 01/23/22 03/12/23 History polyethylene glycol 3350 17 17 g PO BID PRN constipation 04/23/22 03/12/23 History gram/dose oral powder (Miralax) atorvastatin 40 mg tablet 40 mg PO DAILY #90 tabs 06/05/22 03/12/23 Rx finasteride 5 mg tablet 5 mg PO DAILY #90 tabs 06/05/22 03/12/23 Rx tamsulosin 0.4 mg capsule 0.4 mg PO HS #90 caps 06/05/22 03/12/23 Rx flash glucose scanning reader #1 ea 10/11/22 10/24/22 Rx (FreeStyle Eli 2 [place]) flash glucose sensor (FreeStyle #2 ea 10/11/22 10/24/22 Rx Eli 2 Sensor kit) insulin aspart U-100 100 unit/mL 3 unit (0.03 mL) subcut TID 90 10/30/22 03/12/23 Rx (3 mL) subcutaneous pen (Novolog days #8.1 mL FlexPen U-100 Insulin aspart) pen needle, diabetic 31 gauge x #200 ea 10/30/22 Rx 5/16" (Lite Touch Insulin Pen [place]) docusate sodium 100 mg capsule 100 mg PO DAILY #90 caps 11/01/22 03/12/23 Rx (Colace) lactulose 10 gram/15 mL oral See Rx Instructions .Route 01/07/23 03/12/23 Rx solution .COMPLEX #946 mL insulin glargine 100 unit/mL (3 8 unit subcut HS 03/12/23 03/12/23 History mL) subcutaneous pen (Basaglar KwikPen U-100 Insulin) Patient History Medical History (Updated 03/12/23 @ 15:30 by Rm Khalil MD) Atherosclerosis Tobacco use Renal artery stenosis Dementia Aortoiliac occlusive disease Arteriosclerosis of coronary artery remote (>20 years ago) h/o CA Benign prostatic hyperplasia CKD (chronic kidney disease) Carotid artery stenosis Diabetes mellitus with insulin therapy Hyperparathyroidism Peripheral vascular disease Seborrheic keratosis Transient ischemic attack Vitamin D deficiency Hyperlipidemia HTN (hypertension) Surgical History Hx of hernia repair Hx of right knee surgery Hx of endarterectomy Left carotid endarterectomy Family History Father Coronary heart disease Hypertension Mother Coronary heart disease Diabetes Hypertension Heart disease Brother Diabetes Sister Diabetes Grandmother Hearing loss Daughter Asthma Unknown Myocardial infarction Other Allergies Denies family history of Ovarian cancer Prostate cancer Breast cancer Colorectal cancer Social History Smoking Status: Current every day smoker Tobacco Type: Cigarettes Age Started Using Tobacco: 14; packs per day: 0.5; Cigarettes Per Day: 0.5 to 1 pack per day; Second Hand Exposure: Yes; Do You Dip or Chew Tobacco: No; Hx Alcohol Use: No Hx Substance Use: No Preferred Language: Ukrainian Communication Ability: Impaired Communication Ability Comment: Hearing Loss Visual Impairment: No Limitations Hearing Ability: Use of Hearing Aid Profiling Machine Setup Operator Required: No Beliefs That Will Affect Care: None marital status: Current Living Situation: Spouse current occupational status: retired 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 Feels Safe at Home: Yes Diet: regular Dental Care, Regularly: No Physical Activity Frequency: Does not Exercise Seatbelt Use: always Sunscreen Use: No Assistive Devices: Cane, Hearing Aid - Left and Hearing Aid - Right Review of Systems Review of Systems: Other (with help of caregivers) Constitutional: no fever, no chills and no anorexia Respiratory: + cough, + chest congestion and + dyspne a Cardiovascular: no chest pain Gastrointestinal: + abdominal pain and + nausea; no vomiti ng and no change in bowel habits Genitourinary: no dysuria Musculoskeletal: no back pain Neurologic: + generalized weakness; no localized wea kness Psychiatric: + behavioral changes Hematologic / Lymphatic: + easy bleeding and + easy bruising Physical Exam Constitutional: + thin Eyes: PERRL, conjunctivae normal, anicteric sclerae ENMT: external ear and nose normal, oropharynx normal Respiratory: normal respiratory effort, lungs clear to auscultation Cardiovascular: RRR, no murmur, no edema Gastrointestinal (Abdomen): Inspection/Auscultation: abdomen normal to inspection and normal bowel sounds; abdomen not distended Percussion/Palpation: + abdomen tender and abdomen soft; no guarding and abdomen not rigid Musculoskeletal: Head/Neck/Chest: normocephalic and head atraumatic Skin: no rashes, warm and dry Results & Data Vital Signs (Past 12 Hours) Vital Signs Temp Pulse Pulse Resp BP BP Pulse Ox 03/12/23 14:00 125/64 03/12/23 14:00 71 20 92 03/12/23 13:37 75 03/12/23 13:30 117/71 03/12/23 13:30 64 23 92 03/12/23 13:30 70 19 117/71 94 03/12/23 13:26 76 18 92 03/12/23 13:26 120/67 03/12/23 13:00 74 23 92 03/12/23 12:00 74 19 03/12/23 11:10 73 16 03/12/23 11:00 71 17 03/12/23 10:52 73 24 03/12/23 10:40 71 17 95 03/12/23 10:30 73 12 95 03/12/23 10:30 149/61 H 03/12/23 10:20 68 21 94 03/12/23 10:10 65 14 94 03/12/23 10:00 80 22 93 03/12/23 10:00 128/68 03/12/23 09:50 84 20 75 L 03/12/23 09:40 81 23 03/12/23 09:31 78 03/12/23 09:30 117/63 03/12/23 09:30 82 21 94 03/12/23 09:27 88 19 94 03/12/23 09:12 74 20 94 03/12/23 09:02 37.3 C 89 17 109/56 L 94 O2 Del Method 03/12/23 14:00 03/12/23 14:00 03/12/23 13:37 03/12/23 13:30 03/12/23 13:30 03/12/23 13:30 Room Air 03/12/23 13:26 03/12/23 13:26 03/12/23 13:00 03/12/23 12:00 03/12/23 11:10 03/12/23 11:00 03/12/23 10:52 03/12/23 10:40 03/12/23 10:30 03/12/23 10:30 03/12/23 10:20 03/12/23 10:10 03/12/23 10:00 03/12/23 10:00 03/12/23 09:50 03/12/23 09:40 03/12/23 09:31 03/12/23 09:30 03/12/23 09:30 03/12/23 09:27 03/12/23 09:12 Room Air 03/12/23 09:02 Room Air Diagnostic Findings CT SCAN OF THE ABDOMEN AND PELVIS WITH IV CONTRAST CLINICAL HISTORY: Generalized abdominal pain. Dementia. COMPARISON STUDY: Abdominal CT dated 12/16/2021. TECHNIQUE: Following the IV administration of 93 cc of Optiray 320, CT scan of the abdomen and pelvis is performed from the lung bases to the proximal femora. Images are reviewed in the axial, sagittal, and coronal planes. IV contrast was administered without complication. A dose lowering technique was utilized adhering to the principles of ALARA. CT DOSE: 341.68 mGy.cm FINDINGS: Lung bases: The heart is enlarged and without pericardial effusion. The coronary arteries are densely calcified. Emphysema is noted. There are trace pleural effusions. Dependent airspace consolidation is seen at both lung bases. There is a necrotic mass in the lingula seen on image #39. This measures approximately 4 x 3 cm. Liver: The contrast-enhanced liver is normal in size, contour, and attenuation. There is no intrahepatic biliary ductal dilatation. The hepatic veins and portal veins are patent. Gallbladder: Unremarkable. Spleen: Normal in size and attenuation. Pancreas: Unremarkable. Adrenal glands: Unremarkable. Kidneys: The contrast enhanced kidneys are normal in size and without hydronephrosis. The kidneys enhance symmetrically. A 1.6 cm cyst is noted on the left. Abdominal vasculature: There is advanced atherosclerotic calcification and ectasia of the abdominal aorta. There is greater than 50% luminal narrowing of the abdominal aorta as seen on axial image #145. The minimum patent luminal diameter measures 7 mm. 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 There is reconstitution at the level of the common femoral artery. There is also thrombosis of the left internal iliac artery. 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 There is reconstitution of flow approximately 2.5 cm from the aorta. There is moderate to high-grade stenosis of the origin of both renal arteries. Bowel: There is no bowel obstruction. The cecal wall appears thickened and edematous. Question pneumatosis of the cecum. There is no portal venous gas. The small bowel loops appear mildly distended and fluid-filled. There is also fluid in the right colon. The appendix is not visualized. Peritoneum: There is no intraperitoneal free air or abdominal ascites. Lymphadenopathy: None. Pelvic viscera: The prostate gland is enlarged and heterogeneous. The bladder is distended, and the wall is thickened/trabeculated indicating chronic outlet obstruction. Skeletal structures: The skeletal structures are heterogeneously osteopenic. There is advanced lumbosacral spondylosis. No lytic or blastic lesions are seen. IMPRESSION: 1. Cardiomegaly and emphysema. 2. Findings are highly suspicious for a 4 cm necrotic mass in the lingula. Although a resolving infectious/inflammatory process could appear similar, a lung cancer is the diagnosis of exclusion. This is better assessed on today's examination as surrounding consolidation has improved. A follow-up chest CT in several weeks time is recommended for reassessment as is follow-up with pulmonology. 3. Dependent consolidation is seen at both lung bases. This could represent a nonspecific pneumonitis versus scarring/atelectasis. Correlate clinically. 4. 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 There is also moderate to high-grade stenosis at the origin of both renal arteries. This is likely unchanged. 5. The cecal wall appears thickened and edematous suggesting a nonspecific cecitis. Question pneumatosis of the cecum. This could be on an infectious, inflammatory, or ischemic basis. Correlate clinically. 6. No bowel obstruction is seen. There are mildly distended and fluid-filled loops of small bowel. Correlate clinically for evidence of a nonspecific enteritis. This carries the same differential. 7. 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 There is reconstitution of flow in the left common femoral artery and this is similar to previous. There is moderate stenosis of the mid abdominal aorta. 8. Additional findings as above.
[2023-03-12] MEDS ORDERED: ONDANSETRON INJ 2 MG/ML 2 ML VIAL IV PRN (17:13)
[2023-03-12] MEDS ORDERED: GLUCAGON FOR INJ 1 MG VIAL SQ PRN (17:13)
[2023-03-12] MEDS ORDERED: DEXTROSE 50% 50 ML SYRINGE IV PRN (17:13)
[2023-03-12] MEDS ORDERED: POLYETHYLENE (MIRALAX) 17 GM PACK PO PRN (17:13)
[2023-03-12] MEDS ORDERED: GLUCOSE 40% GEL 15 GM TUBE PO PRN (17:13)
[2023-03-12] MEDS ORDERED: GLUCOSE 10 TAB/TUBE PO PRN (17:13)
[2023-03-12] MEDS ORDERED: NITROGLYCERIN SL 0.4 MG/TAB TAB SL PRN (17:13)
[2023-03-12] MEDS: INSULIN ASPART PER UNIT CHARGE SC SCH (17:40)
[2023-03-12 17:41] LABS: Appearance Urine Clear (Clear); Bacteria Urine Automated 1+ (Negative); Bilirubin Urine Negative (Negative); Blood Urine Trace (Negative); Color Urine Yellow; Glucose Urine UA Negative (Negative); Ketones Urine Negative (Negative); Leukocyte Esterase Urine 1+ (Negative); Nitrite Urine Negative (Negative); RBC Urine Automated 0-4 /hpf (0-4); Specific Gravity Urine > 1.045 (1.000-1.030); Urobilinogen Urine Negative (Negative); WBC Urine Automated >30 /hpf (0-5); pH Urine 7.5 (4.5-7.5)
[2023-03-12 17:43] LABS: Protein Urine 1+ (Negative)
[2023-03-12] MEDS ORDERED: LACTULOSE SYRUP 20 GM/30 ML UDC PO PRN (18:00)
[2023-03-12] MEDS: PIPERACILLIN/TAZOBACTAM 4.5 GM in DEXTROSE 5% MINI-B 100 ML IV SCH (18:23)
[2023-03-12] MEDS: NICOTINE 21 MG/24 HR TDSY TD STA (19:32)
[2023-03-12] MEDS: ASPIRIN 81 MG ECTAB PO SCH (20:34)
[2023-03-12] MEDS: LANTUS PER UNIT CHARGE SQ SCH (20:34)
[2023-03-12] MEDS: TAMSULOSIN HCL 0.4 MG CAP PO SCH (20:35)
[2023-03-12 20:43] LABS: ANTI-Xa, UFH(UnfractionatedHep 0.26 IU/ml (0.3-0.7)
[2023-03-13 04:19] LABS: Basophils # (auto) 0.06 K/uL (0.00-0.20); Basophils % (auto) 0.4 %; Eosinophils # (auto) 0.23 K/uL (0.00-0.50); Eosinophils % (auto) 1.7 %; Hematocrit (blood only) 36.4 % (42.0-52.0); Hemoglobin 12.9 g/dl (14.0-18.0); Immature Granulocytes # (auto) 0.06 K/uL (0.01-0.20); Immature Granulocytes % (auto) 0.4 %; Lymphocytes # (auto) 2.29 K/uL (1.20-3.40); Lymphocytes % (auto) 16.9 %; Mean Corpuscular Hemoglobin 32.4 pg (25.0-34.0); Mean Corpuscular Hgb Conc 35.4 g/dL (32.0-36.0); Mean Corpuscular Volume 91.5 fL (80.0-100.0); Mean Platelet Volume 9.5 fL (9.4-12.4); Monocytes # (auto) 1.37 K/uL (0.11-0.59); Monocytes % (auto) 10.1 %; Neutrophils # (auto) 9.53 K/uL (1.40-6.50); Neutrophils % (auto) 70.5 %; Platelet Count 217 K/uL (130-400); RDW Coefficient of Variation 13.2 % (11.5-14.5); RDW Standard Deviation 43.8 fL (36.4-46.3); Red Blood Count 3.98 M/uL (4.70-6.10); White Blood Count 13.54 K/ul (4.8-10.8)
[2023-03-13 04:38] LABS: ANTI-Xa, UFH(UnfractionatedHep 0.42 IU/ml (0.3-0.7)
[2023-03-13 04:40] LABS: BUN Creatinine Ratio 17.2 (10-20); Creatinine Clr Calc Pharmacy 34.4 ml/min; Est GFR (African American) 79.6 ml/min; Est GFR (Non-African American) 68.7 ml/min; Potassium 3.2 mmol/L (3.5-5.1)
[2023-03-13] MEDS: OLANZapine ZYDIS 5 MG ORALLY DIS. TAB PO PRN ×2 (05:35→19:24)
[2023-03-13 07:17] LABS: Estimated Average Glucose 177 mg/dl; Hemoglobin A1C 7.8 % (4.5-5.6)
[2023-03-13] MEDS: ACETAMINOPHEN 325 MG TAB PO PRN (07:23)
[2023-03-13] MEDS: FINASTERIDE 5 MG TAB PO SCH (07:32)
[2023-03-13] MEDS: NICOTINE 21 MG/24 HR TDSY TD SCH (07:32)
[2023-03-13] MEDS: CETIRIZINE HCL 10 MG TABLET PO SCH (07:32)
[2023-03-13] MEDS: DOCUSATE SODIUM 100 MG CAP PO SCH (07:32)
[2023-03-13] MEDS: ATORVASTATIN 40 MG TAB PO SCH (07:32)
[2023-03-13] MEDS: POTASSIUM CHLORIDE CRTAB 20 MEQ TABCR PO STA (08:25)
[2023-03-13] MEDS: INFLUENZA VACCINE HIGH-DOSE (HD-IIV4) PF 65+ 0.7mL SYR IM ONE (08:31)
[2023-03-13] MEDS: PNEUMOCOCCAL VACCINE (PCV20) 20-VAL CONJ-DIP CRM/PF 0.5 ML SYR IM ONE (08:32)
--- NOTE | 2023-03-13 10:35 | Surgery Progress Note ---
Date of Service March 13, 2023 Assessment & Plan (1) Acute cecitis: Plan: con't supportive care abdomen benign no surgical interventions desired will sign off Present on Admission?: Yes Admission and Anticipated Discharge Date Admission Date: March 12, 2023 Subjective responding to antibiotics eating well no complaints of abdominal pain Review of Systems Constitutional: no fever and no chills Respiratory: no dyspnea Cardiovascular: no chest pain Gastrointestinal: no abdominal pain, no nausea and no vomiting Neurologic: + generalized weakness; no localized wea kness Physical Exam Constitutional: + thin Eyes: PERRL, conjunctivae normal, anicteric sclerae ENMT: external ear and nose normal, oropharynx normal Neck: trachea midline Respiratory: normal respiratory effort, lungs clear to auscultation Cardiovascular: RRR, no murmur, no edema Gastrointestinal (Abdomen): Inspection/Auscultation: abdomen normal to inspection and normal bowel sounds; abdomen not distended Percussion/Palpatio n: abdomen soft; abdomen nontender, no guarding and abdomen not rigid Musculoskeletal: Head/Neck/Chest: normocephalic and head atraumatic Skin: no rashes, warm and dry Results & Data Vital Signs (Past 12 Hours) Vital Signs Temp Pulse Pulse Resp BP Pulse Ox O2 Del Method 03/13/23 07:30 Room Air 03/13/23 07:30 70 03/13/23 07:01 36.2 C L 64 19 151/77 H 93 Room Air 03/13/23 03:18 36.6 C 76 16 112/62 96 Room Air
--- NOTE | 2023-03-13 11:39 | Hospitalist Progress Note ---
Date of Service March 13, 2023 Assessment & Plan (1) Acute cecitis: Plan: Patient presents to the hospital with abdominal pain CT abdomen showed evidence of cystitis Has been started on IV Zosyn empirically Patient feels much better (2) Atherosclerosis: Plan: Extensive; advanced Patient complaining of abdominal pain and generalized weakness to morning of 03/12 and is able to get out of bed Hx vascular dementia and extensive vascular stenosis/occlusions CT abdomen/pelvis on arrival revealed: - Cardiomegaly and emphysema. - Highly suspicious 4 cm necrotic mass in the lingula; although a resolving infectious/inflammatory process could appear similar, a lung cancer is the diagnosis of exclusion - Dependent consolidation is seen at both lung bases. This could represent a nonspecific pneumonitis versus scarring/atelectasis. Correlate clinically. 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, as well as the internal and external iliac arteries Patient would not like any form of surgery or intensive treatment Heparin w/o bolus started in the ED; platelets okay at 242 Will need to discuss long-term anticoagulation outpatient; however, family reports recurrent falls (patient uses a cane at baseline) PT/OT consulted Palliative care consulted Case management consulted General surgery consulted And CBC, BMP (3) Lung mass: Plan: New 4 cm necrotic mass in the lingula, as noted above CXR ordered, pending Patient is a current everyday cigarette smoker Family does not want this worked up further at this time Leukocytosis at 18.30 with a neutrophil predominance; afebrile Continue Zosyn 4.5 g q8h to cover for infectious cause (pneumonia) Palliative has been consulted, awaiting evaluation (4) Diabetes mellitus with insulin therapy: Plan: Last A1c at 11.2% on 12/12/2021 Glucose 203 on admission Patient normally takes 8 units basal insulin at nighttime, however unclear regarding compliance Lantus 4u BID while inpatient SSI; with target BSG range 110-150mg/dL, CF 80, carb ratio 30 T2DM diet BSG ACHS Adjust regimen as needed AM A1c (5) Tobacco use: Plan: Current everyday tobacco cigarette smoker; 1 PPD Patient has been smoking since age 12yo Daily nicotine patch and removal Nicotine gum as needed (6) Benign prostatic hyperplasia: Plan: Continue finasteride, tamsulosin (7) Dementia: Plan: Vascular dementia (8) Hyponatremia: Plan: Na 128 on arrival Patient received IVF in the ED Recheck a.m. BMP (9) Hyperparathyroidism: (10) Peripheral vascular disease: (11) Renal artery stenosis: (12) Carotid artery stenosis: (13) Aortoiliac occlusive disease: Plan Disposition: Awaiting impute by palliative DNR/DNI VTE PPx: Heparin w/o bolus started in the ED Admission and Anticipated Discharge Date Admission Date: March 12, 2023 Subjective Patient seen and examined today, denies any new complaints, abdominal pain is much better denies chest pain or shortness of breath. Tolerating diet Review of Systems Review of Systems: All systems reviewed are negative, apart from the ones contained in the history. Physical Exam Physical Exam: The patient is awake, alert and oriented 3, well developed and well nourished, normocephalic and atraumatic, lying in bed and in no acute distress. HEENT--PERRL, EOMI, mucous membranes and oropharynx mildly dry Neck--supple. No JVD. No bruits. Thyroid normal, trachea midline, no adenopathy . Heart--normal S1 and S2. No murmurs, rubs or gallops. Lungs--clear bilaterally, no respiratory distress, no accessory muscle use. Abdomen--normal bowel sounds and soft. Extremities--no cyanosis or clubbing. No edema. Dermatologic--normal skin turgor, normal color, no abnormal lymph nodes, no rash. Neurologic--cranial nerves II through XII grossly intact. Rheumatologic--normal range of motion. Psychiatric--normal affect. Results & Data Results & Data Vital Signs (Past 12 Hours) Vital Signs Temp Pulse Pulse Resp BP Pulse Ox O2 Del Method 03/13/23 07:30 Room Air 03/13/23 07:30 70 03/13/23 07:01 97.2 F L 64 19 151/77 H 93 Room Air 03/13/23 03:18 97.9 F 76 16 112/62 96 Room Air PG Care Time/CCT Total # of Minutes Spent Total Time Spent with Patient: Total time spent is greater than 50% in coordination of care (as documented) at patient's floor/unit and/or counseling patient: Coding Level of Care Code 30674 SUB INP/OBS CARE MIN Diagnoses Acute cecitis K52.9 Atherosclerosis I70.90 Lung mass R91.8 Diabetes mellitus with insulin therapy E11.9; Z79.4 Tobacco use Z72.0 Benign prostatic hyperplasia N40.0 Dementia F03.90 Hyponatremia E87.1 Hyperparathyroidism E21.3 Peripheral vascular disease I73.9 Renal artery stenosis I70.1 Carotid artery stenosis I65.29 Aortoiliac occlusive disease I74.09 Time Spent (min) 35
[2023-03-13] MEDS: OLANZapine 10 MG/2.1 ML SDV IM STA (21:11)
[2023-03-14 06:31] LABS: Basophils # (auto) 0.05 K/uL (0.00-0.20); Basophils % (auto) 0.4 %; Eosinophils # (auto) 0.21 K/uL (0.00-0.50); Eosinophils % (auto) 1.8 %; Hematocrit (blood only) 39.5 % (42.0-52.0); Hemoglobin 13.7 g/dl (14.0-18.0); Immature Granulocytes # (auto) 0.08 K/uL (0.01-0.20); Immature Granulocytes % (auto) 0.7 %; Lymphocytes # (auto) 1.64 K/uL (1.20-3.40); Lymphocytes % (auto) 13.9 %; Mean Corpuscular Hemoglobin 32.1 pg (25.0-34.0); Mean Corpuscular Hgb Conc 34.7 g/dL (32.0-36.0); Mean Corpuscular Volume 92.5 fL (80.0-100.0); Mean Platelet Volume 9.9 fL (9.4-12.4); Monocytes % (auto) 9.4 %; Neutrophils # (auto) 8.68 K/uL (1.40-6.50); Neutrophils % (auto) 73.8 %; Platelet Count 258 K/uL (130-400); RDW Standard Deviation 44.2 fL (36.4-46.3); Red Blood Count 4.27 M/uL (4.70-6.10); White Blood Count 11.76 K/ul (4.8-10.8)
[2023-03-14 06:48] LABS: ANTI-Xa, UFH(UnfractionatedHep 0.45 IU/ml (0.3-0.7)
[2023-03-14 06:55] LABS: BUN Creatinine Ratio 12.1 (10-20); Calcium 9.4 mg/dl (8.6-10.3); Creatinine Clr Calc Pharmacy 34.4 ml/min; Est GFR (African American) 79.6 ml/min; Est GFR (Non-African American) 68.7 ml/min; Potassium 3.4 mmol/L (3.5-5.1)
[2023-03-14] MEDS: TROLAMINE SALICYLATE 10% CRM 255 APPLN/85 GM TUBE EXT PRN (08:10)
--- NOTE | 2023-03-14 11:34 | Palliative Care Consultation ---
Date of Consultation March 14, 2023 Assessment & Plan (1) Weakness generalized: (2) Confusion: (3) Dementia: Dementia type: vascular dementia Dementia severity: severe Dementia behavioral or psychological symptom: with psychotic disturbance Qualified Code(s): F01.C2 - Vascular dementia, severe, with psychotic disturbance (4) Vascular dementia with agitation: Dementia severity: severe Qualified Code(s): F01.C11 - Vascular dementia, severe, with agitation (5) Discussion about advance care planning held with family member: Met with pt daughter at bedside for 50min face to face discussion re ACP and goals She shared pt has been in steady state of decline with worsening behav changes incl agitation and aggression He lives in private home with but dtr notes they have a very difficult relationship plus has her own declining health issues but refuses medical care and would not allow caregivers into the home. Dtr shares she used to work in SNF and her daughter is a FLORAL DECORATOR so they have been trying to meet pt needs but he has become far too unsafe for home, no longer mobile safely and cannot be controlled/directed easily. We spoke about managing his symptoms better and agreed to trial low dose Zyprexa. We spoke about plan of care option for SNF and agreed to a trial or rehab with conversion to LTC. If he declines during rehab then transition to comfort. No return to hospital. No escalation of care. Add hospice if eligible - dtr is aware this depends on insurance and if [facility] will allow hospice on site. They can do comfort care no matter what, but add in hospice if he is eligible to provide more supportive care for the family includ ing 13mos bereavement support after his . We discussed the goals of hospice as a patient service and the goals of care; we discussed EOL trajectories and transitions mars the emotional impact of realizing mortality as a concrete reality from prior abstract considerations. Pt was reassured that no matter where they are along this trajectory, they are not alone - their medical team will remain by their side through their journey. Discussed the pros/cons of accepting help when especially weakened and distressed by pain-which would also help provide relief/decrease caregiver burden/strain. I provided education about the hospice benefit: an interdisciplinary program offered by nurses, nurses aides, social workers, chaplains and a medical record administrator for patients with a terminal condition and a life expectancy of less than 6 months. This is covered by Medicare at 100%/no out of pocket expense to patient and all meds/supplies needed by patient for the reason they are on hospice are paid for/covered by hospice. The goal is assure quality of life of the patient in their home setting (home, [facility], inpatient hospice setting) by providing symptoms management, psychosocial and spiritual support. However, they cannot offer 24 hours care and if the family is unable to provide that care, they will have to consider personal care with out of pocket cost vs. [facility] placement. We discussed the goals of hospice as a patient service and the goals of care; we discussed EOL trajectories and transitions mars the emotional impact of realizing mortality as a concrete reality from prior abstract considerations. Pt was reassured that no matter where they are along this trajectory, they are not alone - their medical team will remain by their side through their journey. Discussed the pros/cons of accepting help when especially weakened and distressed by pain-which would also help provide relief/decrease caregiver burden/strain. (6) Palliative care by specialist: Met with pt/family. Provided overview of Palliative Medicine, a subspecialty that provides specialized medical care for people living with a serious illness by offering a focus on quality of life. Palliative Medicine is often conflated with hospice: I advised patient/family that Palliative and hospice can be partners but we are not the same. It is important to understand the difference so that we may be informed, and not afraid. Palliative Medicine works to improve QOL through reduction of symptom burden/more control over their illness, for both the patient and family. Palliative medicine clinicians are board certified, specially-trained and another member of the patient's medical care team. We often provide an extra layer of support because our care is based on the needs of the patient, not the prognosis; as such, it's appropriate at any age/advancing stage of a serious illness and can be provided along with curative treatment. Palliative Medicine clinicians are also trained in advanced communication methodologies, to facilitate complex discussions about advanced illness planning, which are needed to help assure that the treatment choices match the patient's goals, aka delivering Goal Concordant care. Finally, we discussed that hospice is a visiting nurse service that focuses on care delivered at the very end of life for patients with terminal illness, with life expectancy less than 6 month. (7) Encounter for hospice care discussion: Plan As noted in ACP above Comfort Care Discharge Summary & Plan of Care For [facility] Patient Name: Joey Stark Comfort plan of care agreed upon by: pt dtr/POA Discussed with Patient/Family on: 03.14.2023 Copy of this plan will be/has been given to:SNF by BELÉN Comfort plan of care parameters: 1. Patient/Family want hospice added to their care once he has completed rehab trial. 2. If he declines during rehab, move to comfort care MICHAEL 3. Comfort focused care without escalation: do not increase oxygen, escalate therapies, etc. The focus is on comfort through end of life, assure this is accomplished with aggressive symptom management (i.e. relief of dyspnea, pain, etc.) 4. NO return to hospital 5. NO labs, imaging, surgery 6. Oral intake as desired for comfort and pleasure: NO dietary restriction 7. If difficulty urinating/commode/bedpan, ok to place Martínez catheter for comfort/hygiene/skin protection AND/OR Continue Martínez catheter for comfort/hygiene/skin protection 8. NO: calorie counts, artificial nutrition, feeding tubes or IV fluids Medications to continue are noted on discharge summary. Provider to contact if any questions about comfort plan of care: SNF medical record administrator and/or Hospice Major Sales Associate or designee Thank you for allowing us to participate in the ongoing care of this patient. Please don't hesitate to call or page with any additional concerns. Dr. Klaudia Chew DNP Director, Palliative Care History of Present Illness Reason for Consultation: Vasc dementia; fam doesn't want intensive measure Attending Physician: Eli Johnson MD Allergies Allergy/AdvReac Type Severity Reaction Status Date / Time pollen extracts Allergy Intermediate coughing/sn Verified 10/24/22 16:05 eezing doxycycline AdvReac Unknown CAN'T Verified 10/24/22 16:05 REMEMBER Home Medications Medication Instructions Recorded Confirmed Type aspirin 81 mg tablet,delayed 81 mg PO HS 03/05/18 03/12/23 History release nitroglycerin 0.4 mg sublingual 0.4 mg sublingual DIRECTED PRN 09/14/18 03/12/23 History tablet Chest Pain blood sugar diagnostic (Marina BiotechTouch #100 ea 12/26/21 10/24/22 Rx Verio test strips) blood-glucose meter (OneTouch #1 ea 12/26/21 10/24/22 Rx Verio Flex Meter) lancets 33 gauge (OneTouch Delica #100 ea 12/26/21 10/24/22 Rx Lancets) cetirizine 10 mg tablet 10 mg PO DAILY Congestion 01/23/22 03/12/23 History polyethylene glycol 3350 17 17 g PO BID PRN constipation 04/23/22 03/12/23 History gram/dose oral powder (Miralax) atorvastatin 40 mg tablet 40 mg PO DAILY #90 tabs 06/05/22 03/12/23 Rx finasteride 5 mg tablet 5 mg PO DAILY #90 tabs 06/05/22 03/12/23 Rx tamsulosin 0.4 mg capsule 0.4 mg PO HS #90 caps 06/05/22 03/12/23 Rx flash glucose scanning reader #1 ea 10/11/22 10/24/22 Rx (FreeStyle Eli 2 [place]) flash glucose sensor (FreeStyle #2 ea 10/11/22 10/24/22 Rx Eli 2 Sensor kit) insulin aspart U-100 100 unit/mL 3 unit (0.03 mL) subcut TID 90 10/30/22 03/12/23 Rx (3 mL) subcutaneous pen (Novolog days #8.1 mL FlexPen U-100 Insulin aspart) pen needle, diabetic 31 gauge x #200 ea 10/30/22 Rx 5/16" (Lite Touch Insulin Pen [place]) docusate sodium 100 mg capsule 100 mg PO DAILY #90 caps 11/01/22 03/12/23 Rx (Colace) lactulose 10 gram/15 mL oral See Rx Instructions .Route 01/07/23 03/12/23 Rx solution .COMPLEX #946 mL insulin glargine 100 unit/mL (3 8 unit subcut HS 03/12/23 03/12/23 History mL) subcutaneous pen (Basaglar KwikPen U-100 Insulin) Patient History Medical History (Updated 03/14/23 @ 11:52 by Klaudia Chew DNP) Encounter for hospice care discussion Palliative care by specialist Discussion about advance care planning held with family member Vascular dementia with agitation Confusion Weakness generalized Atherosclerosis Tobacco use Renal artery stenosis Dementia vascular dementia Aortoiliac occlusive disease Arteriosclerosis of coronary artery remote (>20 years ago) h/o [place] Benign prostatic hyperplasia CKD (chronic kidney disease) Carotid artery stenosis Diabetes mellitus with insulin therapy Hyperparathyroidism Peripheral vascular disease Seborrheic keratosis Transient ischemic attack Vitamin D deficiency Hyperlipidemia HTN (hypertension) Surgical History Hx of hernia repair Hx of right knee surgery Hx of endarterectomy Left carotid endarterectomy Family History Father Coronary heart disease Hypertension Mother Coronary heart disease Diabetes Hypertension Heart disease Brother Diabetes Sister Diabetes Grandmother Hearing loss Daughter Asthma Unknown Myocardial infarction Other Allergies Denies family history of Ovarian cancer Prostate cancer Breast cancer Colorectal cancer Social History Smoking Status: Current every day smoker Tobacco Type: Cigarettes Age Started Using Tobacco: 14; packs per day: 0.5; Cigarettes Per Day: 0.5 to 1 pack per day; Second Hand Exposure: Yes; Do You Dip or Chew Tobacco: No; Hx Alcohol Use: No Hx Substance Use: No Preferred Language: Irish Communication Ability: Effective Communication Ability Comment: Hearing Loss Visual Impairment: No Limitations Hearing Ability: Use of Hearing Aid Automatic Clipper Required: No Beliefs That Will Affect Care: None marital status: Current Living Situation: Family current occupational status: retired 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 Feels Safe at Home: Yes Diet: regular Dental Care, Regularly: No Physical Activity Frequency: Does not Exercise Seatbelt Use: always Sunscreen Use: No Assistive Devices: Cane and Walker Review of Systems Review of Systems: Unobtainable due to cognitive status Physical Exam Physical Exam: Chronically ill appearing elderly male NAD sleeping in bed, semi reclined Bitemp wasting PERRLA MM sl dry Dentition poor Neck supple, no stridor Diminished breath sounds S1S2, irreg Abd scaphoid, non tender, BS+ generalized weakness no BLE edema confused and unable to follow commands Skin pale, warm Results & Data Vital Signs (Past 12 Hours) Vital Signs Temp Pulse Pulse Resp BP Pulse Ox O2 Del Method 03/14/23 08:00 Room Air 03/14/23 07:21 36.5 C 84 16 170/88 H 96 Room Air 03/14/23 07:00 100 H 03/14/23 02:50 36.6 C 105 H 22 124/75 98 Room Air Laboratory Results data reviewed Diagnostic Findings data reviewed PG Care Time/CCT Total # of Minutes Spent Total Time Spent: 120 Total Time Spent with Patient: Total time spent is greater than 50% in coordination of care (as documented) at patient's floor/unit and/or counseling patient: I spent 120 minutes overall addressing this case: 15 min in medical data review/discussion with referring provider(s) and/or preparation for the visit 25 min in direct interaction with the patient/exam 50 min in Advance Care Planning/Goals of Care discussions as detailed above in note (must be >16min) 15 min in subsequent review and synthesis of assessment and plan 15 min communicating with other providers regarding the patient 's case:nursing, care mgt, primary team Advanced Care Planning 32433 Advanced Care Planning 30 Min 27254 Advanced Care Planning Additional 30 [place] [address] IN/OBS CONSULT LVL 4,60M Patient Type New History Comprehensive Exam Comprehensive Medical Decision Making High Complexity Diagnoses Weakness generalized R53.1 Confusion R41.0 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 Dementia type: vascular dementia Dementia severity: severe Dementia behavioral or psychological symptom: with psychotic disturbance Severe vascular dementia with agitation F01.C11 Dementia severity: severe Discussion about advance care planning held with family member Z71.0 Palliative care by specialist Z51.5 Encounter for hospice care discussion Z71.89 Additional Codes Advanced Care Planning - 65294 Advanced Care Planning 30 Min: 93282 Advanced Care Planning 30 Min ([id number]) Advanced Care Planning - 92139 Advanced Care Planning Additional 30 Min: 77546 Advanced Care Planning Additional 30 Min ([id number])
--- NOTE | 2023-03-14 11:36 | Hospitalist Progress Note ---
Date of Service March 14, 2023 Assessment & Plan (1) Acute cecitis: Plan: Patient presents to the hospital with abdominal pain CT abdomen showed evidence of cecitis Has been started on IV Zosyn empirically, will transition to Cipro and Flagyl oral Patient feels much better (2) Atherosclerosis: Plan: Extensive; advanced Patient complaining of abdominal pain and generalized weakness to morning of 03/12 and is able to get out of bed Hx vascular dementia and extensive vascular stenosis/occlusions CT abdomen/pelvis on arrival revealed: - Cardiomegaly and emphysema. - Highly suspicious 4 cm necrotic mass in the lingula; although a resolving infectious/inflammatory process could appear similar, a lung cancer is the diagnosis of exclusion - Dependent consolidation is seen at both lung bases. This could represent a nonspecific pneumonitis versus scarring/atelectasis. Correlate clinically. 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 (3) Lung mass: Plan: New 4 cm necrotic mass in the lingula, as noted above CXR ordered, pending Patient is a current everyday cigarette smoker Family does not want this worked up further at this time Leukocytosis at 18.30 with a neutrophil predominance; afebrile Received IV Zosyn for few days, Transitioned to ciprofloxacin and oral Flagyl and Palliative has been consulted, family accepted placement in skilled and if he further deteriorates he will transition to hospice (4) Diabetes mellitus with insulin therapy: Plan: Last A1c at 11.2% on 12/12/2021 Glucose 203 on admission Patient normally takes 8 units basal insulin at nighttime, however unclear regarding compliance Lantus 4u BID while inpatient SSI; with target BSG range 110-150mg/dL, CF 80, carb ratio 30 T2DM diet BSG ACHS Adjust regimen as needed AM A1c (5) Tobacco use: Plan: Current everyday tobacco cigarette smoker; 1 PPD Patient has been smoking since age 12yo Daily nicotine patch and removal Nicotine gum as needed (6) Benign prostatic hyperplasia: Plan: Continue finasteride, tamsulosin (7) Dementia: Plan: Vascular dementia (8) Hyponatremia: Plan: Na 128 on arrival Patient received IVF in the ED Recheck a.m. BMP (9) Hyperparathyroidism: (10) Peripheral vascular disease: (11) Renal artery stenosis: (12) Carotid artery stenosis: (13) Aortoiliac occlusive disease: Plan Disposition: Awaiting placement DNR/DNI VTE PPx: scd Admission and Anticipated Discharge Date Admission Date: March 12, 2023 Subjective Patient seen and examined today, daughter and granddaughter by the bedside, patient has been refusing food and spitting out his medicines. Review of Systems Review of Systems: All systems reviewed are negative, apart from the ones contained in the history. Physical Exam Physical Exam: The patient is awake, alert and oriented 3, well developed and well nourished, normocephalic and atraumatic, lying in bed and in no acute distress. HEENT--PERRL, EOMI, mucous membranes and oropharynx mildly dry Neck--supple. No JVD. No bruits. Thyroid normal, trachea midline, no adenopathy. Heart--normal S1 and S2. No murmurs, rubs or gallops. Lungs--clear bilaterally, no respiratory distress, no accessory muscle use. Abdomen--normal bowel sounds and soft. Extremities--no cyanosis or clubbing. No edema. Dermatologic--normal skin turgor, normal color, no abnormal lymph nodes, no rash. Neurologic--cranial nerves II through XII grossly intact. Rheumatologic--normal range of motion. Psychiatric--normal affect. Results & Data Results & Data Vital Signs (Past 12 Hours) Vital Signs Temp Pulse Pulse Resp BP Pulse Ox O2 Del Method 03/14/23 08:00 Room Air 03/14/23 07:21 97.7 F 84 16 170/88 H 96 Room Air 03/14/23 07:00 100 H 03/14/23 02:50 97.9 F 105 H 22 124/75 98 Room Air PG Care Time/CCT Total # of Minutes Spent Total Time Spent with Patient: Total time spent is greater than 50% in coordination of care (as documented) at patient's floor/unit and/or counseling patient: Coding Level of Care Code 77593 SUB INP/OBS CARE 235MIN Diagnoses Acute cecitis K52.9 Atherosclerosis I70.90 Lung mass R91.8 Diabetes mellitus with insulin therapy E11.9; Z79.4 Tobacco use Z72.0 Benign prostatic hyperplasia N40.0 Dementia F03.90 Hyponatremia E87.1 Hyperparathyroidism E21.3 Peripheral vascular disease I73.9 Renal artery stenosis I70.1 Carotid artery stenosis I65.29 Aortoiliac occlusive disease I74.09 Time Spent (min) 35
[2023-03-14] MEDS: OLANZapine ZYDIS 5 MG ORALLY DIS. TAB PO SCH (13:10)
[2023-03-14] MEDS: metroNIDAZOLE 500 MG TAB PO SCH (21:45)
[2023-03-15 07:40] LABS: Basophils # (auto) 0.07 K/uL (0.00-0.20); Basophils % (auto) 0.7 %; Eosinophils # (auto) 0.11 K/uL (0.00-0.50); Eosinophils % (auto) 1.2 %; Hematocrit (blood only) 40.6 % (42.0-52.0); Hemoglobin 13.9 g/dl (14.0-18.0); Immature Granulocytes # (auto) 0.06 K/uL (0.01-0.20); Immature Granulocytes % (auto) 0.6 %; Lymphocytes # (auto) 1.59 K/uL (1.20-3.40); Lymphocytes % (auto) 16.7 %; Mean Corpuscular Hemoglobin 32.1 pg (25.0-34.0); Mean Corpuscular Hgb Conc 34.2 g/dL (32.0-36.0); Mean Corpuscular Volume 93.8 fL (80.0-100.0); Mean Platelet Volume 9.5 fL (9.4-12.4); Monocytes # (auto) 0.97 K/uL (0.11-0.59); Monocytes % (auto) 10.2 %; Neutrophils % (auto) 70.6 %; Platelet Count 267 K/uL (130-400); RDW Coefficient of Variation 13.4 % (11.5-14.5); RDW Standard Deviation 46.1 fL (36.4-46.3); Red Blood Count 4.33 M/uL (4.70-6.10)
[2023-03-15] MEDS: SODIUM CHLORIDE 0.9% 1,000 ML IV SCH (07:49)
[2023-03-15 08:02] LABS: BUN Creatinine Ratio 15.2 (10-20); Calcium 9.1 mg/dl (8.6-10.3); Creatinine Clr Calc Pharmacy 29.3 ml/min; Est GFR (African American) 68.6 ml/min; Est GFR (Non-African American) 59.2 ml/min
[2023-03-15] MEDS: CARBOHYDRATES FOR HYPOGLYCEMIA PO PRN (08:14)
[2023-03-15] MEDS: CIPROFLOXACIN 500 MG TAB PO SCH (09:41)
--- NOTE | 2023-03-15 10:13 | Hospitalist Progress Note ---
Date of Service March 15, 2023 Assessment & Plan (1) Acute cecitis: Plan: Patient presents to the hospital with abdominal pain CT abdomen showed evidence of cecitis Initially on Zosyn,, now transitioned to Cipro and Flagyl oral Patient feels much better (2) Atherosclerosis: Plan: Extensive; advanced Patient complaining of abdominal pain and generalized weakness to morning of 03/12 and is able to get out of bed Hx vascular dementia and extensive vascular stenosis/occlusions CT abdomen/pelvis on arrival revealed: - Cardiomegaly and emphysema. - Highly suspicious 4 cm necrotic mass in the lingula; although a resolving infectious/inflammatory process could appear similar, a lung cancer is the diagnosis of exclusion - Dependent consolidation is seen at both lung bases. This could represent a nonspecific pneumonitis versus scarring/atelectasis. Correlate clinically. 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 (3) Dementia: Plan: Vascular dementia, with confusion Patient often refusing his medicines and refusing food (4) Lung mass: Plan: New 4 cm necrotic mass in the lingula, as noted above CXR ordered, pending Patient is a current everyday cigarette smoker Family does not want this worked up further at this time Leukocytosis at 18.30 with a neutrophil predominance; afebrile Received IV Zosyn for few days, Transitioned to ciprofloxacin and oral Flagyl and Palliative has been consulted, family accepted placement in skilled and if he further deteriorates he will transition to hospice (5) Diabetes mellitus with insulin therapy: Plan: Last A1c at 11.2% on 12/12/2021 Glucose 203 on admission Patient normally takes 8 units basal insulin at nighttime, however unclear regarding compliance Lantus 4u BID while inpatient SSI; with target BSG range 110-150mg/dL, CF 80, carb ratio 30 T2DM diet BSG ACHS Adjust regimen as needed AM A1c (6) Tobacco use: Plan: Current everyday tobacco cigarette smoker; 1 PPD Patient has been smoking since age 12yo Daily nicotine patch and removal Nicotine gum as needed (7) Benign prostatic hyperplasia: Plan: Continue finasteride, tamsulosin (8) Hyponatremia: Plan: Some improvement following IV fluids Patient received IVF in the ED Recheck a.m. BMP (9) Hyperparathyroidism: (10) Peripheral vascular disease: (11) Renal artery stenosis: (12) Carotid artery stenosis: (13) Aortoiliac occlusive disease: Plan Disposition: Awaiting placement DNR/DNI VTE PPx: scd Admission and Anticipated Discharge Date Admission Date: March 12, 2023 Subjective Patient seen and examined today, he is awake and alert but often confused, has been refusing his medications spitting them out Review of Systems Review of Systems: All systems reviewed are negative, apart from the ones contained in the history. Physical Exam Physical Exam: The patient is awake, alert occasionally confused HEENT--PERRL, EOMI, mucous membranes and oropharynx mildly dry Neck--supple. No JVD. No bruits. Thyroid normal, trachea midline, no adenopathy. Heart--normal S1 and S2. No murmurs, rubs or gallops. Lungs--clear bilaterally, no respiratory distress, no accessory muscle use. Abdomen--normal bowel sounds and soft. Extremities--no cyanosis or clubbing. No edema. Dermatologic--normal skin turgor, normal color, no abnormal lymph nodes, no rash. Neurologic--cranial nerves II through XII grossly intact. Rheumatologic--normal range of motion. Psychiatric--normal affect. Results & Data Results & Data Vital Signs (Past 12 Hours) Vital Signs Temp Pulse Pulse Resp BP BP Pulse Ox 03/15/23 07:33 97.9 F 87 18 88/58 L 88/57 L 94 03/15/23 07:17 90 03/15/23 03:14 97.7 F 89 18 108/54 L 95 03/15/23 00:38 79 03/14/23 23:26 97.5 F L 84 18 126/81 94 O2 Del Method 03/15/23 07:33 Room Air 03/15/23 07:17 03/15/23 03:14 Room Air 03/15/23 00:38 03/14/23 23:26 Room Air PG Care Time/CCT Total # of Minutes Spent Total Time Spent with Patient: Total time spent is greater than 50% in coordination of care (as documented) at patient's floor/unit and/or counseling patient: Coding Level of Care Code 14329 SUB INP/OBS CARE 2/35MIN Diagnoses Acute cecitis K52.9 Atherosclerosis I70.90 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 Dementia type: vascular dementia Dementia severity: severe Dementia behavioral or psychological symptom: with psychotic disturbance Lung mass R91.8 Diabetes mellitus with insulin therapy E11.9; Z79.4 Tobacco use Z72.0 Benign prostatic hyperplasia N40.0 Hyponatremia E87.1 Hyperparathyroidism E21.3 Peripheral vascular disease I73.9 Renal artery stenosis I70.1 Carotid artery stenosis I65.29 Aortoiliac occlusive disease I74.09 Time Spent (min) 35 (3) Dementia Dementia type: vascular dementia Dementia severity: severe Dementia behavioral or psychological symptom: with psychotic disturbance Qualified Code(s): F01.C2 - Vascular dementia, severe, with psychotic disturbance
[2023-03-15] MEDS: OLANZapine ZYDIS 5 MG ORALLY DIS. TAB PO SCH (20:09)
[2023-03-16] MEDS: OLANZAPINE 2.5 MG TAB PO ONE (04:03)
--- NOTE | 2023-03-16 10:11 | Hospitalist Progress Note ---
Date of Service March 16, 2023 Assessment & Plan (1) Acute cecitis: Plan: Patient presents to the hospital with abdominal pain CT abdomen showed evidence of cecitis Initially on Zosyn,, now transitioned to Cipro and Flagyl oral Patient feels much better (2) Atherosclerosis: Plan: Extensive; advanced Patient complaining of abdominal pain and generalized weakness to morning of 03/12 and is able to get out of bed Hx vascular dementia and extensive vascular stenosis/occlusions CT abdomen/pelvis on arrival revealed: - Cardiomegaly and emphysema. - Highly suspicious 4 cm necrotic mass in the lingula; although a resolving infectious/inflammatory process could appear similar, a lung cancer is the diagnosis of exclusion - Dependent consolidation is seen at both lung bases. This could represent a nonspecific pneumonitis versus scarring/atelectasis. Correlate clinically. 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, as well as the internal and external iliac arteries Patient would not like any form of surgery or intensive treatment Heparin was started initially but discontinued after discussion with the daughter and granddaughter regarding his risk of falls Will need to discuss long-term anticoagulation outpatient; however, family reports recurrent falls (patient uses a cane at baseline) PT/OT consulted Palliative care consulted Case management consulted General surgery consulted And CBC, BMP However in view of his age and frequent falls after discussing with daughter and granddaughter decision was made to discontinue the heparin. Patient is awaiting placement (3) Dementia: Plan: Vascular dementia, with confusion Patient often refusing his medicines and refusing food P.o. Zyprexa as needed for agitation (4) Lung mass: Plan: New 4 cm necrotic mass in the lingula, as noted above CXR ordered, pending Patient is a current everyday cigarette smoker Family does not want this worked up further at this time Leukocytosis at 18.30 with a neutrophil predominance; afebrile Received IV Zosyn for few days, Transitioned to ciprofloxacin and oral Flagyl and Palliative has been consulted, family accepted placement in skilled and if he further deteriorates he will transition to hospice (5) Diabetes mellitus with insulin therapy: Plan: Last A1c at 11.2% on 12/12/2021 Glucose 203 on admission Patient normally takes 8 units basal insulin at nighttime, however unclear regarding compliance Lantus 4u BID while inpatient SSI; with target BSG range 110-150mg/dL, CF 80, carb ratio 30 T2DM diet BSG ACHS Adjust regimen as needed AM A1c (6) Tobacco use: Plan: Current everyday tobacco cigarette smoker; 1 PPD Patient has been smoking since age 12yo Daily nicotine patch and removal Nicotine gum as needed (7) Benign prostatic hyperplasia: Plan: Continue finasteride, tamsulosin (8) Hyponatremia: Plan: Some improvement following IV fluids Patient received IVF in the ED Recheck a.m. BMP (9) Hyperparathyroidism: (10) Peripheral vascular disease: (11) Renal artery stenosis: (12) Carotid artery stenosis: (13) Aortoiliac occlusive disease: Plan Disposition: Awaiting placement DNR/DNI VTE PPx: scd Admission and Anticipated Discharge Date Admission Date: March 12, 2023 Subjective Patient seen and examined today, per RN, patient did not sleep well at night and had received a total of 10 mg of olanzapine Review of Systems Review of Systems: All systems reviewed are negative, apart from the ones contained in the history. Physical Exam Physical Exam: The patient is awake, alert occasionally confused HEENT--PERRL, EOMI, mucous membranes and oropharynx mildly dry Neck--supple. No JVD. No bruits. Thyroid normal, trachea midline, no adenopathy. Heart--normal S1 and S2. No murmurs, rubs or gallops. Lungs--clear bilaterally, no respiratory distress, no accessory muscle use. Abdomen--normal bowel sounds and soft. Extremities--no cyanosis or clubbing. No edema. Dermatologic--normal skin turgor, normal color, no abnormal lymph nodes, no rash. Neurologic--cranial nerves II through XII grossly intact. Rheumatologic--normal range of motion. Psychiatric--normal affect. Results & Data Results & Data Vital Signs (Past 12 Hours) Vital Signs Temp Pulse Pulse Resp BP BP Pulse Ox 03/16/23 08:05 98.2 F 82 18 132/86 94 03/16/23 07:02 83 03/16/23 02:21 97.5 F L 79 16 159/80 H 96 03/15/23 23:40 72 03/15/23 22:47 97.7 F 73 18 155/79 H 95 03/15/23 22:26 O2 Del Method 03/16/23 08:05 Room Air 03/16/23 07:02 03/16/23 02:21 Room Air 03/15/23 23:40 03/15/23 22:47 Room Air 03/15/23 22:26 Room Air PG Care Time/CCT Total # of Minutes Spent Total Time Spent with Patient: Total time spent is greater than 50% in coordination of care (as documented) at patient's floor/unit and/or counseling patient: Coding Level of Care Code 52862 SUB INP/OBS CARE 2MIN Diagnoses Acute cecitis K52.9 Atherosclerosis I70.90 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 Dementia type: vascular dementia Dementia severity: severe Dementia behavioral or psychological symptom: with psychotic disturbance Lung mass R91.8 Diabetes mellitus with insulin therapy E11.9; Z79.4 Tobacco use Z72.0 Benign prostatic hyperplasia N40.0 Hyponatremia E87.1 Hyperparathyroidism E21.3 Peripheral vascular disease I73.9 Renal artery stenosis I70.1 Carotid artery stenosis I65.29 Aortoiliac occlusive disease I74.09 (3) Dementia Dementia type: vascular dementia Dementia severity: severe Dementia behavioral or psychological symptom: with psychotic disturbance Qualified Code(s): F01.C2 - Vascular dementia, severe, with psychotic disturbance
[2023-03-16] MEDS: HEPARIN SOD 5,000 UNIT/0.5 ML VIAL SQ SCH (13:26)
[2023-03-16] MEDS: OLANZAPINE 2.5 MG TAB PO STA (20:57)
[2023-03-17 07:48] LABS: Creatinine Clr Calc Pharmacy 39.8 ml/min; Est GFR (African American) 92.3 ml/min; Est GFR (Non-African American) 79.7 ml/min
--- NOTE | 2023-03-17 08:24 | Hospitalist Progress Note ---
Date of Service March 17, 2023 Assessment & Plan (1) Acute cecitis: Plan: Patient presents to the hospital with abdominal pain CT abdomen showed evidence of cecitis Initially on Zosyn,, now transitioned to Cipro and Flagyl oral Patient feels much better some of the pain felt to be intentional angina (2) Atherosclerosis: Plan: Extensive; advanced Patient complaining of abdominal pain and generalized weakness to morning of 03/12 and is able to get out of bed Hx vascular dementia and extensive vascular stenosis/occlusions CT abdomen/pelvis on arrival revealed: - Cardiomegaly and emphysema. - Highly suspicious 4 cm necrotic mass in the lingula; although a resolving infectious/inflammatory process could appear similar, a lung cancer is the diagnosis of exclusion - Dependent consolidation is seen at both lung bases. This could represent a nonspecific pneumonitis versus scarring/atelectasis. Correlate clinically. 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 Zyprexa scheduled for agitation (4) Lung mass: Plan: New 4 cm necrotic mass in the lingula, as noted above Patient is a current everyday cigarette smoker Family does not want this worked up further at this time ciprofloxacin and oral Flagyl Palliative has been consulted, family accepted placement in skilled and if he further deteriorates he will transition to hospice (5) Diabetes mellitus with insulin therapy: Plan: Last A1c at 11.2% on 12/12/2021 Glucose 203 on admission Patient normally takes 8 units basal insulin at nighttime, however unclear regarding compliance Lantus 4u BID while inpatient [facility]; with target BSG range 110-150mg/dL, CF 80, carb ratio 30 T2DM diet BSG ACHS (6) Tobacco use: Plan: Current everyday tobacco cigarette smoker; 1 PPD Patient has been smoking since age 12yo Daily nicotine patch and removal Nicotine gum as needed (7) Benign prostatic hyperplasia: Plan: Continue finasteride, tamsulosin (8) Hyponatremia: (9) Hyperparathyroidism: (10) Renal artery stenosis: Plan Disposition: Awaiting placement DNR/DNI VTE PPx: scd Admission and Anticipated Discharge Date Admission Date: March 12, 2023 Subjective pt is without abdominal pain, eating sparsely family at bedside and updated Physical Exam Physical Exam: awake and alert abd is with hypoactive bowel sounds, soft and non tender Results & Data Results & Data Vital Signs (Past 12 Hours) Vital Signs Temp Pulse Pulse Resp BP BP Pulse Ox 03/17/23 07:55 03/17/23 07:04 75 03/17/23 02:14 97.5 F L 86 18 144/76 H 96 03/17/23 01:09 91 H 03/16/23 22:32 03/16/23 22:20 97.7 F 89 18 172/97 H 97 03/16/23 20:46 97.9 F 94 H 18 185/77 H 94 O2 Del Method 03/17/23 07:55 Room Air 03/17/23 07:04 03/17/23 02:14 Room Air 03/17/23 01:09 03/16/23 22:32 Room Air 03/16/23 22:20 Room Air 03/16/23 20:46 Room Air Laboratory Results reviewed Cr reviewed poc glucose PG Care Time/CCT Total # of Minutes Spent Total Time Spent with Patient: Total time spent is greater than 50% in coordination of care (as documented) at patient's floor/unit and/or counseling patient: Coding Level of Care Code 84755 SUB INP/OBS CARE 2/35MIN Diagnoses Acute cecitis K52.9 Atherosclerosis I70.90 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
--- NOTE | 2023-03-17 09:53 | Communication Note ---
Date of Service: March 17, 2023 Palliative Med Brief Note Pall Med consulted for goals of care/ACP Family meeting held last week, SNF Comfort DC plan delineated low dose Zyprexa added for dementia related agitation relief, pt tolerating well. No further acute IP Pall med needs. I will sign off. Pt awaiting dc to his SNF/care mgt coordinating Pt not seen and NO charge submitted Thank you for allowing us to participate in the ongoing care of this patient. Please don't hesitate to call or page with any additional concerns. Dr. Klaudia Chew DNP Director, Palliative Care
[2023-03-17] MEDS: OLANZapine ZYDIS 5 MG ORALLY DIS. TAB PO ONE (13:27)
[2023-03-17] MEDS: OLANZapine ZYDIS 5 MG ORALLY DIS. TAB PO SCH (20:12)
[2023-03-18] MEDS: OLANZapine ZYDIS 5 MG ORALLY DIS. TAB PO SCH (08:15)
--- NOTE | 2023-03-18 18:41 | Hospitalist Progress Note ---
Date of Service March 18, 2023 Assessment & Plan (1) Acute cecitis: Plan: Patient presents to the hospital with abdominal pain CT abdomen showed evidence of cecitis vascular studies show signs of stenosis to vascular supply of Initially on Zosyn,, now transitioned to Cipro and Flagyl oral Patient feels much better persist without complaints at this time some of the pain felt to be intentional angina (2) Atherosclerosis: Plan: Extensive; advanced Patient complaining of abdominal pain and generalized weakness to morning of 03/12 and is able to get out of bed Hx vascular dementia and extensive vascular stenosis/occlusions CT abdomen/pelvis on arrival revealed: - Cardiomegaly and emphysema. - Highly suspicious 4 cm necrotic mass in the lingula; although a resolving infectious/inflammatory process could appear similar, a lung cancer is the diagnosis of exclusion - Dependent consolidation is seen at both lung bases. This could represent a nonspecific pneumonitis versus scarring/atelectasis. Correlate clinically. 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 Zyprexa scheduled for agitation at bedtime will have a.m. dose as needed (4) Lung mass: Plan: New 4 cm necrotic mass in the lingula, as noted above Patient is a current everyday cigarette smoker Family does not want this worked up further at this time ciprofloxacin and oral Flagyl Palliative has been consulted, family accepted placement in skilled and if he further deteriorates he will transition to hospice (5) Diabetes mellitus with insulin therapy: Plan: Last A1c at 11.2% on 12/12/2021 Glucose 203 on admission Patient normally takes 8 units basal insulin at nighttime, however unclear regarding compliance Lantus 4u BID while inpatient [facility]; with target BSG range 110-150mg/dL, CF 80, carb ratio 30 T2DM diet BSG ACHS (6) Tobacco use: Plan: Current everyday tobacco cigarette smoker; 1 PPD Patient has been smoking since age 12yo Daily nicotine patch and removal Nicotine gum as needed (7) Benign prostatic hyperplasia: Plan: Continues without lower urinary tract symptoms finasteride, tamsulosin (8) Hyponatremia: Plan: Resolved (9) Hyperparathyroidism: (10) Renal artery stenosis: Plan Disposition: Awaiting placement DNR/DNI VTE PPx: scd Admission and Anticipated Discharge Date Admission Date: March 12, 2023 Subjective Patient is slightly oversedated likely from the effects of Zyprexa. Will reduce or eliminate the a.m. dose but continue the p.m. dose. A.m. dose with me as needed. 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 Results & Data Results & Data Vital Signs (Past 12 Hours) Vital Signs Temp Pulse Pulse Resp BP Pulse Ox O2 Del Method 03/18/23 15:28 93 H 03/18/23 11:09 97.5 F L 88 16 128/61 100 Room Air 03/18/23 07:50 Room Air 03/18/23 07:41 84 03/18/23 07:17 87 16 96/60 L 93 Room Air Laboratory Results Reviewed [id number] glucose PG Care Time/CCT Total # of Minutes Spent Total Time Spent with Patient: Total time spent is greater than 50% in coordination of care (as documented) at patient's floor/unit and/or counseling patient: Coding Level of Care Code 77927 SUB INP/OBS CARE 2/35MIN Diagnoses Acute cecitis K52.9 Atherosclerosis I70.90 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
[2023-03-19 08:48] LABS: Hematocrit (blood only) 41.4 % (42.0-52.0); Hemoglobin 14.1 g/dl (14.0-18.0); Mean Corpuscular Hemoglobin 32.1 pg (25.0-34.0); Mean Corpuscular Hgb Conc 34.1 g/dL (32.0-36.0); Mean Corpuscular Volume 94.3 fL (80.0-100.0); Mean Platelet Volume 9.2 fL (9.4-12.4); Platelet Count 363 K/uL (130-400); RDW Coefficient of Variation 13.8 % (11.5-14.5); RDW Standard Deviation 47.8 fL (36.4-46.3); Red Blood Count 4.39 M/uL (4.70-6.10); White Blood Count 9.95 K/ul (4.8-10.8)
[2023-03-19 09:04] LABS: BUN Creatinine Ratio 24.1 (10-20); Creatinine Clr Calc Pharmacy 28.6 ml/min; Est GFR (African American) 68.6 ml/min; Est GFR (Non-African American) 59.2 ml/min; Magnesium 1.5 mg/dl (1.7-2.4); Potassium 4.3 mmol/L (3.5-5.1)
--- NOTE | 2023-03-19 17:02 | Hospitalist Progress Note ---
Date of Service March 19, 2023 Assessment & Plan (1) Acute cecitis: Plan: Patient presents to the hospital with abdominal pain, found to have sma stenosis CT abdomen showed evidence of cecitis vascular studies show signs of stenosis to vascular supply of Initially on Zosyn,, now transitioned to Cipro and Flagyl oral completed course Patient feels much better persist without complaints at this time some of the pain felt to be intentional angina (2) Atherosclerosis: Plan: Extensive; advanced Patient complaining of abdominal pain and generalized weakness to morning of 03/12 and is able to get out of bed Hx vascular dementia and extensive vascular stenosis/occlusions CT abdomen/pelvis on arrival revealed: - Cardiomegaly and emphysema. - Highly suspicious 4 cm necrotic mass in the lingula; although a resolving infectious/inflammatory process could appear similar, a lung cancer is the diagnosis of exclusion - Dependent consolidation is seen at both lung bases. This could represent a nonspecific pneumonitis versus scarring/atelectasis. Correlate clinically. 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, as well as the internal and external iliac arteries Patient would not like any form of surgery or intensive treatment Heparin was started initially but discontinued after discussion with the daughter and granddaughter regarding his risk of falls PT/OT consulted-> snf for subacute rehab (3) Dementia: Plan: Vascular dementia, with confusion at times Patient often refusing his medicines and refusing food P.o. Zyprexa scheduled for agitation at bedtime will have a.m. dose as needed (4) Lung mass: Plan: New 4 cm necrotic mass in the lingula, as noted above Patient is a current everyday cigarette smoker Family does not want this worked up further at this time ciprofloxacin and oral Flagyl completed Palliative has been consulted, family accepted placement in skilled and if he further deteriorates he will transition to hospice (5) Diabetes mellitus with insulin therapy: Plan: Last A1c at 11.2% on 12/12/2021 Glucose 203 on admission Patient normally takes 8 units basal insulin at nighttime, however unclear regarding compliance Lantus 4u BID while inpatient [facility]; with target BSG range 110-150mg/dL, CF 80, carb ratio 30 T2DM diet BSG ACHS (6) Tobacco use: Plan: Current everyday tobacco cigarette smoker; 1 PPD Patient has been smoking since age 12yo Daily nicotine patch and removal Nicotine gum as needed (7) Benign prostatic hyperplasia: Plan: Continues without lower urinary tract symptoms finasteride, tamsulosin (8) Hyponatremia: Plan: Resolved (9) Hyperparathyroidism: (10) Renal artery stenosis: Plan Disposition: Awaiting placement DNR/DNI VTE PPx: scd Admission and Anticipated Discharge Date Admission Date: March 12, 2023 Subjective Patient is slightly oversedated likely from the effects of Zyprexa. however will awaken and use the f word at tomes did reduce the a.m. dose but continue the p.m. dose. continues with prn doses. 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 Results & Data Results & Data Vital Signs (Past 12 Hours) Vital Signs Temp Pulse Pulse Resp BP BP Pulse Ox 03/19/23 16:03 95 H 03/19/23 14:47 97.9 F 93 H 18 136/89 96 03/19/23 11:39 90 17 100/64 97 03/19/23 09:24 93 H 03/19/23 07:28 O2 Del Method 03/19/23 16:03 03/19/23 14:47 Room Air 03/19/23 11:39 Room Air 03/19/23 09:24 03/19/23 07:28 Room Air PG Care Time/CCT Total # of Minutes Spent Total Time Spent with Patient: Total time spent is greater than 50% in coordination of care (as documented) at patient's floor/unit and/or counseling patient: Coding Level of Care Code 56949 SUB INP/OBS CARE 2/35MIN Diagnoses Acute cecitis K52.9 Atherosclerosis I70.90 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
[2023-03-20] MEDS: MAGNESIUM SULFATE / D5W 1 GM/100 ML BAG IV ONE (10:17)
--- NOTE | 2023-03-20 12:53 | Discharge Summary ---
Date of Service March 20, 2023 Admission HPI Per Admitting Provider Joey is an 87-year-old male with PMH of hyperlipidemia, HTN, PVD, hyperparathyroidism, diabetes, CKD, BPH, hearing loss, arteriosclerosis of coronary artery, renal artery stenosis, carotid artery stenosis, and vascular dementia. He presented via EMS for abdominal pain and generalized weakness the morning of 03/12. Patient is a poor historian at baseline due to his underlying vascular dementia. Patient's daughter/POA and granddaughter are at the bedside and provides most of the history. They report that the patient could not sit up in bed this morning, and was complaining of generalized abdominal pain (mainly below the ribs). Patient lives with his and daughter. They report that he has not been compliant with his current medications. He did not take medicine this morning, which includes insulin for his diabetes (patient normally takes 8u basal insulin at night, and 3u NovoLog after meals). He has not been taking his atorvastatin for high cholesterol. The only medications he takes consistently include lactulose and MiraLAX. Patient's granddaughter (who is a nurse) helps manage his pillboxes. The daughter has been working with the office of aging, and has expressed the need for additional home health or placement. Patient reports he is asymptomatic upon arrival, however granddaughter reports that he had some SOB over the weekend, as well as dry coughing and sneezing on Thursday 03/09. Patient is a current everyday tobacco cigarette smoker; 1 PPD. Patient is hypertensive at 149/61 at time of admission; vitals otherwise stable. ED course: Zosyn 4.5 g IV NSS 500 mL IV Unable to obtain ROS given patient's underlying dementia. He denies all symptoms at this time. Extensive conversation took place with the patient's daughter/POA, as well as the patient's granddaughter, regarding goals of care. It was confirmed that the patient would not want extensive measures done, such as surgery or ICU admission if needed. They believe he would not want the lung mass that was found on CT imaging to be worked up further. DNR/DNI. The family was open to discussions with palliative care. They would also like additional help to determine home health versus [facility] facility upon discharge. Principal Diagnosis acute cecitis Discharge Exam Pleasant quite a quite a character easily to see clubbing of his fingers cardiac exam is distant regular with a systolic murmur lungs have poor air movement consistent with likely some COPD Abdomen is NABS and soft there are no bruits heard although has confirmed SMA stenosis as seen on imaging Discharge Data Allergies Allergy/AdvReac Type Severity Reaction Status Date / Time pollen extracts Allergy Intermediate coughing/sn Verified 10/24/22 16:05 eezing doxycycline AdvReac Unknown CAN'T Verified 10/24/22 16:05 REMEMBER Consultations 03/12/23 12:15 Consult General Surgery Routine 03/12/23 13:07 Consult Palliative Care Routine Ordered Studies 03/12/23 09:13 CT abd pelvis IV con only Stat Hospital Course (1) Acute cecitis: Patient presents to the hospital with abdominal pain, found to have sma stenosis CT abdomen showed evidence of cecitis vascular studies show signs of stenosis to vascular supply of Initially on Zosyn,, now transitioned to Cipro and Flagyl oral completed course Patient feels much better persist without complaints at this time some of the pain felt to be intentional angina (2) Atherosclerosis: Extensive; advanced Patient complaining of abdominal pain and generalized weakness to morning of 03/12 and is able to get out of bed Hx vascular dementia and extensive vascular stenosis/occlusions CT abdomen/pelvis on arrival revealed: - Cardiomegaly and emphysema. - Highly suspicious 4 cm necrotic mass in the lingula; although a resolving infectious/inflammatory process could appear similar, a lung cancer is the diagnosis of exclusion - Dependent consolidation is seen at both lung bases. This could represent a nonspecific pneumonitis versus scarring/atelectasis. Correlate clinically. 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 (3) Dementia: Vascular dementia, with confusion at times Patient often refusing his medicines and refusing food P.o. Zyprexa scheduled for agitation at bedtime (4) Lung mass: New 4 cm necrotic mass in the lingula, as noted above Patient is a current everyday cigarette smoker Family does not want this worked up further at this time ciprofloxacin and oral Flagyl completed Palliative has been consulted, family accepted placement in skilled and if he further deteriorates he will transition to hospice (5) Diabetes mellitus with insulin therapy: Last A1c at 11.2% on 12/12/2021 Glucose 203 on admission Patient normally takes 8 units basal insulin at nighttime, however unclear regarding compliance Lantus 4u BID while inpatient (6) Tobacco use: Current everyday tobacco cigarette smoker; 1 PPD Patient has been smoking since age 12yo Daily nicotine patch and removal (7) Benign prostatic hyperplasia: Continues without lower urinary tract symptoms finasteride, tamsulosin (8) Hyponatremia: Resolved (9) Hyperparathyroidism: (10) Renal artery stenosis: Total Time Total Time Spent Total Time Spent (In Minutes): 32 Discharge Plan Discharge Items Patient Disposition: Transfer Jail Fac Reason For Visit: ABDOMINAL PAIN Discharge Diagnosis: abdominal pain. Activity: Resume your previous activity Non-emergency contact: Primary Care Provider Call non-emergency contact if: you have any medication questions Follow-up/Referrals: Vanessa Schwab MD [Primary Care Provider] - Diet: Carb Consistent or DM2 and Vegetarian (Lacto-Ovo) Diet Texture: Easy to Chew Addtl Attending Provider Instructions: You will be discharged to a [facility] facility. You completed antibiotic therapy while you were here. Plans to transition to hospice if you further deteriorate. Pending Studies at Discharge: No Stand-Alone Forms: [facility] Skilled Items Patient informed of condition?: Yes DNR: No Discharge Level of Care: Skilled Communicable Disease: No Discharge Prognosis: Stable Lines: None Urinary Catheter: No Medications and DC Order Prescriptions: New trolamine salicylate [Myoflex] 10 % Cream 1 applic EXT QID PRN (Reason: muscle pain) Qty: 35.4 0RF olanzapine 5 mg tablet 5 mg PO HS Qty: 30 0RF Continued cetirizine 10 mg tablet 10 mg PO DAILY atorvastatin 40 mg tablet 40 mg PO DAILY Qty: 90 3RF finasteride 5 mg tablet 5 mg PO DAILY Qty: 90 3RF tamsulosin 0.4 mg capsule 0.4 mg PO HS Qty: 90 3RF (DME) FreeStyle Eli 2 Nixon Misc See Rx Instructions .Route Qty: 1 0RF Rx Instructions: As directed (DME) FreeStyle Eli 2 Sensor Kit See Rx Instructions .Route Qty: 2 5RF Rx Instructions: As directed (DME) pen needle, diabetic [Lite Touch Insulin Pen [place]] 31 gauge x 5/16" needle See Dose Instructions .ROUTE .MEDSUPPLY Qty: 200 3RF Rx Instructions: Use to inject insulin 2 times a day or As directed insulin aspart U-100 [Novolog FlexPen U-100 Insulin] 100 unit/mL (3 mL) insulin pen 3 unit subcut TID 90 Days Qty: 8.1 3RF Rx Instructions: with meals docusate sodium [Colace] 100 mg capsule 100 mg PO DAILY Qty: 90 3RF lactulose 10 gram/15 mL solution See Rx Instructions .ROUTE .COMPLEX Qty: 946 1RF Dose Instruction: TAKE 1 TO 2 TABLESPOONSFUL BY MOUTH 2 TIMES A DAY NEEDED CONSTIPATION Rx Instructions: TAKE 1 TO 2 TABLESPOONSFUL BY MOUTH 2 TIMES A DAY NEEDED CONSTIPATION aspirin 81 mg Tablet,Delayed Release (Dr/Ec) 81 mg PO HS nitroglycerin 0.4 mg tablet, sublingual 0.4 mg sublingual DIRECTED PRN (Reason: Chest Pain) Patient Comments: Place 1 tablet under the tongue every 5 minutes up to 3 doses as needed for chest pain ; Rx Instructions: Place 1 tablet under the tongue every 5 minutes up to 3 doses as needed for chest pain ; insulin glargine [Basaglar KwikPen U-100 Insulin] 100 unit/mL (3 mL) insulin pen 8 unit subcut HS (DME) blood-glucose meter [OneTouch Verio Flex meter] Misc See Rx Instructions .Route Qty: 1 0RF Rx Instructions: Check blood sugar three times daily (DME) lancets [OneTouch Delica Lancets] 33 gauge misc See Rx Instructions .Route Qty: 100 0RF Rx Instructions: As directed to check blood sugar three times daily (DME) OneTouch Verio test strips Strip See Rx Instructions .ROUTE .MEDSUPPLY Qty: 100 2RF Rx Instructions: Test 2 times a day polyethylene glycol 3350 [Miralax] 17 gram/dose powder 17 g PO BID PRN (Reason: constipation) Rx Instructions: 17 grams orally one or two times daily PRN; Discharge Orders: Discharge Order (Routine); Ordered 03/20/23 Ordered By: Chidi Mathew/Other Patient Handouts: Managing Type 2 Diabetes Admission Data Admit Date/Time: 03/12/23 13:18 Attending Provider: Chidi Brown Admit Provider: Jorge Naidu Primary Care Provider: Vanessa Schwab Other Providers: Rm Khalil; Klaudia Chew; [place],[facility]; [place] Other Interventions: Discharge Summary Assessment (RN) Last Done: 03/20/23 12:29 Coding Level of Care Code 07518 INP/OBS DISCH >30 MIN Diagnoses Acute cecitis K52.9 Atherosclerosis I70.90 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
--- NOTE | 2023-03-25 07:50 | Coding Query ---
CODING QUERY To promote full compliance with coding requirements relating to patient care, provider participation is requested in all cases of reservation manager uncertainty. Please assist us with the question(s) below: Coding Question(s): Pt admitted with cecitis. CT abdomen : 4 mm necrotic mass in lung. Lung cancer dx of exclusion. Family did not wish further workup. Consolidatoin in both lung bases . 2/3 progress note stated consolidation could represent pnumonitis vs atelectasis /scarring. Antibiotics were started. Seeking to determine if Pneumonia was diagnosed/treated during this Inpatient stay. Please check below the phrase that describes the pneumonia. Thanks for your help! Luis Casanova MEDICAL SCIENTIFIC OFFICER [facility] Physician's Response(s): Pneumonia was treated , POA ___x Pneumonia was not treated Other: Please document: Principal Diagnosis: "that condition established after study, to be chiefly responsible for occasioning the admission of the patient to the hospital for care." Co-Existing Principal Diagnosis: "when two or more diagnoses equally meet the criteria for principal diagnosis as determined by the circumstances of admission, diagnostic work up, and/or therapy provided, and the Alphabetic Index, Tabular List, or another coding guideline does not provide sequencing direction, any one of the diagnoses may be sequenced first." "When the physician has documented what appears to be a current diagnosis in the body of the record, but has not included the diagnosis in the final diagnostic statement, the physician should be asked whether the diagnosis should be added." (Source Coding Clinic 2 QTR90. p3-4) MEAGAN
== END 2023-03-20 13:18 | DRG 392 ==
LOC: ED 08:57 → 2W 13:18 → SUATTDRO 13:18 → 2W 14:33